=== PATIENT | female | born 1935 | race Caucasian/White ===

== ENCOUNTER 2017-03-28 14:38 | Inpatient (IN) | payer MEDICARE, OTHER ==
[2017-03-28] MEDS ORDERED: ACETAMINOPHEN 1000 MG/100 ML VIAL (NON FORMULARY) IVPB ONE (14:50)
--- NOTE | 2017-03-28 14:50 | PDOC ---
History of Present Illness - General Chief Complaint: Injury Stated Complaint: HIP PAIN Time Seen by Provider: 03/28/17 14:42 History Source: Patient, Skilled Nursing Records Exam Limitations: Dementia - History of Present Illness Initial Comments: 03/28/17 14:50 CHIEF COMPLAINT: Fall HISTORY OF PRESENT ILLNESS: This is an 81 year old female with a history of hyperthyroidism, NIDDM, HTN, iron-deficiency anemia, and advanced dementia brought in by ambulance after an unwitnessed fall. The patient is unable to provide a complete history secondary to dementia, but does state that she fell last night. It is unclear whether this was a mechanical fall. When asked where she has pain, she points to her right hip and is also holding her right elbow in flexion. Vital signs on arrival are notable for BP 180/91 and P 94. REVIEW OF SYSTEMS: Limited by dementia. Indicates right hip pain. PHYSICAL EXAM: GENERAL: The patient is awake, alert, oriented x 1, and whimpering in pain. HEAD: Normal with no signs of trauma. ENT: Pupils equal, round and reactive to light, extraocular movements intact, sclera anicteric, conjunctiva clear. Neck supple. LUNGS: Clear to auscultation bilaterally. Normal excursion. No respiratory distress or use of accessory muscles. CV: RRR, S1/S2, no MRG. Cap refill < 2 sec. ABDOMEN: Soft, non-distended, non-tender. EXTREMITIES: Right hip shortened and externally rotated. Bilateral hip tenderness. Right elbow skin tear; tender at right distal radius, elbow, and humerus. NEUROLOGICAL: Normal speech. CN II-XII grossly intact. PSYCH: Normal mood, normal affect. SKIN: Warm, dry, normal turgor, no rashes or lesions noted. Past History - Past Medical History Allergies/Adverse Reactions: Allergies Allergy/AdvReac Type Severity Reaction Status Date / Time No Known Allergies Allergy Verified 03/28/17 15:10 Home Medications: Ambulatory Orders Acetaminophen [Tylenol] 650 mg PO BID 03/28/17 Enalapril Maleate [Vasotec] 20 mg PO DAILY 03/28/17 Multivitamins [Tab-A-Vit -] 1 tab PO DAILY 03/28/17 RX: Chlorthalidone 25 mg PO DAILY 03/28/17 RX: Ferrous Sulfate 325 mg PO DAILY 03/28/17 RX: Metformin HCl 850 mg PO BID 03/28/17 RX: Methimazole 5 mg PO DAILY 03/28/17 Rivastigmine Tartrate [Exelon (Nf) -] 3 mg PO BID 03/28/17 Tramadol HCl/Acetaminophen [Ultracet Tablet] 1 each PO PRN PRN 03/28/17 ED Treatment Course - LABORATORY CBC & Chemistry Diagram: 03/28/17 15:00 03/28/17 16:30 - RADIOLOGY Radiology Studies Ordered: Category Date Time Status HEAD CT WITH CONTRAST [CT] Stat CT Scan 03/28/17 14:49 Ordered HIP & PELVIS-LEFT [RAD] Stat Radiology 03/28/17 14:49 Ordered HIP & PELVIS-RIGHT [RAD] Stat Radiology 03/28/17 14:49 Ordered Medical Decision Making - Medical Decision Making 03/28/17 15:57 A/P: 81 year old female with advanced dementia s/p unwitnessed fall. 1. EKG 2. Cardiac labs and UA/culture 3. Xray: bilateral hips, right wrist, right elbow, right humerus 4. Ofirmev 1000mg IVPB for pain 03/28/17 16:28 UA with 3+ leukesterase and positive nitrites 03/28/17 18:13 CTH: Multiple chronic infarcts. No acute pathology.
[2017-03-28 15:16] LABS: BASOPHIL 0.3 % (0-2.0); EOSINOPHIL 0.3 % (0-4.5); MCH 30.9 pg (25.7-33.7); MEAN CELL VOLUME 93.7 fl (80-96); PLATELET COUNT 281 K/MM3 (134-434); RDW 12.8 % (11.6-15.6); WHITE BLOOD COUNT 11.2 K/mm3 (4.0-10.0)
[2017-03-28 16:09] LABS: URINE APPEARANCE TURBID; URINE BILIRUBIN NEGATIVE (NEGATIVE); URINE COLOR YELLOW; URINE GLUCOSE (UA) 3+ (NEGATIVE); URINE KETONE TRACE (NEGATIVE); URINE NITRITE POSITIVE (NEGATIVE); URINE UROBILINOGEN NEGATIVE mg/dL (0.2-1.0)
[2017-03-28 16:19] LABS: URINE BLOOD 1+ (NEGATIVE); URINE LEUK ESTERASE 3+ (NEGATIVE); URINE PROTEIN 1+ (NEGATIVE)
[2017-03-28] MEDS ORDERED: CEFTRIAXONE 1 GM in DEXTROSE 5%-WATER - 50 ML IVPB ONE (16:28)
[2017-03-28 16:32] LABS: URINE HYALINE CAST 23 /lpf; URINE RBC 20 /hpf (0-3); URINE WBC 3236 /hpf (3-5); YEAST MODERATE
[2017-03-28] MEDS ORDERED: CEFTRIAXONE 50 ML ONE (16:33)
[2017-03-28 17:06] LABS: INR 1.11 (0.82-1.09); PROTHROMBIN TIME (PATIENT) 12.2 SEC (9.98-11.88)
[2017-03-28 17:15] LABS: ALBUMIN 3.5 g/dl (3.4-5.0); ANION GAP 14 (8-16); BILIRUBIN,TOTAL 0.4 mg/dL (0.2-1.0); CALCIUM 9.3 mg/dL (8.5-10.1); CO2 25 mmol/L (21-32); GLUCOSE,RANDOM 277 mg/dL (74-106); SGOT/AST 18 U/L (15-37); SGPT/ALT 20 U/L (12-78); TOT PROT 7.4 g/dl (6.4-8.2)
[2017-03-28 17:18] LABS: ALK PHOS 71 U/L (45-117); TROPONIN I < 0.02 ng/ml (0.00-0.05)
--- NOTE | 2017-03-28 19:26 | PDOC ---
*Physical Exam - Vital Signs Last Vital Signs Temp Pulse Resp BP Pulse Ox 97.9 F 94 H 18 180/101 100 03/28/17 15:15 03/28/17 15:15 03/28/17 15:15 03/28/17 15:15 03/28/17 15:15 - Physical Exam Comments: 03/28/17 19:21 Sign-out received from outgoing ER provider Kitty. Pt interviewed and examined. Ancillary studies reviewed. Will admit pending imaging. 03/28/17 20:40 X-ray results: probable R femoral neck fracture, additional imaging suggested. Imaging of RUE negative. Pelvic CT ordered. -Will admit for ortho consult in AM and IV abx for UTI. Patient's PCP is Dr. Kent, [facility]. 03/28/17 22:00 Discussed case with MD Pond who accepts patient for inpatient admission. ED Treatment Course - LABORATORY CBC & Chemistry Diagram: 03/28/17 15:00 03/28/17 16:30 - ADDITIONAL ORDERS Additional order review: Laboratory Results 03/28/17 03/28/17 03/28/17 16:30 16:06 15:56 INR 1.11 Sodium 134 L Potassium 3.6 Chloride 95 L Carbon Dioxide 25 Anion Gap 14 BUN 18 Creatinine 1.0 Creat Clearance w eGFR 53.21 Random Glucose 277 H Calcium 9.3 Total Bilirubin 0.4 AST 18 ALT 20 Alkaline Phosphatase 71 Creatine Kinase 104 Troponin I < 0.02 Total Protein 7.4 Albumin 3.5 Urine Color Urine Appearance Urine pH Ur Specific [place] Urine Protein Urine Glucose (UA) Urine Ketones Urine Blood Urine Nitrite Urine Bilirubin Urine Urobilinogen Ur Leukocyte Esterase Urine RBC Urine WBC Hyaline Casts Urine Yeast Blood Type O POSITIVE Antibody Screen Negative 03/28/17 03/28/17 03/28/17 15:56 15:00 15:00 INR Cancelled Sodium Cancelled Potassium Cancelled Chloride Cancelled Carbon Dioxide Cancelled Anion Gap Cancelled BUN Cancelled Creatinine Cancelled Creat Clearance w eGFR Cancelled Random Glucose Cancelled Calcium Cancelled Total Bilirubin Cancelled AST Cancelled ALT Cancelled Alkaline Phosphatase Cancelled Creatine Kinase Cancelled Troponin I Cancelled Total Protein Cancelled Albumin Cancelled Urine Color Yellow Urine Appearance Turbid Urine pH 6.0 Ur Specific [place] 1.020 Urine Protein 1+ H Urine Glucose (UA) 3+ H Urine Ketones Trace H Urine Blood 1+ H Urine Nitrite Positive Urine Bilirubin Negative Urine Urobilinogen Negative Ur Leukocyte Esterase 3+ H Urine RBC 20 Urine WBC 3236 Hyaline Casts 23 Urine Yeast Moderate Blood Type Antibody Screen 03/28/17 15:00 RBC 4.24 MCV 93.7 MCHC 33.0 RDW 12.8 MPV 11.0 Neutrophils % 77.0 Lymphocytes % 13.8 Monocytes % 8.6 Eosinophils % 0.3 Basophils % 0.3 - Medications Given in the ED: ED Medications Discontinued Medications Generic Name Dose Route Start Last Admin Trade Name Jonatan PRN Reason Stop Dose Admin Acetaminophen 1,000 mg 03/28/17 14:50 03/28/17 15:21 Ofirmev Injection - IVPB 03/28/17 14:51 1,000 mg ONCE ONE Administration Ceftriaxone Sodium 1 gm/ 50 mls @ 100 mls/hr 03/28/17 16:28 03/28/17 16:33 Dextrose IVPB 03/28/17 16:57 100 mls/hr ONCE ONE Administration *DC/Admit/Observation/Transfer Diagnosis at time of Disposition: Hip fracture Qualifiers: Encounter type: initial encounter Fracture type: closed Laterality: right Qualified Code(s): S72.001A - Fracture of unspecified part of neck of right femur, initial encounter for closed fracture UTI (urinary tract infection) Qualifiers: Urinary tract infection type: site unspecified Hematuria presence: without hematuria Qualified Code(s): N39.0 - Urinary tract infection, site not specified - Discharge Dispostion Admit: Yes - Referrals Referrals: Maco Kent [Primary Care Provider] -
[2017-03-29 04:18] VITALS: BMI 20.2
[2017-03-29] MEDS ORDERED: PT OWN MED DRAWER 7, Y5N ONE (09:24)
[2017-03-29] MEDS: ACETAMINOPHEN 325 MG TABLET (FP) PO PRN ×2 (09:55→21:20)
[2017-03-29] MEDS: METHIMAZOLE 5 MG TABLET (FP) PO SCH (09:55)
[2017-03-29] MEDS: RIVASTIGMINE TARTRATE 1.5 MG CAPSULE PO SCH ×2 (09:55→21:21)
[2017-03-29] MEDS: ENALAPRIL MALEATE 10 MG TABLET (FP) PO SCH (09:55)
[2017-03-29] MEDS ORDERED: CEFTRIAXONE 1 GM in DEXTROSE 5%-WATER - 100 ML IVPB SCH (10:00)
[2017-03-29] MEDS ORDERED: cefTRIAXone 1 GM/50 ML BAG (PRE-DOCKED) IVPB SCH (10:00)
[2017-03-29] MEDS: SODIUM CHLORIDE 1,000 ML IV SCH ×2 (10:15→22:43)
--- NOTE | 2017-03-29 14:44 | CONSULT ---
Consult Consult Specialty:: infectious diseases Reason for Consultation:: uti - History of Present Illness Chief Complaint: fall History of Present Illness: This is an 81 year old female with a history of hyperthyroidism, NIDDM, HTN, iron-deficiency anemia, admitted after an unwitnessed fall. The patient is unable to provide a complete history secondary to dementia, but does state that she fell last night. Her daughter is in the room but she does not know the sequence of events that happened she says she got 2 calls and the second call said that patient fell in the bathroom currently patient is awake and alert with daughter in the room patient has acute rt hip fracture - History Source History Provided By: Family Member Limitations to Obtaining History: Poor Historian - Alcohol/Substance Use Hx Alcohol Use: No - Smoking History Smoking history: Never smoked Home Medications - Allergies Allergies/Adverse Reactions: Allergies Allergy/AdvReac Type Severity Reaction Status Date / Time No Known Allergies Allergy Verified 03/28/17 15:10 - Home Medications Home Medications: Ambulatory Orders Acetaminophen [Tylenol] 650 mg PO BID 03/28/17 Chlorthalidone 25 mg PO DAILY 03/28/17 Enalapril Maleate [Vasotec] 20 mg PO DAILY 03/28/17 Ferrous Sulfate 325 mg PO DAILY 03/28/17 Metformin HCl 850 mg PO BID 03/28/17 Methimazole 5 mg PO DAILY 03/28/17 Multivitamins [Tab-A-Vit -] 1 tab PO DAILY 03/28/17 Rivastigmine Tartrate [Exelon (Nf) -] 3 mg PO BID 03/28/17 Tramadol HCl/Acetaminophen [Ultracet Tablet] 1 each PO PRN PRN 03/28/17 Review of Systems - Review of Systems Constitutional: reports: No Symptoms Eyes: reports: No Symptoms HENT: reports: No Symptoms Neck: reports: No Symptoms Cardiovascular: reports: No Symptoms Respiratory: reports: No Symptoms Gastrointestinal: reports: No Symptoms Genitourinary: reports: No Symptoms Musculoskeletal: reports: Joint Pain Integumentary: reports: No Symptoms Neurological: reports: No Symptoms Endocrine: reports: No Symptoms Hematology/Lymphatic: reports: No Symptoms Psychiatric: reports: No Symptoms Physical Exam Vital Signs: Vital Signs Temperature 98.2 F 03/29/17 14:00 Pulse Rate 93 H 03/29/17 14:00 Respiratory Rate 20 03/29/17 14:00 Blood Pressure 151/77 03/29/17 14:00 O2 Sat by Pulse Oximetry (%) 96 03/29/17 01:45 Constitutional: Yes: No Distress, Calm Neck: Yes: Supple, Trachea Midline Cardiovascular: Yes: Regular Rate and Rhythm Respiratory: Yes: Regular, CTA Bilaterally Gastrointestinal: Yes: Normal Bowel Sounds, Soft Musculoskeletal: Yes: Other Extremities: Yes: Other (rt hip fracture) Neurological: Yes: Alert Psychiatric: Yes: Alert Imaging - Results Chest X-ray: Report Reviewed, Image Reviewed X-ray: Report Reviewed, Image Reviewed Assessment/Plan Problem List - Problems (1) Hip fracture Code(s): S72.009A - FRACTURE OF UNSP PART OF NECK OF UNSP FEMUR, INIT Qualifiers: Encounter type: initial encounter Fracture type: closed Laterality : right Qualified Code(s): S72.001A - Fracture of unspecified part of neck of right femur, initial encounter for closed fracture (2) UTI (urinary tract infection) Code(s): N39.0 - URINARY TRACT INFECTION, SITE NOT SPECIFIED Qualifiers: Urinary tract infection type: site unspecified Hematuria presence: without hematuria Qualified Code(s): N39.0 - Urinary tract infection, site not specified plan will change abx to zosyn hip surgery tomorrow
[2017-03-29] MEDS ORDERED: DEXTROSE 5%-WATER - 50 ML IVPB ONE (15:06)
[2017-03-29] MEDS ORDERED: PIPERACILLIN/TAZOBACTAM 3.375 GM VIAL IVPB ONE (15:06)
[2017-03-29] MEDS: PIPERACILLIN/TAZOB 3.375 GM 3.375 GM in DEXTROSE 5%-WATER - 50 ML IVPB SCH ×2 (15:10→17:05)
--- NOTE | 2017-03-29 15:19 | HP ---
Admitting History and Physical - Primary Care Physician PCP: Carrillo Pond - Admission History of Present Illness: 81 year old female with a history of hyperthyroidism, NIDDM, HTN, iron- deficiency anemia, admitted after an unwitnessed fall. The patient is unable to provide a complete history secondary to dementia, but does state that she fell last night. 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 Cardiovascular: Yes: HTN Endocrine: Yes: Diabetes Mellitus, Hyperthyroidism - Smoking History Smoking history: Never smoked - Alcohol/Substance Use Hx Alcohol Use: No Home Medications - Allergies Allergies/Adverse Reactions: Allergies Allergy/AdvReac Type Severity Reaction Status Date / Time No Known Allergies Allergy Verified 03/28/17 15:10 - Home Medications Home Medications: Ambulatory Orders Acetaminophen [Tylenol] 650 mg PO BID 03/28/17 Chlorthalidone 25 mg PO DAILY 03/28/17 Enalapril Maleate [Vasotec] 20 mg PO DAILY 03/28/17 Ferrous Sulfate 325 mg PO DAILY 03/28/17 Metformin HCl 850 mg PO BID 03/28/17 Methimazole 5 mg PO DAILY 03/28/17 Multivitamins [Tab-A-Vit -] 1 tab PO DAILY 03/28/17 Rivastigmine Tartrate [Exelon (Nf) -] 3 mg PO BID 03/28/17 Tramadol HCl/Acetaminophen [Ultracet Tablet] 1 each PO PRN PRN 03/28/17 Physical Examination Vital Signs: Vital Signs Temperature 98.2 F 03/29/17 14:00 Pulse Rate 93 H 03/29/17 14:00 Respiratory Rate 20 03/29/17 14:00 Blood Pressure 151/77 03/29/17 14:00 O2 Sat by Pulse Oximetry (%) 92 L 03/29/17 09:00 Constitutional: Yes: No Distress HENT: Yes: Atraumatic Neck: Yes: Supple Cardiovascular: Yes: Regular Rate and Rhythm Respiratory: Yes: CTA Bilaterally Gastrointestinal: Yes: Normal Bowel Sounds Extremities: Yes: WNL Neurological: Yes: Alert Imaging - Results X-ray: Report Reviewed Problem List - Problems (1) Hip fracture Assessment/Plan: ortho on board will get cardiac clearance will check labs Code(s): S72.009A - FRACTURE OF UNSP PART OF NECK OF UNSP FEMUR, INIT Qualifiers: Encounter type: initial encounter Fracture type: closed Laterality : right Qualified Code(s): S72.001A - Fracture of unspecified part of neck of right femur, initial encounter for closed fracture (2) UTI (urinary tract infection) Assessment/Plan: iv abx uc id consult Code(s): N39.0 - URINARY TRACT INFECTION, SITE NOT SPECIFIED Qualifiers: Urinary tract infection type: site unspecified Hematuria presence: without hematuria Qualified Code(s): N39.0 - Urinary tract infection, site not specified Assessment/Plan Laboratory Tests 03/28/17 03/28/17 03/28/17 15:00 15:00 15:00 WBC 11.2 H RBC 4.24 Hgb 13.1 Hct 39.8 MCV 93.7 MCH 30.9 MCHC 33.0 RDW 12.8 Plt Count 281 MPV 11.0 Neutrophils % 77.0 Lymphocytes % 13.8 Monocytes % 8.6 Eosinophils % 0.3 Basophils % 0.3 INR Cancelled Sodium Cancelled Potassium Cancelled Chloride Cancelled Carbon Dioxide Cancelled Anion Gap Cancelled BUN Cancelled Creatinine Cancelled Creat Clearance w eGFR Cancelled POC Glucometer Random Glucose Cancelled Calcium Cancelled Total Bilirubin Cancelled AST Cancelled ALT Cancelled Alkaline Phosphatase Cancelled Creatine Kinase Cancelled Troponin I Cancelled Total Protein Cancelled Albumin Cancelled Urine Color Urine Appearance Urine pH Ur Specific [place] Urine Protein Urine Glucose (UA) Urine Ketones Urine Blood Urine Nitrite Urine Bilirubin Urine Urobilinogen Ur Leukocyte Esterase Urine RBC Urine WBC Hyaline Casts Urine Yeast Blood Type Antibody Screen 03/28/17 03/28/17 03/28/17 15:56 15:56 16:06 WBC RBC Hgb Hct MCV MCH MCHC RDW Plt Count MPV Neutrophils % Lymphocytes % Monocytes % Eosinophils % Basophils % INR 1.11 Sodium Potassium Chloride Carbon Dioxide Anion Gap BUN Creatinine Creat Clearance w eGFR POC Glucometer Random Glucose Calcium Total Bilirubin AST ALT Alkaline Phosphatase Creatine Kinase Troponin I Total Protein Albumin Urine Color Yellow Urine Appearance Turbid Urine pH 6.0 Ur Specific [place] 1.020 Urine Protein 1+ H Urine Glucose (UA) 3+ H Urine Ketones Trace H Urine Blood 1+ H Urine Nitrite Positive Urine Bilirubin Negative Urine Urobilinogen Negative Ur Leukocyte Esterase 3+ H Urine RBC 20 Urine WBC 3236 Hyaline Casts 23 Urine Yeast Moderate Blood Type O POSITIVE Antibody Screen Negative 03/28/17 03/29/17 16:30 06:42 WBC RBC Hgb Hct MCV MCH MCHC RDW Plt Count MPV Neutrophils % Lymphocytes % Monocytes % Eosinophils % Basophils % INR Sodium 134 L Potassium 3.6 Chloride 95 L Carbon Dioxide 25 Anion Gap 14 BUN 18 Creatinine 1.0 Creat Clearance w eGFR 53.21 POC Glucometer 276 Random Glucose 277 H Calcium 9.3 Total Bilirubin 0.4 AST 18 ALT 20 Alkaline Phosphatase 71 Creatine Kinase 104 Troponin I < 0.02 Total Protein 7.4 Albumin 3.5 Urine Color Urine Appearance Urine pH Ur Specific [place] Urine Protein Urine Glucose (UA) Urine Ketones Urine Blood Urine Nitrite Urine Bilirubin Urine Urobilinogen Ur Leukocyte Esterase Urine RBC Urine WBC Hyaline Casts Urine Yeast Blood Type Antibody Screen Active Medications Generic Name Dose Route Start Last Admin Trade Name Freq PRN Reason Stop Dose Admin Acetaminophen 650 mg 03/29/17 01:05 03/29/17 09:55 Tylenol - PO 650 mg Q6H PRN Administration FEVER OR PAIN Enalapril Maleate 20 mg 03/29/17 10:00 03/29/17 09:55 Vasotec - PO 20 mg DAILY TAMMY Administration Sodium Chloride 1,000 mls @ 85 mls/hr 03/29/17 09:45 03/29/17 10:15 Normal Saline - IV 85 mls/hr ASDIR TAMMY Administration Piperacillin Sod/Tazobactam 50 mls @ 100 mls/hr 03/29/17 14:45 03/29/17 15:10 Sod 3.375 gm/ Dextrose IVPB 100 mls/hr Q8H-IV TAMMY Administration Protocol Metformin HCl 850 mg 03/29/17 07:00 03/29/17 06:42 Glucophage - PO 850 mg BIDAC TAMMY Administration Methimazole 5 mg 03/29/17 10:00 03/29/17 09:55 Tapazole - PO 5 mg DAILY TAMMY Administration Rivastigmine Tartrate 3 mg 03/29/17 10:00 03/29/17 09:55 Exelon (Nf) - PO Not Given BID TAMMY
--- NOTE | 2017-03-29 16:13 | CON.CARD ---
Consult Consult Specialty:: Cardiology Referred by:: Dr. 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 She denies chest pain, SOB or palpitations. She denies fever or chills. She denies headache or lightheadedness. She denies nausea, vomiting, diarrhea or abdominal pain. Cardiology consultation was called for further cardiac evaluation and for cardiac clearance. She current also has UTI for which ID was consulted and she is on empiric antibiotic coverage. She has underlying organic brain syndrome/dementia. 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 Cardio/Vascular: Yes: HTN Endocrine: Yes: Diabetes Mellitus, Hyperthyroidism - Past Surgical History Past Surgical History: Yes: - Alcohol/Substance Use Hx Alcohol Use: No - Smoking History Smoking history: Never smoked Home Medications - Allergies Allergies/Adverse Reactions: Allergies Allergy/AdvReac Type Severity Reaction Status Date / Time No Known Allergies Allergy Verified 03/28/17 15:10 - Home Medications Home Medications: Ambulatory Orders Acetaminophen [Tylenol] 650 mg PO BID 03/28/17 Chlorthalidone 25 mg PO DAILY 03/28/17 Enalapril Maleate [Vasotec] 20 mg PO DAILY 03/28/17 Ferrous Sulfate 325 mg PO DAILY 03/28/17 Metformin HCl 850 mg PO BID 03/28/17 Methimazole 5 mg PO DAILY 03/28/17 Multivitamins [Tab-A-Vit -] 1 tab PO DAILY 03/28/17 Rivastigmine Tartrate [Exelon (Nf) -] 3 mg PO BID 03/28/17 Tramadol HCl/Acetaminophen [Ultracet Tablet] 1 each PO PRN PRN 03/28/17 Family Disease History - Family Disease History Family Disease History: Heart Disease: Sister (PR) Other Family History: History of CVA Review of Systems - Review of Systems Constitutional: denies: Chills, Fever Cardiovascular: denies: Chest Pain, Palpitations, Shortness of Breath Respiratory: denies: Cough, Hemoptysis, Orthopnea, PND, SOB, SOB on Exertion Gastrointestinal: denies: Abdominal Pain, Constipation, Diarrhea, Melena, Nausea , Rectal Bleeding, Vomiting Musculoskeletal: reports: Joint Pain Neurological: reports: Confusion, Unsteady Gait, Weakness. denies: Dizziness, Headache, Numbness, Seizure, Syncope Vital Signs: Vital Signs Temperature 98.2 F 03/29/17 14:00 Pulse Rate 93 H 03/29/17 14:00 Respiratory Rate 20 03/29/17 14:00 Blood Pressure 151/77 03/29/17 14:00 O2 Sat by Pulse Oximetry (%) 92 L 03/29/17 09:00 Neck: Yes: Supple Respiratory: Yes: Diminished Gastrointestinal: Yes: Normal Bowel Sounds, Soft. No: Tenderness Cardiovascular: Yes: Regular Rate and Rhythm JVD: No Carotid Bruit: No PMI: Non-Displaced Heart Sounds: Yes: S1, S2 Murmur: Yes: Systolic Murmur, Grade 1 Edema: No - Other Data Labs, Other Data: INR, PTT INR 1.11 (0.82-1.09) 03/28/17 16:06 Laboratory Results - last 24 hr 03/28/17 03/28/17 03/28/17 15:56 15:56 16:06 INR 1.11 Sodium Potassium Chloride Carbon Dioxide Anion Gap BUN Creatinine Creat Clearance w eGFR POC Glucometer Random Glucose Calcium Total Bilirubin AST ALT Alkaline Phosphatase Creatine Kinase Troponin I Total Protein Albumin Urine Color Yellow Urine Appearance Turbid Urine pH 6.0 Ur Specific [place] 1.020 Urine Protein 1+ H Urine Glucose (UA) 3+ H Urine Ketones Trace H Urine Blood 1+ H Urine Nitrite Positive Urine Bilirubin Negative Urine Urobilinogen Negative Ur Leukocyte Esterase 3+ H Urine RBC 20 Urine WBC 3236 Hyaline Casts 23 Urine Yeast Moderate Blood Type O POSITIVE Antibody Screen Negative 03/28/17 03/29/17 16:30 06:42 INR Sodium 134 L Potassium 3.6 Chloride 95 L Carbon Dioxide 25 Anion Gap 14 BUN 18 Creatinine 1.0 Creat Clearance w eGFR 53.21 POC Glucometer 276 Random Glucose 277 H Calcium 9.3 Total Bilirubin 0.4 AST 18 ALT 20 Alkaline Phosphatase 71 Creatine Kinase 104 Troponin I < 0.02 Total Protein 7.4 Albumin 3.5 Urine Color Urine Appearance Urine pH Ur Specific [place] Urine Protein Urine Glucose (UA) Urine Ketones Urine Blood Urine Nitrite Urine Bilirubin Urine Urobilinogen Ur Leukocyte Esterase Urine RBC Urine WBC Hyaline Casts Urine Yeast Blood Type Antibody Screen Sinus rhythm with LVH and probable strain, nonspecific ST-T abnormality Echo: Pending Imaging - Results X-ray: Report Reviewed (Right hip fracture) EKG: Report Reviewed Problem List - Problems (1) Hip fracture Code(s): S72.009A - FRACTURE OF UNSP PART OF NECK OF UNSP FEMUR, INIT Qualifiers: Encounter type: initial encounter Fracture type: closed Laterality : right Qualified Code(s): S72.001A - Fracture of unspecified part of neck of right femur, initial encounter for closed fracture (2) UTI (urinary tract infection) Code(s): N39.0 - URINARY TRACT INFECTION, SITE NOT SPECIFIED Qualifiers: Urinary tract infection type: site unspecified Hematuria presence: without hematuria Qualified Code(s): N39.0 - Urinary tract infection, site not specified (3) HTN (hypertension) Code(s): I10 - ESSENTIAL (PRIMARY) HYPERTENSION Qualifiers: Hypertension type: essential hypertension Qualified Code(s): I10 - Essential (primary) hypertension (4) Diabetes mellitus Code(s): E11.9 - TYPE 2 DIABETES MELLITUS WITHOUT COMPLICATIONS Qualifiers: Diabetes mellitus type: type 2 Diabetes mellitus complication status: without complication Diabetes mellitus intermission coordinator insulin use: without alf use Qualified Code(s): E11.9 - Type 2 diabetes mellitus without complications (5) CVA (cerebral vascular accident) Code(s): I63.9 - CEREBRAL INFARCTION, UNSPECIFIED Qualifiers: CVA mechanism: unspecified Qualified Code(s): I63.9 - Cerebral infarction, unspecified (6) Dementia Code(s): F03.90 - UNSPECIFIED DEMENTIA WITHOUT BEHAVIORAL DISTURBANCE Qualifiers: Dementia type: unspecified type Dementia behavioral disturbance: without behavioral disturbance Qualified Code(s): F03.90 - Unspecified dementia without behavioral disturbance Assessment/Plan 1. Status post mechanical fall resulting in right hip fracture - no syncope 2. Hypertension 3. 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 Type 2 diabetes mellitus 5. Organic brain syndrome/dementia 6. UTI with fever 7. Hyperthyroidism PLAN: 1. Continue Vasotec 20 mg once a day and add Metoprolol Tartrate 25 mg BID and up titrate as tolerated 2. Continue Tapazole and monitor TFT 3. Check lipid panel 4. Transthoracic echocardiography to assess LV/RV and valvular function - preferably prior to surgery to assess LVEF and for risk stratification 5. Pending normal LVEF, patient would be at no absolute contraindication in proceeding with hip surgery in view of absence of ischemic symptoms, decompensated congestive heart failure or malignant arrhythmias. Patient's daughter was by bedside and understands that patient is at an increased risk based on underlying co-morbidities and advanced age. 6. ID input to follow and continue empiric antibiotics coverage. Check urine C+S Further plans are to follow Toribio Paulson MD
[2017-03-29 16:44] LABS: BASOPHIL 0.3 % (0-2.0); EOSINOPHIL 0.2 % (0-4.5); MCH 30.7 pg (25.7-33.7); MCHC 33.1 g/dl (32.0-36.0); MEAN CELL VOLUME 92.9 fl (80-96); MEAN PLT VOLUME 11.1 fl (7.5-11.1); NEUTROPHILS 75.5 % (42.8-82.8); PLATELET COUNT 257 K/MM3 (134-434); RDW 12.6 % (11.6-15.6)
--- NOTE | 2017-03-29 16:52 | EKG ---
Test Reason : Blood Pressure : / mmHG Vent. Rate : 085 BPM Atrial Rate : 085 BPM P-R Int : 160 ms QRS Dur : 088 ms QT Int : 364 ms P-R-T Axes : 015 018 223 degrees QTc Int : 433 ms POOR DATA QUALITY, INTERPRETATION MAY BE ADVERSELY AFFECTED NORMAL SINUS RHYTHM LEFT VENTRICULAR HYPERTROPHY WITH REPOLARIZATION ABNORMALITY ABNORMAL ECG NO PREVIOUS ECGS AVAILABLE BASE LINE ARTIFACTS. REPEAT IF INDICATED Confirmed by RONALDO DUEÑAS MD ([id number] on 03/29/2017 4:51:51 PM Referred By: Confirmed By:RONALDO DUEÑAS MD
[2017-03-29 17:13] LABS: ALBUMIN 3.1 g/dl (3.4-5.0); ANION GAP 12 (8-16); BILIRUBIN,TOTAL 0.5 mg/dL (0.2-1.0); CALCIUM 8.6 mg/dL (8.5-10.1); CO2 29 mmol/L (21-32); CREATININE 0.9 mg/dL (0.55-1.02); GLUCOSE,RANDOM 279 mg/dL (74-106); SGOT/AST 22 U/L (15-37); SGPT/ALT 16 U/L (12-78); TOT PROT 6.7 g/dl (6.4-8.2)
[2017-03-29 17:14] LABS: ALK PHOS 63 U/L (45-117)
--- NOTE | 2017-03-29 17:36 | CONSULT ---
Consult - text type - Consultation Consultation Note: FULL CONSULT DICTATED IMP: DISPLACED RIGHT FEMORAL NECK HIP FX PLAN: RIGHT HEMIARTHROPLASTY TOMORROW
--- NOTE | 2017-03-29 18:22 | CONS ---
DATE OF CONSULTATION: 03/29/2017 ORTHOPEDIC CONSULTATION/[facility] HISTORY OF PRESENT ILLNESS: Patient is an 81-year-old female marginal ambulator, usp patient status post fall injuring her right hip, complaining of significant pain in her right hip, and also pain in her right shoulder. PAST MEDICAL HISTORY: Significant as far as CVA with some right sided weakness, and also an old fracture of her right shoulder. PHYSICAL EXAMINATION: On physical examination, her right lower extremity showed externally rotated, marked increased pain with range of motion of her right hip, good range of motion in the ankle and toes, otherwise neurovascularly intact. She has some pain in her right shoulder, but has pain with passive range of motion, but good overall alignment, and moves as a unit, good range of motion although some fingers of her right shoulder in all planes acromion. X-rays show a right displaced femoral neck fracture. X-rays of the shoulder show an old malunion of a proximal humerus fracture, but no acute fracture. IMPRESSION: 1. Right displaced right femoral neck fracture. Risks, benefits, and alternatives discussed with patient with daughter in great detail. Patient's daughter says she was ambulating last week, even up a flight of stairs, and would like to have a right hemiarthroplasty. I went through risks, benefits, and alternatives with her, and she would like to go forward with right hemiarthroplasty. 2. Contusion right shoulder. Plan for the shoulder is just some rice and will follow the shoulder. Patient will be booked for surgery for tomorrow, pending medical clearance today. SUSAN VILLELA M.D. [id number]
[2017-03-29] MEDS: METOPROLOL TARTRATE 25 MG TABLET (FP) PO SCH (21:20)
[2017-03-30] MEDS ORDERED: PIPERACILLIN/TAZOB 3.375 GM/50 ML PRE-DOCKED IVPB ONE
[2017-03-30] MEDS ORDERED: PIPERACILLIN/TAZOBACTAM 3.375 GM VIAL IVPB ONE ×3 (01:08→17:11)
[2017-03-30] MEDS ORDERED: DEXTROSE 5%-WATER - 50 ML IVPB ONE ×3 (01:09→17:11)
[2017-03-30] MEDS: PIPERACILLIN/TAZOB 3.375 GM 3.375 GM in DEXTROSE 5%-WATER - 50 ML IVPB SCH ×3 (01:10→17:17)
[2017-03-30 07:13] LABS: CHOLESTEROL 130 mg/dL (50-200)
[2017-03-30 07:15] LABS: LDL CHOLESTEROL (ONLY SJRH) 53 mg/dL (5-100)
[2017-03-30] MEDS: METOPROLOL TARTRATE 25 MG TABLET (FP) PO SCH ×3 (08:19→21:26)
[2017-03-30] MEDS: ENALAPRIL MALEATE 10 MG TABLET (FP) PO SCH ×2 (08:19→10:40)
[2017-03-30] MEDS ORDERED: BUPIVACAINE HCL/PF 0.5% (5MG/ML) 10 ML VIAL ONE (09:35)
[2017-03-30] MEDS ORDERED: CEFTRIAXONE 1 GM in DEXTROSE 5%-WATER - 50 ML IVPB SCH (10:00)
[2017-03-30] MEDS ORDERED: ceFAZolin SODIUM 1 GM VIAL IVPB ONE (10:13)
[2017-03-30] MEDS ORDERED: BACITRACIN 50,000 UNITS VIAL NR ONE (10:20)
[2017-03-30] MEDS ORDERED: VANCOMYCIN 1,000 MG VIAL (RESTRICTED TO ID ONLY) IVPB ONE (10:35)
[2017-03-30] MEDS ORDERED: VANCOMYCIN 1,000 MG VIAL (RESTRICTED TO ID ONLY) ONE (10:38)
[2017-03-30] MEDS: METHIMAZOLE 5 MG TABLET (FP) PO SCH (10:40)
[2017-03-30] MEDS: SODIUM CHLORIDE 1,000 ML IV SCH ×2 (10:41→12:36)
[2017-03-30] MEDS: RIVASTIGMINE TARTRATE 1.5 MG CAPSULE PO SCH ×2 (10:41→21:27)
[2017-03-30] MEDS ORDERED: PROMETHAZINE HCL 25 MG/1 ML VIAL IVPUSH PRN ×2 (10:56→12:10)
[2017-03-30] MEDS ORDERED: ONDANSETRON 4 MG/2 ML VIAL IVPUSH PRN ×2 (10:56→12:10)
[2017-03-30] MEDS ORDERED: LACTATED RINGERS SOLUTION 1,000 ML IV SCH (11:00)
--- NOTE | 2017-03-30 11:20 | OP ---
Operative Note - Note: Operative Date: 03/30/17 Pre-Operative Diagnosis: Displaced right hip femoral neck fracture Operation: Right hip hemiarthroplasty Post-Operative Diagnosis: Same as Pre-op Surgeon: Salomon Lea Senior Communications Specialist: Deion Pearl Anesthesiologist/EMBEDDED ENGINEER: Corina Baker Anesthesia: Spinal Estimated Blood Loss (mls): 100 Fluid Volume Replaced (mls): 700 Operative Report Dictated: Yes
--- NOTE | 2017-03-30 11:23 | SURG ---
Surgery Glass Smoother Note Glass Smoother: Deion Pearl PA-C Date of Service: 03/30/17 Diagnosis: Right hip femoral neck fracture Procedure: Right hip hemiarthroplasty I was present for the entirety of the operative procedure. For further detail, please refer to operative report. Visit type - Case Type Case Type: ED Admission - New patient This patient is new to me today: Yes Date on this admission: 03/30/17
[2017-03-30] MEDS ORDERED: ceFAZolin SODIUM 1 GM VIAL ONE (12:28)
[2017-03-30] MEDS ORDERED: PROPOFOL 20 ML ONE ×2 (12:34)
--- NOTE | 2017-03-30 16:01 | PN ---
Progress Note, Physician History of Present Illness: No complaints post right hip hemiarthroplasty. - Current Medication List Current Medications: Active Medications Acetaminophen (Tylenol -) 650 mg PO Q6H PRN PRN Reason: FEVER OR PAIN Enalapril Maleate (Vasotec -) 20 mg PO DAILY [facility] Fentanyl (Sublimaze Injection -) 50 mcg IVPUSH [id number] PRN PRN Reason: PAIN Stop: 04/02/17 10:57 Lactated Ringer's (Lactated Ringers Solution) 1,000 mls @ 125 mls/hr IV ASDIR [facility] Sodium Chloride (Normal Saline -) 1,000 mls @ 85 mls/hr IV ASDIR [facility] Piperacillin Sod/Tazobactam (Sod 3.375 gm/ Dextrose) 50 mls @ 100 mls/hr IVPB Q8H-IV [facility] PRN Reason: Protocol Metformin HCl (Glucophage -) 850 mg PO BIDAC [facility] Methimazole (Tapazole -) 5 mg PO DAILY [facility] Metoprolol Tartrate (Lopressor -) 25 mg PO BID [facility] Ondansetron HCl (Zofran Injection) 4 mg IVPUSH Q6H PRN PRN Reason: NAUSEA AND/OR VOMITING Stop: 03/30/17 16:57 Promethazine HCl (Phenergan Injection -) 12.5 mg IVPUSH Q6H PRN PRN Reason: NAUSEA Stop: 03/30/17 16:57 Rivastigmine Tartrate (Exelon (Nf) -) 3 mg PO BID [facility] - Objective Vital Signs: Vital Signs Temperature 98.1 F 03/30/17 14:00 Pulse Rate 83 03/30/17 14:00 Respiratory Rate 20 03/30/17 14:00 Blood Pressure 154/83 03/30/17 14:00 O2 Sat by Pulse Oximetry (%) 98 03/30/17 13:00 Constitutional: Yes: No Distress, Calm Neck: Yes: Supple Cardiovascular: Yes: Regular Rate and Rhythm Respiratory: Yes: Regular, CTA Bilaterally Gastrointestinal: Yes: Normal Bowel Sounds, Soft Edema: No Labs: CBC, BMP 03/29/17 16:00 03/29/17 16:00 INR, PTT INR 1.11 (0.82-1.09) 03/28/17 16:06 Problem List - Problems (1) CVA (cerebral vascular accident) Code(s): I63.9 - CEREBRAL INFARCTION, UNSPECIFIED Qualifiers: CVA mechanism: unspecified Qualified Code(s): I63.9 - Cerebral infarction, unspecified (2) Dementia Code(s): F03.90 - UNSPECIFIED DEMENTIA WITHOUT BEHAVIORAL DISTURBANCE Qualifiers: Dementia type: unspecified type Dementia behavioral disturbance: without behavioral disturbance Qualified Code(s): F03.90 - Unspecified dementia without behavioral disturbance (3) Diabetes mellitus Code(s): E11.9 - TYPE 2 DIABETES MELLITUS WITHOUT COMPLICATIONS Qualifiers: Diabetes mellitus type: type 2 Diabetes mellitus complication status: without complication Diabetes mellitus fci insulin use: without fci use Qualified Code(s): E11.9 - Type 2 diabetes mellitus without complications (4) HTN (hypertension) Code(s): I10 - ESSENTIAL (PRIMARY) HYPERTENSION Qualifiers: Hypertension type: essential hypertension Qualified Code(s): I10 - Essential (primary) hypertension (5) Hip fracture Code(s): S72.009A - FRACTURE OF UNSP PART OF NECK OF UNSP FEMUR, INIT Qualifiers: Encounter type: initial encounter Fracture type: closed Laterality : right Qualified Code(s): S72.001A - Fracture of unspecified part of neck of right femur, initial encounter for closed fracture (6) UTI (urinary tract infection) Code(s): N39.0 - URINARY TRACT INFECTION, SITE NOT SPECIFIED Qualifiers: Urinary tract infection type: site unspecified Hematuria presence: without hematuria Qualified Code(s): N39.0 - Urinary tract infection, site not specified (7) History of right hip hemiarthroplasty Code(s): Z96.641 - PRESENCE OF RIGHT ARTIFICIAL HIP JOINT (8) Moderate aortic regurgitation Code(s): I35.1 - NONRHEUMATIC AORTIC (VALVE) INSUFFICIENCY (9) Hypokalemia Code(s): E87.6 - HYPOKALEMIA Assessment/Plan 03/30/2017 Normal biventricular size and fxn mod AR 1. POD#1 Right hip hemiarthroplasty for displaced right hip femoral neck fracture 2. Hypertension 3. 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 Type 2 diabetes mellitus 5. Organic brain syndrome/dementia 6. UTI with fever 7. Hyperthyroidism 8. Moderate AR PLAN: 1. Continue Vasotec 20 mg once a day and Metoprolol Tartrate 25 mg BID with uptitration as tolerated 2. Complete abx course 3. DVT prophylaxis, replete K
[2017-03-30] MEDS ORDERED: PT OWN MED DRAWER 7, Y5N ONE ×2 (16:29→21:25)
[2017-03-30] MEDS: LACTATED RINGERS SOLUTION 1,000 ML IV SCH (16:30)
[2017-03-30] MEDS ORDERED: POTASSIUM CHLORIDE TABS 20 MEQ TABLET.ER (FP) PO ONE (16:41)
--- NOTE | 2017-03-30 16:43 | PN ---
Progress Note, Physician History of Present Illness: comfortable - Current Medication List Current Medications: Active Medications Acetaminophen (Tylenol -) 650 mg PO Q6H PRN PRN Reason: FEVER OR PAIN Enalapril Maleate (Vasotec -) 20 mg PO DAILY [facility] Fentanyl (Sublimaze Injection -) 50 mcg IVPUSH [id number] PRN PRN Reason: PAIN Stop: 04/02/17 10:57 Lactated Ringer's (Lactated Ringers Solution) 1,000 mls @ 125 mls/hr IV ASDIR [facility] Last Admin: 03/30/17 16:30 Dose: Not Given Sodium Chloride (Normal Saline -) 1,000 mls @ 85 mls/hr IV ASDIR [facility] Last Admin: 03/30/17 12:36 Dose: 85 mls/hr Piperacillin Sod/Tazobactam (Sod 3.375 gm/ Dextrose) 50 mls @ 100 mls/hr IVPB Q8H-IV [facility] PRN Reason: Protocol [facility] Last Admin: 03/30/17 16:34 Dose: 850 mg Methimazole (Tapazole -) 5 mg PO DAILY [facility] Metoprolol Tartrate (Lopressor -) 25 mg PO BID [facility] Ondansetron HCl (Zofran Injection) 4 mg IVPUSH Q6H PRN PRN Reason: NAUSEA AND/OR VOMITING Stop: 03/30/17 16:57 Potassium Chloride (K-Dur -) 40 meq PO ONCE ONE Stop: 03/30/17 16:42 Promethazine HCl (Phenergan Injection -) 12.5 mg IVPUSH Q6H PRN PRN Reason: NAUSEA Stop: 03/30/17 16:57 Rivastigmine Tartrate (Exelon (Nf) -) 3 mg PO BID [facility] - Objective Vital Signs: Vital Signs Temperature 98.1 F 03/30/17 14:00 Pulse Rate 83 03/30/17 14:00 Respiratory Rate 20 03/30/17 14:00 Blood Pressure 154/83 03/30/17 14:00 O2 Sat by Pulse Oximetry (%) 98 03/30/17 13:00 Constitutional: Yes: No Distress HENT: Yes: Atraumatic Neck: Yes: Supple Cardiovascular: Yes: Regular Rate and Rhythm Respiratory: Yes: CTA Bilaterally Gastrointestinal: Yes: Normal Bowel Sounds Extremities: Yes: WNL Edema: No Neurological: Yes: Alert Labs: CBC, BMP 03/29/17 16:00 03/29/17 16:00 INR, PTT INR 1.11 (0.82-1.09) 03/28/17 16:06 Problem List - Problems (1) Hip fracture Assessment/Plan: s/p surgery R hip prn pain meds pt eval Code(s): S72.009A - FRACTURE OF UNSP PART OF NECK OF UNSP FEMUR, INIT Qualifiers: Qualified Code(s): S72.001A - Fracture of unspecified part of neck of right femur, initial encounter for closed fracture (2) UTI (urinary tract infection) Assessment/Plan: iv abx uc id consult Code(s): N39.0 - URINARY TRACT INFECTION, SITE NOT SPECIFIED Qualifiers: Qualified Code(s): N39.0 - Urinary tract infection, site not specified
--- NOTE | 2017-03-30 18:14 | PN ---
Progress Note, Physician History of Present Illness: patient doing well no complaints daughter in room post op day 1 - Current Medication List Current Medications: Active Medications Acetaminophen (Tylenol -) 650 mg PO Q6H PRN PRN Reason: FEVER OR PAIN Enalapril Maleate (Vasotec -) 20 mg PO DAILY [facility] Enoxaparin Sodium (Lovenox -) 40 mg SQ DAILY [facility] Fentanyl (Sublimaze Injection -) 50 mcg IVPUSH [id number] PRN PRN Reason: PAIN Stop: 04/02/17 10:57 Lactated Ringer's (Lactated Ringers Solution) 1,000 mls @ 125 mls/hr IV ASDIR [facility] Last Admin: 03/30/17 16:30 Dose: Not Given Sodium Chloride (Normal Saline -) 1,000 mls @ 85 mls/hr IV ASDIR [facility] Last Admin: 03/30/17 12:36 Dose: 85 mls/hr Piperacillin Sod/Tazobactam (Sod 3.375 gm/ Dextrose) 50 mls @ 100 mls/hr IVPB Q8H-IV [facility] PRN Reason: Protocol Last Admin: 03/30/17 17:17 Dose: 100 mls/hr Metformin HCl (Glucophage -) 850 mg PO BIDAC [facility] Last Admin: 03/30/17 16:34 Dose: 850 mg Methimazole (Tapazole -) 5 mg PO DAILY [facility] Metoprolol Tartrate (Lopressor -) 25 mg PO BID [facility] Rivastigmine Tartrate (Exelon (Nf) -) 3 mg PO BID [facility] - Objective Vital Signs: Vital Signs Temperature 98.1 F 03/30/17 14:00 Pulse Rate 83 03/30/17 14:00 Respiratory Rate 20 03/30/17 14:00 Blood Pressure 154/83 03/30/17 14:00 O2 Sat by Pulse Oximetry (%) 98 03/30/17 13:00 Constitutional: Yes: No Distress, Calm Cardiovascular: Yes: Regular Rate and Rhythm Respiratory: Yes: Regular, CTA Bilaterally Gastrointestinal: Yes: Normal Bowel Sounds, Soft Extremities: Yes: Other Neurological: Yes: Alert Psychiatric: Yes: Alert Labs: CBC, BMP 03/29/17 16:00 INR, PTT INR 1.11 (0.82-1.09) 03/28/17 16:06 Assessment/Plan Problem List - Problems (1) Hip fracture Code(s): S72.009A - FRACTURE OF UNSP PART OF NECK OF UNSP FEMUR, INIT Qualifiers: Encounter type: initial encounter Fracture type: closed Laterality : right Qualified Code(s): S72.001A - Fracture of unspecified part of neck of right femur, initial encounter for closed fracture (2) UTI (urinary tract infection) Code(s): N39.0 - URINARY TRACT INFECTION, SITE NOT SPECIFIED Qualifiers: Urinary tract infection type: site unspecified Hematuria presence: without hematuria Qualified Code(s): N39.0 - Urinary tract infection, site not specified plan continue abx await for identification of organism
[2017-03-30] MEDS: ACETAMINOPHEN 325 MG TABLET (FP) PO PRN (18:27)
[2017-03-30] MEDS ORDERED: INSULIN (NOVOLOG) ASPART 100 UNITS/ML 10ML VIAL SQ ONE (21:30)
[2017-03-31] MEDS ORDERED: PIPERACILLIN/TAZOBACTAM 3.375 GM VIAL IVPB ONE ×3 (01:58→17:16)
[2017-03-31] MEDS ORDERED: DEXTROSE 5%-WATER - 50 ML IVPB ONE ×3 (01:58→17:16)
[2017-03-31] MEDS: ACETAMINOPHEN 325 MG TABLET (FP) PO PRN ×3 (02:00→21:44)
[2017-03-31] MEDS: PIPERACILLIN/TAZOB 3.375 GM 3.375 GM in DEXTROSE 5%-WATER - 50 ML IVPB SCH ×3 (02:00→17:53)
[2017-03-31] MEDS ORDERED: PT OWN MED DRAWER 7, Y5N ONE ×4 (06:37→21:31)
--- NOTE | 2017-03-31 08:26 | PN ---
Progress Note (short form) - Note Progress Note: AVSS COMFORTABLE BANDAGES DRY AND INTACT CALF SOFT AND NT NVI IMP: DOING WELL PLAN: OOB TO CHAIR WITH ASSISTANCE, PT-WBAT, DC TO SNF WHEN MEDICALLY OK
[2017-03-31] MEDS: ENALAPRIL MALEATE 10 MG TABLET (FP) PO SCH (09:52)
[2017-03-31] MEDS: METHIMAZOLE 5 MG TABLET (FP) PO SCH (09:52)
[2017-03-31] MEDS: METOPROLOL TARTRATE 25 MG TABLET (FP) PO SCH ×2 (09:52→21:45)
[2017-03-31] MEDS: oxyCODONE HCL 5 MG TABLET PO PRN ×2 (09:52→17:03)
[2017-03-31] MEDS: ENOXAPARIN NA (PORCINE) 40 MG/0.4 ML DISP.SYRIN SQ SCH (09:53)
[2017-03-31] MEDS: RIVASTIGMINE TARTRATE 1.5 MG CAPSULE PO SCH ×2 (09:53→21:45)
--- NOTE | 2017-03-31 10:25 | PN ---
Progress Note, Physician Chief Complaint: Not in distress Post op hip surgery POD#2 History of Present Illness: Patient was seen and examined. Awake and alert. Chart was reviewed Denies chest pain, SOB or palpitation - Current Medication List Current Medications: Active Medications Acetaminophen (Tylenol -) 650 mg PO Q6H PRN PRN Reason: FEVER OR PAIN Last Admin: 03/31/17 08:31 Dose: 650 mg Enalapril Maleate (Vasotec -) 20 mg PO DAILY [facility] Last Admin: 03/31/17 09:52 Dose: 20 mg Enoxaparin Sodium (Lovenox -) 40 mg SQ DAILY [facility] Last Admin: 03/31/17 09:53 Dose: 40 mg Fentanyl (Sublimaze Injection -) 50 mcg IVPUSH [id number] PRN PRN Reason: PAIN Stop: 04/02/17 10:57 Lactated Ringer's (Lactated Ringers Solution) 1,000 mls @ 125 mls/hr IV ASDIR [facility] Last Admin: 03/30/17 16:30 Dose: Not Given Sodium Chloride (Normal Saline -) 1,000 mls @ 85 mls/hr IV ASDIR [facility] Last Admin: 03/30/17 12:36 Dose: 85 mls/hr Piperacillin Sod/Tazobactam (Sod 3.375 gm/ Dextrose) 50 mls @ 100 mls/hr IVPB Q8H-IV [facility] PRN Reason: Protocol Last Admin: 03/31/17 09:53 Dose: 100 mls/hr Metformin HCl (Glucophage -) 850 mg PO BIDAC [facility] Last Admin: 03/31/17 06:26 Dose: 850 mg Methimazole (Tapazole -) 5 mg PO DAILY [facility] Last Admin: 03/31/17 09:52 Dose: 5 mg Metoprolol Tartrate (Lopressor -) 25 mg PO BID [facility] Last Admin: 03/31/17 09:52 Dose: 25 mg Oxycodone HCl (Roxicodone -) 5 mg PO Q4H PRN PRN Reason: PAIN Last Admin: 03/31/17 09:52 Dose: 5 mg Rivastigmine Tartrate (Exelon (Nf) -) 3 mg PO BID [facility] Last Admin: 03/31/17 09:53 Dose: 3 mg - Objective Vital Signs: Vital Signs Temperature 98.1 F 03/31/17 09:00 Pulse Rate 84 03/31/17 09:00 Respiratory Rate 20 03/31/17 09:00 Blood Pressure 162/87 03/31/17 09:00 O2 Sat by Pulse Oximetry (%) 98 03/30/17 21:00 Neck: Yes: Supple Cardiovascular: Yes: Regular Rate and Rhythm, Murmur (Soft SM), S1, S2 Respiratory: Yes: CTA Bilaterally Gastrointestinal: Yes: Normal Bowel Sounds, Soft. No: Tenderness Edema: No Problem List - Problems (1) Hip fracture Code(s): S72.009A - FRACTURE OF UNSP PART OF NECK OF UNSP FEMUR, INIT Qualifiers: Encounter type: initial encounter Fracture type: closed Laterality : right Qualified Code(s): S72.001A - Fracture of unspecified part of neck of right femur, initial encounter for closed fracture (2) UTI (urinary tract infection) Code(s): N39.0 - URINARY TRACT INFECTION, SITE NOT SPECIFIED Qualifiers: Urinary tract infection type: site unspecified Hematuria presence: without hematuria Qualified Code(s): N39.0 - Urinary tract infection, site not specified (3) HTN (hypertension) Code(s): I10 - ESSENTIAL (PRIMARY) HYPERTENSION Qualifiers: Hypertension type: essential hypertension Qualified Code(s): I10 - Essential (primary) hypertension (4) Diabetes mellitus Code(s): E11.9 - TYPE 2 DIABETES MELLITUS WITHOUT COMPLICATIONS Qualifiers: Diabetes mellitus type: type 2 Diabetes mellitus complication status: without complication Diabetes mellitus extermination supervisor insulin use: without extermination supervisor use Qualified Code(s): E11.9 - Type 2 diabetes mellitus without complications (5) CVA (cerebral vascular accident) Code(s): I63.9 - CEREBRAL INFARCTION, UNSPECIFIED Qualifiers: CVA mechanism: unspecified Qualified Code(s): I63.9 - Cerebral infarction, unspecified (6) Dementia Code(s): F03.90 - UNSPECIFIED DEMENTIA WITHOUT BEHAVIORAL DISTURBANCE Qualifiers: Dementia type: unspecified type Dementia behavioral disturbance: without behavioral disturbance Qualified Code(s): F03.90 - Unspecified dementia without behavioral disturbance Assessment/Plan 1. Status post mechanical fall resulting in right hip fracture -S/P ORIF 2. Hypertension 3. 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 Type 2 diabetes mellitus 5. Organic brain syndrome/dementia 6. UTI with fever 7. Hyperthyroidism PLAN: 1. Continue Vasotec 20 mg once a day and Metoprolol Tartrate 25 mg BID and up titrate as tolerated 2. Continue Tapazole and monitor TFT 3. Check lipid panel 4. Transthoracic echocardiography revealed normal left ventricular systolic function with moderate AR 5. Eventual physical therapy and rehab placement Further plans are to follow Toribio Paulson MD
--- NOTE | 2017-03-31 11:31 | SPEC ---
DATE OF OPERATION: 03/30/2017 OPERATION: Right hip Hemiarthroplasty PREOPERATIVE DIAGNOSIS: Right Femoral Neck Fracture, displaced. POSTOPERATIVE DIAGNOSIS: Right Femoral Neck Fracture, displaced. SURGEON: Salomon Lea M.D. HEAD TRIMMER: Deion Pearl PA-C ANESTHESIA: Spinal. CLOSURE: A No. 3 Accolade II Press-Fit stem, with a standard 42-mm bipolar, No. 1 Vicryl for capsule, 0 and 2-0 for the fascia and subcutaneous, 3-0 V-Loc for skin with skin glue. ESTIMATED BLOOD LOSS: Negligible. COMPLICATIONS: None CONDITION: To recovery room in stable condition. DESCRIPTION OF PROCEDURE: Patient was taken to the operating room on . Anesthesia was administered by the anesthesiologist. IV Kefzol was given prophylactically prior to the case. Patient was placed in the lateral decubitus position with all prominences well padded. The right hip area was prepped and draped in the usual sterile fashion. A posterior approach was utilized to gain access to the hip. A 12 to 15 cm curved longitudinal incision over the posterior lateral aspect of the hip was incised and hemostasis achieved with Bovie cautery. Sharp dissection was carried down to the level of the fascia. The fascia was opened the entire length of the incision. The gluteus aman fibers were spread, exposing the greater trochanter. A Charnley retractor was placed in this layer and care was taken not to impale sciatic nerve. Short external rotators were detached from their insertion to the greater trochanter and peeled off the capsule. A T capsulotomy was then performed, down to the level of the labrum. The neck was osteotomized with oscillating saw at the appropriate level. The head was measured for diameter. A trial reduction of the appropriate size head to see if a good suction fit. The proximal femur was prepared using a box chisel. Intramedullary, as well as serial broaches until the appropriate broach achieved good fit and fill with good stability. A trial reduction with the neck and bipolar achieved equal limb lengths and was stable to zeenat flexion at 90 degrees of flexion, to marked adduction and internal rotation. Had a positive hang test, negative telescoping and was stable in external rotation and extension. The trial component was removed. The real broach was then malletted into place and the real bipolar was cold-welded to the trunnion. Identical limb lengths on all planes was described earlier with trials. The hip was irrigated out with copious amounts of antibiotic irrigation. Capsule was closed using 0 Vicryl, 0-Vicryl interrupted suture for the fascia was then used, and 2-0 for the subcutaneous and 3-0 Monocryl subcuticular to the skin with skin glue. The Aquacel dressing was applied and the patient was placed in the supine position. Bilateral SCDs and abduction pillow were applied. Patient was awakened from anesthesia and transferred to the recovery room in stable condition. No complications, estimated blood loss less than 200 mL. Elia [id number]
[2017-03-31] MEDS: SODIUM CHLORIDE 1,000 ML IV SCH (12:27)
[2017-03-31] MEDS: LACTATED RINGERS SOLUTION 1,000 ML IV SCH (12:27)
--- NOTE | 2017-03-31 15:55 | PN ---
Progress Note, Physician History of Present Illness: patient doing well no complaints - Current Medication List Current Medications: Active Medications Acetaminophen (Tylenol -) 650 mg PO Q6H PRN PRN Reason: FEVER OR PAIN Last Admin: 03/31/17 08:31 Dose: 650 mg Enalapril Maleate (Vasotec -) 20 mg PO DAILY [facility] Last Admin: 03/31/17 09:52 Dose: 20 mg Enoxaparin Sodium (Lovenox -) 40 mg SQ DAILY [facility] Last Admin: 03/31/17 09:53 Dose: 40 mg Fentanyl (Sublimaze Injection -) 50 mcg IVPUSH [id number] PRN PRN Reason: PAIN Stop: 04/02/17 10:57 Lactated Ringer's (Lactated Ringers Solution) 1,000 mls @ 125 mls/hr IV ASDIR [facility] Last Admin: 03/31/17 12:27 Dose: Not Given Sodium Chloride (Normal Saline -) 1,000 mls @ 85 mls/hr IV ASDIR [facility] Last Admin: 03/31/17 12:27 Dose: Not Given Piperacillin Sod/Tazobactam (Sod 3.375 gm/ Dextrose) 50 mls @ 100 mls/hr IVPB Q8H-IV [facility] PRN Reason: Protocol Last Admin: 03/31/17 09:53 Dose: 100 mls/hr Metformin HCl (Glucophage -) 850 mg PO BIDAC [facility] Last Admin: 03/31/17 06:26 Dose: 850 mg Methimazole (Tapazole -) 5 mg PO DAILY [facility] Last Admin: 03/31/17 09:52 Dose: 5 mg Metoprolol Tartrate (Lopressor -) 25 mg PO BID [facility] Last Admin: 03/31/17 09:52 Dose: 25 mg Oxycodone HCl (Roxicodone -) 5 mg PO Q4H PRN PRN Reason: PAIN Last Admin: 03/31/17 09:52 Dose: 5 mg Rivastigmine Tartrate (Exelon (Nf) -) 3 mg PO BID [facility] Last Admin: 03/31/17 09:53 Dose: 3 mg - Objective Vital Signs: Vital Signs Temperature 98.9 F 03/31/17 14:00 Pulse Rate 74 03/31/17 14:00 Respiratory Rate 20 03/31/17 14:00 Blood Pressure 162/87 03/31/17 09:00 O2 Sat by Pulse Oximetry (%) 96 03/31/17 09:00 Constitutional: Yes: No Distress, Calm HENT: Yes: Atraumatic Cardiovascular: Yes: Regular Rate and Rhythm Respiratory: Yes: Regular, CTA Bilaterally Gastrointestinal: Yes: Normal Bowel Sounds, Soft Musculoskeletal: Yes: WNL Extremities: Yes: Other Neurological: Yes: Alert Psychiatric: Yes: Alert Labs: CBC, BMP 03/29/17 16:00 03/30/17 17:00 INR, PTT INR 1.11 (0.82-1.09) 03/28/17 16:06 Assessment/Plan Problem List - Problems (1) Hip fracture Code(s): S72.009A - FRACTURE OF UNSP PART OF NECK OF UNSP FEMUR, INIT Qualifiers: Encounter type: initial encounter Fracture type: closed Laterality : right Qualified Code(s): S72.001A - Fracture of unspecified part of neck of right femur, initial encounter for closed fracture (2) UTI (urinary tract infection) Code(s): N39.0 - URINARY TRACT INFECTION, SITE NOT SPECIFIED Qualifiers: Urinary tract infection type: site unspecified Hematuria presence: without hematuria Qualified Code(s): N39.0 - Urinary tract infection, site not specified plan continue abx identification of the bacteria--ecoli
--- NOTE | 2017-03-31 18:07 | PN ---
Progress Note, Physician History of Present Illness: doing well - Current Medication List Current Medications: Active Medications Acetaminophen (Tylenol -) 650 mg PO Q6H PRN PRN Reason: FEVER OR PAIN Last Admin: 03/31/17 08:31 Dose: 650 mg Amoxicillin/Clavulanate Potassium (Augmentin - 875mg Tablet) 1 tab PO BID@0800, 1730 [facility] Enalapril Maleate (Vasotec -) 20 mg PO DAILY [facility] Last Admin: 03/31/17 09:52 Dose: 20 mg Enoxaparin Sodium (Lovenox -) 40 mg SQ DAILY [facility] Last Admin: 03/31/17 09:53 Dose: 40 mg Fentanyl (Sublimaze Injection -) 50 mcg IVPUSH [id number] PRN PRN Reason: PAIN Stop: 04/02/17 10:57 Lactated Ringer's (Lactated Ringers Solution) 1,000 mls @ 125 mls/hr IV ASDIR [facility] Last Admin: 03/31/17 12:27 Dose: Not Given Sodium Chloride (Normal Saline -) 1,000 mls @ 85 mls/hr IV ASDIR [facility] Last Admin: 03/31/17 12:27 Dose: Not Given Metformin HCl (Glucophage -) 850 mg PO BIDAC [facility] Last Admin: 03/31/17 17:06 Dose: 850 mg Methimazole (Tapazole -) 5 mg PO DAILY [facility] Last Admin: 03/31/17 09:52 Dose: 5 mg Metoprolol Tartrate (Lopressor -) 25 mg PO BID [facility] Last Admin: 03/31/17 09:52 Dose: 25 mg Oxycodone HCl (Roxicodone -) 5 mg PO Q4H PRN PRN Reason: PAIN Last Admin: 03/31/17 17:03 Dose: 5 mg Rivastigmine Tartrate (Exelon (Nf) -) 3 mg PO BID [facility] Last Admin: 03/31/17 09:53 Dose: 3 mg - Objective Vital Signs: Vital Signs Temperature 98.9 F 03/31/17 14:00 Pulse Rate 74 03/31/17 14:00 Respiratory Rate 20 03/31/17 14:00 Blood Pressure 162/87 03/31/17 09:00 O2 Sat by Pulse Oximetry (%) 96 03/31/17 09:00 Constitutional: Yes: No Distress HENT: Yes: Atraumatic Neck: Yes: Supple Cardiovascular: Yes: Regular Rate and Rhythm Respiratory: Yes: CTA Bilaterally Gastrointestinal: Yes: Normal Bowel Sounds Extremities: Yes: WNL Labs: CBC, BMP 03/29/17 16:00 03/30/17 17:00 INR, PTT INR 1.11 (0.82-1.09) 03/28/17 16:06 Problem List - Problems (1) Hip fracture Assessment/Plan: s/p surgery R hip..pod 1 prn pain meds pt eval for snf placement Code(s): S72.009A - FRACTURE OF UNSP PART OF NECK OF UNSP FEMUR, INIT Qualifiers: Encounter type: initial encounter Fracture type: closed Laterality : right Qualified Code(s): S72.001A - Fracture of unspecified part of neck of right femur, initial encounter for closed fracture (2) UTI (urinary tract infection) Assessment/Plan: on po abx uc seen Code(s): N39.0 - URINARY TRACT INFECTION, SITE NOT SPECIFIED Qualifiers: Urinary tract infection type: site unspecified Hematuria presence: without hematuria Qualified Code(s): N39.0 - Urinary tract infection, site not specified (3) CVA (cerebral vascular accident) Code(s): I63.9 - CEREBRAL INFARCTION, UNSPECIFIED Qualifiers: CVA mechanism: unspecified Qualified Code(s): I63.9 - Cerebral infarction, unspecified (4) Dementia Code(s): F03.90 - UNSPECIFIED DEMENTIA WITHOUT BEHAVIORAL DISTURBANCE Qualifiers: Dementia type: unspecified type Dementia behavioral disturbance: without behavioral disturbance Qualified Code(s): F03.90 - Unspecified dementia without behavioral disturbance (5) Diabetes mellitus Assessment/Plan: on metformin will monitor bgms insulin sliding scale Code(s): E11.9 - TYPE 2 DIABETES MELLITUS WITHOUT COMPLICATIONS Qualifiers: Diabetes mellitus type: type 2 Diabetes mellitus complication status: without complication Diabetes mellitus prison insulin use: without customs examiner use Qualified Code(s): E11.9 - Type 2 diabetes mellitus without complications (6) HTN (hypertension) Code(s): I10 - ESSENTIAL (PRIMARY) HYPERTENSION Qualifiers: Hypertension type: essential hypertension Qualified Code(s): I10 - Essential (primary) hypertension (7) History of right hip hemiarthroplasty Code(s): Z96.641 - PRESENCE OF RIGHT ARTIFICIAL HIP JOINT (8) Hypokalemia Assessment/Plan: on po K Code(s): E87.6 - HYPOKALEMIA (9) Moderate aortic regurgitation Code(s): I35.1 - NONRHEUMATIC AORTIC (VALVE) INSUFFICIENCY Assessment/Plan
[2017-03-31] MEDS: AMOX TR/POT CLAV 875MG/125MG TABLETS (FP) PO SCH (18:11)
[2017-03-31] MEDS ORDERED: INSULIN (NOVOLOG) ASPART 100 UNITS/ML 10ML VIAL SQ ONE ×2 (20:00→22:00)
[2017-04-01 07:56] LABS: BASOPHIL 0.3 % (0-2.0); EOSINOPHIL 1.5 % (0-4.5); MCH 31.6 pg (25.7-33.7); MCHC 33.7 g/dl (32.0-36.0); MEAN CELL VOLUME 93.8 fl (80-96); MEAN PLT VOLUME 10.9 fl (7.5-11.1); PLATELET COUNT 211 K/MM3 (134-434); RDW 12.5 % (11.6-15.6); WHITE BLOOD COUNT 9.3 K/mm3 (4.0-10.0)
[2017-04-01 08:25] LABS: ALBUMIN 2.1 g/dl (3.4-5.0); ALK PHOS 54 U/L (45-117); ANION GAP 12 (8-16); BILIRUBIN,TOTAL 0.6 mg/dL (0.2-1.0); CO2 29 mmol/L (21-32); CREATININE 0.6 mg/dL (0.55-1.02); GLUCOSE,RANDOM 268 mg/dL (74-106); SGOT/AST 13 U/L (15-37); SGPT/ALT 12 U/L (12-78); TOT PROT 5.5 g/dl (6.4-8.2)
[2017-04-01] MEDS ORDERED: PT OWN MED DRAWER 7, Y5N ONE ×2 (09:20→16:35)
[2017-04-01] MEDS: oxyCODONE HCL 5 MG TABLET PO PRN ×2 (09:24→21:24)
[2017-04-01] MEDS: ACETAMINOPHEN 325 MG TABLET (FP) PO PRN ×2 (09:25→21:25)
[2017-04-01] MEDS: METHIMAZOLE 5 MG TABLET (FP) PO SCH (09:26)
[2017-04-01] MEDS: METOPROLOL TARTRATE 25 MG TABLET (FP) PO SCH ×2 (09:26→21:25)
[2017-04-01] MEDS: AMOX TR/POT CLAV 875MG/125MG TABLETS (FP) PO SCH ×2 (09:26→17:09)
[2017-04-01] MEDS: RIVASTIGMINE TARTRATE 1.5 MG CAPSULE PO SCH ×2 (09:26→21:27)
[2017-04-01] MEDS: ENALAPRIL MALEATE 10 MG TABLET (FP) PO SCH (09:27)
[2017-04-01] MEDS: ENOXAPARIN NA (PORCINE) 40 MG/0.4 ML DISP.SYRIN SQ SCH (09:27)
[2017-04-01] MEDS ORDERED: POTASSIUM CHLORIDE ORAL LIQUID 20 MEQ/15 ML PO ONE (10:00)
--- NOTE | 2017-04-01 10:53 | PN ---
Progress Note, Physician History of Present Illness: Diffuse weakness and maylagias, post right hip hemiarthroplasty. - Current Medication List Current Medications: Active Medications Acetaminophen (Tylenol -) 650 mg PO Q6H PRN PRN Reason: FEVER OR PAIN Last Admin: 04/01/17 09:25 Dose: 650 mg Amoxicillin/Clavulanate Potassium (Augmentin - 875mg Tablet) 1 tab PO BID@0800, 1730 [facility] Last Admin: 04/01/17 09:26 Dose: 1 tab Enalapril Maleate (Vasotec -) 20 mg PO DAILY [facility] Last Admin: 04/01/17 09:27 Dose: 20 mg Enoxaparin Sodium (Lovenox -) 40 mg SQ DAILY [facility] Last Admin: 04/01/17 09:27 Dose: 40 mg Fentanyl (Sublimaze Injection -) 50 mcg IVPUSH [id number] PRN PRN Reason: PAIN Stop: 04/02/17 10:57 Lactated Ringer's (Lactated Ringers Solution) 1,000 mls @ 125 mls/hr IV ASDIR [facility] Last Admin: 03/31/17 12:27 Dose: Not Given Metformin HCl (Glucophage -) 850 mg PO BIDAC [facility] Last Admin: 04/01/17 06:22 Dose: 850 mg Methimazole (Tapazole -) 5 mg PO DAILY [facility] Last Admin: 04/01/17 09:26 Dose: 5 mg Metoprolol Tartrate (Lopressor -) 25 mg PO BID [facility] Last Admin: 04/01/17 09:26 Dose: 25 mg Oxycodone HCl (Roxicodone -) 5 mg PO Q4H PRN PRN Reason: PAIN Last Admin: 04/01/17 09:24 Dose: 5 mg Potassium Chloride (Potassium Chloride Oral Liquid) 40 meq PO DAILY [facility] Stop: 04/04/17 10:01 Rivastigmine Tartrate (Exelon (Nf) -) 3 mg PO BID [facility] Last Admin: 04/01/17 09:26 Dose: 3 mg - Objective Vital Signs: Vital Signs Temperature 98.1 F 04/01/17 05:30 Pulse Rate 82 04/01/17 05:30 Respiratory Rate 18 04/01/17 05:30 Blood Pressure 150/80 04/01/17 05:30 O2 Sat by Pulse Oximetry (%) 96 03/31/17 21:00 Constitutional: Yes: No Distress, Calm Neck: Yes: Supple Cardiovascular: Yes: Regular Rate and Rhythm Respiratory: Yes: Regular, Diminished Gastrointestinal: Yes: Normal Bowel Sounds, Soft Edema: No Labs: CBC, BMP 04/01/17 06:05 04/01/17 06:05 INR, PTT INR 1.11 (0.82-1.09) 03/28/17 16:06 Problem List - Problems (1) CVA (cerebral vascular accident) Code(s): I63.9 - CEREBRAL INFARCTION, UNSPECIFIED Qualifiers: CVA mechanism: unspecified Qualified Code(s): I63.9 - Cerebral infarction, unspecified (2) Dementia Code(s): F03.90 - UNSPECIFIED DEMENTIA WITHOUT BEHAVIORAL DISTURBANCE Qualifiers: Dementia type: unspecified type Dementia behavioral disturbance: without behavioral disturbance Qualified Code(s): F03.90 - Unspecified dementia without behavioral disturbance (3) Diabetes mellitus Code(s): E11.9 - TYPE 2 DIABETES MELLITUS WITHOUT COMPLICATIONS Qualifiers: Diabetes mellitus type: type 2 Diabetes mellitus complication status: without complication Diabetes mellitus nursing home insulin use: without nursing home use Qualified Code(s): E11.9 - Type 2 diabetes mellitus without complications (4) HTN (hypertension) Code(s): I10 - ESSENTIAL (PRIMARY) HYPERTENSION Qualifiers: Hypertension type: essential hypertension Qualified Code(s): I10 - Essential (primary) hypertension (5) Hip fracture Code(s): S72.009A - FRACTURE OF UNSP PART OF NECK OF UNSP FEMUR, INIT Qualifiers: Encounter type: initial encounter Fracture type: closed Laterality : right Qualified Code(s): S72.001A - Fracture of unspecified part of neck of right femur, initial encounter for closed fracture (6) UTI (urinary tract infection) Code(s): N39.0 - URINARY TRACT INFECTION, SITE NOT SPECIFIED Qualifiers: Urinary tract infection type: site unspecified Hematuria presence: without hematuria Qualified Code(s): N39.0 - Urinary tract infection, site not specified (7) History of right hip hemiarthroplasty Code(s): Z96.641 - PRESENCE OF RIGHT ARTIFICIAL HIP JOINT (8) Moderate aortic regurgitation Code(s): I35.1 - NONRHEUMATIC AORTIC (VALVE) INSUFFICIENCY (9) Hypokalemia Code(s): E87.6 - HYPOKALEMIA Assessment/Plan 03/30/2017 Normal biventricular size and fxn mod AR 1. POD#3 Right hip hemiarthroplasty for displaced right hip femoral neck fracture 2. Hypertension 3. 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 Type 2 diabetes mellitus 5. Organic brain syndrome/dementia 6. UTI E. coli 7. Hyperthyroidism 8. Moderate AR PLAN: 1. Continue Vasotec 20 mg once a day and Metoprolol Tartrate 25 mg BID and uptitrate as tolerated 2. Complete abx course 3. Eventual physical therapy and rehab placement, DVT prophylaxis, analgesia as needed
[2017-04-01] MEDS ORDERED: INSULIN (NOVOLOG) ASPART 100 UNITS/ML 10ML VIAL ONE (12:37)
[2017-04-01] MEDS: INSULIN SLIDING SCALE (NOVOLOG) 1 VIAL SQ SCH ×3 (12:39→21:34)
--- NOTE | 2017-04-01 15:11 | PN ---
Progress Note, Physician History of Present Illness: patient more drowsy today daughter says she is not herself patient post op - Current Medication List Current Medications: Active Medications Acetaminophen (Tylenol -) 650 mg PO Q6H PRN PRN Reason: FEVER OR PAIN Last Admin: 04/01/17 09:25 Dose: 650 mg Amoxicillin/Clavulanate Potassium (Augmentin - 875mg Tablet) 1 tab PO BID@0800, 1730 [facility] Last Admin: 04/01/17 09:26 Dose: 1 tab Enalapril Maleate (Vasotec -) 20 mg PO DAILY [facility] Last Admin: 04/01/17 09:27 Dose: 20 mg Enoxaparin Sodium (Lovenox -) 40 mg SQ DAILY [facility] Last Admin: 04/01/17 09:27 Dose: 40 mg Fentanyl (Sublimaze Injection -) 50 mcg IVPUSH [id number] PRN PRN Reason: PAIN Stop: 04/02/17 10:57 Insulin Aspart (Novolog Vial Sliding Scale -) 1 vial SQ ACHS [facility] PRN Reason: Protocol Last Admin: 04/01/17 12:39 Dose: 10 units Metformin HCl (Glucophage -) 850 mg PO BIDAC [facility] Last Admin: 04/01/17 06:22 Dose: 850 mg Methimazole (Tapazole -) 5 mg PO DAILY [facility] Last Admin: 04/01/17 09:26 Dose: 5 mg Metoprolol Tartrate (Lopressor -) 25 mg PO BID [facility] Last Admin: 04/01/17 09:26 Dose: 25 mg Oxycodone HCl (Roxicodone -) 5 mg PO Q4H PRN PRN Reason: PAIN Last Admin: 04/01/17 09:24 Dose: 5 mg Potassium Chloride (Potassium Chloride Oral Liquid) 40 meq PO DAILY [facility] Stop: 04/04/17 10:01 Rivastigmine Tartrate (Exelon (Nf) -) 3 mg PO BID [facility] Last Admin: 04/01/17 09:26 Dose: 3 mg - Objective Vital Signs: Vital Signs Temperature 97.5 F L 04/01/17 13:22 Pulse Rate 84 04/01/17 13:22 Respiratory Rate 20 04/01/17 13:22 Blood Pressure 156/84 04/01/17 13:22 O2 Sat by Pulse Oximetry (%) 97 04/01/17 09:00 Constitutional: Yes: Other Cardiovascular: Yes: Regular Rate and Rhythm Respiratory: Yes: Regular, CTA Bilaterally Gastrointestinal: Yes: Normal Bowel Sounds, Soft Musculoskeletal: Yes: Other Extremities: Yes: Other Neurological: Yes: Other (drowsy,lehtargy) Labs: CBC, BMP 04/01/17 06:05 04/01/17 13:00 INR, PTT INR 1.11 (0.82-1.09) 03/28/17 16:06 Assessment/Plan Problem List - Problems (1) Hip fracture Code(s): S72.009A - FRACTURE OF UNSP PART OF NECK OF UNSP FEMUR, INIT Qualifiers: Encounter type: initial encounter Fracture type: closed Laterality : right Qualified Code(s): S72.001A - Fracture of unspecified part of neck of right femur, initial encounter for closed fracture (2) UTI (urinary tract infection) Code(s): N39.0 - URINARY TRACT INFECTION, SITE NOT SPECIFIED Qualifiers: Urinary tract infection type: site unspecified Hematuria presence: without hematuria Qualified Code(s): N39.0 - Urinary tract infection, site not specified patients sugars running high,monitor --patient has hig chances of infection mental status drowsy i dont know if it is due to pain meds plan continue abx hydration close watch on mental status watch for fevers
--- NOTE | 2017-04-01 15:33 | PATH ---
Surgical Pathology Report Patient Name: NISHA WARNER Med. Rec. #: [id number] /Age/Gender: 1935 (Age: 81) / F Account: [id number] Location: [address] [place] [address] Taken: 03/30/2017 Received: 03/30/2017 Reported: 04/01/2017 Physicians: Salomon Lea M.D. Specimen(s) Received RIGHT FEMORAL HEAD AND BASE FRAGMENTS Clinical History Right hip fracture Final Diagnosis BONE, RIGHT FEMORAL HEAD, EXCISION: BONE WITH INTERSTITIAL HEMORRHAGE CONSISTENT WITH FRACTURE. Electronically Signed Álvaro Bell M.D. Gross Description Received in formalin, labeled "right femoral head and bone fragments," is a 4.0 x 4.0 x 3.4 cm. femoral head with no femoral neck attached. The margin of resection is red-brown, jagged and hemorrhagic. No areas of eburnation are identified. The articular surface is fajardo-yellow and focally granular. The underlying trabecular bone is yellow, hard and focally hemorrhagic. Separately received within the same container is a 3.7 x 2.2 x 1.9 cm portion of bone, consistent with a portion of femoral neck. A lead customer service representative section is submitted in one cassette, following decalcification. 03/31/201703/31/2017
--- NOTE | 2017-04-01 16:03 | CONSULT ---
Consult - text type - Consultation Consultation Note: AVSS DROWSY BANDAGES DRY AND INTACT NVI CALF SOFT AND NT IMP: ORTHOPEDICALLY STABLE BUT ? UTI PLAN: OOB, PT, ABX PER PMD, WILL FOLLOW
--- NOTE | 2017-04-01 16:46 | PN ---
Progress Note, Physician History of Present Illness: comfortable - Current Medication List Current Medications: Active Medications Acetaminophen (Tylenol -) 650 mg PO Q6H PRN PRN Reason: FEVER OR PAIN Last Admin: 04/01/17 09:25 Dose: 650 mg Amoxicillin/Clavulanate Potassium (Augmentin - 875mg Tablet) 1 tab PO BID@0800, 1730 [facility] Last Admin: 04/01/17 09:26 Dose: 1 tab Enalapril Maleate (Vasotec -) 20 mg PO DAILY [facility] Last Admin: 04/01/17 09:27 Dose: 20 mg Enoxaparin Sodium (Lovenox -) 40 mg SQ DAILY [facility] Last Admin: 04/01/17 09:27 Dose: 40 mg Fentanyl (Sublimaze Injection -) 50 mcg IVPUSH [id number] PRN PRN Reason: PAIN Stop: 04/02/17 10:57 Insulin Aspart (Novolog Vial Sliding Scale -) 1 vial SQ ACHS [facility] PRN Reason: Protocol Last Admin: 04/01/17 12:39 Dose: 10 units Metformin HCl (Glucophage -) 850 mg PO BIDAC [facility] Last Admin: 04/01/17 06:22 Dose: 850 mg Methimazole (Tapazole -) 5 mg PO DAILY [facility] Last Admin: 04/01/17 09:26 Dose: 5 mg Metoprolol Tartrate (Lopressor -) 25 mg PO BID [facility] Last Admin: 04/01/17 09:26 Dose: 25 mg Oxycodone HCl (Roxicodone -) 5 mg PO Q4H PRN PRN Reason: PAIN Last Admin: 04/01/17 09:24 Dose: 5 mg Potassium Chloride (Potassium Chloride Oral Liquid) 40 meq PO DAILY [facility] Stop: 04/04/17 10:01 Rivastigmine Tartrate (Exelon (Nf) -) 3 mg PO BID [facility] Last Admin: 04/01/17 09:26 Dose: 3 mg - Objective Vital Signs: Vital Signs Temperature 97.5 F L 04/01/17 13:22 Pulse Rate 84 04/01/17 13:22 Respiratory Rate 20 04/01/17 13:22 Blood Pressure 156/84 04/01/17 13:22 O2 Sat by Pulse Oximetry (%) 97 04/01/17 09:00 Constitutional: Yes: No Distress HENT: Yes: Atraumatic Neck: Yes: Supple Respiratory: Yes: CTA Bilaterally Gastrointestinal: Yes: Normal Bowel Sounds Extremities: Yes: WNL Edema: RLE: Trace Neurological: Yes: Alert Labs: CBC, BMP 04/01/17 06:05 04/01/17 13:00 INR, PTT INR 1.11 (0.82-1.09) 03/28/17 16:06 Problem List - Problems (1) Hip fracture Assessment/Plan: s/p surgery R hip..pod 2 prn pain meds pt eval for snf placement Code(s): S72.009A - FRACTURE OF UNSP PART OF NECK OF UNSP FEMUR, INIT Qualifiers: Encounter type: initial encounter Fracture type: closed Laterality : right Qualified Code(s): S72.001A - Fracture of unspecified part of neck of right femur, initial encounter for closed fracture (2) UTI (urinary tract infection) Assessment/Plan: on po abx uc seen Code(s): N39.0 - URINARY TRACT INFECTION, SITE NOT SPECIFIED Qualifiers: Urinary tract infection type: site unspecified Hematuria presence: without hematuria Qualified Code(s): N39.0 - Urinary tract infection, site not specified (3) CVA (cerebral vascular accident) Code(s): I63.9 - CEREBRAL INFARCTION, UNSPECIFIED Qualifiers: CVA mechanism: unspecified Qualified Code(s): I63.9 - Cerebral infarction, unspecified (4) Dementia Code(s): F03.90 - UNSPECIFIED DEMENTIA WITHOUT BEHAVIORAL DISTURBANCE Qualifiers: Dementia type: unspecified type Dementia behavioral disturbance: without behavioral disturbance Qualified Code(s): F03.90 - Unspecified dementia without behavioral disturbance (5) Diabetes mellitus Assessment/Plan: on metformin will monitor bgms on insulin sliding scale Code(s): E11.9 - TYPE 2 DIABETES MELLITUS WITHOUT COMPLICATIONS Qualifiers: Diabetes mellitus type: type 2 Diabetes mellitus complication status: without complication Diabetes mellitus route delivery clerk insulin use: without route delivery clerk use Qualified Code(s): E11.9 - Type 2 diabetes mellitus without complications (6) HTN (hypertension) Assessment/Plan: stable on meds Code(s): I10 - ESSENTIAL (PRIMARY) HYPERTENSION Qualifiers: Hypertension type: essential hypertension Qualified Code(s): I10 - Essential (primary) hypertension (7) History of right hip hemiarthroplasty Code(s): Z96.641 - PRESENCE OF RIGHT ARTIFICIAL HIP JOINT (8) Hypokalemia Code(s): E87.6 - HYPOKALEMIA (9) Moderate aortic regurgitation Code(s): I35.1 - NONRHEUMATIC AORTIC (VALVE) INSUFFICIENCY Assessment/Plan [facility] SEND SUDHIR TO [facility]
[2017-04-02] MEDS: oxyCODONE HCL 5 MG TABLET PO PRN ×2 (05:48→21:48)
[2017-04-02] MEDS: ACETAMINOPHEN 325 MG TABLET (FP) PO PRN ×2 (05:49→21:48)
[2017-04-02] MEDS: INSULIN SLIDING SCALE (NOVOLOG) 1 VIAL SQ SCH ×4 (06:25→21:49)
[2017-04-02 08:10] LABS: ALBUMIN 2.1 g/dl (3.4-5.0); ALK PHOS 59 U/L (45-117); ANION GAP 7 (8-16); BILIRUBIN,TOTAL 0.3 mg/dL (0.2-1.0); CO2 32 mmol/L (21-32); CREATININE 0.7 mg/dL (0.55-1.02); GLUCOSE,RANDOM 211 mg/dL (74-106); SGOT/AST 10 U/L (15-37); SGPT/ALT 13 U/L (12-78); TOT PROT 5.7 g/dl (6.4-8.2)
[2017-04-02 08:20] LABS: MCH 31.3 pg (25.7-33.7); MCHC 33.4 g/dl (32.0-36.0); MEAN CELL VOLUME 93.7 fl (80-96); PLATELET COUNT 239 K/MM3 (134-434); RDW 12.5 % (11.6-15.6)
[2017-04-02 08:21] LABS: BASOPHIL 0.3 % (0-2.0); EOSINOPHIL 2.8 % (0-4.5); MEAN PLT VOLUME 10.1 fl (7.5-11.1); NEUTROPHILS 69.9 % (42.8-82.8)
[2017-04-02] MEDS: AMOX TR/POT CLAV 875MG/125MG TABLETS (FP) PO SCH ×2 (08:30→17:33)
[2017-04-02] MEDS ORDERED: PT OWN MED DRAWER 7, Y5N ONE ×2 (09:30→16:45)
[2017-04-02] MEDS: METOPROLOL TARTRATE 25 MG TABLET (FP) PO SCH ×2 (09:33→21:48)
[2017-04-02] MEDS: METHIMAZOLE 5 MG TABLET (FP) PO SCH (09:33)
[2017-04-02] MEDS: ENOXAPARIN NA (PORCINE) 40 MG/0.4 ML DISP.SYRIN SQ SCH (09:33)
[2017-04-02] MEDS: POTASSIUM CHLORIDE ORAL LIQUID 20 MEQ/15 ML PO SCH (09:33)
[2017-04-02] MEDS: RIVASTIGMINE TARTRATE 1.5 MG CAPSULE PO SCH ×2 (09:34→21:50)
[2017-04-02] MEDS: ENALAPRIL MALEATE 10 MG TABLET (FP) PO SCH (09:34)
--- NOTE | 2017-04-02 14:33 | PN ---
Progress Note, Physician History of Present Illness: Patient more alert today as per daughter at bedside Mild temperature elevation but denies distress Denies dysuria/chills Pain managed adequately - Current Medication List Current Medications: Active Medications Acetaminophen (Tylenol -) 650 mg PO Q6H PRN PRN Reason: FEVER OR PAIN Last Admin: 04/02/17 05:49 Dose: 650 mg Amoxicillin/Clavulanate Potassium (Augmentin - 875mg Tablet) 1 tab PO BID@0800, 1730 [facility] Last Admin: 04/02/17 08:30 Dose: 1 tab Enalapril Maleate (Vasotec -) 20 mg PO DAILY [facility] Last Admin: 04/02/17 09:34 Dose: 20 mg Enoxaparin Sodium (Lovenox -) 40 mg SQ DAILY [facility] Last Admin: 04/02/17 09:33 Dose: 40 mg Insulin Aspart (Novolog Vial Sliding Scale -) 1 vial SQ ACHS [facility] PRN Reason: Protocol Last Admin: 04/02/17 12:15 Dose: 4 units Metformin HCl (Glucophage -) 850 mg PO BIDAC [facility] Last Admin: 04/02/17 06:25 Dose: 850 mg Methimazole (Tapazole -) 5 mg PO DAILY [facility] Last Admin: 04/02/17 09:33 Dose: 5 mg Metoprolol Tartrate (Lopressor -) 25 mg PO BID [facility] Last Admin: 04/02/17 09:33 Dose: 25 mg Oxycodone HCl (Roxicodone -) 5 mg PO Q4H PRN PRN Reason: PAIN Last Admin: 04/02/17 05:48 Dose: 5 mg Potassium Chloride (Potassium Chloride Oral Liquid) 40 meq PO DAILY [facility] Stop: 04/04/17 10:01 Last Admin: 04/02/17 09:33 Dose: 40 meq Rivastigmine Tartrate (Exelon (Nf) -) 3 mg PO BID [facility] Last Admin: 04/02/17 09:34 Dose: 3 mg - Objective Vital Signs: Vital Signs Temperature 99.4 F 04/02/17 14:06 Pulse Rate 90 04/02/17 14:06 Respiratory Rate 18 04/02/17 14:06 Blood Pressure 161/76 04/02/17 14:06 O2 Sat by Pulse Oximetry (%) 96 04/02/17 09:00 Constitutional: Yes: No Distress Musculoskeletal: Yes: WNL, Other Extremities: Yes: Other (Right hip dressing intact, no induration) Wound/Incision: Yes: Dressing Dry and Intact Neurological: Yes: Alert Labs: CBC, BMP 04/02/17 07:00 04/02/17 07:00 INR, PTT INR 1.11 (0.82-1.09) 03/28/17 16:06 Problem List - Problems (1) Hip fracture Code(s): S72.009A - FRACTURE OF UNSP PART OF NECK OF UNSP FEMUR, INIT Qualifiers: Encounter type: initial encounter Fracture type: closed Laterality : right Qualified Code(s): S72.001A - Fracture of unspecified part of neck of right femur, initial encounter for closed fracture (2) UTI (urinary tract infection) Code(s): N39.0 - URINARY TRACT INFECTION, SITE NOT SPECIFIED Qualifiers: Urinary tract infection type: site unspecified Hematuria presence: without hematuria Qualified Code(s): N39.0 - Urinary tract infection, site not specified Assessment/Plan - continue current antibiotics - monitor temps, will re-evaluate tomorrow - monitor glucose - pt currently stable
[2017-04-02] MEDS ORDERED: INSULIN (NOVOLOG) ASPART 100 UNITS/ML 10ML VIAL ONE (16:42)
--- NOTE | 2017-04-02 17:33 | PN ---
Progress Note, Physician History of Present Illness: comfortable - Current Medication List Current Medications: Active Medications Acetaminophen (Tylenol -) 650 mg PO Q6H PRN PRN Reason: FEVER OR PAIN Last Admin: 04/02/17 05:49 Dose: 650 mg Amoxicillin/Clavulanate Potassium (Augmentin - 875mg Tablet) 1 tab PO BID@0800, 1730 [facility] Last Admin: 04/02/17 08:30 Dose: 1 tab Enalapril Maleate (Vasotec -) 20 mg PO DAILY [facility] Last Admin: 04/02/17 09:34 Dose: 20 mg Enoxaparin Sodium (Lovenox -) 40 mg SQ DAILY [facility] Last Admin: 04/02/17 09:33 Dose: 40 mg Insulin Aspart (Novolog Vial Sliding Scale -) 1 vial SQ ACHS [facility] PRN Reason: Protocol Last Admin: 04/02/17 16:44 Dose: 6 units Metformin HCl (Glucophage -) 850 mg PO BIDAC [facility] Last Admin: 04/02/17 16:45 Dose: 850 mg Methimazole (Tapazole -) 5 mg PO DAILY [facility] Last Admin: 04/02/17 09:33 Dose: 5 mg Metoprolol Tartrate (Lopressor -) 25 mg PO BID [facility] Last Admin: 04/02/17 09:33 Dose: 25 mg Oxycodone HCl (Roxicodone -) 5 mg PO Q4H PRN PRN Reason: PAIN Last Admin: 04/02/17 05:48 Dose: 5 mg Potassium Chloride (Potassium Chloride Oral Liquid) 40 meq PO DAILY [facility] Stop: 04/04/17 10:01 Last Admin: 04/02/17 09:33 Dose: 40 meq Rivastigmine Tartrate (Exelon (Nf) -) 3 mg PO BID [facility] Last Admin: 04/02/17 09:34 Dose: 3 mg - Objective Vital Signs: Vital Signs Temperature 98.3 F 04/02/17 17:10 Pulse Rate 97 H 04/02/17 17:10 Respiratory Rate 20 04/02/17 17:10 Blood Pressure 166/86 04/02/17 17:10 O2 Sat by Pulse Oximetry (%) 96 04/02/17 09:00 Constitutional: Yes: No Distress HENT: Yes: Atraumatic Neck: Yes: Supple Cardiovascular: Yes: Regular Rate and Rhythm Respiratory: Yes: CTA Bilaterally Gastrointestinal: Yes: Normal Bowel Sounds Extremities: Yes: WNL Edema: RLE: Trace Neurological: Yes: Alert Labs: CBC, BMP 04/02/17 07:00 04/02/17 07:00 INR, PTT INR 1.11 (0.82-1.09) 03/28/17 16:06 Problem List - Problems (1) Hip fracture Assessment/Plan: s/p surgery R hip..pod 3 prn pain meds pt eval for snf placement Code(s): S72.009A - FRACTURE OF UNSP PART OF NECK OF UNSP FEMUR, INIT Qualifiers: Encounter type: initial encounter Fracture type: closed Laterality : right Qualified Code(s): S72.001A - Fracture of unspecified part of neck of right femur, initial encounter for closed fracture (2) UTI (urinary tract infection) Assessment/Plan: on po abx uc seen Code(s): N39.0 - URINARY TRACT INFECTION, SITE NOT SPECIFIED Qualifiers: Urinary tract infection type: site unspecified Hematuria presence: without hematuria Qualified Code(s): N39.0 - Urinary tract infection, site not specified (3) CVA (cerebral vascular accident) Code(s): I63.9 - CEREBRAL INFARCTION, UNSPECIFIED Qualifiers: CVA mechanism: unspecified Qualified Code(s): I63.9 - Cerebral infarction, unspecified (4) Dementia Code(s): F03.90 - UNSPECIFIED DEMENTIA WITHOUT BEHAVIORAL DISTURBANCE Qualifiers: Dementia type: unspecified type Dementia behavioral disturbance: without behavioral disturbance Qualified Code(s): F03.90 - Unspecified dementia without behavioral disturbance (5) Diabetes mellitus Assessment/Plan: on metformin will monitor bgms on insulin sliding scale Code(s): E11.9 - TYPE 2 DIABETES MELLITUS WITHOUT COMPLICATIONS Qualifiers: Diabetes mellitus type: type 2 Diabetes mellitus complication status: without complication Diabetes mellitus assisted insulin use: without assisted use Qualified Code(s): E11.9 - Type 2 diabetes mellitus without complications (6) HTN (hypertension) Assessment/Plan: stable on meds Code(s): I10 - ESSENTIAL (PRIMARY) HYPERTENSION Qualifiers: Hypertension type: essential hypertension Qualified Code(s): I10 - Essential (primary) hypertension (7) History of right hip hemiarthroplasty Code(s): Z96.641 - PRESENCE OF RIGHT ARTIFICIAL HIP JOINT (8) Hypokalemia Code(s): E87.6 - HYPOKALEMIA (9) Moderate aortic regurgitation Code(s): I35.1 - NONRHEUMATIC AORTIC (VALVE) INSUFFICIENCY Assessment/Plan DC TO SNF
[2017-04-03] MEDS: INSULIN SLIDING SCALE (NOVOLOG) 1 VIAL SQ SCH ×4 (06:09→21:34)
[2017-04-03] MEDS: AMOX TR/POT CLAV 875MG/125MG TABLETS (FP) PO SCH ×2 (08:03→17:48)
[2017-04-03 08:28] LABS: BASOPHIL 0.4 % (0-2.0); EOSINOPHIL 2.8 % (0-4.5); MCHC 33.4 g/dl (32.0-36.0); MEAN PLT VOLUME 10.3 fl (7.5-11.1); NEUTROPHILS 71.7 % (42.8-82.8); PLATELET COUNT 237 K/MM3 (134-434); RDW 12.6 % (11.6-15.6); WHITE BLOOD COUNT 7.6 K/mm3 (4.0-10.0)
[2017-04-03 08:47] LABS: ALK PHOS 60 U/L (45-117); ANION GAP 10 (8-16); BILIRUBIN,TOTAL 0.4 mg/dL (0.2-1.0); CALCIUM 8.4 mg/dL (8.5-10.1); CO2 30 mmol/L (21-32); CREATININE 0.7 mg/dL (0.55-1.02); GLUCOSE,RANDOM 251 mg/dL (74-106); SGOT/AST 11 U/L (15-37); SGPT/ALT 12 U/L (12-78); TOT PROT 5.6 g/dl (6.4-8.2)
[2017-04-03] MEDS ORDERED: PT OWN MED DRAWER 7, Y5N ONE ×2 (10:04→17:45)
[2017-04-03] MEDS: POTASSIUM CHLORIDE ORAL LIQUID 20 MEQ/15 ML PO SCH (10:08)
[2017-04-03] MEDS: ENALAPRIL MALEATE 10 MG TABLET (FP) PO SCH (10:09)
[2017-04-03] MEDS: METHIMAZOLE 5 MG TABLET (FP) PO SCH (10:09)
[2017-04-03] MEDS: RIVASTIGMINE TARTRATE 1.5 MG CAPSULE PO SCH ×2 (10:09→21:35)
[2017-04-03] MEDS: ENOXAPARIN NA (PORCINE) 40 MG/0.4 ML DISP.SYRIN SQ SCH (10:09)
[2017-04-03] MEDS: METOPROLOL TARTRATE 25 MG TABLET (FP) PO SCH (10:09)
[2017-04-03] MEDS ORDERED: INSULIN (NOVOLOG) ASPART 100 UNITS/ML 10ML VIAL ONE (12:03)
--- NOTE | 2017-04-03 12:32 | PN ---
Progress Note, Physician History of Present Illness: Mylagias improved, comfortable eating lunch. - Current Medication List Current Medications: Active Medications Acetaminophen (Tylenol -) 650 mg PO Q6H PRN PRN Reason: FEVER OR PAIN Last Admin: 04/02/17 21:48 Dose: 650 mg Amoxicillin/Clavulanate Potassium (Augmentin - 875mg Tablet) 1 tab PO BID@0800, 1730 [facility] Last Admin: 04/03/17 08:03 Dose: 1 tab Enalapril Maleate (Vasotec -) 20 mg PO DAILY [facility] Last Admin: 04/03/17 10:09 Dose: 20 mg Enoxaparin Sodium (Lovenox -) 40 mg SQ DAILY [facility] Last Admin: 04/03/17 10:09 Dose: 40 mg Insulin Aspart (Novolog Vial Sliding Scale -) 1 vial SQ ACHS [facility] PRN Reason: Protocol Last Admin: 04/03/17 12:04 Dose: 6 units Metformin HCl (Glucophage -) 850 mg PO BIDAC [facility] Last Admin: 04/03/17 06:08 Dose: 850 mg Methimazole (Tapazole -) 5 mg PO DAILY [facility] Last Admin: 04/03/17 10:09 Dose: 5 mg Metoprolol Tartrate (Lopressor -) 25 mg PO BID [facility] Last Admin: 04/03/17 10:09 Dose: 25 mg Potassium Chloride (Potassium Chloride Oral Liquid) 40 meq PO DAILY [facility] Stop: 04/04/17 10:01 Last Admin: 04/03/17 10:08 Dose: 40 meq Rivastigmine Tartrate (Exelon (Nf) -) 3 mg PO BID [facility] Last Admin: 04/03/17 10:09 Dose: 3 mg - Objective Vital Signs: Vital Signs Temperature 98.2 F 04/03/17 08:20 Pulse Rate 90 04/03/17 08:20 Respiratory Rate 18 04/03/17 08:20 Blood Pressure 150/90 04/03/17 08:20 O2 Sat by Pulse Oximetry (%) 96 04/03/17 09:00 Constitutional: Yes: No Distress, Calm Neck: Yes: Supple Cardiovascular: Yes: Regular Rate and Rhythm Respiratory: Yes: Regular, Diminished Gastrointestinal: Yes: Normal Bowel Sounds, Soft Edema: No Labs: CBC, BMP 04/03/17 06:00 04/03/17 06:00 INR, PTT INR 1.11 (0.82-1.09) 03/28/17 16:06 Problem List - Problems (1) CVA (cerebral vascular accident) Code(s): I63.9 - CEREBRAL INFARCTION, UNSPECIFIED Qualifiers: CVA mechanism: unspecified Qualified Code(s): I63.9 - Cerebral infarction, unspecified (2) Dementia Code(s): F03.90 - UNSPECIFIED DEMENTIA WITHOUT BEHAVIORAL DISTURBANCE Qualifiers: Dementia type: unspecified type Dementia behavioral disturbance: without behavioral disturbance Qualified Code(s): F03.90 - Unspecified dementia without behavioral disturbance (3) Diabetes mellitus Code(s): E11.9 - TYPE 2 DIABETES MELLITUS WITHOUT COMPLICATIONS Qualifiers: Diabetes mellitus type: type 2 Diabetes mellitus complication status: without complication Diabetes mellitus custodial insulin use: without intermodal truck driver use Qualified Code(s): E11.9 - Type 2 diabetes mellitus without complications (4) HTN (hypertension) Code(s): I10 - ESSENTIAL (PRIMARY) HYPERTENSION Qualifiers: Hypertension type: essential hypertension Qualified Code(s): I10 - Essential (primary) hypertension (5) Hip fracture Code(s): S72.009A - FRACTURE OF UNSP PART OF NECK OF UNSP FEMUR, INIT Qualifiers: Encounter type: initial encounter Fracture type: closed Laterality : right Qualified Code(s): S72.001A - Fracture of unspecified part of neck of right femur, initial encounter for closed fracture (6) UTI (urinary tract infection) Code(s): N39.0 - URINARY TRACT INFECTION, SITE NOT SPECIFIED Qualifiers: Urinary tract infection type: site unspecified Hematuria presence: without hematuria Qualified Code(s): N39.0 - Urinary tract infection, site not specified (7) History of right hip hemiarthroplasty Code(s): Z96.641 - PRESENCE OF RIGHT ARTIFICIAL HIP JOINT (8) Moderate aortic regurgitation Code(s): I35.1 - NONRHEUMATIC AORTIC (VALVE) INSUFFICIENCY (9) Anemia Code(s): D64.9 - ANEMIA, UNSPECIFIED Qualifiers: Anemia type: unspecified type Qualified Code(s): D64.9 - Anemia, unspecified Assessment/Plan 03/30/2017 Normal biventricular size and fxn mod AR 1. POD#5 Right hip hemiarthroplasty for displaced right hip femoral neck fracture 2. Hypertension, BP now at goal control 3. 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 Type 2 diabetes mellitus 5. Organic brain syndrome/dementia 6. UTI E. coli 7. Hyperthyroidism 8. Moderate AR 9. Anemia PLAN: 1. Continue Vasotec 20 mg once a day and increase Metoprolol Tartrate 50 mg BID and uptitrate as tolerated 2. Complete abx course 3. Eventual physical therapy and rehab placement, DVT prophylaxis, analgesia as needed
--- NOTE | 2017-04-03 17:16 | PN ---
Progress Note, Physician History of Present Illness: Pt alert, afebrile No new complaints - Current Medication List Current Medications: Active Medications Acetaminophen (Tylenol -) 650 mg PO Q6H PRN PRN Reason: FEVER OR PAIN Last Admin: 04/02/17 21:48 Dose: 650 mg Amoxicillin/Clavulanate Potassium (Augmentin - 875mg Tablet) 1 tab PO BID@0800, 1730 [facility] Last Admin: 04/03/17 08:03 Dose: 1 tab Enalapril Maleate (Vasotec -) 20 mg PO DAILY [facility] Last Admin: 04/03/17 10:09 Dose: 20 mg Enoxaparin Sodium (Lovenox -) 40 mg SQ DAILY [facility] Last Admin: 04/03/17 10:09 Dose: 40 mg Insulin Aspart (Novolog Vial Sliding Scale -) 1 vial SQ ACHS [facility] PRN Reason: Protocol Last Admin: 04/03/17 12:04 Dose: 6 units Metformin HCl (Glucophage -) 850 mg PO BIDAC [facility] Last Admin: 04/03/17 06:08 Dose: 850 mg Methimazole (Tapazole -) 5 mg PO DAILY [facility] Last Admin: 04/03/17 10:09 Dose: 5 mg Metoprolol Tartrate (Lopressor -) 50 mg PO BID [facility] Potassium Chloride (Potassium Chloride Oral Liquid) 40 meq PO DAILY [facility] Stop: 04/04/17 10:01 Last Admin: 04/03/17 10:08 Dose: 40 meq Rivastigmine Tartrate (Exelon (Nf) -) 3 mg PO BID [facility] Last Admin: 04/03/17 10:09 Dose: 3 mg - Objective Vital Signs: Vital Signs Temperature 97.6 F 04/03/17 14:57 Pulse Rate 89 04/03/17 14:57 Respiratory Rate 20 04/03/17 14:57 Blood Pressure 167/95 04/03/17 14:57 O2 Sat by Pulse Oximetry (%) 96 04/03/17 09:00 Constitutional: Yes: No Distress Gastrointestinal: Yes: Normal Bowel Sounds, Soft Genitourinary: Yes: WNL Labs: CBC, BMP 04/03/17 06:00 04/03/17 06:00 INR, PTT INR 1.11 (0.82-1.09) 03/28/17 16:06 Problem List - Problems (1) Hip fracture Code(s): S72.009A - FRACTURE OF UNSP PART OF NECK OF UNSP FEMUR, INIT Qualifiers: Encounter type: initial encounter Fracture type: closed Laterality : right Qualified Code(s): S72.001A - Fracture of unspecified part of neck of right femur, initial encounter for closed fracture (2) UTI (urinary tract infection) Code(s): N39.0 - URINARY TRACT INFECTION, SITE NOT SPECIFIED Qualifiers: Urinary tract infection type: site unspecified Hematuria presence: without hematuria Qualified Code(s): N39.0 - Urinary tract infection, site not specified Assessment/Plan - continue Augmentin, afebrile today - monitor glucose - pt currently stable
--- NOTE | 2017-04-03 18:45 | PN ---
Progress Note, Physician History of Present Illness: comfortable - Current Medication List Current Medications: Active Medications Acetaminophen (Tylenol -) 650 mg PO Q6H PRN PRN Reason: FEVER OR PAIN Last Admin: 04/02/17 21:48 Dose: 650 mg Enalapril Maleate (Vasotec -) 20 mg PO DAILY [facility] Last Admin: 04/03/17 10:09 Dose: 20 mg Enoxaparin Sodium (Lovenox -) 40 mg SQ DAILY [facility] Last Admin: 04/03/17 10:09 Dose: 40 mg Insulin Aspart (Novolog Vial Sliding Scale -) 1 vial SQ ACHS [facility] PRN Reason: Protocol Last Admin: 04/03/17 17:48 Dose: 2 units Metformin HCl (Glucophage -) 850 mg PO BIDAC [facility] Last Admin: 04/03/17 17:48 Dose: 850 mg Methimazole (Tapazole -) 5 mg PO DAILY [facility] Last Admin: 04/03/17 10:09 Dose: 5 mg Metoprolol Tartrate (Lopressor -) 50 mg PO BID [facility] Potassium Chloride (Potassium Chloride Oral Liquid) 40 meq PO DAILY [facility] Stop: 04/04/17 10:01 Last Admin: 04/03/17 10:08 Dose: 40 meq Rivastigmine Tartrate (Exelon (Nf) -) 3 mg PO BID [facility] Last Admin: 04/03/17 10:09 Dose: 3 mg - Objective Vital Signs: Vital Signs Temperature 97.6 F 04/03/17 14:57 Pulse Rate 89 04/03/17 14:57 Respiratory Rate 20 04/03/17 14:57 Blood Pressure 167/95 04/03/17 14:57 O2 Sat by Pulse Oximetry (%) 96 04/03/17 09:00 Constitutional: Yes: No Distress HENT: Yes: Atraumatic Neck: Yes: Supple Cardiovascular: Yes: Regular Rate and Rhythm Respiratory: Yes: CTA Bilaterally Gastrointestinal: Yes: Normal Bowel Sounds Extremities: Yes: WNL Neurological: Yes: Alert Labs: CBC, BMP 04/03/17 06:00 04/03/17 06:00 INR, PTT INR 1.11 (0.82-1.09) 03/28/17 16:06 Problem List - Problems (1) Hip fracture Assessment/Plan: s/p surgery R hip pt eval for snf placement Code(s): S72.009A - FRACTURE OF UNSP PART OF NECK OF UNSP FEMUR, INIT Qualifiers: Encounter type: initial encounter Fracture type: closed Laterality : right Qualified Code(s): S72.001A - Fracture of unspecified part of neck of right femur, initial encounter for closed fracture (2) UTI (urinary tract infection) Assessment/Plan: on po abx uc seen Code(s): N39.0 - URINARY TRACT INFECTION, SITE NOT SPECIFIED Qualifiers: Urinary tract infection type: site unspecified Hematuria presence: without hematuria Qualified Code(s): N39.0 - Urinary tract infection, site not specified (3) CVA (cerebral vascular accident) Code(s): I63.9 - CEREBRAL INFARCTION, UNSPECIFIED Qualifiers: CVA mechanism: unspecified Qualified Code(s): I63.9 - Cerebral infarction, unspecified (4) Dementia Code(s): F03.90 - UNSPECIFIED DEMENTIA WITHOUT BEHAVIORAL DISTURBANCE Qualifiers: Dementia type: unspecified type Dementia behavioral disturbance: without behavioral disturbance Qualified Code(s): F03.90 - Unspecified dementia without behavioral disturbance (5) Diabetes mellitus Assessment/Plan: on metformin will monitor bgms on insulin sliding scale Code(s): E11.9 - TYPE 2 DIABETES MELLITUS WITHOUT COMPLICATIONS Qualifiers: Diabetes mellitus type: type 2 Diabetes mellitus complication status: without complication Diabetes mellitus mcfp insulin use: without intermission coordinator use Qualified Code(s): E11.9 - Type 2 diabetes mellitus without complications (6) HTN (hypertension) Assessment/Plan: stable on meds Code(s): I10 - ESSENTIAL (PRIMARY) HYPERTENSION Qualifiers: Hypertension type: essential hypertension Qualified Code(s): I10 - Essential (primary) hypertension (7) History of right hip hemiarthroplasty Code(s): Z96.641 - PRESENCE OF RIGHT ARTIFICIAL HIP JOINT (8) Hypokalemia Assessment/Plan: resolved Code(s): E87.6 - HYPOKALEMIA (9) Moderate aortic regurgitation Code(s): I35.1 - NONRHEUMATIC AORTIC (VALVE) INSUFFICIENCY Assessment/Plan DC TO SNF
[2017-04-03] MEDS: METOPROLOL TARTRATE 50 MG TABLET (FP) PO SCH (21:35)
[2017-04-04] MEDS: INSULIN SLIDING SCALE (NOVOLOG) 1 VIAL SQ SCH ×4 (06:36→21:59)
[2017-04-04] MEDS: METOPROLOL TARTRATE 50 MG TABLET (FP) PO SCH ×2 (09:43→22:00)
[2017-04-04] MEDS ORDERED: PT OWN MED DRAWER 7, Y5N ONE ×4 (09:43→21:46)
[2017-04-04] MEDS: METHIMAZOLE 5 MG TABLET (FP) PO SCH (09:43)
[2017-04-04] MEDS: ENALAPRIL MALEATE 10 MG TABLET (FP) PO SCH ×2 (09:44→22:09)
[2017-04-04] MEDS: ENOXAPARIN NA (PORCINE) 40 MG/0.4 ML DISP.SYRIN SQ SCH (09:44)
[2017-04-04] MEDS: RIVASTIGMINE TARTRATE 1.5 MG CAPSULE PO SCH ×2 (09:44→22:00)
[2017-04-04] MEDS: POTASSIUM CHLORIDE ORAL LIQUID 20 MEQ/15 ML PO SCH (09:57)
--- NOTE | 2017-04-04 11:21 | PN ---
Progress Note, Physician History of Present Illness: Mylagias resolved, comfortable eating lunch. - Current Medication List Current Medications: Active Medications Acetaminophen (Tylenol -) 650 mg PO Q6H PRN PRN Reason: FEVER OR PAIN Last Admin: 04/02/17 21:48 Dose: 650 mg Enalapril Maleate (Vasotec -) 20 mg PO DAILY [facility] Last Admin: 04/04/17 09:44 Dose: 20 mg Enoxaparin Sodium (Lovenox -) 40 mg SQ DAILY [facility] Last Admin: 04/04/17 09:44 Dose: 40 mg Insulin Aspart (Novolog Vial Sliding Scale -) 1 vial SQ ACHS [facility] PRN Reason: Protocol Last Admin: 04/04/17 06:36 Dose: 4 units Metformin HCl (Glucophage -) 850 mg PO BIDAC [facility] Last Admin: 04/04/17 06:36 Dose: 850 mg Methimazole (Tapazole -) 5 mg PO DAILY [facility] Last Admin: 04/04/17 09:43 Dose: 5 mg Metoprolol Tartrate (Lopressor -) 50 mg PO BID [facility] Last Admin: 04/04/17 09:43 Dose: 50 mg Rivastigmine Tartrate (Exelon (Nf) -) 3 mg PO BID [facility] Last Admin: 04/04/17 09:44 Dose: 3 mg - Objective Vital Signs: Vital Signs Temperature 98.4 F 04/04/17 09:00 Pulse Rate 92 H 04/04/17 09:00 Respiratory Rate 18 04/04/17 09:00 Blood Pressure 163/91 04/04/17 09:00 O2 Sat by Pulse Oximetry (%) 96 04/04/17 09:00 Constitutional: Yes: No Distress, Calm, Thin Neck: Yes: Supple Cardiovascular: Yes: Regular Rate and Rhythm Respiratory: Yes: Regular, Diminished Gastrointestinal: Yes: Normal Bowel Sounds, Soft Edema: No Labs: CBC, BMP 04/03/17 06:00 04/03/17 06:00 INR, PTT INR 1.11 (0.82-1.09) 03/28/17 16:06 Problem List - Problems (1) CVA (cerebral vascular accident) Code(s): I63.9 - CEREBRAL INFARCTION, UNSPECIFIED Qualifiers: CVA mechanism: unspecified Qualified Code(s): I63.9 - Cerebral infarction, unspecified (2) Dementia Code(s): F03.90 - UNSPECIFIED DEMENTIA WITHOUT BEHAVIORAL DISTURBANCE Qualifiers: Dementia type: unspecified type Dementia behavioral disturbance: without behavioral disturbance Qualified Code(s): F03.90 - Unspecified dementia without behavioral disturbance (3) Diabetes mellitus Code(s): E11.9 - TYPE 2 DIABETES MELLITUS WITHOUT COMPLICATIONS Qualifiers: Diabetes mellitus type: type 2 Diabetes mellitus complication status: without complication Diabetes mellitus oil program compliance specialist insulin use: without snf use Qualified Code(s): E11.9 - Type 2 diabetes mellitus without complications (4) HTN (hypertension) Code(s): I10 - ESSENTIAL (PRIMARY) HYPERTENSION Qualifiers: Hypertension type: essential hypertension Qualified Code(s): I10 - Essential (primary) hypertension (5) Hip fracture Code(s): S72.009A - FRACTURE OF UNSP PART OF NECK OF UNSP FEMUR, INIT Qualifiers: Encounter type: initial encounter Fracture type: closed Laterality : right Qualified Code(s): S72.001A - Fracture of unspecified part of neck of right femur, initial encounter for closed fracture (6) UTI (urinary tract infection) Code(s): N39.0 - URINARY TRACT INFECTION, SITE NOT SPECIFIED Qualifiers: Urinary tract infection type: site unspecified Hematuria presence: without hematuria Qualified Code(s): N39.0 - Urinary tract infection, site not specified (7) History of right hip hemiarthroplasty Code(s): Z96.641 - PRESENCE OF RIGHT ARTIFICIAL HIP JOINT (8) Moderate aortic regurgitation Code(s): I35.1 - NONRHEUMATIC AORTIC (VALVE) INSUFFICIENCY (9) Anemia Code(s): D64.9 - ANEMIA, UNSPECIFIED Qualifiers: Anemia type: unspecified type Qualified Code(s): D64.9 - Anemia, unspecified Assessment/Plan 03/30/2017 Normal biventricular size and fxn mod AR 1. POD#6 Right hip hemiarthroplasty for displaced right hip femoral neck fracture 2. Hypertension, BP not at goal control 3. 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 Type 2 diabetes mellitus 5. Organic brain syndrome/dementia 6. UTI E. coli 7. Hyperthyroidism 8. Moderate AR 9. Anemia PLAN: 1. Increase Vasotec 20 mg twice a day and Metoprolol Tartrate 50 mg BID and uptitrate as tolerated 2. Completed abx course 3. Eventual physical therapy and rehab placement, DVT prophylaxis, analgesia as needed
[2017-04-04] MEDS ORDERED: INSULIN (NOVOLOG) ASPART 100 UNITS/ML 10ML VIAL ONE (11:26)
--- NOTE | 2017-04-04 12:22 | EKG ---
Test Reason : Blood Pressure : / mmHG Vent. Rate : 074 BPM Atrial Rate : 074 BPM P-R Int : 156 ms QRS Dur : 100 ms QT Int : 386 ms P-R-T Axes : 020 010 016 degrees QTc Int : 428 ms SINUS RHYTHM WITH OCCASIONAL PREMATURE VENTRICULAR COMPLEXES VOLTAGE CRITERIA FOR LEFT VENTRICULAR HYPERTROPHY NONSPECIFIC T WAVE ABNORMALITY ABNORMAL ECG WHEN COMPARED WITH ECG OF 28-MAR-2017 16:34, PREMATURE VENTRICULAR COMPLEXES ARE NOW PRESENT Confirmed by JEF SANCHEZ, TAMARA ([id number]) on 04/04/2017 12:22:19 PM Referred By: ANGELIC RICH Confirmed By:TAMARA FUCHS MD
[2017-04-04] MEDS ORDERED: LEVOFLOXACIN 750 MG TABLET PO SCH (16:30)
--- NOTE | 2017-04-04 16:31 | PN ---
Progress Note, Physician History of Present Illness: patient doing well much more awake and alert daughter in room no complaints - Current Medication List Current Medications: Active Medications Acetaminophen (Tylenol -) 650 mg PO Q6H PRN PRN Reason: FEVER OR PAIN Last Admin: 04/02/17 21:48 Dose: 650 mg Enalapril Maleate (Vasotec -) 20 mg PO BID [facility] Enoxaparin Sodium (Lovenox -) 40 mg SQ DAILY [facility] Last Admin: 04/04/17 09:44 Dose: 40 mg Insulin Aspart (Novolog Vial Sliding Scale -) 1 vial SQ ACHS [facility] PRN Reason: Protocol Last Admin: 04/04/17 11:29 Dose: 4 units Metformin HCl (Glucophage -) 850 mg PO BIDAC [facility] Last Admin: 04/04/17 06:36 Dose: 850 mg Methimazole (Tapazole -) 5 mg PO DAILY [facility] Last Admin: 04/04/17 09:43 Dose: 5 mg Metoprolol Tartrate (Lopressor -) 50 mg PO BID [facility] Last Admin: 04/04/17 09:43 Dose: 50 mg Rivastigmine Tartrate (Exelon (Nf) -) 3 mg PO BID [facility] Last Admin: 04/04/17 09:44 Dose: 3 mg - Objective Vital Signs: Vital Signs Temperature 98.0 F 04/04/17 14:00 Pulse Rate 85 04/04/17 14:00 Respiratory Rate 20 04/04/17 14:00 Blood Pressure 159/85 04/04/17 14:00 O2 Sat by Pulse Oximetry (%) 96 04/04/17 09:00 Constitutional: Yes: No Distress, Calm Cardiovascular: Yes: Regular Rate and Rhythm Respiratory: Yes: Regular, CTA Bilaterally Gastrointestinal: Yes: Normal Bowel Sounds, Soft Musculoskeletal: Yes: Other Extremities: Yes: Other Neurological: Yes: Alert, Other Psychiatric: Yes: Alert Labs: CBC, BMP 04/03/17 06:00 04/03/17 06:00 INR, PTT INR 1.11 (0.82-1.09) 03/28/17 16:06 Assessment/Plan Problem List - Problems (1) Hip fracture Code(s): S72.009A - FRACTURE OF UNSP PART OF NECK OF UNSP FEMUR, INIT Qualifiers: Encounter type: initial encounter Fracture type: closed Laterality : right Qualified Code(s): S72.001A - Fracture of unspecified part of neck of right femur, initial encounter for closed fracture (2) UTI (urinary tract infection) Code(s): N39.0 - URINARY TRACT INFECTION, SITE NOT SPECIFIED Qualifiers: Urinary tract infection type: site unspecified Hematuria presence: without hematuria Qualified Code(s): N39.0 - Urinary tract infection, site not specified plan continue levaquin for another 5 days rest as per surgery physio ct current mgmt
--- NOTE | 2017-04-04 19:15 | PN ---
Progress Note, Physician History of Present Illness: comfortable - Current Medication List Current Medications: Active Medications Acetaminophen (Tylenol -) 650 mg PO Q6H PRN PRN Reason: FEVER OR PAIN Last Admin: 04/02/17 21:48 Dose: 650 mg Enalapril Maleate (Vasotec -) 20 mg PO BID [facility] Enoxaparin Sodium (Lovenox -) 40 mg SQ DAILY [facility] Last Admin: 04/04/17 09:44 Dose: 40 mg Insulin Aspart (Novolog Vial Sliding Scale -) 1 vial SQ ACHS [facility] PRN Reason: Protocol Last Admin: 04/04/17 17:37 Dose: 4 units Levofloxacin (Levaquin) 750 mg PO DAILY [facility] Last Admin: 04/04/17 17:37 Dose: 750 mg Metformin HCl (Glucophage -) 850 mg PO BIDAC [facility] Last Admin: 04/04/17 17:37 Dose: 850 mg Methimazole (Tapazole -) 5 mg PO DAILY [facility] Last Admin: 04/04/17 09:43 Dose: 5 mg Metoprolol Tartrate (Lopressor -) 50 mg PO BID [facility] Last Admin: 04/04/17 09:43 Dose: 50 mg Rivastigmine Tartrate (Exelon (Nf) -) 3 mg PO BID [facility] Last Admin: 04/04/17 09:44 Dose: 3 mg - Objective Vital Signs: Vital Signs Temperature 98.1 F 04/04/17 18:00 Pulse Rate 87 04/04/17 18:00 Respiratory Rate 20 04/04/17 18:00 Blood Pressure 161/80 04/04/17 18:00 O2 Sat by Pulse Oximetry (%) 96 04/04/17 09:00 Constitutional: Yes: No Distress HENT: Yes: Atraumatic Neck: Yes: Supple Cardiovascular: Yes: Regular Rate and Rhythm Respiratory: Yes: CTA Bilaterally Gastrointestinal: Yes: Normal Bowel Sounds Extremities: Yes: WNL Neurological: Yes: Alert Labs: CBC, BMP 04/03/17 06:00 04/03/17 06:00 INR, PTT INR 1.11 (0.82-1.09) 03/28/17 16:06 Problem List - Problems (1) Hip fracture Assessment/Plan: s/p surgery R hip pt eval for snf placement Code(s): S72.009A - FRACTURE OF UNSP PART OF NECK OF UNSP FEMUR, INIT Qualifiers: Encounter type: initial encounter Fracture type: closed Laterality : right Qualified Code(s): S72.001A - Fracture of unspecified part of neck of right femur, initial encounter for closed fracture (2) UTI (urinary tract infection) Assessment/Plan: on po abx uc seen Code(s): N39.0 - URINARY TRACT INFECTION, SITE NOT SPECIFIED Qualifiers: Urinary tract infection type: site unspecified Hematuria presence: without hematuria Qualified Code(s): N39.0 - Urinary tract infection, site not specified (3) CVA (cerebral vascular accident) Code(s): I63.9 - CEREBRAL INFARCTION, UNSPECIFIED Qualifiers: CVA mechanism: unspecified Qualified Code(s): I63.9 - Cerebral infarction, unspecified (4) Dementia Code(s): F03.90 - UNSPECIFIED DEMENTIA WITHOUT BEHAVIORAL DISTURBANCE Qualifiers: Dementia type: unspecified type Dementia behavioral disturbance: without behavioral disturbance Qualified Code(s): F03.90 - Unspecified dementia without behavioral disturbance (5) Diabetes mellitus Assessment/Plan: on metformin will monitor bgms on insulin sliding scale Code(s): E11.9 - TYPE 2 DIABETES MELLITUS WITHOUT COMPLICATIONS Qualifiers: Diabetes mellitus type: type 2 Diabetes mellitus complication status: without complication Diabetes mellitus commercial art instructor insulin use: without mcc use Qualified Code(s): E11.9 - Type 2 diabetes mellitus without complications (6) HTN (hypertension) Code(s): I10 - ESSENTIAL (PRIMARY) HYPERTENSION Qualifiers: Hypertension type: essential hypertension Qualified Code(s): I10 - Essential (primary) hypertension (7) History of right hip hemiarthroplasty Code(s): Z96.641 - PRESENCE OF RIGHT ARTIFICIAL HIP JOINT (8) Hypokalemia Code(s): E87.6 - HYPOKALEMIA (9) Moderate aortic regurgitation Code(s): I35.1 - NONRHEUMATIC AORTIC (VALVE) INSUFFICIENCY Assessment/Plan DC TO SNF
[2017-04-05] MEDS: LEVOFLOXACIN 750 MG TABLET PO SCH (06:26)
[2017-04-05] MEDS: INSULIN SLIDING SCALE (NOVOLOG) 1 VIAL SQ SCH ×4 (06:27→22:32)
[2017-04-05] MEDS ORDERED: PT OWN MED DRAWER 7, Y5N ONE ×2 (10:05→21:34)
[2017-04-05] MEDS: METHIMAZOLE 5 MG TABLET (FP) PO SCH (10:06)
[2017-04-05] MEDS: ENOXAPARIN NA (PORCINE) 40 MG/0.4 ML DISP.SYRIN SQ SCH (10:06)
[2017-04-05] MEDS: METOPROLOL TARTRATE 50 MG TABLET (FP) PO SCH ×2 (10:06→22:22)
[2017-04-05] MEDS: RIVASTIGMINE TARTRATE 1.5 MG CAPSULE PO SCH ×2 (10:06→22:22)
[2017-04-05] MEDS: ENALAPRIL MALEATE 10 MG TABLET (FP) PO SCH ×2 (10:07→22:23)
[2017-04-05] MEDS ORDERED: INSULIN (NOVOLOG) ASPART 100 UNITS/ML 10ML VIAL ONE (11:24)
--- NOTE | 2017-04-05 15:08 | PN ---
Progress Note, Physician History of Present Illness: patient doing well much more awake and alert daughter in room no complaints' sitting in chair rt hand pain - Current Medication List Current Medications: Active Medications Acetaminophen (Tylenol -) 650 mg PO Q6H PRN PRN Reason: FEVER OR PAIN Last Admin: 04/02/17 21:48 Dose: 650 mg Enalapril Maleate (Vasotec -) 20 mg PO BID [facility] Last Admin: 04/05/17 10:07 Dose: 20 mg Enoxaparin Sodium (Lovenox -) 40 mg SQ DAILY [facility] Last Admin: 04/05/17 10:06 Dose: 40 mg Insulin Aspart (Novolog Vial Sliding Scale -) 1 vial SQ ACHS [facility] PRN Reason: Protocol Last Admin: 04/05/17 11:35 Dose: Not Given Levofloxacin (Levaquin) 750 mg PO DAILY@0600 [facility] Last Admin: 04/05/17 06:26 Dose: 750 mg Metformin HCl (Glucophage -) 850 mg PO BIDAC [facility] Last Admin: 04/05/17 06:26 Dose: 850 mg Methimazole (Tapazole -) 5 mg PO DAILY [facility] Last Admin: 04/05/17 10:06 Dose: 5 mg Metoprolol Tartrate (Lopressor -) 50 mg PO BID [facility] Last Admin: 04/05/17 10:06 Dose: 50 mg Rivastigmine Tartrate (Exelon (Nf) -) 3 mg PO BID [facility] Last Admin: 04/05/17 10:06 Dose: 3 mg - Objective Vital Signs: Vital Signs Temperature 97.7 F 04/05/17 14:12 Pulse Rate 93 H 04/05/17 14:12 Respiratory Rate 20 04/05/17 09:59 Blood Pressure 143/84 04/05/17 14:12 O2 Sat by Pulse Oximetry (%) 96 04/05/17 09:00 Constitutional: Yes: No Distress, Calm Cardiovascular: Yes: Regular Rate and Rhythm Respiratory: Yes: Regular, CTA Bilaterally Gastrointestinal: Yes: Normal Bowel Sounds, Soft Musculoskeletal: Yes: Other Extremities: Yes: Other Neurological: Yes: Alert Psychiatric: Yes: Alert Labs: CBC, BMP 04/03/17 06:00 04/03/17 06:00 INR, PTT INR 1.11 (0.82-1.09) 03/28/17 16:06 Assessment/Plan Problem List - Problems (1) Hip fracture Code(s): S72.009A - FRACTURE OF UNSP PART OF NECK OF UNSP FEMUR, INIT Qualifiers: Encounter type: initial encounter Fracture type: closed Laterality : right Qualified Code(s): S72.001A - Fracture of unspecified part of neck of right femur, initial encounter for closed fracture (2) UTI (urinary tract infection) Code(s): N39.0 - URINARY TRACT INFECTION, SITE NOT SPECIFIED Qualifiers: Urinary tract infection type: site unspecified Hematuria presence: without hematuria Qualified Code(s): N39.0 - Urinary tract infection, site not specified plan continue levaquin for another 4 days rest as per surgery physio ct current mgmt
[2017-04-05] MEDS: ACETAMINOPHEN 325 MG TABLET (FP) PO PRN (16:44)
--- NOTE | 2017-04-05 17:15 | PN ---
Progress Note, Physician Chief Complaint: Not in distress Post op hip surgery Hemodynamically stable History of Present Illness: Patient was seen and examined. Awake. Chart was reviewed Denies chest pain, SOB or palpitation - Current Medication List Current Medications: Active Medications Acetaminophen (Tylenol -) 650 mg PO Q6H PRN PRN Reason: FEVER OR PAIN Last Admin: 04/05/17 16:44 Dose: 650 mg Enalapril Maleate (Vasotec -) 20 mg PO BID [facility] Last Admin: 04/05/17 10:07 Dose: 20 mg Enoxaparin Sodium (Lovenox -) 40 mg SQ DAILY [facility] Last Admin: 04/05/17 10:06 Dose: 40 mg Insulin Aspart (Novolog Vial Sliding Scale -) 1 vial SQ ACHS [facility] PRN Reason: Protocol Last Admin: 04/05/17 16:55 Dose: 8 units Levofloxacin (Levaquin) 750 mg PO DAILY@0600 [facility] Last Admin: 04/05/17 06:26 Dose: 750 mg Metformin HCl (Glucophage -) 850 mg PO BIDAC [facility] Last Admin: 04/05/17 16:39 Dose: 850 mg Methimazole (Tapazole -) 5 mg PO DAILY [facility] Last Admin: 04/05/17 10:06 Dose: 5 mg Metoprolol Tartrate (Lopressor -) 50 mg PO BID [facility] Last Admin: 04/05/17 10:06 Dose: 50 mg Rivastigmine Tartrate (Exelon (Nf) -) 3 mg PO BID [facility] Last Admin: 04/05/17 10:06 Dose: 3 mg - Objective Vital Signs: Vital Signs Temperature 97.7 F 04/05/17 14:12 Pulse Rate 93 H 04/05/17 14:12 Respiratory Rate 20 04/05/17 09:59 Blood Pressure 143/84 04/05/17 14:12 O2 Sat by Pulse Oximetry (%) 96 04/05/17 09:00 Neck: Yes: Supple Cardiovascular: Yes: Regular Rate and Rhythm, S1, S2 Respiratory: Yes: Diminished Gastrointestinal: Yes: Normal Bowel Sounds, Soft. No: Tenderness Edema: No Problem List - Problems (1) Hip fracture Code(s): S72.009A - FRACTURE OF UNSP PART OF NECK OF UNSP FEMUR, INIT Qualifiers: Encounter type: initial encounter Fracture type: closed Laterality : right Qualified Code(s): S72.001A - Fracture of unspecified part of neck of right femur, initial encounter for closed fracture (2) UTI (urinary tract infection) Code(s): N39.0 - URINARY TRACT INFECTION, SITE NOT SPECIFIED Qualifiers: Urinary tract infection type: site unspecified Hematuria presence: without hematuria Qualified Code(s): N39.0 - Urinary tract infection, site not specified (3) HTN (hypertension) Code(s): I10 - ESSENTIAL (PRIMARY) HYPERTENSION Qualifiers: Hypertension type: essential hypertension Qualified Code(s): I10 - Essential (primary) hypertension (4) Diabetes mellitus Code(s): E11.9 - TYPE 2 DIABETES MELLITUS WITHOUT COMPLICATIONS Qualifiers: Diabetes mellitus type: type 2 Diabetes mellitus complication status: without complication Diabetes mellitus ferry terminal supervisor insulin use: without ferry terminal supervisor use Qualified Code(s): E11.9 - Type 2 diabetes mellitus without complications (5) CVA (cerebral vascular accident) Code(s): I63.9 - CEREBRAL INFARCTION, UNSPECIFIED Qualifiers: CVA mechanism: unspecified Qualified Code(s): I63.9 - Cerebral infarction, unspecified (6) Dementia Code(s): F03.90 - UNSPECIFIED DEMENTIA WITHOUT BEHAVIORAL DISTURBANCE Qualifiers: Dementia type: unspecified type Dementia behavioral disturbance: without behavioral disturbance Qualified Code(s): F03.90 - Unspecified dementia without behavioral disturbance Assessment/Plan 1. Status post mechanical fall resulting in right hip fracture -S/P ORIF 2. Hypertension 3. 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 Type 2 diabetes mellitus 5. Organic brain syndrome/dementia 6. UTI with fever 7. Hyperthyroidism 8. Moderate aortic valve regurgitation PLAN: 1. Continue Vasotec 20 mg once a day and Metoprolol Tartrate 25 mg BID and up titrate as tolerated 2. Continue Tapazole 3.Pphysical therapy and rehab placement Further plans are to follow Toribio Paulson MD
--- NOTE | 2017-04-05 17:25 | PN ---
Progress Note, Physician History of Present Illness: comfortable - Current Medication List Current Medications: Active Medications Acetaminophen (Tylenol -) 650 mg PO Q6H PRN PRN Reason: FEVER OR PAIN Last Admin: 04/05/17 16:44 Dose: 650 mg Enalapril Maleate (Vasotec -) 20 mg PO BID [facility] Last Admin: 04/05/17 10:07 Dose: 20 mg Enoxaparin Sodium (Lovenox -) 40 mg SQ DAILY [facility] Last Admin: 04/05/17 10:06 Dose: 40 mg Insulin Aspart (Novolog Vial Sliding Scale -) 1 vial SQ ACHS [facility] PRN Reason: Protocol Last Admin: 04/05/17 16:55 Dose: 8 units Levofloxacin (Levaquin) 750 mg PO DAILY@0600 [facility] Last Admin: 04/05/17 06:26 Dose: 750 mg Metformin HCl (Glucophage -) 850 mg PO BIDAC [facility] Last Admin: 04/05/17 16:39 Dose: 850 mg Methimazole (Tapazole -) 5 mg PO DAILY [facility] Last Admin: 04/05/17 10:06 Dose: 5 mg Metoprolol Tartrate (Lopressor -) 50 mg PO BID [facility] Last Admin: 04/05/17 10:06 Dose: 50 mg Rivastigmine Tartrate (Exelon (Nf) -) 3 mg PO BID [facility] Last Admin: 04/05/17 10:06 Dose: 3 mg - Objective Vital Signs: Vital Signs Temperature 97.7 F 04/05/17 14:12 Pulse Rate 93 H 04/05/17 14:12 Respiratory Rate 20 04/05/17 09:59 Blood Pressure 143/84 04/05/17 14:12 O2 Sat by Pulse Oximetry (%) 96 04/05/17 09:00 Constitutional: Yes: No Distress HENT: Yes: Atraumatic Neck: Yes: Supple Cardiovascular: Yes: Regular Rate and Rhythm Respiratory: Yes: Rhonchi Gastrointestinal: Yes: Normal Bowel Sounds Extremities: Yes: WNL Edema: LLE: Trace Peripheral Pulses WNL: Yes Neurological: Yes: Alert Labs: CBC, BMP 04/03/17 06:00 04/03/17 06:00 INR, PTT INR 1.11 (0.82-1.09) 03/28/17 16:06 Problem List - Problems (1) Hip fracture Assessment/Plan: s/p surgery R hip pt eval for snf placement Code(s): S72.009A - FRACTURE OF UNSP PART OF NECK OF UNSP FEMUR, INIT Qualifiers: Encounter type: initial encounter Fracture type: closed Laterality : right Qualified Code(s): S72.001A - Fracture of unspecified part of neck of right femur, initial encounter for closed fracture (2) UTI (urinary tract infection) Assessment/Plan: on po abx uc seen Code(s): N39.0 - URINARY TRACT INFECTION, SITE NOT SPECIFIED Qualifiers: Urinary tract infection type: site unspecified Hematuria presence: without hematuria Qualified Code(s): N39.0 - Urinary tract infection, site not specified (3) CVA (cerebral vascular accident) Code(s): I63.9 - CEREBRAL INFARCTION, UNSPECIFIED Qualifiers: CVA mechanism: unspecified Qualified Code(s): I63.9 - Cerebral infarction, unspecified (4) Dementia Code(s): F03.90 - UNSPECIFIED DEMENTIA WITHOUT BEHAVIORAL DISTURBANCE Qualifiers: Dementia type: unspecified type Dementia behavioral disturbance: without behavioral disturbance Qualified Code(s): F03.90 - Unspecified dementia without behavioral disturbance (5) Diabetes mellitus Code(s): E11.9 - TYPE 2 DIABETES MELLITUS WITHOUT COMPLICATIONS Qualifiers: Diabetes mellitus type: type 2 Diabetes mellitus complication status: without complication Diabetes mellitus manager long term care insulin use: without senior care use Qualified Code(s): E11.9 - Type 2 diabetes mellitus without complications (6) HTN (hypertension) Code(s): I10 - ESSENTIAL (PRIMARY) HYPERTENSION Qualifiers: Hypertension type: essential hypertension Qualified Code(s): I10 - Essential (primary) hypertension (7) History of right hip hemiarthroplasty Code(s): Z96.641 - PRESENCE OF RIGHT ARTIFICIAL HIP JOINT (8) Hypokalemia Code(s): E87.6 - HYPOKALEMIA (9) Moderate aortic regurgitation Code(s): I35.1 - NONRHEUMATIC AORTIC (VALVE) INSUFFICIENCY Assessment/Plan DC TO SNF SPOKE TO CHIEF ANALYTICS OFFICER , SHE WANTS ME TO CALL INSURANCE HAD ASKED HER TO GIVE ME PHONE NO TO CALL OR PUT IT IN HER NOTES
--- NOTE | 2017-04-05 17:35 | PN ---
Progress Note (short form) - Note Progress Note: Pt seen and examined. S/p Right hip emma. Overall she is doing well. She tried to ambulate with P.T. today. AVSS H/H stable although down to 9.9/29.7 RLE NVI Dressing CDI Overall doing well. Rec DC planning, SNF Likely transfer before the weekend P.T. as tolerated
[2017-04-06] MEDS: INSULIN SLIDING SCALE (NOVOLOG) 1 VIAL SQ SCH ×4 (06:36→21:18)
[2017-04-06] MEDS: LEVOFLOXACIN 750 MG TABLET PO SCH (06:36)
[2017-04-06] MEDS ORDERED: PT OWN MED DRAWER 7, Y5N ONE ×4 (06:49→17:35)
[2017-04-06] MEDS: ENOXAPARIN NA (PORCINE) 40 MG/0.4 ML DISP.SYRIN SQ SCH (09:28)
[2017-04-06] MEDS: ACETAMINOPHEN 325 MG TABLET (FP) PO PRN ×2 (09:28→21:18)
[2017-04-06] MEDS: ENALAPRIL MALEATE 10 MG TABLET (FP) PO SCH ×2 (09:29→21:17)
[2017-04-06] MEDS: METOPROLOL TARTRATE 50 MG TABLET (FP) PO SCH ×2 (09:29→21:17)
[2017-04-06] MEDS: RIVASTIGMINE TARTRATE 1.5 MG CAPSULE PO SCH ×2 (09:29→22:01)
[2017-04-06] MEDS: METHIMAZOLE 5 MG TABLET (FP) PO SCH (09:29)
--- NOTE | 2017-04-06 14:04 | PN ---
Progress Note, Physician History of Present Illness: Feels weak, did not do much physical therapy today. - Current Medication List Current Medications: Active Medications Acetaminophen (Tylenol -) 650 mg PO Q6H PRN PRN Reason: FEVER OR PAIN Last Admin: 04/06/17 09:28 Dose: 650 mg Enalapril Maleate (Vasotec -) 20 mg PO BID [facility] Last Admin: 04/06/17 09:29 Dose: 20 mg Enoxaparin Sodium (Lovenox -) 40 mg SQ DAILY [facility] Last Admin: 04/06/17 09:28 Dose: 40 mg Insulin Aspart (Novolog Vial Sliding Scale -) 1 vial SQ ACHS [facility] PRN Reason: Protocol Last Admin: 04/06/17 11:33 Dose: 2 units Levofloxacin (Levaquin) 750 mg PO DAILY@0600 [facility] Last Admin: 04/06/17 06:36 Dose: 750 mg Metformin HCl (Glucophage -) 850 mg PO BIDAC [facility] Last Admin: 04/06/17 06:36 Dose: 850 mg Methimazole (Tapazole -) 5 mg PO DAILY [facility] Last Admin: 04/06/17 09:29 Dose: 5 mg Metoprolol Tartrate (Lopressor -) 50 mg PO BID [facility] Last Admin: 04/06/17 09:29 Dose: 50 mg Rivastigmine Tartrate (Exelon (Nf) -) 3 mg PO BID [facility] Last Admin: 04/06/17 09:29 Dose: 3 mg - Objective Vital Signs: Vital Signs Temperature 98.4 F 04/06/17 08:53 Pulse Rate 88 04/06/17 11:37 Respiratory Rate 20 04/06/17 08:55 Blood Pressure 129/65 04/06/17 11:37 O2 Sat by Pulse Oximetry (%) 96 04/06/17 08:55 Constitutional: Yes: No Distress, Calm Neck: Yes: Supple Cardiovascular: Yes: Regular Rate and Rhythm Respiratory: Yes: Regular, Diminished Gastrointestinal: Yes: Normal Bowel Sounds, Soft Edema: No Labs: CBC, BMP 04/03/17 06:00 04/03/17 06:00 INR, PTT INR 1.11 (0.82-1.09) 03/28/17 16:06 Problem List - Problems (1) CVA (cerebral vascular accident) Code(s): I63.9 - CEREBRAL INFARCTION, UNSPECIFIED Qualifiers: CVA mechanism: unspecified Qualified Code(s): I63.9 - Cerebral infarction, unspecified (2) Dementia Code(s): F03.90 - UNSPECIFIED DEMENTIA WITHOUT BEHAVIORAL DISTURBANCE Qualifiers: Dementia type: unspecified type Dementia behavioral disturbance: without behavioral disturbance Qualified Code(s): F03.90 - Unspecified dementia without behavioral disturbance (3) Diabetes mellitus Code(s): E11.9 - TYPE 2 DIABETES MELLITUS WITHOUT COMPLICATIONS Qualifiers: Diabetes mellitus type: type 2 Diabetes mellitus complication status: without complication Diabetes mellitus alf insulin use: without alf use Qualified Code(s): E11.9 - Type 2 diabetes mellitus without complications (4) HTN (hypertension) Code(s): I10 - ESSENTIAL (PRIMARY) HYPERTENSION Qualifiers: Hypertension type: essential hypertension Qualified Code(s): I10 - Essential (primary) hypertension (5) Hip fracture Code(s): S72.009A - FRACTURE OF UNSP PART OF NECK OF UNSP FEMUR, INIT Qualifiers: Encounter type: initial encounter Fracture type: closed Laterality : right Qualified Code(s): S72.001A - Fracture of unspecified part of neck of right femur, initial encounter for closed fracture (6) UTI (urinary tract infection) Code(s): N39.0 - URINARY TRACT INFECTION, SITE NOT SPECIFIED Qualifiers: Urinary tract infection type: site unspecified Hematuria presence: without hematuria Qualified Code(s): N39.0 - Urinary tract infection, site not specified (7) History of right hip hemiarthroplasty Code(s): Z96.641 - PRESENCE OF RIGHT ARTIFICIAL HIP JOINT (8) Moderate aortic regurgitation Code(s): I35.1 - NONRHEUMATIC AORTIC (VALVE) INSUFFICIENCY (9) Anemia Code(s): D64.9 - ANEMIA, UNSPECIFIED Qualifiers: Anemia type: unspecified type Qualified Code(s): D64.9 - Anemia, unspecified Assessment/Plan 03/30/2017 Normal biventricular size and fxn mod AR 1. POD#8 Right hip hemiarthroplasty for displaced right hip femoral neck fracture 2. Hypertension, BP control improved 3. 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 Type 2 diabetes mellitus 5. Organic brain syndrome/dementia 6. UTI E. coli 7. Hyperthyroidism 8. Moderate AR 9. Anemia PLAN: 1. Continue Vasotec 20 mg twice a day and Metoprolol Tartrate 50 mg BID and uptitrate as tolerated 2. Completed abx course 3. Eventual physical therapy and rehab placement, DVT prophylaxis, analgesia as needed
--- NOTE | 2017-04-06 14:32 | PN ---
Progress Note, Physician History of Present Illness: patient doing well - Current Medication List Current Medications: Active Medications Acetaminophen (Tylenol -) 650 mg PO Q6H PRN PRN Reason: FEVER OR PAIN Last Admin: 04/06/17 09:28 Dose: 650 mg Enalapril Maleate (Vasotec -) 20 mg PO BID [facility] Last Admin: 04/06/17 09:29 Dose: 20 mg Enoxaparin Sodium (Lovenox -) 40 mg SQ DAILY [facility] Last Admin: 04/06/17 09:28 Dose: 40 mg Insulin Aspart (Novolog Vial Sliding Scale -) 1 vial SQ ACHS [facility] PRN Reason: Protocol Last Admin: 04/06/17 11:33 Dose: 2 units Levofloxacin (Levaquin) 750 mg PO DAILY@0600 [facility] Last Admin: 04/06/17 06:36 Dose: 750 mg Metformin HCl (Glucophage -) 850 mg PO BIDAC [facility] Last Admin: 04/06/17 06:36 Dose: 850 mg Methimazole (Tapazole -) 5 mg PO DAILY [facility] Last Admin: 04/06/17 09:29 Dose: 5 mg Metoprolol Tartrate (Lopressor -) 50 mg PO BID [facility] Last Admin: 04/06/17 09:29 Dose: 50 mg Rivastigmine Tartrate (Exelon (Nf) -) 3 mg PO BID [facility] Last Admin: 04/06/17 09:29 Dose: 3 mg - Objective Vital Signs: Vital Signs Temperature 97.9 F 04/06/17 14:00 Pulse Rate 89 04/06/17 14:00 Respiratory Rate 20 04/06/17 14:00 Blood Pressure 129/65 04/06/17 11:37 O2 Sat by Pulse Oximetry (%) 96 04/06/17 08:55 Constitutional: Yes: No Distress, Calm Cardiovascular: Yes: Regular Rate and Rhythm Respiratory: Yes: Regular, CTA Bilaterally Gastrointestinal: Yes: Normal Bowel Sounds, Soft Musculoskeletal: Yes: Other Extremities: Yes: Other Neurological: Yes: Alert, Oriented Psychiatric: Yes: Alert, Oriented Labs: CBC, BMP 04/03/17 06:00 04/03/17 06:00 INR, PTT INR 1.11 (0.82-1.09) 03/28/17 16:06 Assessment/Plan Problem List - Problems (1) Hip fracture Code(s): S72.009A - FRACTURE OF UNSP PART OF NECK OF UNSP FEMUR, INIT Qualifiers: Encounter type: initial encounter Fracture type: closed Laterality : right Qualified Code(s): S72.001A - Fracture of unspecified part of neck of right femur, initial encounter for closed fracture (2) UTI (urinary tract infection) Code(s): N39.0 - URINARY TRACT INFECTION, SITE NOT SPECIFIED Qualifiers: Urinary tract infection type: site unspecified Hematuria presence: without hematuria Qualified Code(s): N39.0 - Urinary tract infection, site not specified plan continue levaquin for another 3 days rest as per surgery physio ct current mgmt
[2017-04-06] MEDS ORDERED: INSULIN (NOVOLOG) ASPART 100 UNITS/ML 10ML VIAL ONE (17:34)
--- NOTE | 2017-04-06 19:23 | PN ---
Progress Note, Physician History of Present Illness: comfortable - Current Medication List Current Medications: Active Medications Acetaminophen (Tylenol -) 650 mg PO Q6H PRN PRN Reason: FEVER OR PAIN Last Admin: 04/06/17 09:28 Dose: 650 mg Enalapril Maleate (Vasotec -) 20 mg PO BID [facility] Last Admin: 04/06/17 09:29 Dose: 20 mg Enoxaparin Sodium (Lovenox -) 40 mg SQ DAILY [facility] Last Admin: 04/06/17 09:28 Dose: 40 mg Insulin Aspart (Novolog Vial Sliding Scale -) 1 vial SQ ACHS [facility] PRN Reason: Protocol Last Admin: 04/06/17 17:37 Dose: 2 units Levofloxacin (Levaquin) 750 mg PO DAILY@0600 [facility] Last Admin: 04/06/17 06:36 Dose: 750 mg Metformin HCl (Glucophage -) 850 mg PO BIDAC [facility] Last Admin: 04/06/17 17:37 Dose: 850 mg Methimazole (Tapazole -) 5 mg PO DAILY [facility] Last Admin: 04/06/17 09:29 Dose: 5 mg Metoprolol Tartrate (Lopressor -) 50 mg PO BID [facility] Last Admin: 04/06/17 09:29 Dose: 50 mg Rivastigmine Tartrate (Exelon (Nf) -) 3 mg PO BID [facility] Last Admin: 04/06/17 09:29 Dose: 3 mg - Objective Vital Signs: Vital Signs Temperature 97.9 F 04/06/17 14:00 Pulse Rate 89 04/06/17 14:00 Respiratory Rate 20 04/06/17 14:00 Blood Pressure 129/65 04/06/17 11:37 O2 Sat by Pulse Oximetry (%) 96 04/06/17 08:55 Constitutional: Yes: No Distress HENT: Yes: Atraumatic Neck: Yes: Supple Cardiovascular: Yes: Regular Rate and Rhythm Respiratory: Yes: CTA Bilaterally Gastrointestinal: Yes: Normal Bowel Sounds Extremities: Yes: WNL Neurological: Yes: Alert, Oriented Labs: CBC, BMP 04/03/17 06:00 04/03/17 06:00 INR, PTT INR 1.11 (0.82-1.09) 03/28/17 16:06 Problem List - Problems (1) Hip fracture Assessment/Plan: s/p surgery R hip pt eval for snf placement Code(s): S72.009A - FRACTURE OF UNSP PART OF NECK OF UNSP FEMUR, INIT Qualifiers: Encounter type: initial encounter Fracture type: closed Laterality : right Qualified Code(s): S72.001A - Fracture of unspecified part of neck of right femur, initial encounter for closed fracture (2) UTI (urinary tract infection) Assessment/Plan: on po abx uc seen Code(s): N39.0 - URINARY TRACT INFECTION, SITE NOT SPECIFIED Qualifiers: Urinary tract infection type: site unspecified Hematuria presence: without hematuria Qualified Code(s): N39.0 - Urinary tract infection, site not specified (3) CVA (cerebral vascular accident) Code(s): I63.9 - CEREBRAL INFARCTION, UNSPECIFIED Qualifiers: CVA mechanism: unspecified Qualified Code(s): I63.9 - Cerebral infarction, unspecified (4) Dementia Code(s): F03.90 - UNSPECIFIED DEMENTIA WITHOUT BEHAVIORAL DISTURBANCE Qualifiers: Dementia type: unspecified type Dementia behavioral disturbance: without behavioral disturbance Qualified Code(s): F03.90 - Unspecified dementia without behavioral disturbance (5) Diabetes mellitus Code(s): E11.9 - TYPE 2 DIABETES MELLITUS WITHOUT COMPLICATIONS Qualifiers: Diabetes mellitus type: type 2 Diabetes mellitus complication status: without complication Diabetes mellitus jail insulin use: without manager long term care use Qualified Code(s): E11.9 - Type 2 diabetes mellitus without complications (6) HTN (hypertension) Code(s): I10 - ESSENTIAL (PRIMARY) HYPERTENSION Qualifiers: Hypertension type: essential hypertension Qualified Code(s): I10 - Essential (primary) hypertension (7) History of right hip hemiarthroplasty Code(s): Z96.641 - PRESENCE OF RIGHT ARTIFICIAL HIP JOINT (8) Hypokalemia Code(s): E87.6 - HYPOKALEMIA (9) Moderate aortic regurgitation Code(s): I35.1 - NONRHEUMATIC AORTIC (VALVE) INSUFFICIENCY Assessment/Plan DC TO SNF LEFT MSG WITH [facility] REPRSENTATIVE, I SPOKE TO THE PERSON IT WAS NOT VOICEMAIL
[2017-04-06] MEDS: NYSTATIN 100,000 UNIT/GM TOPICAL CREAM 15 GM TUBE TP SCH (23:38)
[2017-04-07] MEDS: LEVOFLOXACIN 750 MG TABLET PO SCH (06:12)
[2017-04-07] MEDS ORDERED: INSULIN (NOVOLOG) ASPART 100 UNITS/ML 10ML VIAL ONE (06:12)
[2017-04-07] MEDS: INSULIN SLIDING SCALE (NOVOLOG) 1 VIAL SQ SCH ×4 (06:13→21:55)
[2017-04-07] MEDS: METOPROLOL TARTRATE 50 MG TABLET (FP) PO SCH ×2 (09:37→21:50)
[2017-04-07] MEDS: METHIMAZOLE 5 MG TABLET (FP) PO SCH (09:37)
[2017-04-07] MEDS: ENOXAPARIN NA (PORCINE) 40 MG/0.4 ML DISP.SYRIN SQ SCH (09:38)
[2017-04-07] MEDS: ENALAPRIL MALEATE 10 MG TABLET (FP) PO SCH ×2 (09:38→21:50)
[2017-04-07] MEDS: NYSTATIN 100,000 UNIT/GM TOPICAL CREAM 15 GM TUBE TP SCH ×2 (09:45→21:51)
--- NOTE | 2017-04-07 10:05 | PN ---
Progress Note (short form) - Note Progress Note: Pt seen, at her baseline, no c/o pain, in bed, going to P.T. Only rec at this time is P.T., as much as tolerated.
[2017-04-07] MEDS: ACETAMINOPHEN 325 MG TABLET (FP) PO PRN (11:09)
[2017-04-07] MEDS: RIVASTIGMINE TARTRATE 1.5 MG CAPSULE PO SCH ×2 (11:47→21:50)
--- NOTE | 2017-04-07 15:22 | PN ---
Progress Note, Physician History of Present Illness: No complaints today. Plan for PT. - Current Medication List Current Medications: Active Medications Acetaminophen (Tylenol -) 650 mg PO Q6H PRN PRN Reason: FEVER OR PAIN Last Admin: 04/07/17 11:09 Dose: 650 mg Enalapril Maleate (Vasotec -) 20 mg PO BID [facility] Last Admin: 04/07/17 09:38 Dose: 20 mg Enoxaparin Sodium (Lovenox -) 40 mg SQ DAILY [facility] Last Admin: 04/07/17 09:38 Dose: 40 mg Insulin Aspart (Novolog Vial Sliding Scale -) 1 vial SQ ACHS [facility] PRN Reason: Protocol Last Admin: 04/07/17 11:50 Dose: 2 units Levofloxacin (Levaquin) 750 mg PO DAILY@0600 [facility] Last Admin: 04/07/17 06:12 Dose: 750 mg Metformin HCl (Glucophage -) 850 mg PO BIDAC [facility] Last Admin: 04/07/17 06:11 Dose: 850 mg Methimazole (Tapazole -) 5 mg PO DAILY [facility] Last Admin: 04/07/17 09:37 Dose: 5 mg Metoprolol Tartrate (Lopressor -) 50 mg PO BID [facility] Last Admin: 04/07/17 09:37 Dose: 50 mg Nystatin (Mycostatin Cream -) 1 applic TP BID [facility] Last Admin: 04/07/17 09:45 Dose: 1 applic Rivastigmine Tartrate (Exelon (Nf) -) 3 mg PO BID [facility] Last Admin: 04/07/17 11:47 Dose: Not Given - Objective Vital Signs: Vital Signs Temperature 98.3 F 04/07/17 14:02 Pulse Rate 83 04/07/17 14:02 Respiratory Rate 16 04/07/17 08:14 Blood Pressure 151/54 04/07/17 14:02 O2 Sat by Pulse Oximetry (%) 95 04/07/17 10:00 Constitutional: Yes: No Distress, Calm, Thin Neck: Yes: Supple Cardiovascular: Yes: Regular Rate and Rhythm Respiratory: Yes: Regular, Diminished Gastrointestinal: Yes: Normal Bowel Sounds, Soft Edema: No Labs: CBC, BMP 04/03/17 06:00 04/03/17 06:00 INR, PTT INR 1.11 (0.82-1.09) 03/28/17 16:06 - ....Imaging X-ray: Report Reviewed (Limited study, no fracture) Problem List - Problems (1) CVA (cerebral vascular accident) Code(s): I63.9 - CEREBRAL INFARCTION, UNSPECIFIED Qualifiers: CVA mechanism: unspecified Qualified Code(s): I63.9 - Cerebral infarction, unspecified (2) Dementia Code(s): F03.90 - UNSPECIFIED DEMENTIA WITHOUT BEHAVIORAL DISTURBANCE Qualifiers: Dementia type: unspecified type Dementia behavioral disturbance: without behavioral disturbance Qualified Code(s): F03.90 - Unspecified dementia without behavioral disturbance (3) Diabetes mellitus Code(s): E11.9 - TYPE 2 DIABETES MELLITUS WITHOUT COMPLICATIONS Qualifiers: Diabetes mellitus type: type 2 Diabetes mellitus complication status: without complication Diabetes mellitus termite renewal inspector insulin use: without termite renewal inspector use Qualified Code(s): E11.9 - Type 2 diabetes mellitus without complications (4) HTN (hypertension) Code(s): I10 - ESSENTIAL (PRIMARY) HYPERTENSION Qualifiers: Hypertension type: essential hypertension Qualified Code(s): I10 - Essential (primary) hypertension (5) Hip fracture Code(s): S72.009A - FRACTURE OF UNSP PART OF NECK OF UNSP FEMUR, INIT Qualifiers: Encounter type: initial encounter Fracture type: closed Laterality : right Qualified Code(s): S72.001A - Fracture of unspecified part of neck of right femur, initial encounter for closed fracture (6) UTI (urinary tract infection) Code(s): N39.0 - URINARY TRACT INFECTION, SITE NOT SPECIFIED Qualifiers: Urinary tract infection type: site unspecified Hematuria presence: without hematuria Qualified Code(s): N39.0 - Urinary tract infection, site not specified (7) History of right hip hemiarthroplasty Code(s): Z96.641 - PRESENCE OF RIGHT ARTIFICIAL HIP JOINT (8) Moderate aortic regurgitation Code(s): I35.1 - NONRHEUMATIC AORTIC (VALVE) INSUFFICIENCY (9) Anemia Code(s): D64.9 - ANEMIA, UNSPECIFIED Qualifiers: Anemia type: unspecified type Qualified Code(s): D64.9 - Anemia, unspecified Assessment/Plan 03/30/2017 Normal biventricular size and fxn mod AR 1. POD#9 Right hip hemiarthroplasty for displaced right hip femoral neck fracture 2. Hypertension, BP control improved 3. 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 Type 2 diabetes mellitus 5. Organic brain syndrome/dementia 6. UTI E. coli 7. Hyperthyroidism 8. Moderate AR 9. Anemia PLAN: 1. Continue Vasotec 20 mg twice a day and Metoprolol Tartrate 50 mg BID and uptitrate as tolerated 2. Completed abx course 3. Eventual physical therapy and rehab placement, DVT prophylaxis, analgesia as needed
--- NOTE | 2017-04-07 15:45 | PN ---
Progress Note, Physician History of Present Illness: patient stable no complaints - Current Medication List Current Medications: Active Medications Acetaminophen (Tylenol -) 650 mg PO Q6H PRN PRN Reason: FEVER OR PAIN Last Admin: 04/07/17 11:09 Dose: 650 mg Enalapril Maleate (Vasotec -) 20 mg PO BID [facility] Last Admin: 04/07/17 09:38 Dose: 20 mg Enoxaparin Sodium (Lovenox -) 40 mg SQ DAILY [facility] Last Admin: 04/07/17 09:38 Dose: 40 mg Insulin Aspart (Novolog Vial Sliding Scale -) 1 vial SQ ACHS [facility] PRN Reason: Protocol Last Admin: 04/07/17 11:50 Dose: 2 units Levofloxacin (Levaquin) 750 mg PO DAILY@0600 [facility] Last Admin: 04/07/17 06:12 Dose: 750 mg Metformin HCl (Glucophage -) 850 mg PO BIDAC [facility] Last Admin: 04/07/17 06:11 Dose: 850 mg Methimazole (Tapazole -) 5 mg PO DAILY [facility] Last Admin: 04/07/17 09:37 Dose: 5 mg Metoprolol Tartrate (Lopressor -) 50 mg PO BID [facility] Last Admin: 04/07/17 09:37 Dose: 50 mg Nystatin (Mycostatin Cream -) 1 applic TP BID [facility] Last Admin: 04/07/17 09:45 Dose: 1 applic Rivastigmine Tartrate (Exelon (Nf) -) 3 mg PO BID [facility] Last Admin: 04/07/17 11:47 Dose: Not Given - Objective Vital Signs: Vital Signs Temperature 98.3 F 04/07/17 14:02 Pulse Rate 83 04/07/17 14:02 Respiratory Rate 16 04/07/17 08:14 Blood Pressure 151/54 04/07/17 14:02 O2 Sat by Pulse Oximetry (%) 95 04/07/17 10:00 Constitutional: Yes: No Distress, Calm Neck: Yes: Supple Cardiovascular: Yes: Regular Rate and Rhythm Respiratory: Yes: Regular, CTA Bilaterally Gastrointestinal: Yes: Normal Bowel Sounds, Soft Musculoskeletal: Yes: Other Extremities: Yes: Other (painful movement of rt hand and shoulder) Neurological: Yes: Alert Psychiatric: Yes: Alert Labs: CBC, BMP 04/03/17 06:00 04/03/17 06:00 INR, PTT INR 1.11 (0.82-1.09) 03/28/17 16:06 Assessment/Plan Problem List - Problems (1) Hip fracture Code(s): S72.009A - FRACTURE OF UNSP PART OF NECK OF UNSP FEMUR, INIT Qualifiers: Encounter type: initial encounter Fracture type: closed Laterality : right Qualified Code(s): S72.001A - Fracture of unspecified part of neck of right femur, initial encounter for closed fracture (2) UTI (urinary tract infection) Code(s): N39.0 - URINARY TRACT INFECTION, SITE NOT SPECIFIED Qualifiers: Urinary tract infection type: site unspecified Hematuria presence: without hematuria Qualified Code(s): N39.0 - Urinary tract infection, site not specified plan continue levaquin for another 2 days rest as per surgery physio ct current mgmt patient should get physio of the hand
[2017-04-07] MEDS ORDERED: PT OWN MED DRAWER 7, Y5N ONE ×2 (17:14→21:30)
--- NOTE | 2017-04-07 17:18 | PN ---
Progress Note, Physician History of Present Illness: comfortable - Current Medication List Current Medications: Active Medications Acetaminophen (Tylenol -) 650 mg PO Q6H PRN PRN Reason: FEVER OR PAIN Last Admin: 04/07/17 11:09 Dose: 650 mg Enalapril Maleate (Vasotec -) 20 mg PO BID [facility] Last Admin: 04/07/17 09:38 Dose: 20 mg Enoxaparin Sodium (Lovenox -) 40 mg SQ DAILY [facility] Last Admin: 04/07/17 09:38 Dose: 40 mg Insulin Aspart (Novolog Vial Sliding Scale -) 1 vial SQ ACHS [facility] PRN Reason: Protocol Last Admin: 04/07/17 17:13 Dose: Not Given Levofloxacin (Levaquin) 750 mg PO DAILY@0600 [facility] Last Admin: 04/07/17 06:12 Dose: 750 mg Metformin HCl (Glucophage -) 850 mg PO BIDAC [facility] Last Admin: 04/07/17 06:11 Dose: 850 mg Methimazole (Tapazole -) 5 mg PO DAILY [facility] Last Admin: 04/07/17 09:37 Dose: 5 mg Metoprolol Tartrate (Lopressor -) 50 mg PO BID [facility] Last Admin: 04/07/17 09:37 Dose: 50 mg Nystatin (Mycostatin Cream -) 1 applic TP BID [facility] Last Admin: 04/07/17 09:45 Dose: 1 applic Rivastigmine Tartrate (Exelon (Nf) -) 3 mg PO BID [facility] Last Admin: 04/07/17 11:47 Dose: Not Given - Objective Vital Signs: Vital Signs Temperature 98.3 F 04/07/17 14:02 Pulse Rate 83 04/07/17 14:02 Respiratory Rate 16 04/07/17 08:14 Blood Pressure 151/54 04/07/17 14:02 O2 Sat by Pulse Oximetry (%) 95 04/07/17 10:00 Constitutional: Yes: No Distress HENT: Yes: Atraumatic Neck: Yes: Supple Cardiovascular: Yes: Regular Rate and Rhythm Respiratory: Yes: Rhonchi Gastrointestinal: Yes: Normal Bowel Sounds Extremities: Yes: WNL Edema: No Peripheral Pulses WNL: Yes Neurological: Yes: Alert Labs: CBC, BMP 04/03/17 06:00 04/03/17 06:00 INR, PTT INR 1.11 (0.82-1.09) 03/28/17 16:06 Problem List - Problems (1) Hip fracture Assessment/Plan: s/p surgery R hip pt eval for snf placement Code(s): S72.009A - FRACTURE OF UNSP PART OF NECK OF UNSP FEMUR, INIT Qualifiers: Encounter type: initial encounter Fracture type: closed Laterality : right Qualified Code(s): S72.001A - Fracture of unspecified part of neck of right femur, initial encounter for closed fracture (2) UTI (urinary tract infection) Assessment/Plan: on po abx uc seen Code(s): N39.0 - URINARY TRACT INFECTION, SITE NOT SPECIFIED Qualifiers: Urinary tract infection type: site unspecified Hematuria presence: without hematuria Qualified Code(s): N39.0 - Urinary tract infection, site not specified (3) CVA (cerebral vascular accident) Code(s): I63.9 - CEREBRAL INFARCTION, UNSPECIFIED Qualifiers: CVA mechanism: unspecified Qualified Code(s): I63.9 - Cerebral infarction, unspecified (4) Dementia Code(s): F03.90 - UNSPECIFIED DEMENTIA WITHOUT BEHAVIORAL DISTURBANCE Qualifiers: Dementia type: unspecified type Dementia behavioral disturbance: without behavioral disturbance Qualified Code(s): F03.90 - Unspecified dementia without behavioral disturbance (5) Diabetes mellitus Assessment/Plan: on metformin will monitor bgms on insulin sliding scale Code(s): E11.9 - TYPE 2 DIABETES MELLITUS WITHOUT COMPLICATIONS Qualifiers: Diabetes mellitus type: type 2 Diabetes mellitus complication status: without complication Diabetes mellitus terminal supervisor insulin use: without nursing home use Qualified Code(s): E11.9 - Type 2 diabetes mellitus without complications (6) HTN (hypertension) Assessment/Plan: stable on meds Code(s): I10 - ESSENTIAL (PRIMARY) HYPERTENSION Qualifiers: Hypertension type: essential hypertension Qualified Code(s): I10 - Essential (primary) hypertension (7) History of right hip hemiarthroplasty Code(s): Z96.641 - PRESENCE OF RIGHT ARTIFICIAL HIP JOINT (8) Hypokalemia Assessment/Plan: resolved Code(s): E87.6 - HYPOKALEMIA (9) Moderate aortic regurgitation Code(s): I35.1 - NONRHEUMATIC AORTIC (VALVE) INSUFFICIENCY Assessment/Plan DC TO SNF IN PROGRESS
[2017-04-08] MEDS ORDERED: PT OWN MED DRAWER 7, Y5N ONE ×3 (05:47→16:57)
[2017-04-08] MEDS: INSULIN SLIDING SCALE (NOVOLOG) 1 VIAL SQ SCH ×4 (06:14→21:55)
[2017-04-08] MEDS: LEVOFLOXACIN 750 MG TABLET PO SCH (06:24)
[2017-04-08] MEDS: METHIMAZOLE 5 MG TABLET (FP) PO SCH (09:00)
[2017-04-08] MEDS: RIVASTIGMINE TARTRATE 1.5 MG CAPSULE PO SCH ×2 (09:00→21:46)
[2017-04-08] MEDS: METOPROLOL TARTRATE 50 MG TABLET (FP) PO SCH ×2 (09:00→21:47)
[2017-04-08] MEDS: NYSTATIN 100,000 UNIT/GM TOPICAL CREAM 15 GM TUBE TP SCH ×2 (09:00→21:48)
[2017-04-08] MEDS: ENOXAPARIN NA (PORCINE) 40 MG/0.4 ML DISP.SYRIN SQ SCH (09:00)
[2017-04-08] MEDS: ENALAPRIL MALEATE 10 MG TABLET (FP) PO SCH ×2 (09:31→21:48)
--- NOTE | 2017-04-08 11:07 | PN ---
Progress Note, Physician History of Present Illness: No complaints today. Plan for PT. - Current Medication List Current Medications: Active Medications Acetaminophen (Tylenol -) 650 mg PO Q6H PRN PRN Reason: FEVER OR PAIN Last Admin: 04/07/17 11:09 Dose: 650 mg Enalapril Maleate (Vasotec -) 20 mg PO BID [facility] Last Admin: 04/08/17 09:31 Dose: 20 mg Enoxaparin Sodium (Lovenox -) 40 mg SQ DAILY [facility] Last Admin: 04/08/17 09:00 Dose: 40 mg Insulin Aspart (Novolog Vial Sliding Scale -) 1 vial SQ ACHS [facility] PRN Reason: Protocol Last Admin: 04/08/17 06:14 Dose: 2 units Levofloxacin (Levaquin) 750 mg PO DAILY@0600 [facility] Last Admin: 04/08/17 06:24 Dose: 750 mg Metformin HCl (Glucophage -) 850 mg PO BIDAC [facility] Last Admin: 04/08/17 06:24 Dose: 850 mg Methimazole (Tapazole -) 5 mg PO DAILY [facility] Last Admin: 04/08/17 09:00 Dose: 5 mg Metoprolol Tartrate (Lopressor -) 50 mg PO BID [facility] Last Admin: 04/08/17 09:00 Dose: 50 mg Nystatin (Mycostatin Cream -) 1 applic TP BID [facility] Last Admin: 04/08/17 09:00 Dose: 1 applic Rivastigmine Tartrate (Exelon (Nf) -) 3 mg PO BID [facility] Last Admin: 04/08/17 09:00 Dose: Not Given - Objective Vital Signs: Vital Signs Temperature 97.9 F 04/08/17 09:00 Pulse Rate 85 04/08/17 09:00 Respiratory Rate 20 04/08/17 09:00 Blood Pressure 165/80 04/08/17 09:00 O2 Sat by Pulse Oximetry (%) 95 04/08/17 09:00 Constitutional: Yes: No Distress, Calm Neck: Yes: Supple Cardiovascular: Yes: Regular Rate and Rhythm Respiratory: Yes: Regular, CTA Bilaterally Gastrointestinal: Yes: Normal Bowel Sounds, Soft Edema: No Labs: CBC, BMP 04/03/17 06:00 04/03/17 06:00 INR, PTT INR 1.11 (0.82-1.09) 03/28/17 16:06 Problem List - Problems (1) CVA (cerebral vascular accident) Code(s): I63.9 - CEREBRAL INFARCTION, UNSPECIFIED Qualifiers: CVA mechanism: unspecified Qualified Code(s): I63.9 - Cerebral infarction, unspecified (2) Dementia Code(s): F03.90 - UNSPECIFIED DEMENTIA WITHOUT BEHAVIORAL DISTURBANCE Qualifiers: Dementia type: unspecified type Dementia behavioral disturbance: without behavioral disturbance Qualified Code(s): F03.90 - Unspecified dementia without behavioral disturbance (3) Diabetes mellitus Code(s): E11.9 - TYPE 2 DIABETES MELLITUS WITHOUT COMPLICATIONS Qualifiers: Diabetes mellitus type: type 2 Diabetes mellitus complication status: without complication Diabetes mellitus termite exterminator insulin use: without termite exterminator use Qualified Code(s): E11.9 - Type 2 diabetes mellitus without complications (4) HTN (hypertension) Code(s): I10 - ESSENTIAL (PRIMARY) HYPERTENSION Qualifiers: Hypertension type: essential hypertension Qualified Code(s): I10 - Essential (primary) hypertension (5) Hip fracture Code(s): S72.009A - FRACTURE OF UNSP PART OF NECK OF UNSP FEMUR, INIT Qualifiers: Encounter type: initial encounter Fracture type: closed Laterality : right Qualified Code(s): S72.001A - Fracture of unspecified part of neck of right femur, initial encounter for closed fracture (6) UTI (urinary tract infection) Code(s): N39.0 - URINARY TRACT INFECTION, SITE NOT SPECIFIED Qualifiers: Urinary tract infection type: site unspecified Hematuria presence: without hematuria Qualified Code(s): N39.0 - Urinary tract infection, site not specified (7) History of right hip hemiarthroplasty Code(s): Z96.641 - PRESENCE OF RIGHT ARTIFICIAL HIP JOINT (8) Moderate aortic regurgitation Code(s): I35.1 - NONRHEUMATIC AORTIC (VALVE) INSUFFICIENCY (9) Anemia Code(s): D64.9 - ANEMIA, UNSPECIFIED Qualifiers: Anemia type: unspecified type Qualified Code(s): D64.9 - Anemia, unspecified Assessment/Plan 03/30/2017 Normal biventricular size and fxn mod AR 1. POD#9 Right hip hemiarthroplasty for displaced right hip femoral neck fracture 2. Hypertension, BP control improved 3. 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 Type 2 diabetes mellitus 5. Organic brain syndrome/dementia 6. UTI E. coli 7. Hyperthyroidism 8. Moderate AR 9. Anemia PLAN: 1. Continue Vasotec 20 mg twice a day and Metoprolol Tartrate 50 mg BID and uptitrate as tolerated 2. Completed abx course 3. Physical therapy and eventual rehab placement, DVT prophylaxis, analgesia as needed
--- NOTE | 2017-04-08 13:30 | PN ---
Progress Note, Physician History of Present Illness: no issues no new events planning for physio - Current Medication List Current Medications: Active Medications Acetaminophen (Tylenol -) 650 mg PO Q6H PRN PRN Reason: FEVER OR PAIN Last Admin: 04/07/17 11:09 Dose: 650 mg Enalapril Maleate (Vasotec -) 20 mg PO BID [facility] Last Admin: 04/08/17 09:31 Dose: 20 mg Enoxaparin Sodium (Lovenox -) 40 mg SQ DAILY [facility] Last Admin: 04/08/17 09:00 Dose: 40 mg Insulin Aspart (Novolog Vial Sliding Scale -) 1 vial SQ ACHS [facility] PRN Reason: Protocol Last Admin: 04/08/17 11:43 Dose: 2 units Levofloxacin (Levaquin) 750 mg PO DAILY@0600 [facility] Last Admin: 04/08/17 06:24 Dose: 750 mg Metformin HCl (Glucophage -) 850 mg PO BIDAC [facility] Last Admin: 04/08/17 06:24 Dose: 850 mg Methimazole (Tapazole -) 5 mg PO DAILY [facility] Last Admin: 04/08/17 09:00 Dose: 5 mg Metoprolol Tartrate (Lopressor -) 50 mg PO BID [facility] Last Admin: 04/08/17 09:00 Dose: 50 mg Nystatin (Mycostatin Cream -) 1 applic TP BID [facility] Last Admin: 04/08/17 09:00 Dose: 1 applic Rivastigmine Tartrate (Exelon (Nf) -) 3 mg PO BID [facility] Last Admin: 04/08/17 09:00 Dose: Not Given - Objective Vital Signs: Vital Signs Temperature 97.9 F 04/08/17 09:00 Pulse Rate 85 04/08/17 09:00 Respiratory Rate 20 04/08/17 09:00 Blood Pressure 165/80 04/08/17 09:00 O2 Sat by Pulse Oximetry (%) 95 04/08/17 09:00 Constitutional: Yes: No Distress, Calm Cardiovascular: Yes: Regular Rate and Rhythm Respiratory: Yes: Regular, CTA Bilaterally Gastrointestinal: Yes: Normal Bowel Sounds, Soft Musculoskeletal: Yes: Other Extremities: Yes: Other Neurological: Yes: Alert Psychiatric: Yes: Alert Labs: CBC, BMP 04/03/17 06:00 04/03/17 06:00 INR, PTT INR 1.11 (0.82-1.09) 03/28/17 16:06 Assessment/Plan Problem List - Problems (1) CVA (cerebral vascular accident) Code(s): I63.9 - CEREBRAL INFARCTION, UNSPECIFIED Qualifiers: CVA mechanism: unspecified Qualified Code(s): I63.9 - Cerebral infarction, unspecified (2) Dementia Code(s): F03.90 - UNSPECIFIED DEMENTIA WITHOUT BEHAVIORAL DISTURBANCE Qualifiers: Dementia type: unspecified type Dementia behavioral disturbance: without behavioral disturbance Qualified Code(s): F03.90 - Unspecified dementia without behavioral disturbance (3) Diabetes mellitus Code(s): E11.9 - TYPE 2 DIABETES MELLITUS WITHOUT COMPLICATIONS Qualifiers: Diabetes mellitus type: type 2 Diabetes mellitus complication status: without complication Diabetes mellitus [facility] insulin use: without [facility] use Qualified Code(s): E11.9 - Type 2 diabetes mellitus without complications (4) HTN (hypertension) Code(s): I10 - ESSENTIAL (PRIMARY) HYPERTENSION Qualifiers: Hypertension type: essential hypertension Qualified Code(s): I10 - Essential (primary) hypertension (5) Hip fracture Code(s): S72.009A - FRACTURE OF UNSP PART OF NECK OF UNSP FEMUR, INIT Qualifiers: Encounter type: initial encounter Fracture type: closed Laterality : right Qualified Code(s): S72.001A - Fracture of unspecified part of neck of right femur, initial encounter for closed fracture (6) UTI (urinary tract infection) Code(s): N39.0 - URINARY TRACT INFECTION, SITE NOT SPECIFIED Qualifiers: Urinary tract infection type: site unspecified Hematuria presence: without hematuria Qualified Code(s): N39.0 - Urinary tract infection, site not specified (7) History of right hip hemiarthroplasty Code(s): Z96.641 - PRESENCE OF RIGHT ARTIFICIAL HIP JOINT (8) Moderate aortic regurgitation Code(s): I35.1 - NONRHEUMATIC AORTIC (VALVE) INSUFFICIENCY (9) Anemia Code(s): D64.9 - ANEMIA, UNSPECIFIED Qualifiers: Anemia type: unspecified type Qualified Code(s): D64.9 - Anemia, unspecified plan continue levaquin for another 1 days rest as per surgery physio ct current mgmt patient should get physio of the hand
--- NOTE | 2017-04-08 19:15 | PN ---
Progress Note, Physician History of Present Illness: comfortable - Current Medication List Current Medications: Active Medications Acetaminophen (Tylenol -) 650 mg PO Q6H PRN PRN Reason: FEVER OR PAIN Last Admin: 04/07/17 11:09 Dose: 650 mg Enalapril Maleate (Vasotec -) 20 mg PO BID [facility] Last Admin: 04/08/17 09:31 Dose: 20 mg Enoxaparin Sodium (Lovenox -) 40 mg SQ DAILY [facility] Last Admin: 04/08/17 09:00 Dose: 40 mg Insulin Aspart (Novolog Vial Sliding Scale -) 1 vial SQ ACHS [facility] PRN Reason: Protocol Last Admin: 04/08/17 16:33 Dose: Not Given Levofloxacin (Levaquin) 750 mg PO DAILY@0600 [facility] Last Admin: 04/08/17 06:24 Dose: 750 mg Metformin HCl (Glucophage -) 850 mg PO BIDAC [facility] Last Admin: 04/08/17 16:58 Dose: 850 mg Methimazole (Tapazole -) 5 mg PO DAILY [facility] Last Admin: 04/08/17 09:00 Dose: 5 mg Metoprolol Tartrate (Lopressor -) 50 mg PO BID [facility] Last Admin: 04/08/17 09:00 Dose: 50 mg Nystatin (Mycostatin Cream -) 1 applic TP BID [facility] Last Admin: 04/08/17 09:00 Dose: 1 applic Rivastigmine Tartrate (Exelon (Nf) -) 3 mg PO BID [facility] Last Admin: 04/08/17 09:00 Dose: Not Given - Objective Vital Signs: Vital Signs Temperature 97.9 F 04/08/17 09:00 Pulse Rate 85 04/08/17 09:00 Respiratory Rate 20 04/08/17 09:00 Blood Pressure 165/80 04/08/17 09:00 O2 Sat by Pulse Oximetry (%) 95 04/08/17 09:00 Constitutional: Yes: No Distress HENT: Yes: Atraumatic Neck: Yes: Supple Cardiovascular: Yes: Regular Rate and Rhythm Respiratory: Yes: CTA Bilaterally Gastrointestinal: Yes: Normal Bowel Sounds Extremities: Yes: WNL Neurological: Yes: Alert Labs: CBC, BMP 04/03/17 06:00 04/03/17 06:00 INR, PTT INR 1.11 (0.82-1.09) 07/17/17 16:06 Problem List - Problems (1) Hip fracture Assessment/Plan: s/p surgery R hip pt eval for snf placement Code(s): S72.009A - FRACTURE OF UNSP PART OF NECK OF UNSP FEMUR, INIT Qualifiers: Encounter type: initial encounter Fracture type: closed Laterality : right Qualified Code(s): S72.001A - Fracture of unspecified part of neck of right femur, initial encounter for closed fracture (2) UTI (urinary tract infection) Assessment/Plan: on po abx uc seen Code(s): N39.0 - URINARY TRACT INFECTION, SITE NOT SPECIFIED Qualifiers: Urinary tract infection type: site unspecified Hematuria presence: without hematuria Qualified Code(s): N39.0 - Urinary tract infection, site not specified (3) CVA (cerebral vascular accident) Code(s): I63.9 - CEREBRAL INFARCTION, UNSPECIFIED Qualifiers: CVA mechanism: unspecified Qualified Code(s): I63.9 - Cerebral infarction, unspecified (4) Dementia Code(s): F03.90 - UNSPECIFIED DEMENTIA WITHOUT BEHAVIORAL DISTURBANCE Qualifiers: Dementia type: unspecified type Dementia behavioral disturbance: without behavioral disturbance Qualified Code(s): F03.90 - Unspecified dementia without behavioral disturbance (5) Diabetes mellitus Assessment/Plan: on metformin will monitor bgms on insulin sliding scale Code(s): E11.9 - TYPE 2 DIABETES MELLITUS WITHOUT COMPLICATIONS Qualifiers: Diabetes mellitus type: type 2 Diabetes mellitus complication status: without complication Diabetes mellitus intermission coordinator insulin use: without halfway use Qualified Code(s): E11.9 - Type 2 diabetes mellitus without complications (6) HTN (hypertension) Code(s): I10 - ESSENTIAL (PRIMARY) HYPERTENSION Qualifiers: Hypertension type: essential hypertension Qualified Code(s): I10 - Essential (primary) hypertension (7) History of right hip hemiarthroplasty Code(s): Z96.641 - PRESENCE OF RIGHT ARTIFICIAL HIP JOINT (8) Hypokalemia Code(s): E87.6 - HYPOKALEMIA (9) Moderate aortic regurgitation Code(s): I35.1 - NONRHEUMATIC AORTIC (VALVE) INSUFFICIENCY Assessment/Plan DC TO SNF IN PROGRESS
[2017-04-09] MEDS: LEVOFLOXACIN 750 MG TABLET PO SCH (06:31)
[2017-04-09] MEDS: INSULIN SLIDING SCALE (NOVOLOG) 1 VIAL SQ SCH ×4 (06:33→22:18)
[2017-04-09] MEDS ORDERED: INSULIN (NOVOLOG) ASPART 100 UNITS/ML 10ML VIAL ONE ×3 (06:44→22:17)
--- NOTE | 2017-04-09 10:34 | PN ---
Progress Note, Physician History of Present Illness: stable no new events - Current Medication List Current Medications: Active Medications Acetaminophen (Tylenol -) 650 mg PO Q6H PRN PRN Reason: FEVER OR PAIN Last Admin: 04/07/17 11:09 Dose: 650 mg Enalapril Maleate (Vasotec -) 20 mg PO BID [facility] Last Admin: 04/08/17 21:48 Dose: 20 mg Enoxaparin Sodium (Lovenox -) 40 mg SQ DAILY [facility] Last Admin: 04/08/17 09:00 Dose: 40 mg Insulin Aspart (Novolog Vial Sliding Scale -) 1 vial SQ ACHS [facility] PRN Reason: Protocol Last Admin: 04/09/17 06:33 Dose: 2 units Levofloxacin (Levaquin) 750 mg PO DAILY@0600 [facility] Last Admin: 04/09/17 06:31 Dose: 750 mg Metformin HCl (Glucophage -) 850 mg PO BIDAC [facility] Last Admin: 04/09/17 06:31 Dose: 850 mg Methimazole (Tapazole -) 5 mg PO DAILY [facility] Last Admin: 04/08/17 09:00 Dose: 5 mg Metoprolol Tartrate (Lopressor -) 50 mg PO BID [facility] Last Admin: 04/08/17 21:47 Dose: 50 mg Nystatin (Mycostatin Cream -) 1 applic TP BID [facility] Last Admin: 04/08/17 21:48 Dose: 1 applic Rivastigmine Tartrate (Exelon (Nf) -) 3 mg PO BID [facility] Last Admin: 04/08/17 21:46 Dose: Not Given - Objective Vital Signs: Vital Signs Temperature 98.2 F 04/09/17 08:00 Pulse Rate 82 04/09/17 08:00 Respiratory Rate 18 04/09/17 08:00 Blood Pressure 163/86 04/09/17 08:00 O2 Sat by Pulse Oximetry (%) 95 04/08/17 21:00 Constitutional: Yes: No Distress, Calm Cardiovascular: Yes: Regular Rate and Rhythm Respiratory: Yes: Regular, CTA Bilaterally Gastrointestinal: Yes: Normal Bowel Sounds, Soft Musculoskeletal: Yes: Other Extremities: Yes: Other Neurological: Yes: Alert, Other Psychiatric: Yes: Alert Labs: CBC, BMP 04/03/17 06:00 04/03/17 06:00 INR, PTT INR 1.11 (0.82-1.09) 03/28/17 16:06 Assessment/Plan Problem List - Problems (1) CVA (cerebral vascular accident) Code(s): I63.9 - CEREBRAL INFARCTION, UNSPECIFIED Qualifiers: CVA mechanism: unspecified Qualified Code(s): I63.9 - Cerebral infarction, unspecified (2) Dementia Code(s): F03.90 - UNSPECIFIED DEMENTIA WITHOUT BEHAVIORAL DISTURBANCE Qualifiers: Dementia type: unspecified type Dementia behavioral disturbance: without behavioral disturbance Qualified Code(s): F03.90 - Unspecified dementia without behavioral disturbance (3) Diabetes mellitus Code(s): E11.9 - TYPE 2 DIABETES MELLITUS WITHOUT COMPLICATIONS Qualifiers: Diabetes mellitus type: type 2 Diabetes mellitus complication status: without complication Diabetes mellitus group home insulin use: without meterman use Qualified Code(s): E11.9 - Type 2 diabetes mellitus without complications (4) HTN (hypertension) Code(s): I10 - ESSENTIAL (PRIMARY) HYPERTENSION Qualifiers: Hypertension type: essential hypertension Qualified Code(s): I10 - Essential (primary) hypertension (5) Hip fracture Code(s): S72.009A - FRACTURE OF UNSP PART OF NECK OF UNSP FEMUR, INIT Qualifiers: Encounter type: initial encounter Fracture type: closed Laterality : right Qualified Code(s): S72.001A - Fracture of unspecified part of neck of right femur, initial encounter for closed fracture (6) UTI (urinary tract infection) Code(s): N39.0 - URINARY TRACT INFECTION, SITE NOT SPECIFIED Qualifiers: Urinary tract infection type: site unspecified Hematuria presence: without hematuria Qualified Code(s): N39.0 - Urinary tract infection, site not specified (7) History of right hip hemiarthroplasty Code(s): Z96.641 - PRESENCE OF RIGHT ARTIFICIAL HIP JOINT (8) Moderate aortic regurgitation Code(s): I35.1 - NONRHEUMATIC AORTIC (VALVE) INSUFFICIENCY (9) Anemia Code(s): D64.9 - ANEMIA, UNSPECIFIED Qualifiers: Anemia type: unspecified type Qualified Code(s): D64.9 - Anemia, unspecified plan can stop all abx rest as per surgery physio ct current mgmt physio of the hand
[2017-04-09] MEDS: ENALAPRIL MALEATE 10 MG TABLET (FP) PO SCH ×2 (10:42→22:14)
[2017-04-09] MEDS: RIVASTIGMINE TARTRATE 1.5 MG CAPSULE PO SCH ×2 (10:42→22:14)
[2017-04-09] MEDS: METOPROLOL TARTRATE 50 MG TABLET (FP) PO SCH ×2 (10:43→22:13)
[2017-04-09] MEDS: ENOXAPARIN NA (PORCINE) 40 MG/0.4 ML DISP.SYRIN SQ SCH (10:43)
[2017-04-09] MEDS: METHIMAZOLE 5 MG TABLET (FP) PO SCH (10:43)
[2017-04-09] MEDS: NYSTATIN 100,000 UNIT/GM TOPICAL CREAM 15 GM TUBE TP SCH ×2 (10:58→22:20)
--- NOTE | 2017-04-09 14:39 | PN ---
Progress Note, Physician Chief Complaint: Not in distress Post op hip surgery Hemodynamically stable History of Present Illness: Patient was seen and examined. Awake. Chart was reviewed Denies chest pain, SOB or palpitation - Current Medication List Current Medications: Active Medications Acetaminophen (Tylenol -) 650 mg PO Q6H PRN PRN Reason: FEVER OR PAIN Last Admin: 04/07/17 11:09 Dose: 650 mg Enalapril Maleate (Vasotec -) 20 mg PO BID [facility] Last Admin: 04/09/17 10:42 Dose: 20 mg Enoxaparin Sodium (Lovenox -) 40 mg SQ DAILY [facility] Last Admin: 04/09/17 10:43 Dose: 40 mg Insulin Aspart (Novolog Vial Sliding Scale -) 1 vial SQ ACHS [facility] PRN Reason: Protocol Last Admin: 04/09/17 11:57 Dose: Not Given Metformin HCl (Glucophage -) 850 mg PO BIDAC [facility] Last Admin: 04/09/17 06:31 Dose: 850 mg Methimazole (Tapazole -) 5 mg PO DAILY [facility] Last Admin: 04/09/17 10:43 Dose: 5 mg Metoprolol Tartrate (Lopressor -) 50 mg PO BID [facility] Last Admin: 04/09/17 10:43 Dose: 50 mg Nystatin (Mycostatin Cream -) 1 applic TP BID [facility] Last Admin: 04/09/17 10:58 Dose: 1 applic Rivastigmine Tartrate (Exelon (Nf) -) 3 mg PO BID [facility] Last Admin: 04/09/17 10:42 Dose: 3 mg - Objective Vital Signs: Vital Signs Temperature 98.2 F 04/09/17 08:00 Pulse Rate 82 04/09/17 08:00 Respiratory Rate 18 04/09/17 08:00 Blood Pressure 163/86 04/09/17 08:00 O2 Sat by Pulse Oximetry (%) 96 04/09/17 09:00 Neck: Yes: Supple Cardiovascular: Yes: Regular Rate and Rhythm, S1, S2 Respiratory: Yes: Diminished Gastrointestinal: Yes: Normal Bowel Sounds, Soft. No: Tenderness Edema: No Problem List - Problems (1) Hip fracture Code(s): S72.009A - FRACTURE OF UNSP PART OF NECK OF UNSP FEMUR, INIT Qualifiers: Encounter type: initial encounter Fracture type: closed Laterality : right Qualified Code(s): S72.001A - Fracture of unspecified part of neck of right femur, initial encounter for closed fracture (2) UTI (urinary tract infection) Code(s): N39.0 - URINARY TRACT INFECTION, SITE NOT SPECIFIED Qualifiers: Urinary tract infection type: site unspecified Hematuria presence: without hematuria Qualified Code(s): N39.0 - Urinary tract infection, site not specified (3) HTN (hypertension) Code(s): I10 - ESSENTIAL (PRIMARY) HYPERTENSION Qualifiers: Hypertension type: essential hypertension Qualified Code(s): I10 - Essential (primary) hypertension (4) Diabetes mellitus Code(s): E11.9 - TYPE 2 DIABETES MELLITUS WITHOUT COMPLICATIONS Qualifiers: Diabetes mellitus type: type 2 Diabetes mellitus complication status: without complication Diabetes mellitus shelter insulin use: without shelter use Qualified Code(s): E11.9 - Type 2 diabetes mellitus without complications (5) CVA (cerebral vascular accident) Code(s): I63.9 - CEREBRAL INFARCTION, UNSPECIFIED Qualifiers: CVA mechanism: unspecified Qualified Code(s): I63.9 - Cerebral infarction, unspecified (6) Dementia Code(s): F03.90 - UNSPECIFIED DEMENTIA WITHOUT BEHAVIORAL DISTURBANCE Qualifiers: Dementia type: unspecified type Dementia behavioral disturbance: without behavioral disturbance Qualified Code(s): F03.90 - Unspecified dementia without behavioral disturbance Assessment/Plan 1. Status post mechanical fall resulting in right hip fracture - S/P ORIF 2. Hypertension 3. 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 Type 2 diabetes mellitus 5. Organic brain syndrome/dementia 6. UTI with fever 7. Hyperthyroidism 8. Moderate aortic valve regurgitation PLAN: 1. Continue Vasotec 20 mg once a day and Metoprolol Tartrate 25 mg BID and up titrate as tolerated 2. Continue Tapazole 3. Physical therapy and rehab placement Further plans are to follow Toribio Paulson MD
--- NOTE | 2017-04-09 16:48 | PN ---
Progress Note, Physician - Current Medication List Current Medications: Active Medications Acetaminophen (Tylenol -) 650 mg PO Q6H PRN PRN Reason: FEVER OR PAIN Last Admin: 04/07/17 11:09 Dose: 650 mg Enalapril Maleate (Vasotec -) 20 mg PO BID [facility] Last Admin: 04/09/17 10:42 Dose: 20 mg Enoxaparin Sodium (Lovenox -) 40 mg SQ DAILY [facility] Last Admin: 04/09/17 10:43 Dose: 40 mg Insulin Aspart (Novolog Vial Sliding Scale -) 1 vial SQ ACHS [facility] PRN Reason: Protocol Last Admin: 04/09/17 16:42 Dose: 2 units Metformin HCl (Glucophage -) 850 mg PO BIDAC [facility] Last Admin: 04/09/17 16:32 Dose: 850 mg Methimazole (Tapazole -) 5 mg PO DAILY [facility] Last Admin: 04/09/17 10:43 Dose: 5 mg Metoprolol Tartrate (Lopressor -) 50 mg PO BID [facility] Last Admin: 04/09/17 10:43 Dose: 50 mg Nystatin (Mycostatin Cream -) 1 applic TP BID [facility] Last Admin: 04/09/17 10:58 Dose: 1 applic Rivastigmine Tartrate (Exelon (Nf) -) 3 mg PO BID [facility] Last Admin: 04/09/17 10:42 Dose: 3 mg - Objective Vital Signs: Vital Signs Temperature 98.2 F 04/09/17 08:00 Pulse Rate 82 04/09/17 08:00 Respiratory Rate 18 04/09/17 08:00 Blood Pressure 163/86 04/09/17 08:00 O2 Sat by Pulse Oximetry (%) 96 04/09/17 09:00 Labs: CBC, BMP 04/03/17 06:00 04/03/17 06:00 INR, PTT INR 1.11 (0.82-1.09) 03/28/17 16:06
--- NOTE | 2017-04-09 18:08 | PN ---
Progress Note (short form) - Note Progress Note: Pt seen and examined. Her hip feels fine, she c/o pain in the right shoulder. She did hit her shoulder when she fell. AVSS H/H stable PE Right hip area looks good. Right LE is grossly NVI. Good ROM at the right knee, hip, min pain. Right shoulder is bruised, resolving ecchymoses. RUE is NVI + pain with passive motion of the right shoulder No signs of dislocation Xrays Right shoulder show a nondisplaced, right, proximal humerus fracture. Imp S/p right hip emma, doing very well. Con't P.T., can DC/transfer from an orthopedic pov Right acute proximal humerus fracture. Sling. Can DC and f/u as an out pt
[2017-04-09] MEDS: ACETAMINOPHEN 325 MG TABLET (FP) PO PRN (22:13)
[2017-04-10] MEDS: INSULIN SLIDING SCALE (NOVOLOG) 1 VIAL SQ SCH ×4 (06:23→22:06)
[2017-04-10] MEDS ORDERED: INSULIN (NOVOLOG) ASPART 100 UNITS/ML 10ML VIAL ONE (06:40)
[2017-04-10] MEDS: ENOXAPARIN NA (PORCINE) 40 MG/0.4 ML DISP.SYRIN SQ SCH (10:30)
[2017-04-10] MEDS: RIVASTIGMINE TARTRATE 1.5 MG CAPSULE PO SCH ×2 (10:30→22:05)
[2017-04-10] MEDS: METHIMAZOLE 5 MG TABLET (FP) PO SCH (10:30)
[2017-04-10] MEDS: ENALAPRIL MALEATE 10 MG TABLET (FP) PO SCH ×2 (10:30→22:05)
[2017-04-10] MEDS: METOPROLOL TARTRATE 50 MG TABLET (FP) PO SCH ×2 (10:30→22:05)
[2017-04-10] MEDS: NYSTATIN 100,000 UNIT/GM TOPICAL CREAM 15 GM TUBE TP SCH ×2 (10:31→22:07)
--- NOTE | 2017-04-10 11:01 | PN ---
Progress Note, Physician Chief Complaint: Not in distress Post op hip surgery Hemodynamically stable History of Present Illness: Patient was seen and examined. Awake. Chart was reviewed Denies chest pain, SOB or palpitation Right upper extremity humerus deformity - Current Medication List Current Medications: Active Medications Acetaminophen (Tylenol -) 650 mg PO Q6H PRN PRN Reason: FEVER OR PAIN Last Admin: 04/09/17 22:13 Dose: 650 mg Enalapril Maleate (Vasotec -) 20 mg PO BID [facility] Last Admin: 04/10/17 10:30 Dose: 20 mg Enoxaparin Sodium (Lovenox -) 40 mg SQ DAILY [facility] Last Admin: 04/10/17 10:30 Dose: 40 mg Insulin Aspart (Novolog Vial Sliding Scale -) 1 vial SQ ACHS [facility] PRN Reason: Protocol Last Admin: 04/10/17 06:23 Dose: 2 units Metformin HCl (Glucophage -) 850 mg PO BIDAC [facility] Last Admin: 04/10/17 06:23 Dose: 850 mg Methimazole (Tapazole -) 5 mg PO DAILY [facility] Last Admin: 04/10/17 10:30 Dose: 5 mg Metoprolol Tartrate (Lopressor -) 50 mg PO BID [facility] Last Admin: 04/10/17 10:30 Dose: 50 mg Nystatin (Mycostatin Cream -) 1 applic TP BID [facility] Last Admin: 04/10/17 10:31 Dose: 1 applic Rivastigmine Tartrate (Exelon (Nf) -) 3 mg PO BID [facility] Last Admin: 04/10/17 10:30 Dose: 3 mg - Objective Vital Signs: Vital Signs Temperature 98.7 F 04/10/17 05:42 Pulse Rate 74 04/10/17 05:42 Respiratory Rate 20 04/10/17 05:42 Blood Pressure 148/79 04/10/17 05:42 O2 Sat by Pulse Oximetry (%) 95 04/09/17 20:05 Cardiovascular: Yes: Regular Rate and Rhythm, S1, S2 Respiratory: Yes: Diminished Gastrointestinal: Yes: Normal Bowel Sounds, Soft. No: Tenderness Edema: No Labs: CBC, BMP 04/03/17 06:00 04/03/17 06:00 INR, PTT INR 1.11 (0.82-1.09) 03/28/17 16:06 Problem List - Problems (1) Hip fracture Code(s): S72.009A - FRACTURE OF UNSP PART OF NECK OF UNSP FEMUR, INIT Qualifiers: Encounter type: initial encounter Fracture type: closed Laterality : right Qualified Code(s): S72.001A - Fracture of unspecified part of neck of right femur, initial encounter for closed fracture (2) UTI (urinary tract infection) Code(s): N39.0 - URINARY TRACT INFECTION, SITE NOT SPECIFIED Qualifiers: Urinary tract infection type: site unspecified Hematuria presence: without hematuria Qualified Code(s): N39.0 - Urinary tract infection, site not specified (3) HTN (hypertension) Code(s): I10 - ESSENTIAL (PRIMARY) HYPERTENSION Qualifiers: Hypertension type: essential hypertension Qualified Code(s): I10 - Essential (primary) hypertension (4) Diabetes mellitus Code(s): E11.9 - TYPE 2 DIABETES MELLITUS WITHOUT COMPLICATIONS Qualifiers: Diabetes mellitus type: type 2 Diabetes mellitus complication status: without complication Diabetes mellitus care home 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 Status post mechanical fall resulting in right hip fracture - S/P ORIF 2. Hypertension 3. 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 Type 2 diabetes mellitus 5. Organic brain syndrome/dementia 6. UTI with fever 7. Hyperthyroidism 8. Moderate aortic valve regurgitation PLAN: 1. Continue Vasotec and Metoprolol Tartrate and up titrate as tolerated 2. Continue Tapazole 3. Physical therapy and rehab placement Further plans are to follow Toribio Paulson MD
--- NOTE | 2017-04-10 11:13 | PN ---
Progress Note, Physician History of Present Illness: stable no new events - Current Medication List Current Medications: Active Medications Acetaminophen (Tylenol -) 650 mg PO Q6H PRN PRN Reason: FEVER OR PAIN Last Admin: 04/09/17 22:13 Dose: 650 mg Enalapril Maleate (Vasotec -) 20 mg PO BID [facility] Last Admin: 04/10/17 10:30 Dose: 20 mg Enoxaparin Sodium (Lovenox -) 40 mg SQ DAILY [facility] Last Admin: 04/10/17 10:30 Dose: 40 mg Insulin Aspart (Novolog Vial Sliding Scale -) 1 vial SQ ACHS [facility] PRN Reason: Protocol Last Admin: 04/10/17 06:23 Dose: 2 units Metformin HCl (Glucophage -) 850 mg PO BIDAC [facility] Last Admin: 04/10/17 06:23 Dose: 850 mg Methimazole (Tapazole -) 5 mg PO DAILY [facility] Last Admin: 04/10/17 10:30 Dose: 5 mg Metoprolol Tartrate (Lopressor -) 50 mg PO BID [facility] Last Admin: 04/10/17 10:30 Dose: 50 mg Nystatin (Mycostatin Cream -) 1 applic TP BID [facility] Last Admin: 04/10/17 10:31 Dose: 1 applic Rivastigmine Tartrate (Exelon (Nf) -) 3 mg PO BID [facility] Last Admin: 04/10/17 10:30 Dose: 3 mg - Objective Vital Signs: Vital Signs Temperature 98.7 F 04/10/17 05:42 Pulse Rate 74 04/10/17 05:42 Respiratory Rate 20 04/10/17 05:42 Blood Pressure 148/79 04/10/17 05:42 O2 Sat by Pulse Oximetry (%) 95 04/09/17 20:05 Constitutional: Yes: No Distress, Calm Cardiovascular: Yes: Regular Rate and Rhythm Respiratory: Yes: Regular, CTA Bilaterally Gastrointestinal: Yes: Normal Bowel Sounds, Soft Musculoskeletal: Yes: Other Extremities: Yes: Other (fracture of the rt arm) Neurological: Yes: Alert Psychiatric: Yes: Alert Labs: CBC, BMP 04/03/17 06:00 04/03/17 06:00 INR, PTT INR 1.11 (0.82-1.09) 03/28/17 16:06 Assessment/Plan Problem List - Problems (1) CVA (cerebral vascular accident) Code(s): I63.9 - CEREBRAL INFARCTION, UNSPECIFIED Qualifiers: CVA mechanism: unspecified Qualified Code(s): I63.9 - Cerebral infarction, unspecified (2) Dementia Code(s): F03.90 - UNSPECIFIED DEMENTIA WITHOUT BEHAVIORAL DISTURBANCE Qualifiers: Dementia type: unspecified type Dementia behavioral disturbance: without behavioral disturbance Qualified Code(s): F03.90 - Unspecified dementia without behavioral disturbance (3) Diabetes mellitus Code(s): E11.9 - TYPE 2 DIABETES MELLITUS WITHOUT COMPLICATIONS Qualifiers: Diabetes mellitus type: type 2 Diabetes mellitus complication status: without complication Diabetes mellitus shelter insulin use: without shelter use Qualified Code(s): E11.9 - Type 2 diabetes mellitus without complications (4) HTN (hypertension) Code(s): I10 - ESSENTIAL (PRIMARY) HYPERTENSION Qualifiers: Hypertension type: essential hypertension Qualified Code(s): I10 - Essential (primary) hypertension (5) Hip fracture Code(s): S72.009A - FRACTURE OF UNSP PART OF NECK OF UNSP FEMUR, INIT Qualifiers: Encounter type: initial encounter Fracture type: closed Laterality : right Qualified Code(s): S72.001A - Fracture of unspecified part of neck of right femur, initial encounter for closed fracture (6) UTI (urinary tract infection) Code(s): N39.0 - URINARY TRACT INFECTION, SITE NOT SPECIFIED Qualifiers: Urinary tract infection type: site unspecified Hematuria presence: without hematuria Qualified Code(s): N39.0 - Urinary tract infection, site not specified (7) History of right hip hemiarthroplasty Code(s): Z96.641 - PRESENCE OF RIGHT ARTIFICIAL HIP JOINT (8) Moderate aortic regurgitation Code(s): I35.1 - NONRHEUMATIC AORTIC (VALVE) INSUFFICIENCY (9) Anemia Code(s): D64.9 - ANEMIA, UNSPECIFIED Qualifiers: Anemia type: unspecified type Qualified Code(s): D64.9 - Anemia, unspecified 10 fracture of the rt hand plan can stop all abx rest as per surgery physio ct current mgmt
--- NOTE | 2017-04-10 12:22 | PN ---
Progress Note (short form) - Note Progress Note: Pt seen and examined, s/p right hip emma and acute right proximal humerus fracture. Doing well, comfortable, no c/o pain. RUE is in a sling. Overall progressing well. Rec P.T., can DC/transfer from ortho pov
--- NOTE | 2017-04-10 18:52 | PN ---
Progress Note, Physician History of Present Illness: comfortable - Current Medication List Current Medications: Active Medications Acetaminophen (Tylenol -) 650 mg PO Q6H PRN PRN Reason: FEVER OR PAIN Last Admin: 04/09/17 22:13 Dose: 650 mg Enalapril Maleate (Vasotec -) 20 mg PO BID REPLACED BY [facility] Last Admin: 04/10/17 10:30 Dose: 20 mg Enoxaparin Sodium (Lovenox -) 40 mg SQ DAILY REPLACED BY [facility] Last Admin: 04/10/17 10:30 Dose: 40 mg Insulin Aspart (Novolog Vial Sliding Scale -) 1 vial SQ ACHS REPLACED BY [facility] PRN Reason: Protocol Last Admin: 04/10/17 16:55 Dose: Not Given Metformin HCl (Glucophage -) 850 mg PO BIDAC REPLACED BY [facility] Last Admin: 04/10/17 17:30 Dose: 850 mg Methimazole (Tapazole -) 5 mg PO DAILY REPLACED BY [facility] Last Admin: 04/10/17 10:30 Dose: 5 mg Metoprolol Tartrate (Lopressor -) 50 mg PO BID REPLACED BY [facility] Last Admin: 04/10/17 10:30 Dose: 50 mg Nystatin (Mycostatin Cream -) 1 applic TP BID REPLACED BY [facility] Last Admin: 04/10/17 10:31 Dose: 1 applic Rivastigmine Tartrate (Exelon (Nf) -) 3 mg PO BID REPLACED BY [facility] Last Admin: 04/10/17 10:30 Dose: 3 mg - Objective Vital Signs: Vital Signs Temperature 98.4 F 04/10/17 18:00 Pulse Rate 79 04/10/17 18:00 Respiratory Rate 20 04/10/17 18:00 Blood Pressure 153/73 04/10/17 18:00 O2 Sat by Pulse Oximetry (%) 95 04/09/17 20:05 Constitutional: Yes: No Distress HENT: Yes: Atraumatic Neck: Yes: Supple Cardiovascular: Yes: Regular Rate and Rhythm Respiratory: Yes: CTA Bilaterally Gastrointestinal: Yes: Normal Bowel Sounds Extremities: Yes: WNL Neurological: Yes: Alert Labs: CBC, BMP 04/03/17 06:00 04/03/17 06:00 INR, PTT INR 1.11 (0.82-1.09) 03/28/17 16:06 Problem List - Problems (1) Hip fracture Assessment/Plan: s/p surgery R hip pt eval for snf placement Code(s): S72.009A - FRACTURE OF UNSP PART OF NECK OF UNSP FEMUR, INIT Qualifiers: Qualified Code(s): S72.001A - Fracture of unspecified part of neck of right femur, initial encounter for closed fracture (2) UTI (urinary tract infection) Assessment/Plan: on po abx uc seen Code(s): N39.0 - URINARY TRACT INFECTION, SITE NOT SPECIFIED Qualifiers: Qualified Code(s): N39.0 - Urinary tract infection, site not specified (3) CVA (cerebral vascular accident) Code(s): I63.9 - CEREBRAL INFARCTION, UNSPECIFIED Qualifiers: Qualified Code(s): I63.9 - Cerebral infarction, unspecified (4) Dementia Code(s): F03.90 - UNSPECIFIED DEMENTIA WITHOUT BEHAVIORAL DISTURBANCE Qualifiers: Qualified Code(s): F03.90 - Unspecified dementia without behavioral disturbance (5) Diabetes mellitus Assessment/Plan: on metformin will monitor bgms on insulin sliding scale Code(s): E11.9 - TYPE 2 DIABETES MELLITUS WITHOUT COMPLICATIONS Qualifiers: Qualified Code(s): E11.9 - Type 2 diabetes mellitus without complications (6) HTN (hypertension) Assessment/Plan: stable on meds Code(s): I10 - ESSENTIAL (PRIMARY) HYPERTENSION Qualifiers: Qualified Code(s): I10 - Essential (primary) hypertension (7) History of right hip hemiarthroplasty Code(s): Z96.641 - PRESENCE OF RIGHT ARTIFICIAL HIP JOINT (8) Hypokalemia Assessment/Plan: resolved Code(s): E87.6 - HYPOKALEMIA (9) Moderate aortic regurgitation Code(s): I35.1 - NONRHEUMATIC AORTIC (VALVE) INSUFFICIENCY Assessment/Plan DC TO SNF IN PROGRESS
[2017-04-11] MEDS: INSULIN SLIDING SCALE (NOVOLOG) 1 VIAL SQ SCH ×4 (06:40→22:05)
[2017-04-11] MEDS: ENOXAPARIN NA (PORCINE) 40 MG/0.4 ML DISP.SYRIN SQ SCH (09:49)
[2017-04-11] MEDS: METOPROLOL TARTRATE 50 MG TABLET (FP) PO SCH ×2 (09:49→22:02)
[2017-04-11] MEDS: NYSTATIN 100,000 UNIT/GM TOPICAL CREAM 15 GM TUBE TP SCH ×2 (09:49→22:04)
[2017-04-11] MEDS: RIVASTIGMINE TARTRATE 1.5 MG CAPSULE PO SCH ×2 (09:49→22:02)
[2017-04-11] MEDS: METHIMAZOLE 5 MG TABLET (FP) PO SCH (09:50)
[2017-04-11] MEDS: ENALAPRIL MALEATE 10 MG TABLET (FP) PO SCH ×2 (09:50→22:02)
--- NOTE | 2017-04-11 11:57 | PN ---
Progress Note, Physician History of Present Illness: No complaints today. Plan for PT. - Current Medication List Current Medications: Active Medications Acetaminophen (Tylenol -) 650 mg PO Q6H PRN PRN Reason: FEVER OR PAIN Last Admin: 04/09/17 22:13 Dose: 650 mg Enalapril Maleate (Vasotec -) 20 mg PO BID [facility] Last Admin: 04/11/17 09:50 Dose: 20 mg Enoxaparin Sodium (Lovenox -) 40 mg SQ DAILY [facility] Last Admin: 04/11/17 09:49 Dose: 40 mg Insulin Aspart (Novolog Vial Sliding Scale -) 1 vial SQ ACHS [facility] PRN Reason: Protocol Last Admin: 04/11/17 06:40 Dose: Not Given Metformin HCl (Glucophage -) 850 mg PO BIDAC [facility] Last Admin: 04/11/17 06:40 Dose: 850 mg Methimazole (Tapazole -) 5 mg PO DAILY [facility] Last Admin: 04/11/17 09:50 Dose: 5 mg Metoprolol Tartrate (Lopressor -) 50 mg PO BID [facility] Last Admin: 04/11/17 09:49 Dose: 50 mg Nystatin (Mycostatin Cream -) 1 applic TP BID [facility] Last Admin: 04/11/17 09:49 Dose: 1 applic Rivastigmine Tartrate (Exelon (Nf) -) 3 mg PO BID [facility] Last Admin: 04/11/17 09:49 Dose: 3 mg - Objective Vital Signs: Vital Signs Temperature 97.8 F 04/11/17 04:41 Pulse Rate 72 04/11/17 04:41 Respiratory Rate 20 04/11/17 04:41 Blood Pressure 150/68 04/11/17 04:41 O2 Sat by Pulse Oximetry (%) 95 04/10/17 21:00 Constitutional: Yes: No Distress, Calm Neck: Yes: Supple Cardiovascular: Yes: Regular Rate and Rhythm Respiratory: Yes: Regular, Diminished Gastrointestinal: Yes: Normal Bowel Sounds, Soft Edema: No Labs: CBC, BMP 04/03/17 06:00 04/03/17 06:00 INR, PTT INR 1.11 (0.82-1.09) 03/28/17 16:06 Problem List - Problems (1) CVA (cerebral vascular accident) Code(s): I63.9 - CEREBRAL INFARCTION, UNSPECIFIED Qualifiers: Qualified Code(s): I63.9 - Cerebral infarction, unspecified (2) Dementia Code(s): F03.90 - UNSPECIFIED DEMENTIA WITHOUT BEHAVIORAL DISTURBANCE Qualifiers: Qualified Code(s): F03.90 - Unspecified dementia without behavioral disturbance (3) Diabetes mellitus Code(s): E11.9 - TYPE 2 DIABETES MELLITUS WITHOUT COMPLICATIONS Qualifiers: Qualified Code(s): E11.9 - Type 2 diabetes mellitus without complications (4) HTN (hypertension) Code(s): I10 - ESSENTIAL (PRIMARY) HYPERTENSION Qualifiers: Qualified Code(s): I10 - Essential (primary) hypertension (5) Hip fracture Code(s): S72.009A - FRACTURE OF UNSP PART OF NECK OF UNSP FEMUR, INIT Qualifiers: Qualified Code(s): S72.001A - Fracture of unspecified part of neck of right femur, initial encounter for closed fracture (6) UTI (urinary tract infection) Code(s): N39.0 - URINARY TRACT INFECTION, SITE NOT SPECIFIED Qualifiers: Qualified Code(s): N39.0 - Urinary tract infection, site not specified (7) History of right hip hemiarthroplasty Code(s): Z96.641 - PRESENCE OF RIGHT ARTIFICIAL HIP JOINT (8) Moderate aortic regurgitation Code(s): I35.1 - NONRHEUMATIC AORTIC (VALVE) INSUFFICIENCY (9) Anemia Code(s): D64.9 - ANEMIA, UNSPECIFIED Qualifiers: Qualified Code(s): D64.9 - Anemia, unspecified Assessment/Plan 03/30/2017 Normal biventricular size and fxn mod AR 1. POD#12 Right hip hemiarthroplasty for displaced right hip femoral neck fracture, acute right proximal humerus fracture 2. Hypertension, BP control improved 3. 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 Type 2 diabetes mellitus 5. Organic brain syndrome/dementia 6. UTI E. coli 7. Hyperthyroidism 8. Moderate AR 9. Anemia PLAN: 1. Continue Vasotec 20 mg twice a day and Metoprolol Tartrate 50 mg BID and uptitrate as tolerated 2. Completed abx course 3. Physical therapy and eventual rehab placement, RUE sling, DVT prophylaxis, analgesia as needed, d/c planning
--- NOTE | 2017-04-11 13:29 | PN ---
Progress Note, Physician History of Present Illness: stable no new events patient for pt - Current Medication List Current Medications: Active Medications Acetaminophen (Tylenol -) 650 mg PO Q6H PRN PRN Reason: FEVER OR PAIN Last Admin: 04/09/17 22:13 Dose: 650 mg Enalapril Maleate (Vasotec -) 20 mg PO BID [facility] Last Admin: 04/11/17 09:50 Dose: 20 mg Enoxaparin Sodium (Lovenox -) 40 mg SQ DAILY [facility] Last Admin: 04/11/17 09:49 Dose: 40 mg Insulin Aspart (Novolog Vial Sliding Scale -) 1 vial SQ ACHS [facility] PRN Reason: Protocol Last Admin: 04/11/17 12:22 Dose: Not Given Metformin HCl (Glucophage -) 850 mg PO BIDAC [facility] Last Admin: 04/11/17 06:40 Dose: 850 mg Methimazole (Tapazole -) 5 mg PO DAILY [facility] Last Admin: 04/11/17 09:50 Dose: 5 mg Metoprolol Tartrate (Lopressor -) 50 mg PO BID [facility] Last Admin: 04/11/17 09:49 Dose: 50 mg Nystatin (Mycostatin Cream -) 1 applic TP BID [facility] Last Admin: 04/11/17 09:49 Dose: 1 applic Rivastigmine Tartrate (Exelon (Nf) -) 3 mg PO BID [facility] Last Admin: 04/11/17 09:49 Dose: 3 mg - Objective Vital Signs: Vital Signs Temperature 97.8 F 04/11/17 04:41 Pulse Rate 85 04/11/17 10:00 Respiratory Rate 18 04/11/17 10:00 Blood Pressure 154/77 04/11/17 10:00 O2 Sat by Pulse Oximetry (%) 95 04/11/17 09:00 Constitutional: Yes: No Distress, Calm Cardiovascular: Yes: Regular Rate and Rhythm, S1, S2 Respiratory: Yes: Regular, CTA Bilaterally Gastrointestinal: Yes: Normal Bowel Sounds, Soft Musculoskeletal: Yes: Other Neurological: Yes: Alert Psychiatric: Yes: Alert Labs: CBC, BMP 04/03/17 06:00 04/03/17 06:00 INR, PTT INR 1.11 (0.82-1.09) 03/28/17 16:06 Assessment/Plan Problem List - Problems (1) CVA (cerebral vascular accident) Code(s): I63.9 - CEREBRAL INFARCTION, UNSPECIFIED Qualifiers: CVA mechanism: unspecified Qualified Code(s): I63.9 - Cerebral infarction, unspecified (2) Dementia Code(s): F03.90 - UNSPECIFIED DEMENTIA WITHOUT BEHAVIORAL DISTURBANCE Qualifiers: Dementia type: unspecified type Dementia behavioral disturbance: without behavioral disturbance Qualified Code(s): F03.90 - Unspecified dementia without behavioral disturbance (3) Diabetes mellitus Code(s): E11.9 - TYPE 2 DIABETES MELLITUS WITHOUT COMPLICATIONS Qualifiers: Diabetes mellitus type: type 2 Diabetes mellitus complication status: without complication Diabetes mellitus chcf insulin use: without chcf use Qualified Code(s): E11.9 - Type 2 diabetes mellitus without complications (4) HTN (hypertension) Code(s): I10 - ESSENTIAL (PRIMARY) HYPERTENSION Qualifiers: Hypertension type: essential hypertension Qualified Code(s): I10 - Essential (primary) hypertension (5) Hip fracture Code(s): S72.009A - FRACTURE OF UNSP PART OF NECK OF UNSP FEMUR, INIT Qualifiers: Encounter type: initial encounter Fracture type: closed Laterality : right Qualified Code(s): S72.001A - Fracture of unspecified part of neck of right femur, initial encounter for closed fracture (6) UTI (urinary tract infection) Code(s): N39.0 - URINARY TRACT INFECTION, SITE NOT SPECIFIED Qualifiers: Urinary tract infection type: site unspecified Hematuria presence: without hematuria Qualified Code(s): N39.0 - Urinary tract infection, site not specified (7) History of right hip hemiarthroplasty Code(s): Z96.641 - PRESENCE OF RIGHT ARTIFICIAL HIP JOINT (8) Moderate aortic regurgitation Code(s): I35.1 - NONRHEUMATIC AORTIC (VALVE) INSUFFICIENCY (9) Anemia Code(s): D64.9 - ANEMIA, UNSPECIFIED Qualifiers: Anemia type: unspecified type Qualified Code(s): D64.9 - Anemia, unspecified 10 fracture of the rt hand plan stable rest as per surgery physio ct current mgmt
--- NOTE | 2017-04-11 16:59 | PN ---
Progress Note, Physician History of Present Illness: comfortable - Current Medication List Current Medications: Active Medications Acetaminophen (Tylenol -) 650 mg PO Q6H PRN PRN Reason: FEVER OR PAIN Last Admin: 04/09/17 22:13 Dose: 650 mg Enalapril Maleate (Vasotec -) 20 mg PO BID [facility] Last Admin: 04/11/17 09:50 Dose: 20 mg Enoxaparin Sodium (Lovenox -) 40 mg SQ DAILY [facility] Last Admin: 04/11/17 09:49 Dose: 40 mg Insulin Aspart (Novolog Vial Sliding Scale -) 1 vial SQ ACHS [facility] PRN Reason: Protocol Last Admin: 04/11/17 12:22 Dose: Not Given Metformin HCl (Glucophage -) 850 mg PO BIDAC [facility] Last Admin: 04/11/17 06:40 Dose: 850 mg Methimazole (Tapazole -) 5 mg PO DAILY [facility] Last Admin: 04/11/17 09:50 Dose: 5 mg Metoprolol Tartrate (Lopressor -) 50 mg PO BID [facility] Last Admin: 04/11/17 09:49 Dose: 50 mg Nystatin (Mycostatin Cream -) 1 applic TP BID [facility] Last Admin: 04/11/17 09:49 Dose: 1 applic Rivastigmine Tartrate (Exelon (Nf) -) 3 mg PO BID [facility] Last Admin: 04/11/17 09:49 Dose: 3 mg - Objective Vital Signs: Vital Signs Temperature 97.8 F 04/11/17 04:41 Pulse Rate 85 04/11/17 10:00 Respiratory Rate 18 04/11/17 10:00 Blood Pressure 154/77 04/11/17 10:00 O2 Sat by Pulse Oximetry (%) 95 04/11/17 09:00 Constitutional: Yes: No Distress HENT: Yes: Atraumatic Neck: Yes: Supple Cardiovascular: Yes: Regular Rate and Rhythm Respiratory: Yes: CTA Bilaterally Gastrointestinal: Yes: Normal Bowel Sounds Extremities: Yes: WNL Neurological: Yes: Alert, Oriented Labs: CBC, BMP 04/03/17 06:00 04/03/17 06:00 INR, PTT INR 1.11 (0.82-1.09) 03/28/17 16:06 Problem List - Problems (1) Hip fracture Assessment/Plan: s/p surgery R hip pt eval for snf placement Code(s): S72.009A - FRACTURE OF UNSP PART OF NECK OF UNSP FEMUR, INIT Qualifiers: Qualified Code(s): S72.001A - Fracture of unspecified part of neck of right femur, initial encounter for closed fracture (2) UTI (urinary tract infection) Assessment/Plan: on po abx...completed course Code(s): N39.0 - URINARY TRACT INFECTION, SITE NOT SPECIFIED Qualifiers: Qualified Code(s): N39.0 - Urinary tract infection, site not specified (3) CVA (cerebral vascular accident) Code(s): I63.9 - CEREBRAL INFARCTION, UNSPECIFIED Qualifiers: Qualified Code(s): I63.9 - Cerebral infarction, unspecified (4) Dementia Code(s): F03.90 - UNSPECIFIED DEMENTIA WITHOUT BEHAVIORAL DISTURBANCE Qualifiers: Qualified Code(s): F03.90 - Unspecified dementia without behavioral disturbance (5) Diabetes mellitus Assessment/Plan: on metformin will monitor bgms on insulin sliding scale Code(s): E11.9 - TYPE 2 DIABETES MELLITUS WITHOUT COMPLICATIONS Qualifiers: Qualified Code(s): E11.9 - Type 2 diabetes mellitus without complications (6) HTN (hypertension) Code(s): I10 - ESSENTIAL (PRIMARY) HYPERTENSION Qualifiers: Qualified Code(s): I10 - Essential (primary) hypertension (7) History of right hip hemiarthroplasty Code(s): Z96.641 - PRESENCE OF RIGHT ARTIFICIAL HIP JOINT (8) Hypokalemia Code(s): E87.6 - HYPOKALEMIA (9) Moderate aortic regurgitation Code(s): I35.1 - NONRHEUMATIC AORTIC (VALVE) INSUFFICIENCY Assessment/Plan DC TO SNF IN PROGRESS XRAY HUMERUS ...NO FRACTURE
[2017-04-11] MEDS ORDERED: PT OWN MED DRAWER 7, Y5N ONE (21:00)
[2017-04-12] MEDS: INSULIN SLIDING SCALE (NOVOLOG) 1 VIAL SQ SCH ×4 (06:49→22:53)
[2017-04-12] MEDS: METOPROLOL TARTRATE 50 MG TABLET (FP) PO SCH ×2 (11:48→22:51)
[2017-04-12] MEDS: RIVASTIGMINE TARTRATE 1.5 MG CAPSULE PO SCH ×2 (11:48→22:51)
[2017-04-12] MEDS: ENOXAPARIN NA (PORCINE) 40 MG/0.4 ML DISP.SYRIN SQ SCH (11:48)
[2017-04-12] MEDS: METHIMAZOLE 5 MG TABLET (FP) PO SCH (11:48)
[2017-04-12] MEDS: NYSTATIN 100,000 UNIT/GM TOPICAL CREAM 15 GM TUBE TP SCH ×2 (11:49→23:08)
[2017-04-12] MEDS: ENALAPRIL MALEATE 10 MG TABLET (FP) PO SCH ×2 (11:49→22:51)
--- NOTE | 2017-04-12 13:16 | PN ---
Progress Note, Physician History of Present Illness: stable no new events - Current Medication List Current Medications: Active Medications Acetaminophen (Tylenol -) 650 mg PO Q6H PRN PRN Reason: FEVER OR PAIN Last Admin: 04/09/17 22:13 Dose: 650 mg Enalapril Maleate (Vasotec -) 20 mg PO BID [facility] Last Admin: 04/12/17 11:49 Dose: 20 mg Enoxaparin Sodium (Lovenox -) 40 mg SQ DAILY [facility] Last Admin: 04/12/17 11:48 Dose: 40 mg Insulin Aspart (Novolog Vial Sliding Scale -) 1 vial SQ ACHS [facility] PRN Reason: Protocol Last Admin: 04/12/17 13:07 Dose: Not Given [facility] Admin: 04/12/17 06:49 Dose: 850 mg Methimazole (Tapazole -) 5 mg PO DAILY [facility] Last Admin: 04/12/17 11:48 Dose: 5 mg Metoprolol Tartrate (Lopressor -) 50 mg PO BID [facility] Last Admin: 04/12/17 11:48 Dose: 50 mg Nystatin (Mycostatin Cream -) 1 applic TP BID [facility] Last Admin: 04/12/17 11:49 Dose: 1 applic Rivastigmine Tartrate (Exelon (Nf) -) 3 mg PO BID [facility] Last Admin: 04/12/17 11:48 Dose: 3 mg - Objective Vital Signs: Vital Signs Temperature 98.1 F 04/12/17 02:05 Pulse Rate 78 04/12/17 02:05 Respiratory Rate 20 04/12/17 02:05 Blood Pressure 161/85 04/12/17 02:05 O2 Sat by Pulse Oximetry (%) 95 04/11/17 09:00 Constitutional: Yes: No Distress, Calm Cardiovascular: Yes: Regular Rate and Rhythm Respiratory: Yes: Regular, CTA Bilaterally Gastrointestinal: Yes: Normal Bowel Sounds, Soft Musculoskeletal: Yes: WNL Extremities: Yes: Other Neurological: Yes: Alert, Other Psychiatric: Yes: Alert, Other Labs: CBC, BMP 04/03/17 06:00 04/03/17 06:00 INR, PTT INR 1.11 (0.82-1.09) 03/28/17 16:06 Assessment/Plan Problem List - Problems (1) CVA (cerebral vascular accident) Code(s): I63.9 - CEREBRAL INFARCTION, UNSPECIFIED Qualifiers: CVA mechanism: unspecified Qualified Code(s): I63.9 - Cerebral infarction, unspecified (2) Dementia Code(s): F03.90 - UNSPECIFIED DEMENTIA WITHOUT BEHAVIORAL DISTURBANCE Qualifiers: Dementia type: unspecified type Dementia behavioral disturbance: without behavioral disturbance Qualified Code(s): F03.90 - Unspecified dementia without behavioral disturbance (3) Diabetes mellitus Code(s): E11.9 - TYPE 2 DIABETES MELLITUS WITHOUT COMPLICATIONS Qualifiers: Diabetes mellitus type: type 2 Diabetes mellitus complication status: without complication Diabetes mellitus alf insulin use: without alf use Qualified Code(s): E11.9 - Type 2 diabetes mellitus without complications (4) HTN (hypertension) Code(s): I10 - ESSENTIAL (PRIMARY) HYPERTENSION Qualifiers: Hypertension type: essential hypertension Qualified Code(s): I10 - Essential (primary) hypertension (5) Hip fracture Code(s): S72.009A - FRACTURE OF UNSP PART OF NECK OF UNSP FEMUR, INIT Qualifiers: Encounter type: initial encounter Fracture type: closed Laterality : right Qualified Code(s): S72.001A - Fracture of unspecified part of neck of right femur, initial encounter for closed fracture (6) UTI (urinary tract infection) Code(s): N39.0 - URINARY TRACT INFECTION, SITE NOT SPECIFIED Qualifiers: Urinary tract infection type: site unspecified Hematuria presence: without hematuria Qualified Code(s): N39.0 - Urinary tract infection, site not specified (7) History of right hip hemiarthroplasty Code(s): Z96.641 - PRESENCE OF RIGHT ARTIFICIAL HIP JOINT (8) Moderate aortic regurgitation Code(s): I35.1 - NONRHEUMATIC AORTIC (VALVE) INSUFFICIENCY (9) Anemia Code(s): D64.9 - ANEMIA, UNSPECIFIED Qualifiers: Anemia type: unspecified type Qualified Code(s): D64.9 - Anemia, unspecified 10 fracture of the rt hand plan stable as per primary physio ct current mgmt
--- NOTE | 2017-04-12 17:04 | PN ---
Progress Note, Physician History of Present Illness: comfortable - Current Medication List Current Medications: Active Medications Acetaminophen (Tylenol -) 650 mg PO Q6H PRN PRN Reason: FEVER OR PAIN Last Admin: 04/09/17 22:13 Dose: 650 mg Enalapril Maleate (Vasotec -) 20 mg PO BID [facility] Last Admin: 04/12/17 11:49 Dose: 20 mg Enoxaparin Sodium (Lovenox -) 40 mg SQ DAILY [facility] Last Admin: 04/12/17 11:48 Dose: 40 mg Insulin Aspart (Novolog Vial Sliding Scale -) 1 vial SQ ACHS [facility] PRN Reason: Protocol Last Admin: 04/12/17 13:07 Dose: Not Given [facility] Admin: 04/12/17 06:49 Dose: 850 mg Methimazole (Tapazole -) 5 mg PO DAILY [facility] Last Admin: 04/12/17 11:48 Dose: 5 mg Metoprolol Tartrate (Lopressor -) 50 mg PO BID [facility] Last Admin: 04/12/17 11:48 Dose: 50 mg Nystatin (Mycostatin Cream -) 1 applic TP BID [facility] Last Admin: 04/12/17 11:49 Dose: 1 applic Rivastigmine Tartrate (Exelon (Nf) -) 3 mg PO BID [facility] Last Admin: 04/12/17 11:48 Dose: 3 mg - Objective Vital Signs: Vital Signs Temperature 98.3 F 04/12/17 14:55 Pulse Rate 76 04/12/17 14:55 Respiratory Rate 20 04/12/17 14:55 Blood Pressure 149/71 04/12/17 14:55 O2 Sat by Pulse Oximetry (%) 95 04/12/17 10:00 Constitutional: Yes: No Distress HENT: Yes: Atraumatic Neck: Yes: Supple Cardiovascular: Yes: Regular Rate and Rhythm Respiratory: Yes: Rhonchi Gastrointestinal: Yes: Normal Bowel Sounds Edema: LLE: Trace, RLE: Trace Neurological: Yes: Alert Labs: CBC, BMP 04/03/17 06:00 04/03/17 06:00 INR, PTT INR 1.11 (0.82-1.09) 03/28/17 16:06 Problem List - Problems (1) Hip fracture Assessment/Plan: s/p surgery R hip PT for snf placement Code(s): S72.009A - FRACTURE OF UNSP PART OF NECK OF UNSP FEMUR, INIT Qualifiers: Qualified Code(s): S72.001A - Fracture of unspecified part of neck of right femur, initial encounter for closed fracture (2) UTI (urinary tract infection) Assessment/Plan: on po abx...completed course Code(s): N39.0 - URINARY TRACT INFECTION, SITE NOT SPECIFIED Qualifiers: Qualified Code(s): N39.0 - Urinary tract infection, site not specified (3) CVA (cerebral vascular accident) Code(s): I63.9 - CEREBRAL INFARCTION, UNSPECIFIED Qualifiers: Qualified Code(s): I63.9 - Cerebral infarction, unspecified (4) Dementia Code(s): F03.90 - UNSPECIFIED DEMENTIA WITHOUT BEHAVIORAL DISTURBANCE Qualifiers: Qualified Code(s): F03.90 - Unspecified dementia without behavioral disturbance (5) Diabetes mellitus Assessment/Plan: on metformin will monitor bgms on insulin sliding scale Code(s): E11.9 - TYPE 2 DIABETES MELLITUS WITHOUT COMPLICATIONS Qualifiers: Qualified Code(s): E11.9 - Type 2 diabetes mellitus without complications (6) HTN (hypertension) Code(s): I10 - ESSENTIAL (PRIMARY) HYPERTENSION Qualifiers: Qualified Code(s): I10 - Essential (primary) hypertension (7) History of right hip hemiarthroplasty Code(s): Z96.641 - PRESENCE OF RIGHT ARTIFICIAL HIP JOINT (8) Hypokalemia Code(s): E87.6 - HYPOKALEMIA (9) Moderate aortic regurgitation Code(s): I35.1 - NONRHEUMATIC AORTIC (VALVE) INSUFFICIENCY
--- NOTE | 2017-04-12 22:47 | PN ---
Progress Note, Physician Chief Complaint: Not in distress Post op hip surgery Hemodynamically stable History of Present Illness: Patient was seen and examined. Awake. Chart was reviewed Denies chest pain, SOB or palpitation - Current Medication List Current Medications: Active Medications Acetaminophen (Tylenol -) 650 mg PO Q6H PRN PRN Reason: FEVER OR PAIN Last Admin: 04/09/17 22:13 Dose: 650 mg Enalapril Maleate (Vasotec -) 20 mg PO BID [facility] Last Admin: 04/12/17 11:49 Dose: 20 mg Enoxaparin Sodium (Lovenox -) 40 mg SQ DAILY [facility] Last Admin: 04/12/17 11:48 Dose: 40 mg Insulin Aspart (Novolog Vial Sliding Scale -) 1 vial SQ ACHS [facility] PRN Reason: Protocol Last Admin: 04/12/17 17:52 Dose: 2 units Metformin HCl (Glucophage -) 850 mg PO BIDAC [facility] Last Admin: 04/12/17 17:52 Dose: 850 mg Methimazole (Tapazole -) 5 mg PO DAILY [facility] Last Admin: 04/12/17 11:48 Dose: 5 mg Metoprolol Tartrate (Lopressor -) 50 mg PO BID [facility] Last Admin: 04/12/17 11:48 Dose: 50 mg Nystatin (Mycostatin Cream -) 1 applic TP BID [facility] Last Admin: 04/12/17 11:49 Dose: 1 applic Rivastigmine Tartrate (Exelon (Nf) -) 3 mg PO BID [facility] Last Admin: 04/12/17 11:48 Dose: 3 mg - Objective Vital Signs: Vital Signs Temperature 98.3 F 04/12/17 14:55 Pulse Rate 76 04/12/17 14:55 Respiratory Rate 20 04/12/17 20:43 Blood Pressure 149/71 04/12/17 14:55 O2 Sat by Pulse Oximetry (%) 95 04/12/17 20:43 Neck: Yes: Supple Cardiovascular: Yes: Regular Rate and Rhythm, S1, S2 Respiratory: Yes: CTA Bilaterally Gastrointestinal: Yes: Normal Bowel Sounds, Soft. No: Tenderness Edema: No Problem List - Problems (1) Hip fracture Code(s): S72.009A - FRACTURE OF UNSP PART OF NECK OF UNSP FEMUR, INIT Qualifiers: Qualified Code(s): S72.001A - Fracture of unspecified part of neck of right femur, initial encounter for closed fracture (2) UTI (urinary tract infection) Code(s): N39.0 - URINARY TRACT INFECTION, SITE NOT SPECIFIED Qualifiers: Qualified Code(s): N39.0 - Urinary tract infection, site not specified (3) HTN (hypertension) Code(s): I10 - ESSENTIAL (PRIMARY) HYPERTENSION Qualifiers: Qualified Code(s): I10 - Essential (primary) hypertension (4) Diabetes mellitus Code(s): E11.9 - TYPE 2 DIABETES MELLITUS WITHOUT COMPLICATIONS Qualifiers: Qualified Code(s): E11.9 - Type 2 diabetes mellitus without complications (5) CVA (cerebral vascular accident) Code(s): I63.9 - CEREBRAL INFARCTION, UNSPECIFIED Qualifiers: Qualified Code(s): I63.9 - Cerebral infarction, unspecified (6) Dementia Code(s): F03.90 - UNSPECIFIED DEMENTIA WITHOUT BEHAVIORAL DISTURBANCE Qualifiers: Qualified Code(s): F03.90 - Unspecified dementia without behavioral disturbance Assessment/Plan 1. Status post mechanical fall resulting in right hip fracture - S/P ORIF 2. Hypertension 3. 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 Type 2 diabetes mellitus 5. Organic brain syndrome/dementia 6. UTI with fever 7. Hyperthyroidism 8. Moderate aortic valve regurgitation PLAN: 1. Continue Vasotec 20 mg once a day and Metoprolol Tartrate 25 mg BID and up titrate as tolerated 2. Continue Tapazole 3. Physical therapy and rehab placement Further plans are to follow Toribio Paulson MD
[2017-04-13] MEDS: INSULIN SLIDING SCALE (NOVOLOG) 1 VIAL SQ SCH ×4 (06:45→21:37)
[2017-04-13] MEDS ORDERED: PT OWN MED DRAWER 7, Y5N ONE ×2 (09:28→19:24)
[2017-04-13] MEDS: ENALAPRIL MALEATE 10 MG TABLET (FP) PO SCH ×2 (09:32→21:38)
[2017-04-13] MEDS: METOPROLOL TARTRATE 50 MG TABLET (FP) PO SCH ×2 (09:33→21:38)
[2017-04-13] MEDS: RIVASTIGMINE TARTRATE 1.5 MG CAPSULE PO SCH ×2 (09:33→21:36)
[2017-04-13] MEDS: ENOXAPARIN NA (PORCINE) 40 MG/0.4 ML DISP.SYRIN SQ SCH (09:33)
[2017-04-13] MEDS: METHIMAZOLE 5 MG TABLET (FP) PO SCH (09:33)
[2017-04-13] MEDS: NYSTATIN 100,000 UNIT/GM TOPICAL CREAM 15 GM TUBE TP SCH ×2 (09:34→22:49)
--- NOTE | 2017-04-13 12:47 | PN ---
Progress Note, Physician History of Present Illness: No complaints today. Await PT. - Current Medication List Current Medications: Active Medications Acetaminophen (Tylenol -) 650 mg PO Q6H PRN PRN Reason: FEVER OR PAIN Last Admin: 04/09/17 22:13 Dose: 650 mg Enalapril Maleate (Vasotec -) 20 mg PO BID [facility] Last Admin: 04/13/17 09:32 Dose: 20 mg Enoxaparin Sodium (Lovenox -) 40 mg SQ DAILY [facility] Last Admin: 04/13/17 09:33 Dose: 40 mg Insulin Aspart (Novolog Vial Sliding Scale -) 1 vial SQ ACHS [facility] PRN Reason: Protocol Last Admin: 04/13/17 06:45 Dose: 2 units Metformin HCl (Glucophage -) 850 mg PO BIDAC [facility] Last Admin: 04/13/17 06:43 Dose: 850 mg Methimazole (Tapazole -) 5 mg PO DAILY [facility] Last Admin: 04/13/17 09:33 Dose: 5 mg Metoprolol Tartrate (Lopressor -) 50 mg PO BID [facility] Last Admin: 04/13/17 09:33 Dose: 50 mg Nystatin (Mycostatin Cream -) 1 applic TP BID [facility] Last Admin: 04/13/17 09:34 Dose: 1 applic Rivastigmine Tartrate (Exelon (Nf) -) 3 mg PO BID [facility] Last Admin: 04/13/17 09:33 Dose: 3 mg - Objective Vital Signs: Vital Signs Temperature 98.1 F 04/13/17 06:18 Pulse Rate 73 04/13/17 06:18 Respiratory Rate 20 04/13/17 06:18 Blood Pressure 145/86 04/13/17 06:18 O2 Sat by Pulse Oximetry (%) 95 04/12/17 20:43 Constitutional: Yes: No Distress, Calm Neck: Yes: Supple Cardiovascular: Yes: Regular Rate and Rhythm Respiratory: Yes: Regular, Diminished Gastrointestinal: Yes: Normal Bowel Sounds, Soft Edema: No Labs: CBC, BMP 04/03/17 06:00 04/03/17 06:00 INR, PTT INR 1.11 (0.82-1.09) 03/28/17 16:06 Problem List - Problems (1) CVA (cerebral vascular accident) Code(s): I63.9 - CEREBRAL INFARCTION, UNSPECIFIED Qualifiers: Qualified Code(s): I63.9 - Cerebral infarction, unspecified (2) Dementia Code(s): F03.90 - UNSPECIFIED DEMENTIA WITHOUT BEHAVIORAL DISTURBANCE Qualifiers: Qualified Code(s): F03.90 - Unspecified dementia without behavioral disturbance (3) Diabetes mellitus Code(s): E11.9 - TYPE 2 DIABETES MELLITUS WITHOUT COMPLICATIONS Qualifiers: Qualified Code(s): E11.9 - Type 2 diabetes mellitus without complications (4) HTN (hypertension) Code(s): I10 - ESSENTIAL (PRIMARY) HYPERTENSION Qualifiers: Qualified Code(s): I10 - Essential (primary) hypertension (5) Hip fracture Code(s): S72.009A - FRACTURE OF UNSP PART OF NECK OF UNSP FEMUR, INIT Qualifiers: Qualified Code(s): S72.001A - Fracture of unspecified part of neck of right femur, initial encounter for closed fracture (6) UTI (urinary tract infection) Code(s): N39.0 - URINARY TRACT INFECTION, SITE NOT SPECIFIED Qualifiers: Qualified Code(s): N39.0 - Urinary tract infection, site not specified (7) History of right hip hemiarthroplasty Code(s): Z96.641 - PRESENCE OF RIGHT ARTIFICIAL HIP JOINT (8) Moderate aortic regurgitation Code(s): I35.1 - NONRHEUMATIC AORTIC (VALVE) INSUFFICIENCY (9) Anemia Code(s): D64.9 - ANEMIA, UNSPECIFIED Qualifiers: Qualified Code(s): D64.9 - Anemia, unspecified Assessment/Plan 03/30/2017 Normal biventricular size and fxn mod AR 1. POD#14 Right hip hemiarthroplasty for displaced right hip femoral neck fracture, acute right proximal humerus fracture 2. Hypertension, BP control improved 3. 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 Type 2 diabetes mellitus 5. Organic brain syndrome/dementia 6. UTI E. coli 7. Hyperthyroidism 8. Moderate AR 9. Anemia PLAN: 1. Continue Vasotec 20 mg twice a day and Metoprolol Tartrate 50 mg BID and uptitrate as tolerated 2. Completed abx course 3. Physical therapy and eventual rehab placement, RUE sling, DVT prophylaxis, analgesia as needed, d/c planning pending insurance
--- NOTE | 2017-04-13 13:08 | PN ---
Progress Note, Physician History of Present Illness: stable no new events - Current Medication List Current Medications: Active Medications Acetaminophen (Tylenol -) 650 mg PO Q6H PRN PRN Reason: FEVER OR PAIN Last Admin: 04/09/17 22:13 Dose: 650 mg Enalapril Maleate (Vasotec -) 20 mg PO BID [facility] Last Admin: 04/13/17 09:32 Dose: 20 mg Enoxaparin Sodium (Lovenox -) 40 mg SQ DAILY [facility] Last Admin: 04/13/17 09:33 Dose: 40 mg Insulin Aspart (Novolog Vial Sliding Scale -) 1 vial SQ ACHS [facility] PRN Reason: Protocol Last Admin: 04/13/17 06:45 Dose: 2 units Metformin HCl (Glucophage -) 850 mg PO BIDAC [facility] Last Admin: 04/13/17 06:43 Dose: 850 mg Methimazole (Tapazole -) 5 mg PO DAILY [facility] Last Admin: 04/13/17 09:33 Dose: 5 mg Metoprolol Tartrate (Lopressor -) 50 mg PO BID [facility] Last Admin: 04/13/17 09:33 Dose: 50 mg Nystatin (Mycostatin Cream -) 1 applic TP BID [facility] Last Admin: 04/13/17 09:34 Dose: 1 applic Rivastigmine Tartrate (Exelon (Nf) -) 3 mg PO BID [facility] Last Admin: 04/13/17 09:33 Dose: 3 mg - Objective Vital Signs: Vital Signs Temperature 98.1 F 04/13/17 06:18 Pulse Rate 73 04/13/17 06:18 Respiratory Rate 20 04/13/17 06:18 Blood Pressure 145/86 04/13/17 06:18 O2 Sat by Pulse Oximetry (%) 95 04/12/17 20:43 Constitutional: Yes: No Distress, Calm Cardiovascular: Yes: S1, S2 Respiratory: Yes: Regular, CTA Bilaterally Gastrointestinal: Yes: Normal Bowel Sounds, Soft Musculoskeletal: Yes: Other Extremities: Yes: Other Neurological: Yes: Alert Psychiatric: Yes: Alert Labs: CBC, BMP 04/03/17 06:00 04/03/17 06:00 INR, PTT INR 1.11 (0.82-1.09) 03/28/17 16:06 Assessment/Plan Problem List - Problems (1) CVA (cerebral vascular accident) Code(s): I63.9 - CEREBRAL INFARCTION, UNSPECIFIED Qualifiers: CVA mechanism: unspecified Qualified Code(s): I63.9 - Cerebral infarction, unspecified (2) Dementia Code(s): F03.90 - UNSPECIFIED DEMENTIA WITHOUT BEHAVIORAL DISTURBANCE Qualifiers: Dementia type: unspecified type Dementia behavioral disturbance: without behavioral disturbance Qualified Code(s): F03.90 - Unspecified dementia without behavioral disturbance (3) Diabetes mellitus Code(s): E11.9 - TYPE 2 DIABETES MELLITUS WITHOUT COMPLICATIONS Qualifiers: Diabetes mellitus type: type 2 Diabetes mellitus complication status: without complication Diabetes mellitus chcf insulin use: without chcf use Qualified Code(s): E11.9 - Type 2 diabetes mellitus without complications (4) HTN (hypertension) Code(s): I10 - ESSENTIAL (PRIMARY) HYPERTENSION Qualifiers: Hypertension type: essential hypertension Qualified Code(s): I10 - Essential (primary) hypertension (5) Hip fracture Code(s): S72.009A - FRACTURE OF UNSP PART OF NECK OF UNSP FEMUR, INIT Qualifiers: Encounter type: initial encounter Fracture type: closed Laterality : right Qualified Code(s): S72.001A - Fracture of unspecified part of neck of right femur, initial encounter for closed fracture (6) UTI (urinary tract infection) Code(s): N39.0 - URINARY TRACT INFECTION, SITE NOT SPECIFIED Qualifiers: Urinary tract infection type: site unspecified Hematuria presence: without hematuria Qualified Code(s): N39.0 - Urinary tract infection, site not specified (7) History of right hip hemiarthroplasty Code(s): Z96.641 - PRESENCE OF RIGHT ARTIFICIAL HIP JOINT (8) Moderate aortic regurgitation Code(s): I35.1 - NONRHEUMATIC AORTIC (VALVE) INSUFFICIENCY (9) Anemia Code(s): D64.9 - ANEMIA, UNSPECIFIED Qualifiers: Anemia type: unspecified type Qualified Code(s): D64.9 - Anemia, unspecified 10 fracture of the rt hand plan stable as per primary physio ct current mgmt awaiting placement
--- NOTE | 2017-04-13 17:44 | PN ---
Progress Note, Physician History of Present Illness: comfortable - Current Medication List Current Medications: Active Medications Acetaminophen (Tylenol -) 650 mg PO Q6H PRN PRN Reason: FEVER OR PAIN Last Admin: 04/09/17 22:13 Dose: 650 mg Enalapril Maleate (Vasotec -) 20 mg PO BID [facility] Last Admin: 04/13/17 09:32 Dose: 20 mg Enoxaparin Sodium (Lovenox -) 40 mg SQ DAILY [facility] Last Admin: 04/13/17 09:33 Dose: 40 mg Insulin Aspart (Novolog Vial Sliding Scale -) 1 vial SQ ACHS [facility] PRN Reason: Protocol Last Admin: 04/13/17 15:05 Dose: Not Given Metformin HCl (Glucophage -) 850 mg PO BIDAC [facility] Last Admin: 04/13/17 06:43 Dose: 850 mg Methimazole (Tapazole -) 5 mg PO DAILY [facility] Last Admin: 04/13/17 09:33 Dose: 5 mg Metoprolol Tartrate (Lopressor -) 50 mg PO BID [facility] Last Admin: 04/13/17 09:33 Dose: 50 mg Nystatin (Mycostatin Cream -) 1 applic TP BID [facility] Last Admin: 04/13/17 09:34 Dose: 1 applic Rivastigmine Tartrate (Exelon (Nf) -) 3 mg PO BID [facility] Last Admin: 04/13/17 09:33 Dose: 3 mg - Objective Vital Signs: Vital Signs Temperature 98.2 F 04/13/17 14:22 Pulse Rate 80 04/13/17 14:22 Respiratory Rate 20 04/13/17 06:18 Blood Pressure 154/78 04/13/17 14:22 O2 Sat by Pulse Oximetry (%) 95 04/12/17 20:43 Constitutional: Yes: No Distress HENT: Yes: Atraumatic Cardiovascular: Yes: Regular Rate and Rhythm Respiratory: Yes: CTA Bilaterally Gastrointestinal: Yes: Normal Bowel Sounds Extremities: Yes: WNL Neurological: Yes: Alert, Oriented Labs: CBC, BMP 04/03/17 06:00 04/03/17 06:00 INR, PTT INR 1.11 (0.82-1.09) 03/28/17 16:06 Problem List - Problems (1) Hip fracture Assessment/Plan: s/p surgery R hip PT for snf placement Code(s): S72.009A - FRACTURE OF UNSP PART OF NECK OF UNSP FEMUR, INIT Qualifiers: Qualified Code(s): S72.001A - Fracture of unspecified part of neck of right femur, initial encounter for closed fracture (2) UTI (urinary tract infection) Assessment/Plan: on po abx...completed course Code(s): N39.0 - URINARY TRACT INFECTION, SITE NOT SPECIFIED Qualifiers: Qualified Code(s): N39.0 - Urinary tract infection, site not specified (3) CVA (cerebral vascular accident) Code(s): I63.9 - CEREBRAL INFARCTION, UNSPECIFIED Qualifiers: Qualified Code(s): I63.9 - Cerebral infarction, unspecified (4) Dementia Code(s): F03.90 - UNSPECIFIED DEMENTIA WITHOUT BEHAVIORAL DISTURBANCE Qualifiers: Qualified Code(s): F03.90 - Unspecified dementia without behavioral disturbance (5) Diabetes mellitus Assessment/Plan: on metformin will monitor bgms on insulin sliding scale Code(s): E11.9 - TYPE 2 DIABETES MELLITUS WITHOUT COMPLICATIONS Qualifiers: Qualified Code(s): E11.9 - Type 2 diabetes mellitus without complications (6) HTN (hypertension) Assessment/Plan: stable on meds Code(s): I10 - ESSENTIAL (PRIMARY) HYPERTENSION Qualifiers: Qualified Code(s): I10 - Essential (primary) hypertension (7) History of right hip hemiarthroplasty Code(s): Z96.641 - PRESENCE OF RIGHT ARTIFICIAL HIP JOINT (8) Hypokalemia Assessment/Plan: resolved Code(s): E87.6 - HYPOKALEMIA (9) Moderate aortic regurgitation Code(s): I35.1 - NONRHEUMATIC AORTIC (VALVE) INSUFFICIENCY
[2017-04-13] MEDS: ACETAMINOPHEN 325 MG TABLET (FP) PO PRN (21:36)
[2017-04-14] MEDS: ACETAMINOPHEN 325 MG TABLET (FP) PO PRN (05:56)
[2017-04-14] MEDS: INSULIN SLIDING SCALE (NOVOLOG) 1 VIAL SQ SCH ×2 (06:02→12:27)
[2017-04-14 07:55] LABS: BASOPHIL 0.7 % (0-2.0); EOSINOPHIL 0.9 % (0-4.5); MCH 31.2 pg (25.7-33.7); MCHC 33.2 g/dl (32.0-36.0); MEAN CELL VOLUME 94.1 fl (80-96); MEAN PLT VOLUME 9.6 fl (7.5-11.1); NEUTROPHILS 67.3 % (42.8-82.8); PLATELET COUNT 465 K/MM3 (134-434); RDW 13.6 % (11.6-15.6)
[2017-04-14 08:27] LABS: ALBUMIN 2.6 g/dl (3.4-5.0); ALK PHOS 110 U/L (45-117); ANION GAP 8 (8-16); BILIRUBIN,TOTAL 0.5 mg/dL (0.2-1.0); CALCIUM 8.5 mg/dL (8.5-10.1); CO2 29 mmol/L (21-32); CREATININE 0.4 mg/dL (0.55-1.02); GLUCOSE,RANDOM 215 mg/dL (74-106); SGOT/AST 26 U/L (15-37); SGPT/ALT 28 U/L (12-78); TOT PROT 6.2 g/dl (6.4-8.2)
[2017-04-14 09:50] VITALS: BP 162/82; PULSE 84; TEMP 97.4
[2017-04-14] MEDS ORDERED: PT OWN MED DRAWER 7, Y5N ONE (10:04)
[2017-04-14] MEDS: ENOXAPARIN NA (PORCINE) 40 MG/0.4 ML DISP.SYRIN SQ SCH (10:05)
[2017-04-14] MEDS: METHIMAZOLE 5 MG TABLET (FP) PO SCH (10:05)
[2017-04-14] MEDS: METOPROLOL TARTRATE 50 MG TABLET (FP) PO SCH (10:05)
[2017-04-14] MEDS: RIVASTIGMINE TARTRATE 1.5 MG CAPSULE PO SCH (10:05)
[2017-04-14] MEDS: ENALAPRIL MALEATE 10 MG TABLET (FP) PO SCH (10:06)
[2017-04-14] MEDS: NYSTATIN 100,000 UNIT/GM TOPICAL CREAM 15 GM TUBE TP SCH (10:09)
--- NOTE | 2017-04-14 10:36 | PN ---
Progress Note (short form) - Note Progress Note: Ortho Pt seen and examined s/p right hip emma, right proximal humerus fx Selected Entries 04/14/17 08:10 Temperature 97.4 F L Pulse Rate 84 Respiratory 20 Rate Blood Pressure 162/82 Laboratory Tests 04/14/17 06:00 WBC 9.0 Hgb 11.0 D Hct 33.2 Plt Count 465 H D incision c/d/i, calf soft, nt nvi sling intact, nvi a/p PT hip precautions dressing removed dvt ppx d/c to snf today
[2017-04-14] MEDS ORDERED: POTASSIUM CHLORIDE TABS 20 MEQ TABLET.ER (FP) PO ONE (10:45)
--- NOTE | 2017-04-14 11:55 | PN ---
Progress Note, Physician History of Present Illness: No complaints today. Await d/c to SNF. - Current Medication List Current Medications: Active Medications Acetaminophen (Tylenol -) 650 mg PO Q6H PRN PRN Reason: FEVER OR PAIN Last Admin: 04/14/17 05:56 Dose: 650 mg Enalapril Maleate (Vasotec -) 20 mg PO BID [facility] Last Admin: 04/14/17 10:06 Dose: 20 mg Enoxaparin Sodium (Lovenox -) 40 mg SQ DAILY [facility] Last Admin: 04/14/17 10:05 Dose: 40 mg Insulin Aspart (Novolog Vial Sliding Scale -) 1 vial SQ ACHS [facility] PRN Reason: Protocol Last Admin: 04/14/17 06:02 Dose: Not Given Metformin HCl (Glucophage -) 850 mg PO BIDAC [facility] Last Admin: 04/14/17 06:04 Dose: 850 mg Methimazole (Tapazole -) 5 mg PO DAILY [facility] Last Admin: 04/14/17 10:05 Dose: 5 mg Metoprolol Tartrate (Lopressor -) 50 mg PO BID [facility] Last Admin: 04/14/17 10:05 Dose: 50 mg Nystatin (Mycostatin Cream -) 1 applic TP BID [facility] Last Admin: 04/14/17 10:09 Dose: 1 applic Rivastigmine Tartrate (Exelon (Nf) -) 3 mg PO BID [facility] Last Admin: 04/14/17 10:05 Dose: 3 mg - Objective Vital Signs: Vital Signs Temperature 97.4 F L 04/14/17 08:10 Pulse Rate 84 04/14/17 08:10 Respiratory Rate 20 04/14/17 08:10 Blood Pressure 162/82 04/14/17 08:10 O2 Sat by Pulse Oximetry (%) 96 04/14/17 09:00 Constitutional: Yes: No Distress, Calm, Thin Neck: Yes: Supple Cardiovascular: Yes: Regular Rate and Rhythm Respiratory: Yes: Regular, Diminished Gastrointestinal: Yes: Normal Bowel Sounds, Soft Edema: No Labs: CBC, BMP 04/14/17 06:00 04/14/17 06:00 INR, PTT INR 1.11 (0.82-1.09) 03/28/17 16:06 Problem List - Problems (1) CVA (cerebral vascular accident) Code(s): I63.9 - CEREBRAL INFARCTION, UNSPECIFIED Qualifiers: Qualified Code(s): I63.9 - Cerebral infarction, unspecified (2) Dementia Code(s): F03.90 - UNSPECIFIED DEMENTIA WITHOUT BEHAVIORAL DISTURBANCE Qualifiers: Qualified Code(s): F03.90 - Unspecified dementia without behavioral disturbance (3) Diabetes mellitus Code(s): E11.9 - TYPE 2 DIABETES MELLITUS WITHOUT COMPLICATIONS Qualifiers: Qualified Code(s): E11.9 - Type 2 diabetes mellitus without complications (4) HTN (hypertension) Code(s): I10 - ESSENTIAL (PRIMARY) HYPERTENSION Qualifiers: Qualified Code(s): I10 - Essential (primary) hypertension (5) Hip fracture Code(s): S72.009A - FRACTURE OF UNSP PART OF NECK OF UNSP FEMUR, INIT Qualifiers: Qualified Code(s): S72.001A - Fracture of unspecified part of neck of right femur, initial encounter for closed fracture (6) UTI (urinary tract infection) Code(s): N39.0 - URINARY TRACT INFECTION, SITE NOT SPECIFIED Qualifiers: Qualified Code(s): N39.0 - Urinary tract infection, site not specified (7) History of right hip hemiarthroplasty Code(s): Z96.641 - PRESENCE OF RIGHT ARTIFICIAL HIP JOINT (8) Moderate aortic regurgitation Code(s): I35.1 - NONRHEUMATIC AORTIC (VALVE) INSUFFICIENCY (9) Anemia Code(s): D64.9 - ANEMIA, UNSPECIFIED Qualifiers: Qualified Code(s): D64.9 - Anemia, unspecified Assessment/Plan 03/30/2017 Normal biventricular size and fxn mod AR 1. POD#15 Right hip hemiarthroplasty for displaced right hip femoral neck fracture, acute right proximal humerus fracture 2. Hypertension, BP control improved 3. 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 Type 2 diabetes mellitus 5. Organic brain syndrome/dementia 6. UTI E. coli 7. Hyperthyroidism 8. Moderate AR 9. Anemia PLAN: 1. Continue Vasotec 20 mg twice a day and Metoprolol Tartrate 50 mg BID and uptitrate as tolerated 2. Completed abx course 3. Physical therapy and eventual rehab placement, RUE sling, DVT prophylaxis, analgesia as needed, d/c to SNF
--- NOTE | 2017-04-14 13:08 | PN ---
Progress Note, Physician History of Present Illness: stable no new events - Current Medication List Current Medications: Active Medications Acetaminophen (Tylenol -) 650 mg PO Q6H PRN PRN Reason: FEVER OR PAIN Last Admin: 04/14/17 05:56 Dose: 650 mg Aspirin (Asa -) 325 mg PO DAILY [facility] Enalapril Maleate (Vasotec -) 20 mg PO BID [facility] Last Admin: 04/14/17 10:06 Dose: 20 mg Enoxaparin Sodium (Lovenox -) 40 mg SQ DAILY [facility] Last Admin: 04/14/17 10:05 Dose: 40 mg Insulin Aspart (Novolog Vial Sliding Scale -) 1 vial SQ ACHS [facility] PRN Reason: Protocol Last Admin: 04/14/17 12:27 Dose: 4 units Metformin HCl (Glucophage -) 850 mg PO BIDAC [facility] Last Admin: 04/14/17 06:04 Dose: 850 mg Methimazole (Tapazole -) 5 mg PO DAILY [facility] Last Admin: 04/14/17 10:05 Dose: 5 mg Metoprolol Tartrate (Lopressor -) 50 mg PO BID [facility] Last Admin: 04/14/17 10:05 Dose: 50 mg Nystatin (Mycostatin Cream -) 1 applic TP BID [facility] Last Admin: 04/14/17 10:09 Dose: 1 applic Rivastigmine Tartrate (Exelon (Nf) -) 3 mg PO BID [facility] Last Admin: 04/14/17 10:05 Dose: 3 mg - Objective Vital Signs: Vital Signs Temperature 97.4 F L 04/14/17 08:10 Pulse Rate 84 04/14/17 08:10 Respiratory Rate 20 04/14/17 08:10 Blood Pressure 162/82 04/14/17 08:10 O2 Sat by Pulse Oximetry (%) 96 04/14/17 09:00 Constitutional: Yes: No Distress, Calm Neck: Yes: Supple Cardiovascular: Yes: Regular Rate and Rhythm Respiratory: Yes: Regular, CTA Bilaterally Gastrointestinal: Yes: Normal Bowel Sounds, Soft Musculoskeletal: Yes: Other Extremities: Yes: Other Integumentary: Yes: WNL Wound/Incision: Yes: Clean/Dry Neurological: Yes: Alert, Other Psychiatric: Yes: Alert Labs: CBC, BMP 04/14/17 06:00 04/14/17 06:00 INR, PTT INR 1.11 (0.82-1.09) 03/28/17 16:06 Assessment/Plan Problem List - Problems (1) CVA (cerebral vascular accident) Code(s): I63.9 - CEREBRAL INFARCTION, UNSPECIFIED Qualifiers: CVA mechanism: unspecified Qualified Code(s): I63.9 - Cerebral infarction, unspecified (2) Dementia Code(s): F03.90 - UNSPECIFIED DEMENTIA WITHOUT BEHAVIORAL DISTURBANCE Qualifiers: Dementia type: unspecified type Dementia behavioral disturbance: without behavioral disturbance Qualified Code(s): F03.90 - Unspecified dementia without behavioral disturbance (3) Diabetes mellitus Code(s): E11.9 - TYPE 2 DIABETES MELLITUS WITHOUT COMPLICATIONS Qualifiers: Diabetes mellitus type: type 2 Diabetes mellitus complication status: without complication Diabetes mellitus senior living insulin use: without senior living use Qualified Code(s): E11.9 - Type 2 diabetes mellitus without complications (4) HTN (hypertension) Code(s): I10 - ESSENTIAL (PRIMARY) HYPERTENSION Qualifiers: Hypertension type: essential hypertension Qualified Code(s): I10 - Essential (primary) hypertension (5) Hip fracture Code(s): S72.009A - FRACTURE OF UNSP PART OF NECK OF UNSP FEMUR, INIT Qualifiers: Encounter type: initial encounter Fracture type: closed Laterality : right Qualified Code(s): S72.001A - Fracture of unspecified part of neck of right femur, initial encounter for closed fracture (6) UTI (urinary tract infection) Code(s): N39.0 - URINARY TRACT INFECTION, SITE NOT SPECIFIED Qualifiers: Urinary tract infection type: site unspecified Hematuria presence: without hematuria Qualified Code(s): N39.0 - Urinary tract infection, site not specified (7) History of right hip hemiarthroplasty Code(s): Z96.641 - PRESENCE OF RIGHT ARTIFICIAL HIP JOINT (8) Moderate aortic regurgitation Code(s): I35.1 - NONRHEUMATIC AORTIC (VALVE) INSUFFICIENCY (9) Anemia Code(s): D64.9 - ANEMIA, UNSPECIFIED Qualifiers: Anemia type: unspecified type Qualified Code(s): D64.9 - Anemia, unspecified 10 fracture of the rt hand plan stable as per primary physio ct current mgmt patient for placement
--- NOTE | 2017-04-14 16:36 | DS ---
Physical Examination Vital Signs: Vital Signs Temperature 97.4 F L 04/14/17 08:10 Pulse Rate 84 04/14/17 08:10 Respiratory Rate 20 04/14/17 08:10 Blood Pressure 162/82 04/14/17 08:10 O2 Sat by Pulse Oximetry (%) 96 04/14/17 09:00 Labs: CBC, BMP 04/14/17 06:00 04/14/17 06:00 Discharge Summary Reason For Visit: UTI/FRACTURE OF THE HIP - Instructions Diet, Activity, Other Instructions: oob to chair daily ,weight bearing as tolerated RLE.right shoulder sling in place. Aspirin 325 mg PO daily x 4 weeks Referrals: Maco Kent [Primary Care Provider] - Salomon Lea MD [Staff Physician] - Disposition: [facility] - Home Medications Comprehensive Discharge Medication List: Ambulatory Orders Acetaminophen [Tylenol] 650 mg PO BID 03/28/17 Enalapril Maleate [Vasotec] 20 mg PO DAILY 03/28/17 Ferrous Sulfate 325 mg PO DAILY 03/28/17 Metformin HCl 850 mg PO BID 03/28/17 Methimazole 5 mg PO DAILY 03/28/17 Multivitamins [Multivit ([facility] Formulary)] 1 tab PO DAILY 03/28/17 Rivastigmine Tartrate [Exelon (Nf) -] 3 mg PO BID 03/28/17 Metoprolol Tartrate [Lopressor -] 50 mg PO BID #30 tablet 04/13/17 Aspirin [ASA -] 325 mg PO DAILY tablet 04/14/17 dc to snf
[2017-04-15] MEDS ORDERED: ASPIRIN 325 MG TABLET PO SCH (10:00)
== END 2017-04-14 13:24 | DRG 470 ==
LOC: JER 14:38 → JERBED 22:01 → UNDOADMIN 23:01 → JERBED 23:01 → UNDOADMIN 23:06 → JERBED 03-29 01:33 → J6S 03-29 01:33
PROVIDERS: ADMIT Internal Medicine; ATTEND Internal Medicine
PROC: 0SRR0JZ Replacement of Right Hip Joint, Femoral Surface with Synthetic Substitute, Open Approach (ICD-10-PCS; principal; 2017-03-30 11:00)
DX: S72.091A Other fracture of head and neck of right femur, initial encounter for closed fracture (principal); I69.351 Hemiplegia and hemiparesis following cerebral infarction affecting right dominant side; N39.0 Urinary tract infection, site not specified; S42.291A Other displaced fracture of upper end of right humerus, initial encounter for closed fracture; B96.29 Other Escherichia coli [E. coli] as the cause of diseases classified elsewhere; E05.80 Other thyrotoxicosis without thyrotoxic crisis or storm; I10 Essential (primary) hypertension; E11.9 Type 2 diabetes mellitus without complications; D50.8 Other iron deficiency anemias; F03.90 Unspecified dementia, unspecified severity, without behavioral disturbance, psychotic disturbance, mood disturbance, and anxiety; I35.1 Nonrheumatic aortic (valve) insufficiency; E87.6 Hypokalemia; R50.9 Fever, unspecified; W18.39XA Other fall on same level, initial encounter; Y92.89 Other specified places as the place of occurrence of the external cause; Y93.89 Activity, other specified; D64.9 Anemia, unspecified; L89.611 Pressure ulcer of right heel, stage 1
CPT/HCPCS: 36415; 70450-TC; 72192-TC; 73030-TC-RT; 73060-TC-RT; 73070-TC-RT; 73110-TC-RT; 73502-TC-RT; 73523-TC; 80053; 80061; 81003; 81015; 82550; 82947; 83721; 84484; 85025; 85610; 86850; 86900; 86901; 87086; 87186; 88305-TC; 88311-TC; 93005; 93010; 93306-TC; 94760; 97116-GP; 97161-GP; 99283-25

== ENCOUNTER 2017-04-14 15:14 | Inpatient (IN) | payer MEDICARE, OTHER ==
--- NOTE | 2017-04-14 15:34 | PDOC ---
History of Present Illness <Maryellen Domingo - Last Filed: 04/14/17 19:19> - General History Source: Patient, Family Exam Limitations: Dementia - History of Present Illness Initial Comments: This is an 81 yo female with h/o recent right hip fracture and repair (admitted 03/28/17-04/14/17), recent UTI (2 weeks ago, treated with antibiotics), NIDDM, HTN , HLD, and mild dementia who is BIBA from her rehabilitation facility only one hour after being discharged there from our [facility] inpatient floor. The daughters explain that the patient had acutely worsened pain with crying after being transferred from the EMS stretcher to the rehab bed. 20 minutes later her blood pressure was noted to be elevated at the facility, and staff asked for EMS to bring her back to [facility] to the ED. En route, EMS measured her blood pressure to be nonverbal and uncomfortable. The patient's daughters explain that she is normally verbal and interactive at her baseline, but it is not uncommon for her to become episodically confused or nonverbal. The patient herself presents diaphoretic, and she moans to communicate. She seems to be in pain and points to her left hip, left proximal thigh, and lower abdomen. She is otherwise unable to provide her recent medical history and is accompanied by her daughter. <Brittni Douglas - Last Filed: 04/15/17 22:15> - General Stated Complaint: SEPSIS Time Seen by Provider: 04/14/17 15:23 Past History <Maryellen Domingo - Last Filed: 04/14/17 19:19> - Past Medical History CVA: Yes Dementia: Yes Diabetes: Yes HTN: Yes - Psycho/Social/Smoking Cessation Hx Suicidal Ideation: No Smoking History: Never smoked Hx Alcohol Use: No Drug/Substance Use Hx: No Substance Use Type: None <Brittni Douglas - Last Filed: 04/15/17 22:15> - Past Medical History Allergies/Adverse Reactions: Allergies Allergy/AdvReac Type Severity Reaction Status Date / Time No Known Allergies Allergy Verified 04/14/17 16:37 Home Medications: Ambulatory Orders Acetaminophen [Tylenol] 650 mg PO BID 03/28/17 Enalapril Maleate [Vasotec] 20 mg PO DAILY 03/28/17 Ferrous Sulfate 325 mg PO DAILY 03/28/17 Metformin HCl 850 mg PO BID 03/28/17 Methimazole 5 mg PO DAILY 03/28/17 Multivitamins [Multivit ([facility] Formulary)] 1 tab PO DAILY 03/28/17 Rivastigmine Tartrate [Exelon (Nf) -] 3 mg PO BID 03/28/17 Metoprolol Tartrate [Lopressor -] 50 mg PO BID #30 tablet 04/13/17 Aspirin [ASA -] 325 mg PO DAILY tablet 04/14/17 Review of Systems - Review of Systems Able to Perform ROS?: No (AMS, dementia) <Brittni Douglas - Last Filed: 04/15/17 22:15> *Physical Exam - Vital Signs Last Vital Signs Temp Pulse Resp BP Pulse Ox 98.6 F 95 H 24 140/74 100 04/14/17 17:55 04/14/17 17:55 04/14/17 15:22 04/14/17 17:55 04/14/17 17:55 <Maryellen Domingo - Last Filed: 04/14/17 19:19> - Physical Exam General Appearance: Yes: Moderate Distress, Thin, Other (elderly woman who is somewhat interactive and makes occasional eye contact but who does not speak with the examiner, holds hands of companions and occasionally of the examiner, presents with EMS with BLE strapped onto triangular foam scaffold to stabilize hips) HEENT: positive: EOMI. negative: Scleral Icterus (R), Scleral Icterus (L), Nasal Congestion Neck: positive: Trachea midline. negative: Tender, Rigid Respiratory/Chest: positive: Lungs Clear, Normal Breath Sounds. negative: Chest Tender, Respiratory Distress, Accessory Muscle Use, Labored Respiration, Crackles, Rhonchi, Stridor, Wheezing Cardiovascular: positive: Regular Rhythm, Regular Rate Vascular Pulses: Dorsalis-Pedis (R): 2+, Doralis-Pedis (L): 2+ Gastrointestinal/Abdominal: positive: Normal Bowel Sounds, Soft. negative: Tender, Organomegaly, Pulsatile Mass, Guarding Musculoskeletal: positive: Other (Left proximal anterior thigh with mild tenderness to palpation, Right lateral hip with tenderness to palpation and mild swelling to proximal lateral thigh, patient does not perform active ROM of the right hip, passive ROM is deferred by examiner at this time). negative: Vertebral Tenderness Extremity: positive: Normal Capillary Refill, Normal Inspection, Normal Range of Motion. negative: Tender, Cyanosis Integumentary: positive: Normal Color, Dry, Warm. negative: Erythema, Rash, Bruising Neurologic: positive: Alert, Respond to painful stimul, Responsive (Moves left > right extremities (known chronic right-sided deficit), makes only moaning noises and does not articulate speech, but able to point, grasp, make eye contact, responds to voice, CNII-XII otherwise grossly intact, Pt cannot otherwise cooperate for neurologic exam). negative: Facial Droop <Brittni Douglas - Last Filed: 04/15/17 22:15> Heart Score/ECG Review #1 Sinus tachycardia @ 108 bpm. L ventricular hypertrophy with repolarization abnormality. <Maryellen Domingo - Last Filed: 04/14/17 19:19> - Age Age: >/= 65 - Risk Factors Risk Factors Heart Score: Yes Hx Hypercholesterolemia, Yes Hx Hypertension, Yes Hx Diabetes - Troponin Troponin: </= normal limit #1 Sinus tachycardia, rate of 108, with LVH, flipped t-waves in I and aVL and V6 ( 04/14/17 17:00) <Brittni Douglas - Last Filed: 04/15/17 22:15> ED Treatment Course - LABORATORY CBC & Chemistry Diagram: 04/14/17 16:20 04/14/17 16:20 - ADDITIONAL ORDERS Additional order review: Laboratory Results 04/14/17 04/14/17 04/14/17 16:40 16:20 16:20 INR PTT (Actin FS) VBG pH 7.46 H POC VBG pCO2 27.1 L POC VBG pO2 68.0 H Mixed VBG HCO3 18.9 L Sodium Potassium Chloride Carbon Dioxide Anion Gap BUN Creatinine Creat Clearance w eGFR Random Glucose Lactic Acid 4.4 H* Calcium Magnesium Total Bilirubin AST ALT Alkaline Phosphatase Creatine Kinase Creatine Kinase Index CK-MB (CK-2) Troponin I Total Protein Albumin Blood Type O POSITIVE Antibody Screen Negative 04/14/17 04/14/17 16:20 16:20 INR 1.17 H PTT (Actin FS) 33.9 VBG pH POC VBG pCO2 POC VBG pO2 Mixed VBG HCO3 Sodium 139 Potassium 4.0 Chloride 105 Carbon Dioxide 20 L D Anion Gap 14 BUN 12 D Creatinine 0.7 D Creat Clearance w eGFR > 60 Random Glucose 313 H* D Lactic Acid Calcium 8.1 L Magnesium 1.3 L Total Bilirubin 0.3 D AST 24 ALT 26 Alkaline Phosphatase 108 Creatine Kinase 209 H Creatine Kinase Index 0.4 CK-MB (CK-2) < 1.000 Troponin I < 0.02 Total Protein 6.2 L Albumin 2.6 L Blood Type Antibody Screen 04/14/17 16:20 RBC 3.20 L MCV 93.8 MCHC 32.9 RDW 13.8 MPV 9.6 Neutrophils % 91.6 H D Lymphocytes % 4.7 L D Monocytes % 3.5 L Eosinophils % 0.0 D Basophils % 0.2 - Medications Given in the ED: ED Medications Discontinued Medications Generic Name Dose Route Start Last Admin Trade Name Freq PRN Reason Stop Dose Admin Sodium Chloride 500 mls @ 500 mls/hr 04/14/17 15:57 04/14/17 16:20 Normal Saline - IV 04/14/17 16:56 500 mls/hr ASDIR STA Administration Sodium Chloride 1,000 mls @ 1,000 mls/hr 04/14/17 17:48 04/14/17 18:25 Normal Saline - IV 04/14/17 18:47 1,000 mls/hr NOW ONE Administration Morphine Sulfate 2 mg 04/14/17 15:55 04/14/17 16:25 Morphine Injection - IVPUSH 04/14/17 15:56 2 mg ONCE ONE Administration <Maryellen Domingo - Last Filed: 04/14/17 19:19> - LABORATORY CBC & Chemistry Diagram: 04/15/17 07:45 04/15/17 07:45 Comment: Lactate initially 4.4, decreases to 1.6 subsequently. Troponin negative. - ADDITIONAL ORDERS Additional order review: Left hip/pelvis x-ray with osteoarthritic changes. Right hip/pelvis x-ray shows superior dislocation of femoral head relative to acetabulum, s/p hemiarthroplasty. - RADIOLOGY Chest X-Ray Result: No Infiltrates <Brittni Douglas - Last Filed: 04/15/17 22:15> Medical Decision Making - Medical Decision Making 81 yo female who is POD 15 from right hip hemiarthroplasty p/w AMS, lower abdominal pain, HTN. EMS and family report that the patient was began complaining of lower abdominal and left thigh pain. DDX includes UTI, PE, hip fracture/dislocation, muscle strain/sprain 04/14/17 19:36 Bilateral hip/pelvis x-rays notable for apparent superior dislocation of the right hip. Weatherization And Housing Inspector called for Pt's orthopedic surgeon Dr. Lea to speak about the patient. 04/14/17 19:[address] Lea who will kindly come into the ED in an hour to reduce the hip if possible. CBC notable for WBC 15.8k, Hgb 9.9 (down from 11 this morning). Lactate is 4.4, CK is 209. Remainder of laboratories unremarkable. CXR not concerning for acute cardiopulmonary process. EKG with nothing acute. 04/14/17 20:40 Dr. Lea arrives in the ED and attempts simple reduction shortly after 2 mg morphine IV push. Unable to reduce; family opts for reduction in the OR tomorrow afternoon. 04/14/17 21:00 Dr. Pond is called and recommends admission. Admission to inpatient Med/Surg is ordered. Consults Dr. Lea, Dr. Dunbar ordered. 04/14/17 22:11 Patient's repeat CBC returns WBC 10.1, Hgb now 8.4. Troponin is negative and lactate Type and screen was performed earlier today (Pt is O positive). 04/15/17 00:04 Repeat CBG 406. Pt is signed out to Dr. Kerr at end of shift. <Brittni Douglas - Last Filed: 04/15/17 22:15> *DC/Admit/Observation/Transfer <Maryellen Domingo - Last Filed: 04/14/17 19:19> - Discharge Dispostion Admit: Yes - Attestations Physician Attestion: 04/14/17 21:03 I, Dr. Brittni Douglas, attest that this document has been prepared under my direction and personally reviewed by me in its entirety. I further attest, that it accurately reflects all work, treatment, procedures and medical decision -making performed by me. <Brittni Douglas - Last Filed: 04/15/17 22:15> Diagnosis at time of Disposition: Hip dislocation, right Qualifiers: Encounter type: initial encounter Qualified Code(s): S73.004A - Unspecified dislocation of right hip, initial encounter Anemia Qualifiers: Anemia type: unspecified type Qualified Code(s): D64.9 - Anemia, unspecified - Discharge Dispostion Condition at time of disposition: Guarded - Referrals
[2017-04-14 15:36] VITALS: BMI 20.9
[2017-04-14] MEDS ORDERED: morphine CARPU-JECT 4 MG/1 ML DISP.SYRIN IVPUSH ONE ×2 (15:55→19:38)
--- NOTE | 2017-04-14 15:56 | PDOC ---
Attending Attestation - HPI HPI: 04/14/17 16:33 81 year old female with a PMHx of recent right hip fracture and repair ( admitted 03/28/17-04/14/17), recent UTI (2 weeks ago, treated with antibiotics), NIDDM, HTN, HLD, and mild dementia who presents to the ED from her rehab facility via EMS with left hip pain today. Patient was discharged from the hospital and brought to rehab for her hip. While being transferred from the stretcher to the bed at the rehab facility, the patient began crying in pain, sweating, became pale and her BP elevated. Per daughter, the patient is more confused than usual and she attributes it to her pain. Patient denies chest pain , SOB, headache. - Physicial Exam PE: 04/14/17 16:34 GENERAL: Confused, alert to person only HEAD: No signs of trauma EYES: PERRLA, EOMI, sclera anicteric, conjunctiva clear ENT: Auricles normal inspection, hearing grossly normal, nares patent, oropharynx clear without exudates. Moist mucosa NECK: Normal ROM, supple, no lymphadenopathy, JVD, or masses LUNGS: Breath sounds equal, clear to auscultation bilaterally. No wheezes, and no crackles HEART: Regular rate and rhythm, normal S1 and S2, no murmurs, rubs or gallops ABDOMEN: Soft, nontender, normoactive bowel sounds. No guarding, no rebound. No masses EXTREMITIES: No edema. No clubbing or cyanosis. No cords, erythema. Tenderness to palpation on proximal left femur, right lower extremity with splint in place immobilized. NEUROLOGICAL: Cranial nerves II through XII grossly intact. Follows simple commands, moves all extremities SKIN: Warm, Dry, normal turgor, no rashes or lesions noted. <Tara Chow - Last Filed: 04/14/17 16:33> - Resident Resident Name: Brittni Douglas - ED Attending Attestation I have performed the following: I have examined & evaluated the patient, The case was reviewed & discussed with the resident, I agree w/resident's findings & plan, Exceptions are as noted - Critical Care Time Total Critical Care Time: 30 Critical Care Statement: The care of this patient involved high complexity decision making to prevent further life threatening deterioration of the patient 's condition and/or to evalute & treat vital organ system(s) failure or risk of failure. - Medical Decision Making 04/14/17 16:43 81 F with recent R hip surgery, discharged to rehab today, presenting to ER for increased pain and AMS. Etiology of AMS includes infectious/metabolic. Will r/o PNA and UTI. Primary neurologic process unlikely, as family reports that pt's confusion waxes and wanes frequently. However, given that pt was hypertensive upon arrival, will obtain head CT to r/o ICH. - Labs - CXR, UA - Head CT - Likely admission <Jez Thomas - Last Filed: 04/14/17 16:50>
[2017-04-14] MEDS ORDERED: SODIUM CHLORIDE 500 ML IV STA (15:57)
[2017-04-14] MEDS ORDERED: morphine CARPU-JECT 4 MG/1 ML DISP.SYRIN ONE ×2 (16:19→19:53)
[2017-04-14 16:37] LABS: BASOPHIL 0.2 % (0-2.0); MCH 30.8 pg (25.7-33.7); MCHC 32.9 g/dl (32.0-36.0); MEAN CELL VOLUME 93.8 fl (80-96); MEAN PLT VOLUME 9.6 fl (7.5-11.1); NEUTROPHILS 91.6 % (42.8-82.8); PLATELET COUNT 519 K/MM3 (134-434); RDW 13.8 % (11.6-15.6); WHITE BLOOD COUNT 15.8 K/mm3 (4.0-10.0)
[2017-04-14 16:43] LABS: VENOUS BLOOD GAS HCO3 18.9 meq/L (19-25)
[2017-04-14 16:44] LABS: VENOUS PH 7.46 (7.32-7.42)
[2017-04-14 16:56] LABS: INR 1.17 (0.82-1.09); PROTHROMBIN TIME (PATIENT) 12.9 SEC (9.98-11.88)
[2017-04-14 16:59] LABS: ACTIVATED PTT 33.9 SECONDS (26.9-34.4)
[2017-04-14 17:12] LABS: ALBUMIN 2.6 g/dl (3.4-5.0); ANION GAP 14 (8-16); BILIRUBIN,TOTAL 0.3 mg/dL (0.2-1.0); CALCIUM 8.1 mg/dL (8.5-10.1); CO2 20 mmol/L (21-32); CREATININE 0.7 mg/dL (0.55-1.02); MAGNESIUM 1.3 mg/dL (1.8-2.4); SGOT/AST 24 U/L (15-37); SGPT/ALT 26 U/L (12-78); TOT PROT 6.2 g/dl (6.4-8.2)
[2017-04-14 17:15] LABS: ALK PHOS 108 U/L (45-117); CPK 209 IU/L (26-192); TROPONIN I < 0.02 ng/ml (0.00-0.05)
[2017-04-14 17:37] LABS: GLUCOSE,RANDOM 313 mg/dL (74-106)
[2017-04-14] MEDS ORDERED: SODIUM CHLORIDE 1,000 ML IV ONE (17:48)
[2017-04-14] MEDS ORDERED: PIPERACILLIN/TAZOB 4.5 GM/100 ML PRE-DOCKED IVPB ONE (17:52)
[2017-04-14] MEDS ORDERED: VANCOMYCIN 1 GRAM (PRE-DOCKED) 1,000 MG/250 ML BAG IVPB ONE (17:52)
[2017-04-14] MEDS ORDERED: PIPERACILLIN/TAZOB 4.5 GM 100 ML IVPB ONE (18:37)
[2017-04-14] MEDS ORDERED: VANCOMYCIN 1 GRAM (PRE-DOCKED) 250 ML IVPB ONE (18:37)
[2017-04-14 20:13] LABS: URINE APPEARANCE CLEAR; URINE BILIRUBIN NEGATIVE (NEGATIVE); URINE BLOOD NEGATIVE (NEGATIVE); URINE COLOR STRAW; URINE GLUCOSE (UA) 3+ (NEGATIVE); URINE KETONE 1+ (NEGATIVE); URINE LEUK ESTERASE NEGATIVE (NEGATIVE); URINE NITRITE NEGATIVE (NEGATIVE); URINE PROTEIN NEGATIVE (NEGATIVE); URINE UROBILINOGEN NEGATIVE mg/dL (0.2-1.0)
[2017-04-14 21:59] LABS: BASOPHIL 0.2 % (0-2.0); MCH 30.8 pg (25.7-33.7); MCHC 32.9 g/dl (32.0-36.0); MEAN CELL VOLUME 93.5 fl (80-96); MEAN PLT VOLUME 9.3 fl (7.5-11.1); NEUTROPHILS 86.3 % (42.8-82.8); PLATELET COUNT 426 K/MM3 (134-434); RDW 13.8 % (11.6-15.6); WHITE BLOOD COUNT 10.1 K/mm3 (4.0-10.0)
--- NOTE | 2017-04-15 00:39 | PDOC ---
*Physical Exam - Vital Signs Last Vital Signs Temp Pulse Resp BP Pulse Ox 98.6 F 95 H 24 140/74 100 04/14/17 17:55 04/14/17 17:55 04/14/17 15:22 04/14/17 17:55 04/14/17 17:55 ED Treatment Course - LABORATORY CBC & Chemistry Diagram: 04/14/17 21:45 04/14/17 16:20 - ADDITIONAL ORDERS Additional order review: Laboratory Results 04/14/17 04/14/17 04/14/17 19:47 16:40 16:20 INR PTT (Actin FS) VBG pH 7.46 H POC VBG pCO2 27.1 L POC VBG pO2 68.0 H Mixed VBG HCO3 18.9 L Sodium Potassium Chloride Carbon Dioxide Anion Gap BUN Creatinine Creat Clearance w eGFR Random Glucose Lactic Acid 4.4 H* Calcium Magnesium Total Bilirubin AST ALT Alkaline Phosphatase Creatine Kinase Creatine Kinase Index CK-MB (CK-2) Troponin I Total Protein Albumin Urine Color Straw Urine Appearance Clear Urine pH 5.0 Ur Specific [place] 1.015 Urine Protein Negative Urine Glucose (UA) 3+ H Urine Ketones 1+ H Urine Blood Negative Urine Nitrite Negative Urine Bilirubin Negative Urine Urobilinogen Negative Ur Leukocyte Esterase Negative Blood Type Antibody Screen 04/14/17 04/14/17 04/14/17 16:20 16:20 16:20 INR 1.17 H PTT (Actin FS) 33.9 VBG pH POC VBG pCO2 POC VBG pO2 Mixed VBG HCO3 Sodium 139 Potassium 4.0 Chloride 105 Carbon Dioxide 20 L D Anion Gap 14 BUN 12 D Creatinine 0.7 D Creat Clearance w eGFR > 60 Random Glucose 313 H* D Lactic Acid Calcium 8.1 L Magnesium 1.3 L Total Bilirubin 0.3 D AST 24 ALT 26 Alkaline Phosphatase 108 Creatine Kinase 209 H Creatine Kinase Index 0.4 CK-MB (CK-2) < 1.000 Troponin I < 0.02 Total Protein 6.2 L Albumin 2.6 L Urine Color Urine Appearance Urine pH Ur Specific [place] Urine Protein Urine Glucose (UA) Urine Ketones Urine Blood Urine Nitrite Urine Bilirubin Urine Urobilinogen Ur Leukocyte Esterase Blood Type O POSITIVE Antibody Screen Negative 04/14/17 16:20 RBC 3.20 L MCV 93.8 MCHC 32.9 RDW 13.8 MPV 9.6 Neutrophils % 91.6 H D Lymphocytes % 4.7 L D Monocytes % 3.5 L Eosinophils % 0.0 D Basophils % 0.2 - Medications Given in the ED: ED Medications Discontinued Medications Generic Name Dose Route Start Last Admin Trade Name Jonatan PRN Reason Stop Dose Admin Sodium Chloride 500 mls @ 500 mls/hr 04/14/17 15:57 04/14/17 16:20 Normal Saline - IV 04/14/17 16:56 500 mls/hr ASDIR STA Administration Sodium Chloride 1,000 mls @ 1,000 mls/hr 04/14/17 17:48 04/14/17 18:25 Normal Saline - IV 04/14/17 18:47 1,000 mls/hr NOW ONE Administration Morphine Sulfate 2 mg 04/14/17 15:55 04/14/17 16:25 Morphine Injection - IVPUSH 04/14/17 15:56 2 mg ONCE ONE Administration Morphine Sulfate 2 mg 04/14/17 19:38 04/14/17 20:01 Morphine Injection - IVPUSH 04/14/17 19:39 2 mg ONCE ONE Administration Piperacillin Sod/Tazobactam Sod 4.5 gm 04/14/17 17:52 04/14/17 20:01 Zosyn 4.5gm Ivpb (Pre-Docked) IVPB 04/14/17 17:53 4.5 gm ONCE ONE Administration Vancomycin HCl 1,000 mg 04/14/17 17:52 04/14/17 20:01 Vancomycin (Pre-Docked) IVPB 04/14/17 17:53 1,000 mg ONCE ONE Administration Protocol Medical Decision Making - Medical Decision Making 04/15/17 00:37 Pt's course signed out to me by Dr. Ibanez. Pt is an 81F with non-insulin dependent DM who was discharged from hospital earlier today who then dislocated hip, and will be readmitted. Pt has glucose of 406, but is asymptomatic. *DC/Admit/Observation/Transfer Diagnosis at time of Disposition: Hip dislocation, right Qualifiers: Encounter type: initial encounter Qualified Code(s): S73.004A - Unspecified dislocation of right hip, initial encounter Anemia Qualifiers: Anemia type: unspecified type Qualified Code(s): D64.9 - Anemia, unspecified - Discharge Dispostion Condition at time of disposition: Guarded Admit: Yes - Attestations Physician Attestion: 04/15/17 04:05 I, Dr. Deion Kerr, attest that this document has been prepared under my direction and personally reviewed by me in its entirety. I further attest, that it accurately reflects all work, treatment, procedures and medical decision -making performed by me.
--- NOTE | 2017-04-15 04:00 | PDOC ---
*Physical Exam - Vital Signs Last Vital Signs Temp Pulse Resp BP Pulse Ox 98.6 F 95 H 24 140/74 100 04/14/17 17:55 04/14/17 17:55 04/14/17 15:22 04/14/17 17:55 04/14/17 17:55 ED Treatment Course - LABORATORY CBC & Chemistry Diagram: 04/14/17 21:45 04/14/17 16:20 - ADDITIONAL ORDERS Additional order review: Laboratory Results 04/14/17 04/14/17 04/14/17 19:47 16:40 16:20 INR PTT (Actin FS) VBG pH 7.46 H POC VBG pCO2 27.1 L POC VBG pO2 68.0 H Mixed VBG HCO3 18.9 L Sodium Potassium Chloride Carbon Dioxide Anion Gap BUN Creatinine Creat Clearance w eGFR Random Glucose Lactic Acid 4.4 H* Calcium Magnesium Total Bilirubin AST ALT Alkaline Phosphatase Creatine Kinase Creatine Kinase Index CK-MB (CK-2) Troponin I Total Protein Albumin Urine Color Straw Urine Appearance Clear Urine pH 5.0 Ur Specific [place] 1.015 Urine Protein Negative Urine Glucose (UA) 3+ H Urine Ketones 1+ H Urine Blood Negative Urine Nitrite Negative Urine Bilirubin Negative Urine Urobilinogen Negative Ur Leukocyte Esterase Negative Blood Type Antibody Screen 04/14/17 04/14/17 04/14/17 16:20 16:20 16:20 INR 1.17 H PTT (Actin FS) 33.9 VBG pH POC VBG pCO2 POC VBG pO2 Mixed VBG HCO3 Sodium 139 Potassium 4.0 Chloride 105 Carbon Dioxide 20 L D Anion Gap 14 BUN 12 D Creatinine 0.7 D Creat Clearance w eGFR > 60 Random Glucose 313 H* D Lactic Acid Calcium 8.1 L Magnesium 1.3 L Total Bilirubin 0.3 D AST 24 ALT 26 Alkaline Phosphatase 108 Creatine Kinase 209 H Creatine Kinase Index 0.4 CK-MB (CK-2) < 1.000 Troponin I < 0.02 Total Protein 6.2 L Albumin 2.6 L Urine Color Urine Appearance Urine pH Ur Specific [place] Urine Protein Urine Glucose (UA) Urine Ketones Urine Blood Urine Nitrite Urine Bilirubin Urine Urobilinogen Ur Leukocyte Esterase Blood Type O POSITIVE Antibody Screen Negative 04/14/17 16:20 RBC 3.20 L MCV 93.8 MCHC 32.9 RDW 13.8 MPV 9.6 Neutrophils % 91.6 H D Lymphocytes % 4.7 L D Monocytes % 3.5 L Eosinophils % 0.0 D Basophils % 0.2 - Medications Given in the ED: ED Medications Discontinued Medications Generic Name Dose Route Start Last Admin Trade Name Jonatan PRN Reason Stop Dose Admin Sodium Chloride 500 mls @ 500 mls/hr 04/14/17 15:57 04/14/17 16:20 Normal Saline - IV 04/14/17 16:56 500 mls/hr ASDIR STA Administration Sodium Chloride 1,000 mls @ 1,000 mls/hr 04/14/17 17:48 04/14/17 18:25 Normal Saline - IV 04/14/17 18:47 1,000 mls/hr NOW ONE Administration Morphine Sulfate 2 mg 04/14/17 15:55 04/14/17 16:25 Morphine Injection - IVPUSH 04/14/17 15:56 2 mg ONCE ONE Administration Morphine Sulfate 2 mg 04/14/17 19:38 04/14/17 20:01 Morphine Injection - IVPUSH 04/14/17 19:39 2 mg ONCE ONE Administration Piperacillin Sod/Tazobactam Sod 4.5 gm 04/14/17 17:52 04/14/17 20:01 Zosyn 4.5gm Ivpb (Pre-Docked) IVPB 04/14/17 17:53 4.5 gm ONCE ONE Administration Vancomycin HCl 1,000 mg 04/14/17 17:52 04/14/17 20:01 Vancomycin (Pre-Docked) IVPB 04/14/17 17:53 1,000 mg ONCE ONE Administration Protocol Medical Decision Making - Medical Decision Making 04/15/17 03:59 CTH negative for acute pathology. Pt has hx R hip replacement, on XR here today , found to have dislocated R hip, which may explain the pain she experienced when she was being transferred to her bed today. We called her orthopedic surgeon Dr. Downey who came in to evaluate her and will take her to the OR tomorrow. In terms of her initial lactate of 4 and tachycardia, her infectious work up thus far of CXR and UA is unrevealing. After 1.5L NS, her labs were repeated and her lactate cleared to 1 and tachycardia resolved. Pt is also now more awake and conversive and at her baseline per her family. She is admitted to the hospitalist for further management until her surgery tomorrow. *DC/Admit/Observation/Transfer Diagnosis at time of Disposition: Hip dislocation, right Qualifiers: Encounter type: initial encounter Qualified Code(s): S73.004A - Unspecified dislocation of right hip, initial encounter Anemia Qualifiers: Anemia type: unspecified type Qualified Code(s): D64.9 - Anemia, unspecified - Discharge Dispostion Condition at time of disposition: Guarded
[2017-04-15] MEDS ORDERED: HYDROmorphone HCL CARPU-JECT 1 MG/1 ML DISP.SYRIN IVPB PRN (04:30)
[2017-04-15] MEDS ORDERED: SODIUM CHLORIDE 1,000 ML IV SCH (04:30)
--- NOTE | 2017-04-15 08:02 | CONS ---
DATE OF CONSULTATION: 04/14/2017 HISTORY OF PRESENT ILLNESS: Patient is an 81-year-old female well known to me status post right hip hemiarthroplasty performed approximately 2-1/2 weeks ago stemming from a displaced femoral neck fracture. Patient had been in the hospital for 16 days until this morning where she was treated for multiple conditions until this morning when she was discharged to the SNF today. At that time, she had a located hip and she had a normal white count. A few hours later, patient was transferred back to the [facility] emergency room complaining of pain in her right hip and more lethargic and less arousable and less oriented. X-rays in the emergency room revealed a right hip dislocation superiorly. White count revealed elevated white count of 15 and change. Hematocrit had dropped from 11 to 9.9. PHYSICAL EXAMINATION:General: The patient is less oriented. Extremities: She has a large swelling on her right thigh. She has obviously 1 leg shorter than the other by a few inches. Calf is soft, nontender, vascularly intact. IMAGING: X-ray which I evaluated does show a superiorly dislocated right hip hemiarthroplasty, no apparent fracture of the acetabulum or the femur. The daughter related that there was a very rigorous transfer by the EMS people to the SNF and after that the patient was complaining of a great deal of pain. IMPRESSION: Right hip hemiarthroplasty acute dislocation and elevated white count with questionable early sepsis of unknown etiology. RECOMMENDATIONS: Attempted closed reduction in the emergency room was unsuccessful due to the patient being very tight and uncooperative. As patient is questionably septic and giving her too much sedation in the emergency room was unwise, we will have the patient admitted to the floor for IV antibiotics, optimization, and we can consider taking her to the operating room tomorrow for a closed, possible open reduction of her right hip. I discussed this with her daughter who was present and her other daughter by telephone. SUSAN VILLELA M.D. [id number]
[2017-04-15 08:52] LABS: BASOPHIL 0.4 % (0-2.0); EOSINOPHIL 0.1 % (0-4.5); MCH 30.8 pg (25.7-33.7); MCHC 32.7 g/dl (32.0-36.0); MEAN CELL VOLUME 94.3 fl (80-96); MEAN PLT VOLUME 9.6 fl (7.5-11.1); NEUTROPHILS 79.3 % (42.8-82.8); PLATELET COUNT 379 K/MM3 (134-434); RDW 13.7 % (11.6-15.6); WHITE BLOOD COUNT 7.9 K/mm3 (4.0-10.0)
[2017-04-15 09:18] LABS: ANION GAP 9 (8-16); CALCIUM 7.6 mg/dL (8.5-10.1); CO2 25 mmol/L (21-32); CREATININE 0.5 mg/dL (0.55-1.02); GLUCOSE,RANDOM 276 mg/dL (74-106)
--- NOTE | 2017-04-15 10:26 | EKG ---
Test Reason : Blood Pressure : / mmHG Vent. Rate : 108 BPM Atrial Rate : 108 BPM P-R Int : 148 ms QRS Dur : 086 ms QT Int : 356 ms P-R-T Axes : 037 008 151 degrees QTc Int : 477 ms POOR DATA QUALITY, INTERPRETATION MAY BE ADVERSELY AFFECTED SINUS TACHYCARDIA LEFT VENTRICULAR HYPERTROPHY WITH REPOLARIZATION ABNORMALITY NONSPECIFIC ST ABNORMALITY Confirmed by TOMASZ MCKEON MD ([id number]) on 04/15/2017 10:26:30 AM Referred By: Confirmed By:TOMASZ MCKEON MD
[2017-04-15] MEDS ORDERED: PT OWN MED DRAWER 7, Y5N ONE ×3 (10:37→22:05)
[2017-04-15] MEDS: ENALAPRIL MALEATE 10 MG TABLET (FP) PO SCH (10:38)
[2017-04-15] MEDS: METOPROLOL TARTRATE 50 MG TABLET (FP) PO SCH ×2 (10:38→22:07)
[2017-04-15] MEDS: METHIMAZOLE 5 MG TABLET (FP) PO SCH (12:37)
[2017-04-15] MEDS: RIVASTIGMINE TARTRATE 1.5 MG CAPSULE PO SCH ×2 (12:38→22:06)
[2017-04-15] MEDS ORDERED: LIDOCAINE HCL/PF 2% SDV 5ML VIAL ONE (15:28)
[2017-04-15] MEDS ORDERED: PROPOFOL 20 ML ONE (15:28)
[2017-04-15] MEDS ORDERED: SUCCINYLCHOLINE CHLORIDE 200 MG/10 ML VIAL ONE (15:30)
--- NOTE | 2017-04-15 15:46 | OP ---
Operative Note - Note: Operative Date: 04/15/17 ([facility]) Pre-Operative Diagnosis: left hip dislocation s/p emma Operation: left hip closed reduction Post-Operative Diagnosis: Same as Pre-op Surgeon: Salomon Lea Runner Man: Nehemiah Chua Anesthesiologist/RECTIFICATION PRINTER: Narinder Jaimes Anesthesia: General Operative Report Dictated: Yes
[2017-04-15] MEDS ORDERED: ONDANSETRON 4 MG/2 ML VIAL IVPUSH PRN (15:55)
[2017-04-15] MEDS ORDERED: PROMETHAZINE HCL 25 MG/1 ML VIAL IVPUSH PRN (15:55)
--- NOTE | 2017-04-15 16:03 | CONSULT ---
Consult Consult Specialty:: infectious diseases Referred by:: Reason for Consultation:: fall - History of Present Illness Chief Complaint: fracture History of Present Illness: 81 year old female with a history of hyperthyroidism, NIDDM, HTN, iron- deficiency anemia, admitted after an unwitnessed fall. The patient is unable to provide a complete history secondary to dementia, patient well known to me from last admission with uti. 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 Cardio/Vascular: Yes: HTN Endocrine: Yes: Diabetes Mellitus, Hyperthyroidism - Past Surgical History Past Surgical History: Yes: - Alcohol/Substance Use Hx Alcohol Use: No - Smoking History Smoking history: Never smoked Have you smoked in the past 12 months: No Home Medications - Allergies Allergies/Adverse Reactions: Allergies Allergy/AdvReac Type Severity Reaction Status Date / Time No Known Allergies Allergy Verified 04/14/17 16:37 - Home Medications Home Medications: Ambulatory Orders Acetaminophen [Tylenol] 650 mg PO BID 03/28/17 Enalapril Maleate [Vasotec] 20 mg PO DAILY 03/28/17 Ferrous Sulfate 325 mg PO DAILY 03/28/17 Metformin HCl 850 mg PO BID 03/28/17 Methimazole 5 mg PO DAILY 03/28/17 Multivitamins [Multivit ([facility] Formulary)] 1 tab PO DAILY 03/28/17 Rivastigmine Tartrate [Exelon (Nf) -] 3 mg PO BID 03/28/17 Metoprolol Tartrate [Lopressor -] 50 mg PO BID #30 tablet 04/13/17 Aspirin [ASA -] 325 mg PO DAILY tablet 04/14/17 Family Disease History - Family Disease History Family Disease History: Heart Disease: Sister ([place]) Review of Systems Unable to obtain ROS, reason: unable to obtain Physical Exam Vital Signs: Vital Signs Temperature 99.5 F 04/15/17 14:17 Pulse Rate 90 04/15/17 14:17 Respiratory Rate 18 04/15/17 14:17 Blood Pressure 161/77 04/15/17 14:17 O2 Sat by Pulse Oximetry (%) 95 04/15/17 10:40 Constitutional: Yes: Calm, Mild Distress Eyes: Yes: Conjunctiva Clear HENT: Yes: Atraumatic Cardiovascular: Yes: S1, S2 Respiratory: Yes: Regular, CTA Bilaterally Gastrointestinal: Yes: Normal Bowel Sounds, Soft Musculoskeletal: Yes: Other Extremities: Yes: Other Wound/Incision: Yes: Other Neurological: Yes: Alert, Other Psychiatric: Yes: Other Labs: CBC, BMP 04/15/17 07:45 04/15/17 07:45 Imaging - Results X-ray: Report Reviewed, Image Reviewed Assessment/Plan Problems (1) CVA (cerebral vascular accident) Code(s): I63.9 - CEREBRAL INFARCTION, UNSPECIFIED Qualifiers: CVA mechanism: unspecified Qualified Code(s): I63.9 - Cerebral infarction, unspecified (2) Dementia Code(s): F03.90 - UNSPECIFIED DEMENTIA WITHOUT BEHAVIORAL DISTURBANCE Qualifiers: Dementia type: unspecified type Dementia behavioral disturbance: without behavioral disturbance Qualified Code(s): F03.90 - Unspecified dementia without behavioral disturbance (3) Diabetes mellitus Code(s): E11.9 - TYPE 2 DIABETES MELLITUS WITHOUT COMPLICATIONS Qualifiers: Diabetes mellitus type: type 2 Diabetes mellitus complication status: without complication Diabetes mellitus watermaster insulin use: without penitentiary use Qualified Code(s): E11.9 - Type 2 diabetes mellitus without complications (4) HTN (hypertension) Code(s): I10 - ESSENTIAL (PRIMARY) HYPERTENSION Qualifiers: Hypertension type: essential hypertension Qualified Code(s): I10 - Essential (primary) hypertension (5) Hip fracture Code(s): S72.009A - FRACTURE OF UNSP PART OF NECK OF UNSP FEMUR, INIT Qualifiers: Encounter type: initial encounter Fracture type: closed Laterality : right Qualified Code(s): S72.001A - Fracture of unspecified part of neck of right femur, initial encounter for closed fracture (6) UTI (urinary tract infection) Code(s): N39.0 - URINARY TRACT INFECTION, SITE NOT SPECIFIED Qualifiers: Urinary tract infection type: site unspecified Hematuria presence: without hematuria Qualified Code(s): N39.0 - Urinary tract infection, site not specified (7) History of right hip hemiarthroplasty Code(s): Z96.641 - PRESENCE OF RIGHT ARTIFICIAL HIP JOINT (8) Moderate aortic regurgitation Code(s): I35.1 - NONRHEUMATIC AORTIC (VALVE) INSUFFICIENCY (9) Anemia Code(s): D64.9 - ANEMIA, UNSPECIFIED Qualifiers: Anemia type: unspecified type Qualified Code(s): D64.9 - Anemia, unspecified 10 fracture of the rt hand 11 dislocation of the rt hip plan continue current mgmt no abx at this time
--- NOTE | 2017-04-15 20:05 | HP ---
Admitting History and Physical - Primary Care Physician PCP: Carrillo Pond - Admission History of Present Illness: - 81 year old female with a history of hyperthyroidism, NIDDM, HTN, iron- deficiency anemia, admitted after an unwitnessed fall. 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 Cardiovascular: Yes: HTN Endocrine: Yes: Diabetes Mellitus, Hyperthyroidism - Past Surgical History Past Surgical History: Yes: - Smoking History Smoking history: Never smoked Have you smoked in the past 12 months: No - Alcohol/Substance Use Hx Alcohol Use: No Home Medications - Allergies Allergies/Adverse Reactions: Allergies Allergy/AdvReac Type Severity Reaction Status Date / Time No Known Allergies Allergy Verified 04/14/17 16:37 - Home Medications Home Medications: Ambulatory Orders Acetaminophen [Tylenol] 650 mg PO BID 03/28/17 Enalapril Maleate [Vasotec] 20 mg PO DAILY 03/28/17 Ferrous Sulfate 325 mg PO DAILY 03/28/17 Metformin HCl 850 mg PO BID 03/28/17 Methimazole 5 mg PO DAILY 03/28/17 Multivitamins [Multivit ([facility] Formulary)] 1 tab PO DAILY 03/28/17 Rivastigmine Tartrate [Exelon (Nf) -] 3 mg PO BID 03/28/17 Metoprolol Tartrate [Lopressor -] 50 mg PO BID #30 tablet 04/13/17 Aspirin [ASA -] 325 mg PO DAILY tablet 04/14/17 Family Disease History - Family Disease History Family Disease History: Heart Disease: Sister ([place]) Physical Examination Vital Signs: Vital Signs Temperature 98.3 F 04/15/17 18:00 Pulse Rate 91 H 04/15/17 18:00 Respiratory Rate 19 04/15/17 18:00 Blood Pressure 146/77 04/15/17 18:00 O2 Sat by Pulse Oximetry (%) 98 04/15/17 17:50 Constitutional: Yes: Calm HENT: Yes: Atraumatic Neck: Yes: Supple, Tenderness Respiratory: Yes: CTA Bilaterally Gastrointestinal: Yes: Normal Bowel Sounds Extremities: Yes: WNL Edema: No Peripheral Pulses WNL: Yes Neurological: Yes: Alert Labs: CBC, BMP 04/15/17 07:45 04/15/17 07:45 Problem List - Problems (1) Hip dislocation, right Assessment/Plan: s/p closed reduction Code(s): S73.004A - UNSPECIFIED DISLOCATION OF RIGHT HIP, INITIAL ENCOUNTER Qualifiers: Encounter type: initial encounter Qualified Code(s): S73.004A - Unspecified dislocation of right hip, initial encounter (2) Dementia Assessment/Plan: on meds stable Code(s): F03.90 - UNSPECIFIED DEMENTIA WITHOUT BEHAVIORAL DISTURBANCE Qualifiers: Dementia type: unspecified type Dementia behavioral disturbance: without behavioral disturbance Qualified Code(s): F03.90 - Unspecified dementia without behavioral disturbance (3) Diabetes mellitus Assessment/Plan: on bgms po meds Code(s): E11.9 - TYPE 2 DIABETES MELLITUS WITHOUT COMPLICATIONS Qualifiers: Diabetes mellitus type: type 2 Diabetes mellitus complication status: without complication Diabetes mellitus [facility] insulin use: without termination clerk use Qualified Code(s): E11.9 - Type 2 diabetes mellitus without complications (4) HTN (hypertension) Assessment/Plan: on meds stable Code(s): I10 - ESSENTIAL (PRIMARY) HYPERTENSION Qualifiers: Hypertension type: essential hypertension Qualified Code(s): I10 - Essential (primary) hypertension Assessment/Plan Laboratory Tests 04/14/17 04/14/17 04/14/17 16:20 16:20 16:20 WBC 15.8 H D RBC 3.20 L Hgb 9.9 L Hct 30.0 L MCV 93.8 MCH 30.8 MCHC 32.9 RDW 13.8 Plt Count 519 H MPV 9.6 Neutrophils % 91.6 H D Lymphocytes % 4.7 L D Monocytes % 3.5 L Eosinophils % 0.0 D Basophils % 0.2 INR 1.17 H PTT (Actin FS) 33.9 VBG pH POC VBG pCO2 POC VBG pO2 Mixed VBG HCO3 Sodium 139 Potassium 4.0 Chloride 105 Carbon Dioxide 20 L D Anion Gap 14 BUN 12 D Creatinine 0.7 D Creat Clearance w eGFR > 60 POC Glucometer Random Glucose 313 H* D Lactic Acid Calcium 8.1 L Magnesium 1.3 L Total Bilirubin 0.3 D AST 24 ALT 26 Alkaline Phosphatase 108 Creatine Kinase 209 H Creatine Kinase Index 0.4 CK-MB (CK-2) < 1.000 Troponin I < 0.02 Total Protein 6.2 L Albumin 2.6 L Urine Color Urine Appearance Urine pH Ur Specific [place] Urine Protein Urine Glucose (UA) Urine Ketones Urine Blood Urine Nitrite Urine Bilirubin Urine Urobilinogen Ur Leukocyte Esterase Blood Type Antibody Screen 04/14/17 04/14/17 04/14/17 16:20 16:20 16:40 WBC RBC Hgb Hct MCV MCH MCHC RDW Plt Count MPV Neutrophils % Lymphocytes % Monocytes % Eosinophils % Basophils % INR PTT (Actin FS) VBG pH 7.46 H POC VBG pCO2 27.1 L POC VBG pO2 68.0 H Mixed VBG HCO3 18.9 L Sodium Potassium Chloride Carbon Dioxide Anion Gap BUN Creatinine Creat Clearance w eGFR POC Glucometer Random Glucose Lactic Acid 4.4 H* Calcium Magnesium Total Bilirubin AST ALT Alkaline Phosphatase Creatine Kinase Creatine Kinase Index CK-MB (CK-2) Troponin I Total Protein Albumin Urine Color Urine Appearance Urine pH Ur Specific [place] Urine Protein Urine Glucose (UA) Urine Ketones Urine Blood Urine Nitrite Urine Bilirubin Urine Urobilinogen Ur Leukocyte Esterase Blood Type O POSITIVE Antibody Screen Negative 04/14/17 04/14/17 04/14/17 19:47 21:45 21:45 WBC 10.1 H D RBC 2.73 L Hgb 8.4 L D Hct 25.6 L MCV 93.5 MCH 30.8 MCHC 32.9 RDW 13.8 Plt Count 426 MPV 9.3 Neutrophils % 86.3 H Lymphocytes % 7.9 L D Monocytes % 5.6 Eosinophils % 0.0 Basophils % 0.2 INR PTT (Actin FS) VBG pH POC VBG pCO2 POC VBG pO2 Mixed VBG HCO3 Sodium Potassium Chloride Carbon Dioxide Anion Gap BUN Creatinine Creat Clearance w eGFR POC Glucometer Random Glucose Lactic Acid Calcium Magnesium Total Bilirubin AST ALT Alkaline Phosphatase Creatine Kinase Creatine Kinase Index CK-MB (CK-2) Troponin I 0.04 Total Protein Albumin Urine Color Straw Urine Appearance Clear Urine pH 5.0 Ur Specific [place] 1.015 Urine Protein Negative Urine Glucose (UA) 3+ H Urine Ketones 1+ H Urine Blood Negative Urine Nitrite Negative Urine Bilirubin Negative Urine Urobilinogen Negative Ur Leukocyte Esterase Negative Blood Type Antibody Screen 04/14/17 04/15/1704/15/17 21:45 02:28 07:45 WBC 7.9 RBC 2.58 L Hgb 8.0 L Hct 24.4 L MCV 94.3 MCH 30.8 MCHC 32.7 RDW 13.7 Plt Count 379 MPV 9.6 Neutrophils % 79.3 Lymphocytes % 12.6 D Monocytes % 7.6 Eosinophils % 0.1 D Basophils % 0.4 INR PTT (Actin FS) VBG pH POC VBG pCO2 POC VBG pO2 Mixed VBG HCO3 Sodium Potassium Chloride Carbon Dioxide Anion Gap BUN Creatinine Creat Clearance w eGFR POC Glucometer 300 Random Glucose Lactic Acid 1.6 Calcium Magnesium Total Bilirubin AST ALT Alkaline Phosphatase Creatine Kinase Creatine Kinase Index CK-MB (CK-2) Troponin I Total Protein Albumin Urine Color Urine Appearance Urine pH Ur Specific [place] Urine Protein Urine Glucose (UA) Urine Ketones Urine Blood Urine Nitrite Urine Bilirubin Urine Urobilinogen Ur Leukocyte Esterase Blood Type Antibody Screen 04/15/17 04/15/17 07:45 07:45 WBC RBC Hgb Hct MCV MCH MCHC RDW Plt Count MPV Neutrophils % Lymphocytes % Monocytes % Eosinophils % Basophils % INR PTT (Actin FS) VBG pH POC VBG pCO2 POC VBG pO2 Mixed VBG HCO3 Sodium 140 Potassium 4.0 Chloride 106 Carbon Dioxide 25 D Anion Gap 9 BUN 10 Creatinine 0.5 L D Creat Clearance w eGFR POC Glucometer Random Glucose 276 H Lactic Acid 1.0 Calcium 7.6 L Magnesium Total Bilirubin AST ALT Alkaline Phosphatase Creatine Kinase Creatine Kinase Index CK-MB (CK-2) Troponin I Total Protein Albumin Urine Color Urine Appearance Urine pH Ur Specific [place] Urine Protein Urine Glucose (UA) Urine Ketones Urine Blood Urine Nitrite Urine Bilirubin Urine Urobilinogen Ur Leukocyte Esterase Blood Type Antibody Screen Active Medications Generic Name Dose Route Start Last Admin Trade Name Freq PRN Reason Stop Dose Admin Enalapril Maleate 20 mg 04/15/17 10:00 04/15/17 10:38 Vasotec - PO 20 mg DAILY TAMMY Administration Fentanyl 25 mcg 04/15/17 15:55 Sublimaze Injection - IVPUSH 04/18/17 15:56 [id number] PRN PAIN Hydromorphone HCl 1 mg 04/15/17 04:30 Dilaudid Injection - IVPB Q4H PRN Methimazole 5 mg 04/15/17 10:00 04/15/17 12:37 Tapazole - PO 5 mg DAILY TAMMY Administration Metoprolol Tartrate 50 mg 04/15/17 10:00 04/15/17 10:38 Lopressor - PO 50 mg BID TAMMY Administration Ondansetron HCl 4 mg 04/15/17 15:55 Zofran Injection IVPUSH 04/15/17 21:56 Q6H PRN NAUSEA AND/OR VOMITING Oxycodone HCl 5 mg 04/15/17 15:55 Roxicodone - PO 04/16/17 15:54 Q4H PRN MILD PAIN Promethazine HCl 12.5 mg 04/15/17 15:55 Phenergan Injection - IVPUSH 04/15/17 21:56 Q6H PRN NAUSEA Rivastigmine Tartrate 3 mg 04/15/17 10:00 04/15/17 12:38 Exelon (Nf) - PO 3 mg BID TAMMY Administration
[2017-04-15] MEDS: HEPARIN NA (PORCINE) 5,000 UNITS/ML 1ML VIAL SQ SCH (22:06)
[2017-04-15] MEDS: oxyCODONE HCL 5 MG TABLET PO PRN (22:13)
--- NOTE | 2017-04-16 09:35 | OP ---
DATE OF OPERATION: 04/15/2017 PREOPERATIVE DIAGNOSIS: Dislocated right hemiarthroplasty. POSTOPERATIVE DIAGNOSIS: Dislocated right hemiarthroplasty. PROCEDURE: Closed reduction of right hip hemiarthroplasty under fluoroscopy. SURGICAL ATTENDING: Salomon Lea MD ORGAN TUNER: HUI Montiel ANESTHESIA: General. CLOSURE: A knee immobilizer. Patient was taken to the operating room on April 15, 2017. General anesthesia with mask and a muscle relaxant was performed. A fluoroscopic closed reduction of the right hemiarthroplasty was performed with traction. Concentric reduction was obtained. Postreduction, the hip was taken through a fluoroscopic exam and found that the femoral component was stable and there were no fractures. The hip was stable into marked degrees of flexion and internal rotation and had good limb lengths postoperatively. Patient was awakened from anesthesia and transferred to the recovery room. A knee immobilizer was placed on the right lower extremity to ensure no further dislocations. SALOMON LEA M.D. [id number]
[2017-04-16] MEDS ORDERED: PT OWN MED DRAWER 7, Y5N ONE ×3 (10:53→22:11)
[2017-04-16] MEDS: HEPARIN NA (PORCINE) 5,000 UNITS/ML 1ML VIAL SQ SCH ×2 (10:54→22:19)
[2017-04-16] MEDS: METHIMAZOLE 5 MG TABLET (FP) PO SCH (10:54)
[2017-04-16] MEDS: METOPROLOL TARTRATE 50 MG TABLET (FP) PO SCH ×2 (10:54→22:20)
[2017-04-16] MEDS: ENALAPRIL MALEATE 10 MG TABLET (FP) PO SCH (10:55)
[2017-04-16] MEDS: RIVASTIGMINE TARTRATE 1.5 MG CAPSULE PO SCH ×2 (10:55→22:20)
--- NOTE | 2017-04-16 11:38 | PN ---
Progress Note (short form) - Note Progress Note: Ortho Pt seen and examined s/p right hip emma closed reduction Selected Entries 04/16/17 01:56 Temperature 99.2 F Pulse Rate 81 Respiratory 20 Rate Blood Pressure 134/68 Laboratory Tests 04/15/17 07:45 WBC 7.9 Hgb 8.0 L Hct 24.4 L Plt Count 379 incision c/d/i, leg lengths equal, knee immobilizer in place calf soft, nt, nvi a/p Keep knee immobilizer on at all times- only to remove for bathing please check daily for skin breakdown hip precautions PT, wbat with knee immobilizer on dvt ppx pain control d/c planning
--- NOTE | 2017-04-16 13:59 | PN ---
Progress Note, Physician Chief Complaint: Infectious Disease History of Present Illness: Pt alert No distress noted but weak - Current Medication List Current Medications: Active Medications Enalapril Maleate (Vasotec -) 20 mg PO DAILY [facility] Last Admin: 04/16/17 10:55 Dose: 20 mg Fentanyl (Sublimaze Injection -) 25 mcg IVPUSH [id number] PRN PRN Reason: PAIN Stop: 04/18/17 15:56 Heparin Sodium (Porcine) (Heparin -) 5,000 unit SQ BID [facility] Last Admin: 04/16/17 10:54 Dose: 5,000 unit Hydromorphone HCl (Dilaudid Injection -) 1 mg IVPB Q4H PRN Metformin HCl (Glucophage -) 850 mg PO BIDAC [facility] Last Admin: 04/16/17 06:31 Dose: 850 mg Methimazole (Tapazole -) 5 mg PO DAILY [facility] Last Admin: 04/16/17 10:54 Dose: 5 mg Metoprolol Tartrate (Lopressor -) 50 mg PO BID [facility] Last Admin: 04/16/17 10:54 Dose: 50 mg Oxycodone HCl (Roxicodone -) 5 mg PO Q4H PRN PRN Reason: MILD PAIN Stop: 04/16/17 15:54 Last Admin: 04/15/17 22:13 Dose: 5 mg Rivastigmine Tartrate (Exelon (Nf) -) 3 mg PO BID [facility] Last Admin: 04/16/17 10:55 Dose: 3 mg - Objective Vital Signs: Vital Signs Temperature 98.5 F 04/16/17 10:00 Pulse Rate 83 04/16/17 10:00 Respiratory Rate 20 04/16/17 10:00 Blood Pressure 153/67 04/16/17 10:00 O2 Sat by Pulse Oximetry (%) 98 04/15/17 21:00 Constitutional: Yes: No Distress Cardiovascular: Yes: Regular Rate and Rhythm Respiratory: Yes: Regular Gastrointestinal: Yes: Normal Bowel Sounds, Soft Extremities: Yes: Other (Rt hip dressing intact, knee immobilizer on) Wound/Incision: Yes: Dressing Dry and Intact Neurological: Yes: Alert Labs: CBC, BMP 04/15/17 07:45 04/15/17 07:45 INR, PTT INR 1.17 (0.82-1.09) H 04/14/17 16:20 Microbiology 04/14/17 19:47 Urine Culture - Final Urine - Urine - Catheterized NO GROWTH OBTAINED 04/14/17 16:20 Blood Culture - Preliminary Blood - Peripheral Venous NO GROWTH OBTAINED AFTER 24 HOURS, INCUBATION TO CONTINUE FOR 4 DAYS. 04/14/17 16:20 Blood Culture - Preliminary Blood - Peripheral Venous NO GROWTH OBTAINED AFTER 24 HOURS, INCUBATION TO CONTINUE FOR 4 DAYS. Problem List - Problems (1) Hip dislocation, right Code(s): S73.004A - UNSPECIFIED DISLOCATION OF RIGHT HIP, INITIAL ENCOUNTER Qualifiers: Encounter type: initial encounter Qualified Code(s): S73.004A - Unspecified dislocation of right hip, initial encounter (2) History of right hip hemiarthroplasty Code(s): Z96.641 - PRESENCE OF RIGHT ARTIFICIAL HIP JOINT Assessment/Plan Pt stable CXR normal , cultures no growth so far monitor off antibiotics
[2017-04-16] MEDS: oxyCODONE HCL 5 MG TABLET PO PRN (14:47)
--- NOTE | 2017-04-16 16:02 | PN ---
Progress Note (short form) - Note Progress Note: S/P CLOSED REDUCTION HIP FRACTURE UNDER GENERAL ANESTHESIA POST OP DAY ONE. PATIENT IS COMFORTABLE IN BED, NO ACUTE DISTRESS. UNABLE TO ANSWER QUESTIONS DUE TO HER DEMENTIA. SHE IS RECEIVING PAIN MEDICATION WHICH IS HELPING WITH PAIN, REPORTED BY FAMILY. DEPT OF ANESTHESIA WILL SIGN OFF CARE AT THIS TIME.
--- NOTE | 2017-04-16 16:05 | PN ---
Progress Note, Physician History of Present Illness: stable - Current Medication List Current Medications: Active Medications Enalapril Maleate (Vasotec -) 20 mg PO DAILY [facility] Last Admin: 04/16/17 10:55 Dose: 20 mg Fentanyl (Sublimaze Injection -) 25 mcg IVPUSH [id number] PRN PRN Reason: PAIN Stop: 04/18/17 15:56 Heparin Sodium (Porcine) (Heparin -) 5,000 unit SQ BID [facility] Last Admin: 04/16/17 10:54 Dose: 5,000 unit Hydromorphone HCl (Dilaudid Injection -) 1 mg IVPB Q4H PRN Metformin HCl (Glucophage -) 850 mg PO BIDAC [facility] Last Admin: 04/16/17 06:31 Dose: 850 mg Methimazole (Tapazole -) 5 mg PO DAILY [facility] Last Admin: 04/16/17 10:54 Dose: 5 mg Metoprolol Tartrate (Lopressor -) 50 mg PO BID [facility] Last Admin: 04/16/17 10:54 Dose: 50 mg Rivastigmine Tartrate (Exelon (Nf) -) 3 mg PO BID [facility] Last Admin: 04/16/17 10:55 Dose: 3 mg - Objective Vital Signs: Vital Signs Temperature 99.0 F 04/16/17 14:45 Pulse Rate 81 04/16/17 14:45 Respiratory Rate 20 04/16/17 14:45 Blood Pressure 156/82 04/16/17 14:45 O2 Sat by Pulse Oximetry (%) 98 04/15/17 21:00 Constitutional: Yes: No Distress HENT: Yes: Atraumatic Neck: Yes: Supple Cardiovascular: Yes: Regular Rate and Rhythm Respiratory: Yes: CTA Bilaterally Gastrointestinal: Yes: Normal Bowel Sounds Extremities: Yes: WNL Edema: No Peripheral Pulses WNL: Yes Neurological: Yes: Alert Labs: CBC, BMP 04/15/17 07:45 04/15/17 07:45 INR, PTT INR 1.17 (0.82-1.09) H 04/14/17 16:20 Problem List - Problems (1) Hip dislocation, right Assessment/Plan: s/p closed reduction Code(s): S73.004A - UNSPECIFIED DISLOCATION OF RIGHT HIP, INITIAL ENCOUNTER Qualifiers: Encounter type: initial encounter Qualified Code(s): S73.004A - Unspecified dislocation of right hip, initial encounter (2) Dementia Assessment/Plan: on meds stable Code(s): F03.90 - UNSPECIFIED DEMENTIA WITHOUT BEHAVIORAL DISTURBANCE Qualifiers: Dementia type: unspecified type Dementia behavioral disturbance: without behavioral disturbance Qualified Code(s): F03.90 - Unspecified dementia without behavioral disturbance (3) Diabetes mellitus Assessment/Plan: on bgms po meds Code(s): E11.9 - TYPE 2 DIABETES MELLITUS WITHOUT COMPLICATIONS Qualifiers: Diabetes mellitus type: type 2 Diabetes mellitus complication status: without complication Diabetes mellitus adjunct faculty for medical terminology insulin use: without adjunct faculty for medical terminology use Qualified Code(s): E11.9 - Type 2 diabetes mellitus without complications (4) HTN (hypertension) Assessment/Plan: on meds stable Code(s): I10 - ESSENTIAL (PRIMARY) HYPERTENSION Qualifiers: Hypertension type: essential hypertension Qualified Code(s): I10 - Essential (primary) hypertension
[2017-04-17] MEDS ORDERED: PT OWN MED DRAWER 7, Y5N ONE ×3 (11:08→21:16)
[2017-04-17] MEDS: HEPARIN NA (PORCINE) 5,000 UNITS/ML 1ML VIAL SQ SCH ×2 (11:11→21:53)
[2017-04-17] MEDS: RIVASTIGMINE TARTRATE 1.5 MG CAPSULE PO SCH ×2 (11:11→21:54)
[2017-04-17] MEDS: METHIMAZOLE 5 MG TABLET (FP) PO SCH (11:12)
[2017-04-17] MEDS: ENALAPRIL MALEATE 10 MG TABLET (FP) PO SCH (11:12)
[2017-04-17] MEDS: METOPROLOL TARTRATE 50 MG TABLET (FP) PO SCH ×2 (11:12→21:53)
--- NOTE | 2017-04-17 17:54 | PN ---
Progress Note, Physician History of Present Illness: Pt is alert, remains afebrile Eating with assistance from family pain controlled - Current Medication List Current Medications: Active Medications Enalapril Maleate (Vasotec -) 20 mg PO DAILY [facility] Last Admin: 04/17/17 11:12 Dose: 20 mg Fentanyl (Sublimaze Injection -) 25 mcg IVPUSH [id number] PRN PRN Reason: PAIN Stop: 04/18/17 15:56 Heparin Sodium (Porcine) (Heparin -) 5,000 unit SQ BID [facility] Last Admin: 04/17/17 11:11 Dose: 5,000 unit Hydromorphone HCl (Dilaudid Injection -) 1 mg IVPB Q4H PRN Metformin HCl (Glucophage -) 850 mg PO BIDAC [facility] Last Admin: 04/17/17 17:15 Dose: 850 mg Methimazole (Tapazole -) 5 mg PO DAILY [facility] Last Admin: 04/17/17 11:12 Dose: 5 mg Metoprolol Tartrate (Lopressor -) 50 mg PO BID [facility] Last Admin: 04/17/17 11:12 Dose: 50 mg Rivastigmine Tartrate (Exelon (Nf) -) 3 mg PO BID [facility] Last Admin: 04/17/17 11:11 Dose: 3 mg - Objective Vital Signs: Vital Signs Temperature 98.7 F 04/17/17 15:00 Pulse Rate 82 04/17/17 15:00 Respiratory Rate 20 04/17/17 15:00 Blood Pressure 158/75 04/17/17 15:00 O2 Sat by Pulse Oximetry (%) 98 04/16/17 21:00 Constitutional: Yes: No Distress Cardiovascular: Yes: WNL Respiratory: Yes: WNL Gastrointestinal: Yes: Normal Bowel Sounds, Soft Extremities: Yes: Other (LE immobilizer on) Wound/Incision: Yes: Clean/Dry Neurological: Yes: Alert Labs: CBC, BMP 04/15/17 07:45 04/15/17 07:45 INR, PTT INR 1.17 (0.82-1.09) H 04/14/17 16:20 Problem List - Problems (1) Hip dislocation, right Code(s): S73.004A - UNSPECIFIED DISLOCATION OF RIGHT HIP, INITIAL ENCOUNTER Qualifiers: Encounter type: initial encounter Qualified Code(s): S73.004A - Unspecified dislocation of right hip, initial encounter (2) History of right hip hemiarthroplasty Code(s): Z96.641 - PRESENCE OF RIGHT ARTIFICIAL HIP JOINT Assessment/Plan Pt remains stable off antibiotics cont monitor
--- NOTE | 2017-04-17 21:30 | PN ---
Progress Note, Physician History of Present Illness: stable - Current Medication List Current Medications: Active Medications Enalapril Maleate (Vasotec -) 20 mg PO DAILY [facility] Last Admin: 04/17/17 11:12 Dose: 20 mg Fentanyl (Sublimaze Injection -) 25 mcg IVPUSH [id number] PRN PRN Reason: PAIN Stop: 04/18/17 15:56 Heparin Sodium (Porcine) (Heparin -) 5,000 unit SQ BID [facility] Last Admin: 04/17/17 11:11 Dose: 5,000 unit Hydromorphone HCl (Dilaudid Injection -) 1 mg IVPB Q4H PRN Metformin HCl (Glucophage -) 850 mg PO BIDAC [facility] Last Admin: 04/17/17 17:15 Dose: 850 mg Methimazole (Tapazole -) 5 mg PO DAILY [facility] Last Admin: 04/17/17 11:12 Dose: 5 mg Metoprolol Tartrate (Lopressor -) 50 mg PO BID [facility] Last Admin: 04/17/17 11:12 Dose: 50 mg Rivastigmine Tartrate (Exelon (Nf) -) 3 mg PO BID [facility] Last Admin: 04/17/17 11:11 Dose: 3 mg - Objective Vital Signs: Vital Signs Temperature 98.7 F 04/17/17 15:00 Pulse Rate 82 04/17/17 15:00 Respiratory Rate 20 04/17/17 15:00 Blood Pressure 158/75 04/17/17 15:00 O2 Sat by Pulse Oximetry (%) 98 04/16/17 21:00 Constitutional: Yes: No Distress HENT: Yes: Atraumatic Neck: Yes: Supple Cardiovascular: Yes: Regular Rate and Rhythm Respiratory: Yes: CTA Bilaterally Extremities: Yes: WNL Edema: No Neurological: Yes: Alert Labs: CBC, BMP 04/15/17 07:45 04/15/17 07:45 INR, PTT INR 1.17 (0.82-1.09) H 04/14/17 16:20 Problem List - Problems (1) Hip dislocation, right Assessment/Plan: s/p closed reduction Code(s): S73.004A - UNSPECIFIED DISLOCATION OF RIGHT HIP, INITIAL ENCOUNTER Qualifiers: Encounter type: initial encounter Qualified Code(s): S73.004A - Unspecified dislocation of right hip, initial encounter (2) Dementia Assessment/Plan: on meds stable Code(s): F03.90 - UNSPECIFIED DEMENTIA WITHOUT BEHAVIORAL DISTURBANCE Qualifiers: Dementia type: unspecified type Dementia behavioral disturbance: without behavioral disturbance Qualified Code(s): F03.90 - Unspecified dementia without behavioral disturbance (3) Diabetes mellitus Assessment/Plan: on bgms po meds Code(s): E11.9 - TYPE 2 DIABETES MELLITUS WITHOUT COMPLICATIONS Qualifiers: Diabetes mellitus type: type 2 Diabetes mellitus complication status: without complication Diabetes mellitus moth exterminator insulin use: without moth exterminator use Qualified Code(s): E11.9 - Type 2 diabetes mellitus without complications (4) HTN (hypertension) Assessment/Plan: on meds stable Code(s): I10 - ESSENTIAL (PRIMARY) HYPERTENSION Qualifiers: Hypertension type: essential hypertension Qualified Code(s): I10 - Essential (primary) hypertension
[2017-04-18] MEDS ORDERED: PT OWN MED DRAWER 7, Y5N ONE ×4 (06:15→21:14)
--- NOTE | 2017-04-18 07:26 | PN ---
Progress Note (short form) - Note Progress Note: Ortho Pt seen and examined s/p right hip emma closed reduction Selected Entries 04/18/17 06:00 Temperature 98.5 F Pulse Rate 84 Respiratory 20 Rate Blood Pressure 162/83 Laboratory Tests 04/15/17 07:45 WBC 7.9 Hgb 8.0 L Hct 24.4 L Plt Count 379 incision c/d/i, leg lengths equal, knee immobilizer in place calf soft, nt, nvi a/p Keep knee immobilizer on at all times- only to remove for bathing please check daily for skin breakdown hip precautions PT, wbat with knee immobilizer on dvt ppx pain control d/c planning
[2017-04-18] MEDS: METOPROLOL TARTRATE 50 MG TABLET (FP) PO SCH ×2 (11:09→21:30)
[2017-04-18] MEDS: METHIMAZOLE 5 MG TABLET (FP) PO SCH (11:09)
[2017-04-18] MEDS: RIVASTIGMINE TARTRATE 1.5 MG CAPSULE PO SCH ×2 (11:09→21:30)
[2017-04-18] MEDS: ENALAPRIL MALEATE 10 MG TABLET (FP) PO SCH (11:09)
[2017-04-18] MEDS: HEPARIN NA (PORCINE) 5,000 UNITS/ML 1ML VIAL SQ SCH ×2 (11:10→21:30)
[2017-04-18] MEDS ORDERED: INSULIN (NOVOLOG) ASPART 100 UNITS/ML 10ML VIAL ONE (11:32)
--- NOTE | 2017-04-18 12:46 | PN ---
Progress Note, Physician History of Present Illness: patient stable family in room awake and alert dementia - Current Medication List Current Medications: Active Medications Enalapril Maleate (Vasotec -) 20 mg PO DAILY [facility] Last Admin: 04/18/17 11:09 Dose: 20 mg Fentanyl (Sublimaze Injection -) 25 mcg IVPUSH [id number] PRN PRN Reason: PAIN Stop: 04/18/17 15:56 Heparin Sodium (Porcine) (Heparin -) 5,000 unit SQ BID [facility] Last Admin: 04/18/17 11:10 Dose: 5,000 unit Metformin HCl (Glucophage -) 850 mg PO BIDAC [facility] Last Admin: 04/18/17 06:23 Dose: 850 mg Methimazole (Tapazole -) 5 mg PO DAILY [facility] Last Admin: 04/18/17 11:09 Dose: 5 mg Metoprolol Tartrate (Lopressor -) 50 mg PO BID [facility] Last Admin: 04/18/17 11:09 Dose: 50 mg Rivastigmine Tartrate (Exelon (Nf) -) 3 mg PO BID [facility] Last Admin: 04/18/17 11:09 Dose: 3 mg - Objective Vital Signs: Vital Signs Temperature 98.5 F 04/18/17 06:00 Pulse Rate 84 04/18/17 06:00 Respiratory Rate 20 04/18/17 06:00 Blood Pressure 162/83 04/18/17 06:00 O2 Sat by Pulse Oximetry (%) 98 04/16/17 21:00 Constitutional: Yes: No Distress, Calm Cardiovascular: Yes: Regular Rate and Rhythm Respiratory: Yes: Regular, CTA Bilaterally Gastrointestinal: Yes: Normal Bowel Sounds, Soft Musculoskeletal: Yes: Other Extremities: Yes: Other Neurological: Yes: Alert, Other Psychiatric: Yes: Alert, Other Labs: CBC, BMP 04/15/17 07:45 04/15/17 07:45 INR, PTT INR 1.17 (0.82-1.09) H 04/14/17 16:20 Assessment/Plan Problems (1) CVA (cerebral vascular accident) Code(s): I63.9 - CEREBRAL INFARCTION, UNSPECIFIED Qualifiers: CVA mechanism: unspecified Qualified Code(s): I63.9 - Cerebral infarction, unspecified (2) Dementia Code(s): F03.90 - UNSPECIFIED DEMENTIA WITHOUT BEHAVIORAL DISTURBANCE Qualifiers: Dementia type: unspecified type Dementia behavioral disturbance: without behavioral disturbance Qualified Code(s): F03.90 - Unspecified dementia without behavioral disturbance (3) Diabetes mellitus Code(s): E11.9 - TYPE 2 DIABETES MELLITUS WITHOUT COMPLICATIONS Qualifiers: Diabetes mellitus type: type 2 Diabetes mellitus complication status: without complication Diabetes mellitus alf insulin use: without superintendent container terminal use Qualified Code(s): E11.9 - Type 2 diabetes mellitus without complications (4) HTN (hypertension) Code(s): I10 - ESSENTIAL (PRIMARY) HYPERTENSION Qualifiers: Hypertension type: essential hypertension Qualified Code(s): I10 - Essential (primary) hypertension (5) Hip fracture Code(s): S72.009A - FRACTURE OF UNSP PART OF NECK OF UNSP FEMUR, INIT Qualifiers: Encounter type: initial encounter Fracture type: closed Laterality : right Qualified Code(s): S72.001A - Fracture of unspecified part of neck of right femur, initial encounter for closed fracture (6) UTI (urinary tract infection) Code(s): N39.0 - URINARY TRACT INFECTION, SITE NOT SPECIFIED Qualifiers: Urinary tract infection type: site unspecified Hematuria presence: without hematuria Qualified Code(s): N39.0 - Urinary tract infection, site not specified (7) History of right hip hemiarthroplasty Code(s): Z96.641 - PRESENCE OF RIGHT ARTIFICIAL HIP JOINT (8) Moderate aortic regurgitation Code(s): I35.1 - NONRHEUMATIC AORTIC (VALVE) INSUFFICIENCY (9) Anemia Code(s): D64.9 - ANEMIA, UNSPECIFIED Qualifiers: Anemia type: unspecified type Qualified Code(s): D64.9 - Anemia, unspecified 10 fracture of the rt hand 11 dislocation of the rt hip plan continue current mgmt patient doing well rest as per primary ortho
[2017-04-18] MEDS ORDERED: ACETAMINOPHEN 325 MG TABLET (FP) PO PRN (19:28)
--- NOTE | 2017-04-18 19:40 | PN ---
Progress Note, Physician History of Present Illness: stable - Current Medication List Current Medications: Active Medications Acetaminophen (Tylenol -) 650 mg PO Q6H PRN PRN Reason: FEVER OR PAIN Enalapril Maleate (Vasotec -) 20 mg PO DAILY [facility] Last Admin: 04/18/17 11:09 Dose: 20 mg Heparin Sodium (Porcine) (Heparin -) 5,000 unit SQ BID [facility] Last Admin: 04/18/17 11:10 Dose: 5,000 unit [facility] Admin: 04/18/17 17:47 Dose: 850 mg Methimazole (Tapazole -) 5 mg PO DAILY [facility] Last Admin: 04/18/17 11:09 Dose: 5 mg Metoprolol Tartrate (Lopressor -) 50 mg PO BID [facility] Last Admin: 04/18/17 11:09 Dose: 50 mg Rivastigmine Tartrate (Exelon (Nf) -) 3 mg PO BID [facility] Last Admin: 04/18/17 11:09 Dose: 3 mg - Objective Vital Signs: Vital Signs Temperature 98.9 F 04/18/17 15:18 Pulse Rate 84 04/18/17 06:00 Respiratory Rate 20 04/18/17 06:00 Blood Pressure 162/83 04/18/17 06:00 O2 Sat by Pulse Oximetry (%) 98 04/16/17 21:00 Constitutional: Yes: No Distress HENT: Yes: Atraumatic Neck: Yes: Supple Cardiovascular: Yes: Regular Rate and Rhythm Respiratory: Yes: CTA Bilaterally Gastrointestinal: Yes: Normal Bowel Sounds Extremities: Yes: WNL Neurological: Yes: Alert, Oriented Labs: CBC, BMP 04/15/17 07:45 04/15/17 07:45 INR, PTT INR 1.17 (0.82-1.09) H 04/14/17 16:20 Problem List - Problems (1) Hip dislocation, right Assessment/Plan: s/p closed reduction Code(s): S73.004A - UNSPECIFIED DISLOCATION OF RIGHT HIP, INITIAL ENCOUNTER Qualifiers: Encounter type: initial encounter Qualified Code(s): S73.004A - Unspecified dislocation of right hip, initial encounter (2) Dementia Assessment/Plan: on meds stable Code(s): F03.90 - UNSPECIFIED DEMENTIA WITHOUT BEHAVIORAL DISTURBANCE Qualifiers: Dementia type: unspecified type Dementia behavioral disturbance: without behavioral disturbance Qualified Code(s): F03.90 - Unspecified dementia without behavioral disturbance (3) Diabetes mellitus Assessment/Plan: on bgms po meds Code(s): E11.9 - TYPE 2 DIABETES MELLITUS WITHOUT COMPLICATIONS Qualifiers: Diabetes mellitus type: type 2 Diabetes mellitus complication status: without complication Diabetes mellitus mcc insulin use: without mcc use Qualified Code(s): E11.9 - Type 2 diabetes mellitus without complications (4) HTN (hypertension) Assessment/Plan: on meds stable Code(s): I10 - ESSENTIAL (PRIMARY) HYPERTENSION Qualifiers: Hypertension type: essential hypertension Qualified Code(s): I10 - Essential (primary) hypertension Assessment/Plan DC TO SNF
[2017-04-19] MEDS ORDERED: PT OWN MED DRAWER 7, Y5N ONE ×2 (06:10→10:16)
[2017-04-19] MEDS: METHIMAZOLE 5 MG TABLET (FP) PO SCH (10:26)
[2017-04-19] MEDS: RIVASTIGMINE TARTRATE 1.5 MG CAPSULE PO SCH (10:27)
[2017-04-19] MEDS: METOPROLOL TARTRATE 50 MG TABLET (FP) PO SCH (10:27)
[2017-04-19] MEDS: ENALAPRIL MALEATE 10 MG TABLET (FP) PO SCH (10:27)
[2017-04-19] MEDS: HEPARIN NA (PORCINE) 5,000 UNITS/ML 1ML VIAL SQ SCH (10:28)
[2017-04-19 14:34] VITALS: BP 145/78; PULSE 81; TEMP 98.9
--- NOTE | 2017-04-19 14:41 | PN ---
Progress Note, Physician History of Present Illness: patient stable no new issues - Current Medication List Current Medications: Active Medications Acetaminophen (Tylenol -) 650 mg PO Q6H PRN PRN Reason: FEVER OR PAIN Last Admin: 04/19/17 10:36 Dose: 650 mg Enalapril Maleate (Vasotec -) 20 mg PO DAILY [facility] Last Admin: 04/19/17 10:27 Dose: 20 mg Heparin Sodium (Porcine) (Heparin -) 5,000 unit SQ BID [facility] Last Admin: 04/19/17 10:28 Dose: 5,000 unit Metformin HCl (Glucophage -) 850 mg PO BIDAC [facility] Last Admin: 04/19/17 06:24 Dose: 850 mg Methimazole (Tapazole -) 5 mg PO DAILY [facility] Last Admin: 04/19/17 10:26 Dose: 5 mg Metoprolol Tartrate (Lopressor -) 50 mg PO BID [facility] Last Admin: 04/19/17 10:27 Dose: 50 mg Rivastigmine Tartrate (Exelon (Nf) -) 3 mg PO BID [facility] Last Admin: 04/19/17 10:27 Dose: 3 mg - Objective Vital Signs: Vital Signs Temperature 98.9 F 04/19/17 14:32 Pulse Rate 81 04/19/17 14:32 Respiratory Rate 18 04/19/17 05:59 Blood Pressure 145/78 04/19/17 14:32 O2 Sat by Pulse Oximetry (%) 97 04/18/17 22:00 Constitutional: Yes: No Distress, Calm Cardiovascular: Yes: Regular Rate and Rhythm Respiratory: Yes: Regular, CTA Bilaterally Gastrointestinal: Yes: Normal Bowel Sounds, Soft Musculoskeletal: Yes: WNL Extremities: Yes: WNL Neurological: Yes: Alert, Oriented Psychiatric: Yes: Alert, Oriented Labs: CBC, BMP 04/15/17 07:45 04/15/17 07:45 INR, PTT INR 1.17 (0.82-1.09) H 04/14/17 16:20 Assessment/Plan Problems (1) CVA (cerebral vascular accident) Code(s): I63.9 - CEREBRAL INFARCTION, UNSPECIFIED Qualifiers: CVA mechanism: unspecified Qualified Code(s): I63.9 - Cerebral infarction, unspecified (2) Dementia Code(s): F03.90 - UNSPECIFIED DEMENTIA WITHOUT BEHAVIORAL DISTURBANCE Qualifiers: Dementia type: unspecified type Dementia behavioral disturbance: without behavioral disturbance Qualified Code(s): F03.90 - Unspecified dementia without behavioral disturbance (3) Diabetes mellitus Code(s): E11.9 - TYPE 2 DIABETES MELLITUS WITHOUT COMPLICATIONS Qualifiers: Diabetes mellitus type: type 2 Diabetes mellitus complication status: without complication Diabetes mellitus shelter insulin use: without rn long term care use Qualified Code(s): E11.9 - Type 2 diabetes mellitus without complications (4) HTN (hypertension) Code(s): I10 - ESSENTIAL (PRIMARY) HYPERTENSION Qualifiers: Hypertension type: essential hypertension Qualified Code(s): I10 - Essential (primary) hypertension (5) Hip fracture Code(s): S72.009A - FRACTURE OF UNSP PART OF NECK OF UNSP FEMUR, INIT Qualifiers: Encounter type: initial encounter Fracture type: closed Laterality : right Qualified Code(s): S72.001A - Fracture of unspecified part of neck of right femur, initial encounter for closed fracture (6) UTI (urinary tract infection) Code(s): N39.0 - URINARY TRACT INFECTION, SITE NOT SPECIFIED Qualifiers: Urinary tract infection type: site unspecified Hematuria presence: without hematuria Qualified Code(s): N39.0 - Urinary tract infection, site not specified (7) History of right hip hemiarthroplasty Code(s): Z96.641 - PRESENCE OF RIGHT ARTIFICIAL HIP JOINT (8) Moderate aortic regurgitation Code(s): I35.1 - NONRHEUMATIC AORTIC (VALVE) INSUFFICIENCY (9) Anemia Code(s): D64.9 - ANEMIA, UNSPECIFIED Qualifiers: Anemia type: unspecified type Qualified Code(s): D64.9 - Anemia, unspecified 10 fracture of the rt hand 11 dislocation of the rt hip plan continue current mgmt patient doing well rest as per primary ortho
--- NOTE | 2017-04-19 16:18 | DS ---
Physical Examination Vital Signs: Vital Signs Temperature 98.9 F 04/19/17 14:32 Pulse Rate 81 04/19/17 14:32 Respiratory Rate 18 04/19/17 05:59 Blood Pressure 145/78 04/19/17 14:32 O2 Sat by Pulse Oximetry (%) 97 04/18/17 22:00 Constitutional: Yes: No Distress HENT: Yes: Atraumatic Neck: Yes: Supple Cardiovascular: Yes: Regular Rate and Rhythm Respiratory: Yes: CTA Bilaterally Gastrointestinal: Yes: Normal Bowel Sounds Extremities: Yes: WNL Neurological: Yes: Alert, Oriented Labs: CBC, BMP 04/15/17 07:45 04/15/17 07:45 Discharge Summary Reason For Visit: ANEMIA/DISLOCATION OF RT HIP Current Active Problems Anemia (Acute) Hip dislocation, right (Acute) Condition: Guarded - Instructions Referrals: Rema Arredondo [Primary Care Provider] - - Home Medications Comprehensive Discharge Medication List: Ambulatory Orders Acetaminophen [Tylenol] 650 mg PO BID 03/28/17 Enalapril Maleate [Vasotec] 20 mg PO DAILY 03/28/17 Ferrous Sulfate 325 mg PO DAILY 03/28/17 Metformin HCl 850 mg PO BID 03/28/17 Methimazole 5 mg PO DAILY 03/28/17 Multivitamins [Multivit ([facility] Formulary)] 1 tab PO DAILY 03/28/17 Rivastigmine Tartrate [Exelon (Nf) -] 3 mg PO BID 03/28/17 Metoprolol Tartrate [Lopressor -] 50 mg PO BID #30 tablet 04/13/17 Aspirin [ASA -] 325 mg PO DAILY tablet 04/14/17 dc to snf
== END 2017-04-19 17:18 | DRG 537 ==
LOC: JER 15:14 → JERBED 21:10 → J5S 04-15 02:13 → J6S 04-15 17:43
PROVIDERS: ADMIT Internal Medicine; ATTEND Internal Medicine
PROC: BW1CYZZ Fluoroscopy of Lower Extremity using Other Contrast (ICD-10-PCS; 2017-04-15)
PROC: 2W3LXYZ Immobilization of Right Lower Extremity using Other Device (ICD-10-PCS; 2017-04-15)
PROC: 0SS9XZZ Reposition Right Hip Joint, External Approach (ICD-10-PCS; principal; 2017-04-15 15:00)
DX: S73.004A Unspecified dislocation of right hip, initial encounter (principal); E46 Unspecified protein-calorie malnutrition; X58.XXXA Exposure to other specified factors, initial encounter; Y93.89 Activity, other specified; Y92.122 Bedroom in nursing home as the place of occurrence of the external cause; Y92.89 Other specified places as the place of occurrence of the external cause; D64.9 Anemia, unspecified; Z96.641 Presence of right artificial hip joint; Z98.890 Other specified postprocedural states; E11.9 Type 2 diabetes mellitus without complications; Z79.84 Long term (current) use of oral hypoglycemic drugs; F03.90 Unspecified dementia, unspecified severity, without behavioral disturbance, psychotic disturbance, mood disturbance, and anxiety; I10 Essential (primary) hypertension; E78.5 Hyperlipidemia, unspecified; Z86.73 Personal history of transient ischemic attack (TIA), and cerebral infarction without residual deficits; E21.3 Hyperparathyroidism, unspecified; D50.9 Iron deficiency anemia, unspecified; I35.1 Nonrheumatic aortic (valve) insufficiency
CPT/HCPCS: 36415; 70450-TC; 71010-TC; 73523-TC; 76000-TC; 80048; 80053; 81003; 82553; 82803; 83605; 83735; 84484; 85025; 85610; 85730; 86850; 86900; 86901; 87040; 87086; 93005; 93010; 94760; 97116-GP; 99284-25; J1644

== ENCOUNTER 2017-06-14 01:36 | Inpatient (IN) | payer MEDICARE, OTHER ==
--- NOTE | 2017-06-14 01:53 | PDOC ---
History of Present Illness <Nathan Colindres - Last Filed: 06/14/17 05:35> - General History Source: Family - History of Present Illness Initial Comments: 81 yo F hx DM, CVA, HTN, HL presents with hip dislocation. As per family, she was being transferred and suddenly developed pain. She has had pain to the R hip since then, unable to ambulate. No direct trauma. No falls. She has been seen in the hospital for the same on prior occasions. She has also been admitted with UTIs previously. Pt unable to offer any history except to say that she has R hip pain. <Viky Valencia - Last Filed: 06/17/17 07:59> - General Stated Complaint: HIP DISLOCATION Time Seen by Provider: 06/14/17 01:53 Past History <Nathan Colindres - Last Filed: 06/14/17 05:35> - Past Medical History CVA: Yes Dementia: Yes Diabetes: Yes HTN: Yes Hypercholesterolemia: Yes - Suicide/Smoking/Psychosocial Hx Smoking History: Never smoked Have you smoked in the past 12 months: No Hx Alcohol Use: No Drug/Substance Use Hx: No Substance Use Type: None <Viky Valencia - Last Filed: 06/17/17 07:59> - Past Medical History Allergies/Adverse Reactions: Allergies Allergy/AdvReac Type Severity Reaction Status Date / Time No Known Allergies Allergy Verified 06/14/17 01:59 Home Medications: Ambulatory Orders Enalapril Maleate [Vasotec] 20 mg PO DAILY 03/28/17 Ferrous Sulfate 325 mg PO DAILY 03/28/17 Metformin HCl 850 mg PO BID 03/28/17 Methimazole 5 mg PO DAILY 03/28/17 Multivitamins [Multivit ([facility] Formul[facility])] 1 tab PO DAILY 03/28/17 Rivastigmine Tartrate [Exelon (Nf) -] 3 mg PO BID 03/28/17 Metoprolol Tartrate [Lopressor -] 50 mg PO BID #30 tablet 04/13/17 Aspirin [ASA -] 325 mg PO DAILY tablet 04/14/17 Acetaminophen [Pain Relief] 650 mg PO PRN PRN #30 tablet.er 06/16/17 Cephalexin [Keflex] 500 mg PO BID #8 capsule 06/16/17 Oxycodone HCl 2.5 mg PO Q4HWA #20 capsule MDD 10 06/16/17 Review of Systems - Review of Systems Able to Perform ROS?: No (limited) <Viky Valencia - Last Filed: 06/17/17 07:59> *Physical Exam - Vital Signs Last Vital Signs Temp Pulse Resp BP Pulse Ox 98.8 F 84 18 151/72 96 06/14/17 01:55 06/14/17 01:55 06/14/17 01:55 06/14/17 01:55 06/14/17 01:55 <JensNathan schmidt - Last Filed: 06/14/17 05:35> - Physical Exam Comments: GENERAL: Awake, alert, in no acute distress. Appears uncomfortable. HEAD: No signs of trauma EYES: PERRLA, EOMI, sclera anicteric, conjunctiva clear ENT: Auricles normal inspection, hearing grossly normal, nares patent, oropharynx clear without exudates. Moist mucosa NECK: Normal ROM, supple, no lymphadenopathy, JVD, or masses LUNGS: Breath sounds equal, clear to auscultation bilaterally. No wheezes, and no crackles HEART: Regular rate and rhythm, normal S1 and S2, no murmurs, rubs or gallops ABDOMEN: Soft, nontender, normoactive bowel sounds. No guarding, no rebound. No masses EXTREMITIES: R leg shortened and externally rotated. Remainder of extremities with normal range of motion, no edema. No clubbing or cyanosis. No cords, erythema, or tenderness NEUROLOGICAL: Limited by pain, mental status. SKIN: Warm, Dry, normal turgor, no rashes or lesions noted. <Viky Valencia - Last Filed: 06/17/17 07:59> Procedures - Joint Reduction Right Joint Reduction Site: right: Hip Pre-Procedure NV Exam: normal Conscious Sedation: Yes (propofol 40 mg) Procedure: Other Post-Procedure NV Exam: normal Complications: No Post Joint Reduction Film: joint not reduced <Viky Valencia - Last Filed: 06/17/17 07:59> ED Treatment Course - LABORATORY CBC & Chemistry Diagram: 06/14/17 03:51 06/14/17 03:51 - ADDITIONAL ORDERS Additional order review: Laboratory Results 06/14/17 06/14/17 06/14/17 03:51 03:51 03:51 PT with INR 12.30 H INR 1.12 Sodium 139 Potassium 5.1 D Chloride 103 Carbon Dioxide 30 Anion Gap 6 L BUN 25 H D Creatinine 0.8 D Creat Clearance w eGFR > 60 Random Glucose 250 H Calcium 9.1 Total Bilirubin 0.4 D AST 13 L D ALT 13 D Alkaline Phosphatase 93 Total Protein 6.9 Albumin 2.9 L Urine Color Urine Appearance Urine pH Urine Protein Urine Glucose (UA) Urine Ketones Urine Blood Urine Nitrite Urine Bilirubin Urine Urobilinogen Urine RBC Urine WBC Urine Bacteria Urine Mucus Blood Type O POSITIVE Antibody Screen Negative 06/14/17 02:53 PT with INR INR Sodium Potassium Chloride Carbon Dioxide Anion Gap BUN Creatinine Creat Clearance w eGFR Random Glucose Calcium Total Bilirubin AST ALT Alkaline Phosphatase Total Protein Albumin Urine Color Sarah Urine Appearance Cloudy Urine pH 5.0 Urine Protein Negative Urine Glucose (UA) Negative Urine Ketones 1+ H Urine Blood Negative Urine Nitrite Negative Urine Bilirubin Negative Urine Urobilinogen Negative Urine RBC 8 Urine WBC 90 Urine Bacteria Moderate Urine Mucus Rare Blood Type Antibody Screen 06/14/17 03:51 RBC 4.05 D MCV 91.3 MCHC 32.4 RDW 15.7 H D MPV 9.9 Neutrophils % 69.5 Lymphocytes % 17.6 D Monocytes % 9.7 Eosinophils % 2.6 D Basophils % 0.6 <Nathan Colindres - Last Filed: 06/14/17 05:35> - LABORATORY CBC & Chemistry Diagram: 06/16/17 06:45 06/16/17 06:45 <Viky Valencia - Last Filed: 06/17/17 07:59> Medical Decision Making - Medical Decision Making 06/14/17 05:[address] Lea @5:30am. Awaiting Call back. Called back @5:35am. Case Discussed. <Nathan Colindres - Last Filed: 06/14/17 05:35> - Medical Decision Making 06/14/17 06:06 Attempted to reduce the dislocation as per Dr. Lea, however, was unable, despite propofol. Will admit to hospitalist service, will keep NPO for anticipated OR reduction today. <Viky Valencia - Last Filed: 06/17/17 07:59> *DC/Admit/Observation/Transfer <Nathan Colindres - Last Filed: 06/14/17 05:35> - Discharge Dispostion Admit: Yes <Viky Valencia - Last Filed: 06/17/17 07:59> Diagnosis at time of Disposition: UTI (urinary tract infection) Qualifiers: Urinary tract infection type: site unspecified Hematuria presence: without hematuria Qualified Code(s): N39.0 - Urinary tract infection, site not specified Hip dislocation, right Qualifiers: Encounter type: initial encounter Qualified Code(s): S73.004A - Unspecified dislocation of right hip, initial encounter - Discharge Dispostion Condition at time of disposition: Improved - Prescriptions - Referrals
[2017-06-14 04:00] LABS: BASOPHIL 0.6 % (0-2.0); EOSINOPHIL 2.6 % (0-4.5); MCH 29.6 pg (25.7-33.7); MCHC 32.4 g/dl (32.0-36.0); MEAN CELL VOLUME 91.3 fl (80-96); MEAN PLT VOLUME 9.9 fl (7.5-11.1); NEUTROPHILS 69.5 % (42.8-82.8); PLATELET COUNT 317 K/MM3 (134-434); RDW 15.7 % (11.6-15.6); WHITE BLOOD COUNT 8.7 K/mm3 (4.0-10.0)
[2017-06-14 04:02] VITALS: BMI 24.0
[2017-06-14 04:27] LABS: ALBUMIN 2.9 g/dl (3.4-5.0); ALK PHOS 93 U/L (45-117); ANION GAP 6 (8-16); BILIRUBIN,TOTAL 0.4 mg/dL (0.2-1.0); CALCIUM 9.1 mg/dL (8.5-10.1); CO2 30 mmol/L (21-32); CREATININE 0.8 mg/dL (0.55-1.02); GLUCOSE,RANDOM 250 mg/dL (74-106); SGOT/AST 13 U/L (15-37); SGPT/ALT 13 U/L (12-78); TOT PROT 6.9 g/dl (6.4-8.2)
[2017-06-14 04:33] LABS: INR 1.12 (0.82-1.09); PROTHROMBIN TIME (PATIENT) 12.3 SEC (9.98-11.88)
[2017-06-14 04:54] LABS: URINE APPEARANCE CLOUDY; URINE BILIRUBIN NEGATIVE (NEGATIVE); URINE BLOOD NEGATIVE (NEGATIVE); URINE COLOR AMBER; URINE GLUCOSE (UA) NEGATIVE (NEGATIVE); URINE KETONE 1+ (NEGATIVE); URINE NITRITE NEGATIVE (NEGATIVE); URINE PROTEIN NEGATIVE (NEGATIVE); URINE UROBILINOGEN NEGATIVE mg/dL (0.2-1.0)
[2017-06-14 04:59] LABS: URINE LEUK ESTERASE 2+ (NEGATIVE)
[2017-06-14 05:02] LABS: URINE BACTERIA MODERATE /hpf (NONE SEEN); URINE MUCUS RARE; URINE RBC 8 /hpf (0-3); URINE WBC 90 /hpf (3-5)
[2017-06-14] MEDS ORDERED: CEFTRIAXONE 1 GM in DEXTROSE 5%-WATER - 50 ML IVPB ONE (05:35)
[2017-06-14] MEDS ORDERED: PROPOFOL 40 ML ONE (05:41)
[2017-06-14] MEDS ORDERED: SODIUM CHLORIDE 1,000 ML IV STA (06:23)
[2017-06-14] MEDS ORDERED: PROPOFOL 200 MG/20 ML VIAL IVPUSH ONE (06:23)
[2017-06-14] MEDS ORDERED: CEFTRIAXONE 50 ML ONE (06:30)
[2017-06-14] MEDS ORDERED: ACETAMINOPHEN 325 MG TABLET (FP) PO PRN (08:57)
[2017-06-14] MEDS ORDERED: oxyCODONE HCL 5 MG TABLET PO PRN (08:57)
--- NOTE | 2017-06-14 09:11 | HP ---
CHIEF COMPLAINT: PCP: HISTORY OF PRESENT ILLNESS: ER course was notable for: (1) (2) (3) Recent Travel: PAST MEDICAL HISTORY: PAST SURGICAL HISTORY: Social History: Smoking: Alcohol: Drugs: Family History: Allergies No Known Allergies Allergy (Verified 06/14/17 01:59) HOME MEDICATIONS: Home Medications Medication Instructions Recorded Acetaminophen [Tylenol] 650 mg PO BID 03/28/17 Enalapril Maleate [Vasotec] 20 mg PO DAILY 03/28/17 Ferrous Sulfate 325 mg PO DAILY 03/28/17 Metformin HCl 850 mg PO BID 03/28/17 Methimazole 5 mg PO DAILY 03/28/17 Multivitamins [Multivit ([facility] 1 tab PO DAILY 03/28/17 Formulary)] Rivastigmine Tartrate [Exelon (Nf) 3 mg PO BID 03/28/17 -] Metoprolol Tartrate [Lopressor -] 50 mg PO BID #30 tablet 04/13/17 Aspirin [ASA -] 325 mg PO DAILY tablet 04/14/17 REVIEW OF SYSTEMS CONSTITUTIONAL: Absent: fever, chills, diaphoresis, generalized weakness, malaise, loss of appetite, weight change HEENT: Absent: rhinorrhea, nasal congestion, throat pain, throat swelling, difficulty swallowing, mouth swelling, ear pain, eye pain, visual changes CARDIOVASCULAR: Absent: chest pain, syncope, palpitations, irregular heart rate, lightheadedness , peripheral edema RESPIRATORY: Absent: cough, shortness of breath, dyspnea with exertion, orthopnea, wheezing, stridor, hemoptysis GASTROINTESTINAL: Absent: abdominal pain, abdominal distension, nausea, vomiting, diarrhea, constipation, melena, hematochezia GENITOURINARY: Absent: dysuria, frequency, urgency, hesitancy, hematuria, flank pain, genital pain MUSCULOSKELETAL: Absent: myalgia, arthralgia, joint swelling, back pain, neck pain SKIN: Absent: rash, itching, pallor HEMATOLOGIC/IMMUNOLOGIC: Absent: easy bleeding, easy bruising, lymphadenopathy, frequent infections ENDOCRINE: Absent: unexplained weight gain, unexplained weight loss, heat intolerance, cold intolerance NEUROLOGIC: Absent: headache, focal weakness or paresthesias, dizziness, unsteady gait, seizure, mental status changes, bladder or bowel incontinence PSYCHIATRIC: Absent: anxiety, depression, suicidal or homicidal ideation, hallucinations. PHYSICAL EXAMINATION Vital Signs - 24 hr 06/14/17 07:16 Temperature 98.1 F Pulse Rate [ 80 Apical] Respiratory 18 Rate Blood Pressure 159/89 [Left Arm] O2 Sat by Pulse 99 Oximetry (%) GENERAL: Awake, alert, and fully oriented, in no acute distress. HEAD: Normal with no signs of trauma. EYES: Pupils equal, round and reactive to light, extraocular movements intact, sclera anicteric, conjunctiva clear. No lid lag. EARS, NOSE, THROAT: Ears normal, nares patent, oropharynx clear without exudates. Moist mucous membranes. NECK: Normal range of motion, supple without lymphadenopathy, JVD, or masses. LUNGS: Breath sounds equal, clear to auscultation bilaterally. No wheezes, and no crackles. No accessory muscle use. HEART: Regular rate and rhythm, normal S1 and S2 without murmur, rub or gallop. ABDOMEN: Soft, nontender, not distended, normoactive bowel sounds, no guarding, no rebound, no masses. No hepatomegaly or splenomegaly. MUSCULOSKELETAL: Normal range of motion at all joints. No bony deformities or tenderness. No CVA tenderness. UPPER EXTREMITIES: 2+ pulses, warm, well-perfused. No cyanosis. No clubbing. No peripheral edema. LOWER EXTREMITIES: 2+ pulses, warm, well-perfused. No calf tenderness. No peripheral edema. NEUROLOGICAL: Cranial nerves II-XII intact. Normal speech. Normal gait. PSYCHIATRIC: Cooperative. Good eye contact. Appropriate mood and affect. SKIN: Warm, dry, normal turgor, no rashes or lesions noted, normal capillary refill. ASSESSMENT/PLAN:
--- NOTE | 2017-06-14 09:34 | HP ---
CHIEF COMPLAINT: right hip pain PCP: HISTORY OF PRESENT ILLNESS: This is a an 81 year old female with a significant past medical history of recurrent falls, s/p right hip replacement, sent over from [place] due to right hip pain. She has been having trouble ambulating with severe right hip pain since early this am. She denies current fall, direct trauma or injury to affected area. ER course notable for right hip displacement. Reduction was attempted in ER, unable to put back into place. Ortho was called, patient will go for reduction under anesthesia. Recent Travel: no PAST MEDICAL HISTORY: Hyperthyroid, diabetes mellitus type 2, iron deficiency anemia, UTIs, Fall, CVA , HTN PAST SURGICAL HISTORY: right hip sx Social History: Smoking:no Alcohol:no Drugs: no Family History: Allergies No Known Allergies Allergy (Verified 06/14/17 01:59) HOME MEDICATIONS: Home Medications Medication Instructions Recorded Acetaminophen [Tylenol] 650 mg PO BID 03/28/17 Enalapril Maleate [Vasotec] 20 mg PO DAILY 03/28/17 Ferrous Sulfate 325 mg PO DAILY 03/28/17 Metformin HCl 850 mg PO BID 03/28/17 Methimazole 5 mg PO DAILY 03/28/17 Multivitamins [Multivit ([facility] 1 tab PO DAILY 03/28/17 Formulary)] Rivastigmine Tartrate [Exelon (Nf) 3 mg PO BID 03/28/17 -] Metoprolol Tartrate [Lopressor -] 50 mg PO BID #30 tablet 04/13/17 Aspirin [ASA -] 325 mg PO DAILY tablet 04/14/17 REVIEW OF SYSTEMS CONSTITUTIONAL: Absent: fever, chills, diaphoresis, generalized weakness, malaise, loss of appetite, weight change HEENT: Absent: rhinorrhea, nasal congestion, throat pain, throat swelling, difficulty swallowing, mouth swelling, ear pain, eye pain, visual changes CARDIOVASCULAR: Absent: chest pain, syncope, palpitations, irregular heart rate, lightheadedness , peripheral edema RESPIRATORY: Absent: cough, shortness of breath, dyspnea with exertion, orthopnea, wheezing, stridor, hemoptysis GASTROINTESTINAL: Absent: abdominal pain, abdominal distension, nausea, vomiting, diarrhea, constipation, melena, hematochezia GENITOURINARY: Absent: dysuria, frequency, urgency, hesitancy, hematuria, flank pain, genital pain MUSCULOSKELETAL: Positive: right hip pain Absent: myalgia, arthralgia, joint swelling, back pain, neck pain SKIN: Absent: rash, itching, pallor HEMATOLOGIC/IMMUNOLOGIC: Absent: easy bleeding, easy bruising, lymphadenopathy, frequent infections ENDOCRINE: Absent: unexplained weight gain, unexplained weight loss, heat intolerance, cold intolerance NEUROLOGIC: Absent: headache, focal weakness or paresthesias, dizziness, unsteady gait, seizure, mental status changes, bladder or bowel incontinence PSYCHIATRIC: Absent: anxiety, depression, suicidal or homicidal ideation, hallucinations. PHYSICAL EXAMINATION Vital Signs - 24 hr 06/14/17 07:16 Temperature 98.1 F Pulse Rate [ 80 Apical] Respiratory 18 Rate Blood Pressure 159/89 [Left Arm] O2 Sat by Pulse 99 Oximetry (%) GENERAL: sedated, in pain HEAD: Normal with no signs of trauma. EYES: Pupils equal, round and reactive to light, extraocular movements intact, sclera anicteric, conjunctiva clear. No lid lag. EARS, NOSE, THROAT: Ears normal, nares patent, oropharynx clear without exudates. Moist mucous membranes. NECK: Normal range of motion, supple without lymphadenopathy, JVD, or masses. LUNGS: Breath sounds equal, clear to auscultation bilaterally. No wheezes, and no crackles. No accessory muscle use. HEART: Regular rate and rhythm, normal S1 and S2 without murmur, rub or gallop. ABDOMEN: Soft, nontender, not distended, normoactive bowel sounds, no guarding, no rebound, no masses. No hepatomegaly or splenomegaly. MUSCULOSKELETAL: Normal range of motion at all joints. No bony deformities or tenderness. No CVA tenderness. UPPER EXTREMITIES: 2+ pulses, warm, well-perfused. No cyanosis. No clubbing. No peripheral edema. LOWER EXTREMITIES: 2+ pulses, warm, well-perfused. No calf tenderness. No peripheral edema. very tender right hip NEUROLOGICAL: Cranial nerves II-XII intact. Normal speech. Normal gait. PSYCHIATRIC: Cooperative. Good eye contact. Appropriate mood and affect. SKIN: Warm, dry, normal turgor, no rashes or lesions noted, normal capillary refill. ASSESSMENT/PLAN: 81 year old female with a past medical history of recurrent falls, UTIs, HTN, CVA, DM, iron def anemia, right hip replacement, presents with right hip pain, admitted for right hip reduction. #right hip pain secondary to right hip displacement: -going to OR to for right hip reduction under anesthesia -pain control -orto #urinary tract infection: -IV ceftriaxone #iron def anemia: -cont iron sup #HTN -cont enalapril -cont metoprolol #Diabetes type II: -insulin ss -bgm ac/hs #hyperthyroid: -methimazole #hx of CVA -cont ASA VTE prophylaxis: s=cont sq hep Disposition: eval after reduction may be stable for d/c if able to ambulate Problem List - Problem (1) Hip dislocation, right Code(s): S73.004A - UNSPECIFIED DISLOCATION OF RIGHT HIP, INITIAL ENCOUNTER Qualifiers: Encounter type: initial encounter Qualified Code(s): S73.004A - Unspecified dislocation of right hip, initial encounter; S73.004A - Unspecified dislocation of right hip, initial encounter; S73.004A - Unspecified dislocation of right hip, initial encounter (2) UTI (urinary tract infection) Code(s): N39.0 - URINARY TRACT INFECTION, SITE NOT SPECIFIED Qualifiers: Urinary tract infection type: site unspecified Hematuria presence: without hematuria Qualified Code(s): N39.0 - Urinary tract infection, site not specified; N39.0 - Urinary tract infection, site not specified; R31.9 - Hematuria, unspecified; R31.9 - Hematuria, unspecified (3) Dementia Code(s): F03.90 - UNSPECIFIED DEMENTIA WITHOUT BEHAVIORAL DISTURBANCE Qualifiers: Dementia type: unspecified type Dementia behavioral disturbance: without behavioral disturbance Qualified Code(s): F03.90 - Unspecified dementia without behavioral disturbance; F03.90 - Unspecified dementia without behavioral disturbance; F03.90 - Unspecified dementia without behavioral disturbance (4) Diabetes mellitus Code(s): E11.9 - TYPE 2 DIABETES MELLITUS WITHOUT COMPLICATIONS Qualifiers: Diabetes mellitus type: type 2 Diabetes mellitus complication status: without complication Diabetes mellitus long-term insulin use: without long-term use Qualified Code(s): E11.9 - Type 2 diabetes mellitus without complications; E11.9 - Type 2 diabetes mellitus without complications; E11.9 - Type 2 diabetes mellitus without complications; E11.9 - Type 2 diabetes mellitus without complications (5) HTN (hypertension) Code(s): I10 - ESSENTIAL (PRIMARY) HYPERTENSION Qualifiers: Hypertension type: essential hypertension Qualified Code(s): I10 - Essential (primary) hypertension; I10 - Essential (primary) hypertension; I10 - Essential (primary) hypertension Visit type - Emergency Visit Emergency Visit: Yes ED Registration Date: 06/14/17 Care time: The patient presented to the Emergency Department on the above date and was hospitalized for further evaluation of their emergent condition. - New Patient This patient is new to me today: Yes Date on this admission: 06/14/17 - Critical Care Critical Care patient: No
[2017-06-14] MEDS ORDERED: ASPIRIN 325 MG TABLET PO SCH (10:00)
[2017-06-14] MEDS ORDERED: INSULIN SLIDING SCALE (NOVOLOG) 1 VIAL SQ SCH (11:00)
[2017-06-14] MEDS: INSULIN SLIDING SCALE (NOVOLOG) 1 VIAL SQ SCH ×3 (12:00→21:47)
[2017-06-14] MEDS: HEPARIN NA (PORCINE) 5,000 UNITS/ML 1ML VIAL SQ SCH ×3 (12:15→21:44)
[2017-06-14] MEDS ORDERED: morphine CARPU-JECT 2 MG/1 ML DISP.SYRIN IVPUSH PRN (12:26)
[2017-06-14] MEDS: FERROUS SO4 325 MG TABLET (FP) PO SCH (12:48)
[2017-06-14] MEDS: METHIMAZOLE 5 MG TABLET (FP) PO SCH (12:48)
[2017-06-14] MEDS: RIVASTIGMINE TARTRATE 1.5 MG CAPSULE PO SCH ×2 (12:48→21:44)
[2017-06-14] MEDS: POLYETHYLENE GLYCOL 3350 119 GM BTL PO SCH (12:48)
[2017-06-14] MEDS: METOPROLOL TARTRATE 50 MG TABLET (FP) PO SCH ×2 (12:48→21:44)
[2017-06-14] MEDS: ENALAPRIL MALEATE 10 MG TABLET (FP) PO SCH (12:49)
[2017-06-14] MEDS ORDERED: INSULIN (NOVOLOG) ASPART 100 UNITS/ML 10ML VIAL ONE ×2 (12:52→21:46)
--- NOTE | 2017-06-14 13:36 | HP ---
CHIEF COMPLAINT: right hip pain Historian: pt (jordanian speaker and has dementia), daughter, and EMR PCP: HISTORY OF PRESENT ILLNESS: 81F w/ hx of dementia, CVA, right hip replacement, and recent right hip dislocation (04/15/17) presenting with right hip pain after being transferred from chair to bed at [facility]. Pt did not fall and did not undergo any trauma. In addition, per daughter, pt has been complaining of recent dysuria. At baseline, pt is AAOx0, minimally verbal, and is bed-bound. ER course was notable for: (1) hip XR showing right hip dislocation (2) unsuccessful relocation with and without propofol (3) UTI Recent Travel: none PAST MEDICAL HISTORY: dementia CVA right hip dislocation NIDDM HTN HLD hyperthyroidism YASMIN PAST SURGICAL HISTORY: Right hip replacement Social History: Smoking: none Alcohol: none Drugs: none Family History: Allergies No Known Allergies Allergy (Verified 06/14/17 01:59) HOME MEDICATIONS: Home Medications Medication Instructions Recorded Acetaminophen [Tylenol] 650 mg PO BID 03/28/17 Enalapril Maleate [Vasotec] 20 mg PO DAILY 03/28/17 Ferrous Sulfate 325 mg PO DAILY 03/28/17 Metformin HCl 850 mg PO BID 03/28/17 Methimazole 5 mg PO DAILY 03/28/17 Multivitamins [Multivit ([facility] 1 tab PO DAILY 03/28/17 Formulary)] Rivastigmine Tartrate [Exelon (Nf) 3 mg PO BID 03/28/17 -] Metoprolol Tartrate [Lopressor -] 50 mg PO BID #30 tablet 04/13/17 Aspirin [ASA -] 325 mg PO DAILY tablet 04/14/17 REVIEW OF SYSTEMS CONSTITUTIONAL: Absent: fever, chills, diaphoresis, generalized weakness, malaise, loss of appetite, weight change HEENT: Absent: rhinorrhea, nasal congestion, throat pain, throat swelling, difficulty swallowing, mouth swelling, ear pain, eye pain, visual changes CARDIOVASCULAR: Absent: chest pain, syncope, palpitations, irregular heart rate, lightheadedness , peripheral edema RESPIRATORY: Absent: cough, shortness of breath, dyspnea with exertion, orthopnea, wheezing, stridor, hemoptysis GASTROINTESTINAL: Absent: abdominal pain, abdominal distension, nausea, vomiting, diarrhea, constipation, melena, hematochezia GENITOURINARY: Absent: frequency, urgency, hesitancy, hematuria, flank pain, genital pain Present: dysuria MUSCULOSKELETAL: Absent: myalgia, arthralgia, joint swelling, back pain, neck pain Present: right hip pain SKIN: Absent: rash, itching, pallor HEMATOLOGIC/IMMUNOLOGIC: Absent: easy bleeding, easy bruising, lymphadenopathy, frequent infections ENDOCRINE: Absent: unexplained weight gain, unexplained weight loss, heat intolerance, cold intolerance NEUROLOGIC: Absent: headache, focal weakness or paresthesias, dizziness, unsteady gait, seizure, mental status changes, bladder or bowel incontinence PSYCHIATRIC: Absent: anxiety, depression, suicidal or homicidal ideation, hallucinations. PHYSICAL EXAMINATION Vital Signs - 24 hr 06/14/17 06/14/17 07:16 08:58 Temperature 98.1 F 97.9 F Pulse Rate 91 H Pulse Rate [ 80 Apical] Respiratory 18 18 Rate Blood Pressure 147/69 Blood Pressure 159/89 [Left Arm] O2 Sat by Pulse 99 Oximetry (%) GENERAL: elderly lady lying in bed, awake, alert, in mild distress. HEAD: Normal with no signs of trauma. EYES: Pupils equal, round and reactive to light, extraocular movements intact, sclera anicteric, conjunctiva clear. No lid lag. EARS, NOSE, THROAT: Ears normal, nares patent, oropharynx clear without exudates. Moist mucous membranes. NECK: Normal range of motion, supple without lymphadenopathy, JVD, or masses. LUNGS: Breath sounds equal, clear to auscultation bilaterally. No wheezes, and no crackles. No accessory muscle use. HEART: Regular rate and rhythm, normal S1 and S2 without murmur, rub or gallop. ABDOMEN: Soft, nontender, not distended, normoactive bowel sounds, no guarding, no rebound, no masses. No hepatomegaly or splenomegaly. MUSCULOSKELETAL: right leg is externally rotated and shorter compared to left leg, right ankle protector on. UPPER EXTREMITIES: 2+ pulses, warm, well-perfused. No cyanosis. No clubbing. No peripheral edema. LOWER EXTREMITIES: 2+ pulses, warm, well-perfused. No calf tenderness. No peripheral edema. NEUROLOGICAL: difficult to fully asses due to dementia SKIN: Warm, dry, normal turgor, no rashes or lesions noted, normal capillary refill. Laboratory Tests 10/11/2606/14/17 06/14/17 02:53 03:51 03:51 WBC 8.7 RBC 4.05 D Hgb 12.0 D Hct 37.0 D MCV 91.3 MCH 29.6 MCHC 32.4 RDW 15.7 H D Plt Count 317 MPV 9.9 Neutrophils % 69.5 Lymphocytes % 17.6 D Monocytes % 9.7 Eosinophils % 2.6 D Basophils % 0.6 PT with INR INR Sodium Potassium Chloride Carbon Dioxide Anion Gap BUN Creatinine Creat Clearance w eGFR POC Glucometer Random Glucose Calcium Total Bilirubin AST ALT Alkaline Phosphatase Total Protein Albumin Urine Color Sarah Urine Appearance Cloudy Urine pH 5.0 Ur Specific [place] 1.025 Urine Protein Negative Urine Glucose (UA) Negative Urine Ketones 1+ H Urine Blood Negative Urine Nitrite Negative Urine Bilirubin Negative Urine Urobilinogen Negative Urine RBC 8 Urine WBC 90 Urine Bacteria Moderate Urine Mucus Rare Blood Type O POSITIVE Antibody Screen Negative 06/14/17 06/14/17 06/14/17 03:51 03:51 11:36 WBC RBC Hgb Hct MCV MCH MCHC RDW Plt Count MPV Neutrophils % Lymphocytes % Monocytes % Eosinophils % Basophils % PT with INR 12.30 H INR 1.12 Sodium 139 Potassium 5.1 D Chloride 103 Carbon Dioxide 30 Anion Gap 6 L BUN 25 H D Creatinine 0.8 D Creat Clearance w eGFR > 60 POC Glucometer 226 Random Glucose 250 H Calcium 9.1 Total Bilirubin 0.4 D AST 13 L D ALT 13 D Alkaline Phosphatase 93 Total Protein 6.9 Albumin 2.9 L Urine Color Urine Appearance Urine pH Ur Specific [place] Urine Protein Urine Glucose (UA) Urine Ketones Urine Blood Urine Nitrite Urine Bilirubin Urine Urobilinogen Urine RBC Urine WBC Urine Bacteria Urine Mucus Blood Type Antibody Screen Hip XR: right hip dislocation ASSESSMENT/PLAN: 81F w/ hx of dementia, CVA, right hip replacement, and recent right hip dislocation (04/15/17) presenting with right hip pain after being transferred from chair to bed at [facility], found to have mild HTN, an externally rotated and shorter right leg, and a UA showing moderate bacteria and 90 wbcs, admitted for repair of hip dislocation under anesthesia. #right hip dislocation -ortho on board- Dr. Lea -NPO, going for repair under anesthesia later this morning -pain control- 1mg q4h PRN -opiate induced constipation ppx- started mirilax -APAP 650mg PRN #UTI -continue ceftriaxone -f/u urine culture and sensitivities #HTN- likely due to pain -continue home dose of lopressor 50mg BID and enalapril 20mg qd -monitor #DM -ISS -BGM ACHS #YASMIN -continue home ferrous sulfate 325 #Hyperthyroidism -continue home does of methimazole 5mg qd #Dementia -continue home dose of rivastigmine 3 #CVA -ASA #FEN/ppx -no fluids -electrolytes wnl -puree, diabetic diet -no GI ppx indicated -heparin 5,000U TID #Dispo -likely gissell pending successful dislocation repair and adequate pain control -Deion Kerr MD PGY1 Visit type - Emergency Visit Emergency Visit: Yes ED Registration Date: 06/14/17 Care time: The patient presented to the Emergency Department on the above date and was hospitalized for further evaluation of their emergent condition. - New Patient This patient is new to me today: Yes Date on this admission: 06/14/17 - Critical Care Critical Care patient: No
[2017-06-14] MEDS: morphine CARPU-JECT 2 MG/1 ML DISP.SYRIN IVPUSH PRN ×2 (13:43→18:23)
--- NOTE | 2017-06-14 15:07 | CONSULT ---
Consult - text type - Consultation Consultation Note: FULL CONSULT DICTATED DX: RECURRENT RIGHT HIP DISLOCATION PLAN: TO OR TOMORROW FOR CLOSED REDUCTION POSSIBLE REVISION
--- NOTE | 2017-06-14 16:24 | CONS ---
ORTHOPEDIC CONSULTATION DATE OF CONSULTATION: 06/14/2017 HISTORY OF PRESENT ILLNESS: Patient is an 81-year-old female approximately 6-8 weeks status post right hemiarthroplasty. [facility] and [facility], had to go back to the operating room for a closed reduction. Now, patient returns with a recurrent dislocation of her right hip. Difficult to know her history. Attempt at closed reduction in the emergency room with propofol was negative. PHYSICAL EXAMINATION: The incision is well healed. Calf is soft, nontender. She is shortened, internally rotated. X-rays revealed a superiorly-dislocated right hemiarthroplasty. IMPRESSION: Recurrent dislocation of right hip. I had a long discussion with the family. We will attempt to do a closed reduction tomorrow, and then, we will evaluate under fluoroscopy. If it is found as I suspect that the femoral component is loose, we will need to do a revision to a cemented hemiarthroplasty. We will make that decision intraoperatively. The family is aware. Elia [id number]
--- NOTE | 2017-06-14 16:25 | PN ---
Teaching Attending Note Name of Resident: Deion Kerr ATTENDING PHYSICIAN STATEMENT I saw and evaluated the patient. I reviewed the resident's note and discussed the case with the resident. I agree with the resident's findings and plan as documented. hx is per ER chart and pt's daughter present at bedside as pt is minimally verbal, pleasantly confused and is bed bound SUBJECTIVE:81F w/ hx of dementia, CVA, right hip replacement (2016), and recent right hip dislocation (04/15/17) presenting with right hip pain after being transferred from chair to bed at [facility]. similar situation last presentation and required reduction in the OR. On this presentation there were multiple failed attempts to reduce in the ER. ortho was consulted. Daughter states pt has been c/o burning on urination. pt is currently resting comfortable. does not appear to be in any distress. Pt did not fall and did not undergo any trauma. OBJECTIVE: Last Vital Signs Temp Pulse Resp BP Pulse Ox 98.9 F 75 17 139/73 99 06/14/17 13:52 06/14/17 13:52 06/14/17 13:52 06/14/17 13:52 06/14/17 07:16 General resting comfortable CV S1 S2 RRR no murmur/rub/gallop Lungs CTA B/L anteriorly Abdomen soft NT/ND no suprapubic tenderness/distention Extremities RLE shortened and externally rotated no pedal edema ASSESSMENT AND PLAN: 81F w/ hx of dementia, CVA, right hip replacement, and recent right hip dislocation (04/15/17) presenting with right hip pain and found to have dislocated R hip 1. R hip dislocation- medicine admission. multiple failed attempts in the ER to reduce. NPO tonight for reduction in the AM by ortho with possible revision of the hip as this has occurred multiple times at this point with minimal activity. hold asa. pain control. 2. HTN- above goal. possible pain component. will consider adjusting medication to optimize control. at this time will cont home management 3. Symptomatic UTI- started on Ceftriaxone in the ER. will continue. f/u Cx 4. dementia- at baseline per daughter. pleasantly confused. minimally verbal. A& O x0. cont methimazole, exelon 5. CVA- hold asa for possible revision. 6. DM- hold oral agents. diabetic diet. iss, bgm 7. DVT ppx- hep sq. hold morning of procedure
[2017-06-14] MEDS: FLU VACCINE QUAD 60 MCG/0.5 ML (MDV 17-18) IM ONE (16:35)
--- NOTE | 2017-06-14 19:55 | EKG ---
Test Reason : Blood Pressure : / mmHG Vent. Rate : 086 BPM Atrial Rate : 086 BPM P-R Int : 144 ms QRS Dur : 082 ms QT Int : 372 ms P-R-T Axes : 080 011 051 degrees QTc Int : 445 ms POOR DATA QUALITY, INTERPRETATION MAY BE ADVERSELY AFFECTED NORMAL SINUS RHYTHM BASELINE ARTIFACT VOLTAGE CRITERIA FOR LEFT VENTRICULAR HYPERTROPHY NONSPECIFIC T WAVE ABNORMALITY ABNORMAL ECG WHEN COMPARED WITH ECG OF 14-APR-2017 16:56, NONSPECIFIC T WAVE ABNORMALITY HAS REPLACED INVERTED T WAVES IN LATERAL LEADS REPEAT INDICATED. Confirmed by RONALDO DUEÑAS MD ([id number] on 06/14/2017 7:55:22 PM Referred By: Confirmed By:RONALDO DUEÑAS MD
[2017-06-15] MEDS ORDERED: INSULIN (NOVOLOG) ASPART 100 UNITS/ML 10ML VIAL ONE ×2 (06:18→21:03)
[2017-06-15] MEDS: INSULIN SLIDING SCALE (NOVOLOG) 1 VIAL SQ SCH ×5 (06:19→21:29)
[2017-06-15 08:13] LABS: BASOPHIL 0.7 % (0-2.0); EOSINOPHIL 3.6 % (0-4.5); MCH 29.6 pg (25.7-33.7); MCHC 32.4 g/dl (32.0-36.0); MEAN CELL VOLUME 91.3 fl (80-96); MEAN PLT VOLUME 10.3 fl (7.5-11.1); NEUTROPHILS 65.8 % (42.8-82.8); PLATELET COUNT 289 K/MM3 (134-434); RDW 15.8 % (11.6-15.6); WHITE BLOOD COUNT 7.7 K/mm3 (4.0-10.0)
[2017-06-15 08:47] LABS: ANION GAP 9 (8-16); CALCIUM 8.6 mg/dL (8.5-10.1); CO2 27 mmol/L (21-32); CREATININE 0.5 mg/dL (0.55-1.02); GLUCOSE,RANDOM 234 mg/dL (74-106); MAGNESIUM 1.9 mg/dL (1.8-2.4); PHOSPHOROUS 3.3 mg/dL (2.5-4.9)
[2017-06-15] MEDS: ENALAPRIL MALEATE 10 MG TABLET (FP) PO SCH (09:03)
[2017-06-15] MEDS: POLYETHYLENE GLYCOL 3350 119 GM BTL PO SCH (09:03)
[2017-06-15] MEDS: RIVASTIGMINE TARTRATE 1.5 MG CAPSULE PO SCH ×2 (09:03→22:09)
[2017-06-15] MEDS: METHIMAZOLE 5 MG TABLET (FP) PO SCH (09:03)
[2017-06-15] MEDS: FERROUS SO4 325 MG TABLET (FP) PO SCH (09:03)
[2017-06-15] MEDS ORDERED: cefTRIAXone SODIUM 1 GM VIAL ONE (09:08)
[2017-06-15] MEDS ORDERED: DEXTROSE 5%-WATER - 50 ML IVPB ONE ×2 (09:08→22:08)
[2017-06-15] MEDS: METOPROLOL TARTRATE 50 MG TABLET (FP) PO SCH ×2 (09:13→21:29)
--- NOTE | 2017-06-15 09:55 | PN ---
Progress Note (short form) - Note Progress Note: Pt seen and examined. Appears comfortable. Both LE severely flexed ( ? contracted ?) at the hips and the knees. Plan is to take her to the OR today to attempt closed reduction. If unsuccessful we will likely do a right hip revision. Rec NPO Medical clearance
[2017-06-15] MEDS ORDERED: CEFTRIAXONE 1 GM in DEXTROSE 5%-WATER - 50 ML IVPB SCH (10:00)
[2017-06-15] MEDS ORDERED: INSULIN (NOVOLOG) ASPART 100 UNITS/ML 10ML VIAL SQ ONE (11:15)
[2017-06-15] MEDS ORDERED: oxyCODONE HCL 5 MG TABLET PO PRN ×2 (11:59→16:00)
[2017-06-15] MEDS ORDERED: ACETAMINOPHEN 325 MG TABLET (FP) PO PRN ×2 (11:59→16:00)
--- NOTE | 2017-06-15 13:38 | PN ---
Physical Exam: SUBJECTIVE: Patient seen and examined. No acute events overnight. Pt is AAOxO, not responding to any questions. OBJECTIVE: Vital Signs Period Temp Pulse Resp BP Sys/Morocho Pulse Ox Last 24 Hr 98.6 F-98.9 F 75-88 17-20 127-143/67-95 96-96 GENERAL: The patient is awake, alert, AAOx0, in no acute distress. HEAD: Normal with no signs of trauma. EYES: PERRL, extraocular movements intact, sclera anicteric, conjunctiva clear. No ptosis. ENT: Ears normal, nares patent, oropharynx clear without exudates, moist mucous membranes. NECK: Trachea midline, full range of motion, supple. LUNGS: Breath sounds equal, clear to auscultation bilaterally, no wheezes, no crackles, no accessory muscle use. HEART: Regular rate and rhythm, S1, S2 without murmur, rub or gallop. ABDOMEN: Soft, nontender, nondistended, normoactive bowel sounds, no guarding, no rebound, no hepatosplenomegaly, no masses. EXTREMITIES: 2+ pulses, warm, well-perfused, no edema. Right leg is internally rotated and shorter than left leg, very tender upon passive rotation and abduction. NEUROLOGICAL: difficult to fully asses due to dementia Laboratory Results - last 24 hr 06/14/17 06/14/17 06/15/17 16:31 21:42 06:13 WBC RBC Hgb Hct MCV MCH MCHC RDW Plt Count MPV Neutrophils % Lymphocytes % Monocytes % Eosinophils % Basophils % Sodium Potassium Chloride Carbon Dioxide Anion Gap BUN Creatinine POC Glucometer 186 244 212 Random Glucose Calcium Phosphorus Magnesium 06/15/17 06/15/17 06/15/17 06:45 06:45 10:06 WBC 7.7 RBC 3.52 L Hgb 10.4 L D Hct 32.2 L MCV 91.3 MCH 29.6 MCHC 32.4 RDW 15.8 H Plt Count 289 MPV 10.3 Neutrophils % 65.8 Lymphocytes % 21.4 D Monocytes % 8.5 Eosinophils % 3.6 Basophils % 0.7 Sodium 144 Potassium 4.6 Chloride 108 H Carbon Dioxide 27 Anion Gap 9 BUN 21 H Creatinine 0.5 L D POC Glucometer 269 Random Glucose 234 H Calcium 8.6 Phosphorus 3.3 Magnesium 1.9 D Active Medications Generic Name Dose Route Start Last Admin Trade Name Freq PRN Reason Stop Dose Admin Acetaminophen 650 mg 06/14/17 08:57 Tylenol - PO Q4H PRN FEVER OR PAIN Acetaminophen 325 mg 06/15/17 11:59 Tylenol - PO 06/18/17 11:58 Q4H PRN PAIN Enalapril Maleate 20 mg 06/14/17 10:00 06/15/17 09:03 Vasotec - PO Not Given DAILY [facility] Ferrous Sulfate 325 mg 06/14/17 10:00 06/15/17 09:03 Feosol - PO Not Given DAILY [facility] Ceftriaxone Sodium 1 gm/ 50 mls @ 100 mls/hr 06/15/17 10:00 06/15/17 09:13 Dextrose IVPB 100 mls/hr DAILY [facility] Administration Insulin Aspart 1 vial 06/14/17 11:00 06/15/17 10:12 Novolog Vial Sliding Scale - SQ Not Given ACHS [facility] Protocol Methimazole 5 mg 06/14/17 10:00 06/15/17 09:03 Tapazole - PO Not Given DAILY [facility] Metoprolol Tartrate 50 mg 06/14/17 10:00 06/15/17 09:13 Lopressor - PO 50 mg BID [facility] Administration Oxycodone HCl 5 mg 06/15/17 11:59 Roxicodone - PO Q4H PRN PAIN Polyethylene Glycol 17 gm 06/14/17 10:00 06/15/17 09:03 Miralax (For Daily Use) - PO Not Given DAILY [facility] Rivastigmine Tartrate 3 mg 06/14/17 10:00 06/15/17 09:03 Exelon (Nf) - PO Not Given BID [facility] Ucx: >100,000 lactose fermenting GNR ASSESSMENT/PLAN: 81F w/ hx of dementia, CVA, right hip replacement, and recent right hip dislocation (04/15/17) presenting with right hip pain after being transferred from chair to bed at [facility], found to have an externally rotated and shorter right leg, and a UA showing moderate bacteria and 90 wbcs, admitted for repair of hip dislocation under anesthesia and UTI. #right hip dislocation -ortho on board- Dr. Lea -NPO, going for repair under anesthesia later this afternoon -pain control- percocet 5-325 q4h prn -opiate induced constipation ppx- continue mirilax -f/u surgery note and recs #UTI -continue ceftriaxone (day 2) -Ucx: >100,000 lactose fermenting GNR -f/u urine culture and sensitivities #HTN -continue home dose of lopressor 50mg BID and enalapril 20mg qd -monitor #DM -ISS -BGM ACHS #YASMIN -continue home ferrous sulfate 325 #Hyperthyroidism -continue home does of methimazole 5mg qd #Dementia -continue home dose of rivastigmine 3 #CVA -ASA held for surgery -will contact ortho regarding when to restart #FEN/ppx -no fluids -electrolytes wnl -puree, diabetic diet -no GI ppx indicated -SCDs, will restart heparin right after surgery #Dispo -back to rehab -LOS depends on whether arthroplasty revision is required -Deion Kerr MD PGY1 Visit type - Emergency Visit Emergency Visit: Yes ED Registration Date: 06/14/17 Care time: The patient presented to the Emergency Department on the above date and was hospitalized for further evaluation of their emergent condition. - New Patient This patient is new to me today: No - Critical Care Critical Care patient: No - Discharge Referral Referred to [facility] No
[2017-06-15] MEDS ORDERED: ceFAZolin SODIUM 1 GM VIAL IVPB ONE (14:40)
[2017-06-15] MEDS ORDERED: HYDROmorphone HCL/PF 1 MG/ML VIAL (FOR PYXIS CHARGING ONLY) ONE (14:42)
[2017-06-15] MEDS ORDERED: ceFAZolin SODIUM 1 GM VIAL ONE ×2 (14:51→22:08)
[2017-06-15] MEDS ORDERED: ONDANSETRON 4 MG/2 ML VIAL IVPUSH PRN ×2 (14:59→16:00)
[2017-06-15] MEDS ORDERED: DESFLURANE GAS 240 ML BOTTLE IH ONE (15:13)
[2017-06-15] MEDS ORDERED: ePHEDrine SULFATE 50 MG/1 ML AMPULE ONE (15:25)
--- NOTE | 2017-06-15 15:47 | OP ---
Operative Note - Note: Operative Date: 06/15/17 ([facility]) Pre-Operative Diagnosis: right hip dislocation s/p emma Operation: right revision hemiarthroplasty, adductor tenotomy Post-Operative Diagnosis: Same as Pre-op Surgeon: Salomon Lea Academic Support Director: Seb Haque Specimens Removed: femoral head prosthesis Estimated Blood Loss (mls): 50 Operative Report Dictated: Yes
[2017-06-15] MEDS: SODIUM CHLORIDE 1,000 ML IV SCH (17:21)
[2017-06-15] MEDS: NYSTATIN POWDER 100,000 UNITS/GM - 15 GM TOPICAL POWDER TP SCH ×2 (18:31→18:44)
--- NOTE | 2017-06-15 18:38 | PN ---
Teaching Attending Note Name of Resident: Deion Kerr ATTENDING PHYSICIAN STATEMENT I saw and evaluated the patient. I reviewed the resident's note and discussed the case with the resident. I agree with the resident's findings and plan as documented. SUBJECTIVE:seen at 12:30 pm non verbal. daughter at bed side, complains of pain. no other events OBJECTIVE: awake , alert, non verbal, screams in pain when moved or when hip is touched CV: RRR, 2/6 SM at RUSB. Lungs : Clear anteriorly Abd: did not allow exam. Ext: RUE with is contracted. R hip with tenderness, R groin with erythema . DP 2 + , RLE internally rotated ASSESSMENT AND PLAN: 81 y/o lady with h/o CVA , HTN, DM ,Right hip replacement with recent dislocation , and dementia who presented with pain in R hip and was found to have R hip dislocation and UTI 1- R hip dislocation : s/p revision hemiarthroplasty today. - DVT Px . - PT - start percocet and cont IV dilaudid for now , will dc tomorrow am. 2- UTI: urine cx growing - cont CTx , follow cx - follow cx 3- h/o CVA , will resume ASA when safe per ortho 4- Tinea Cruris : start nystatin powder 5- DM : SSI for now 6- HTN: metoprolol and enalapril DVT px : heparin
[2017-06-15] MEDS ORDERED: PT OWN MED DRAWER 7, Y5N ONE (20:35)
[2017-06-15] MEDS: CEFAZOLIN 1 GM in DEXTROSE 5%-WATER - 50 ML IVPB SCH (22:09)
[2017-06-15] MEDS: HEPARIN NA (PORCINE) 5,000 UNITS/ML 1ML VIAL SQ SCH (22:58)
[2017-06-15] MEDS ORDERED: CEFAZOLIN 1 GM/D5W 50 ML IVPB SCH (23:00)
[2017-06-16] MEDS ORDERED: ceFAZolin SODIUM 1 GM VIAL ONE (05:06)
[2017-06-16] MEDS ORDERED: DEXTROSE 5%-WATER - 50 ML IVPB ONE (05:07)
[2017-06-16] MEDS: SODIUM CHLORIDE 1,000 ML IV SCH ×2 (05:21→16:58)
[2017-06-16] MEDS: HEPARIN NA (PORCINE) 5,000 UNITS/ML 1ML VIAL SQ SCH ×3 (05:21→21:17)
[2017-06-16] MEDS: CEFAZOLIN 1 GM in DEXTROSE 5%-WATER - 50 ML IVPB SCH (06:06)
[2017-06-16] MEDS: INSULIN SLIDING SCALE (NOVOLOG) 1 VIAL SQ SCH ×4 (06:25→22:32)
[2017-06-16 08:16] LABS: BASOPHIL 0.4 % (0-2.0); EOSINOPHIL 0.4 % (0-4.5); MCH 29.3 pg (25.7-33.7); MEAN CELL VOLUME 91.8 fl (80-96); MEAN PLT VOLUME 10.1 fl (7.5-11.1); NEUTROPHILS 75.3 % (42.8-82.8); PLATELET COUNT 274 K/MM3 (134-434); RDW 15.4 % (11.6-15.6); WHITE BLOOD COUNT 8.2 K/mm3 (4.0-10.0)
[2017-06-16 08:39] LABS: ALBUMIN 2.3 g/dl (3.4-5.0); ANION GAP 11 (8-16); BILIRUBIN,TOTAL 0.3 mg/dL (0.2-1.0); CALCIUM 8.1 mg/dL (8.5-10.1); CO2 24 mmol/L (21-32); CREATININE 0.6 mg/dL (0.55-1.02); GLUCOSE,RANDOM 171 mg/dL (74-106); MAGNESIUM 1.7 mg/dL (1.8-2.4); SGOT/AST 15 U/L (15-37); SGPT/ALT 11 U/L (12-78); TOT PROT 5.5 g/dl (6.4-8.2)
[2017-06-16 08:40] LABS: ALK PHOS 78 U/L (45-117)
--- NOTE | 2017-06-16 08:56 | OP ---
DATE OF OPERATION: 06/15/2017 PREOPERATIVE DIAGNOSIS: Recurrent dislocation, right hemiarthroplasty. POSTOPERATIVE DIAGNOSIS: Recurrent dislocation, right hemiarthroplasty. PROCEDURE: Attempted closed reduction, then open reduction and revision of bipolar component. SURGICAL ATTENDING: Susan Lea MD ORDERING BOX OPERATOR: Seb Haque MD ANESTHESIA: General with LMA. CLOSURE: A 42 and a standard neck and head from [place], No. 1 Vicryl for capsule and fascia, 0 and 2-0 for subcutaneous, and alley for skin. ESTIMATED BLOOD LOSS: Less than 100 mL. COMPLICATIONS: None. CONDITION: To recovery room in stable condition. INDICATIONS: The patient is approximately 2 months status post right hemiarthroplasty for femoral neck fracture. The patient was in the hospital for about 17 days. Upon discharge, by history from the family, there was a rough transfer of the patient from the ambulance to the [facility]. The patient immediately dislocated and was brought back to the hospital 1/2 an hour after being discharged. Patient was taken back to the operating room at that time, and a closed reduction and application of knee immobilizer was applied. The knee immobilizer had to be subsequently removed as the patient was developing a decubitus on the dorsum of her patella. Patient was in the [facility] for the past period of time, and some other episode just occurred of which family is unsure, and patient dislocated again and was brought back to the hospital. DESCRIPTION OF OPERATIVE PROCEDURE: Patient was taken to the operating room on June 15, 2017. General anesthesia was administered by the anesthesiologist. Attempted closed reduction under fluoroscopy was unsuccessful. In addition, the patient was found to have instability of her right knee with questionable tibial plateau compression fracture as well. At this time I had a long discussion with the family. Family was determined to have this fixed as quickly as possible and wanted revision surgery. They did not want me to consider changing this to a bigger surgery, total hip replacement, they just wanted an open reduction to fix the current problem. Patient was placed in lateral decubitus position. The right hip area was prepped and draped in the usual sterile fashion. The previously utilized posterolateral incision was used. Sharp dissection was carried down through the fascia, and the gluteus aman fibers were spread, exposing the dislocated prosthesis. The prosthesis was found to be buttonholed through the labrum that had torn off and was sitting below inside the acetabulum, blocking any attempt at reduction. Bipolar was then removed from the trunnion. The labrum was sutured back to its anatomic location. Trial reductions revealed that a smaller acetabular component actually had a better fit in the acetabulum, and we downsized to a 42 with a standard. Inspection of the stem revealed good stability of the stem with no loosening of the stem whatsoever. We did a reduction with the 42 standard bipolar in neutral and abduction. The patient was stable. The patient went into adduction and flexion. Patient was found to dislocate relatively easily. The patient was found to have a flexion contracture and an adduction contracture throughout. In straight flexion and in abduction and flexion patient was stable. At this point the only other option that I could suggest would have been a total hip replacement with constrained liner, which the family did not want me to do. I therefore applied a 42 bipolar standard which achieved somewhat good reduction, although had the instability as previously described. I imbricated the capsule and tried to close down the short abductors to the greater trochanter to limit some external rotation, which it did. Vancomycin powder was applied after the hip was copiously irrigated. The ITB layer was closed with No. 1 Vicryl, 0 and 2-0 subcutaneous, and alley for skin. Patient was flipped into the supine position. A percutaneous adductor tenotomy was then performed which to the hip, and an abduction pillow and SCDs were applied. X-rays revealed good position of the component. Patient was transferred to recovery room in stable condition. I had a long discussion with the family regarding patient's condition, and as patient is a marginal ambulator, I recommend keeping the patient on abduction pillow for an extended period of time, just to roll the patient and not to try to rehab her at this point as marked flexion could redislocate the hip. At that time would be stuck with much worse of a problem. The family understands this. No complications. Estimated blood loss less 100 mL. SUSAN LEA M.D. [id number]
[2017-06-16] MEDS ORDERED: PT OWN MED DRAWER 7, Y5N ONE ×2 (09:43→21:06)
[2017-06-16] MEDS: METHIMAZOLE 5 MG TABLET (FP) PO SCH (10:04)
[2017-06-16] MEDS: METOPROLOL TARTRATE 50 MG TABLET (FP) PO SCH ×2 (10:04→21:17)
[2017-06-16] MEDS: FERROUS SO4 325 MG TABLET (FP) PO SCH (10:04)
[2017-06-16] MEDS: RIVASTIGMINE TARTRATE 1.5 MG CAPSULE PO SCH ×2 (10:04→22:51)
[2017-06-16] MEDS: ENALAPRIL MALEATE 10 MG TABLET (FP) PO SCH (10:04)
[2017-06-16] MEDS: NYSTATIN POWDER 100,000 UNITS/GM - 15 GM TOPICAL POWDER TP SCH (10:05)
[2017-06-16] MEDS: POLYETHYLENE GLYCOL 3350 119 GM BTL PO SCH (10:09)
[2017-06-16] MEDS ORDERED: INSULIN (NOVOLOG) ASPART 100 UNITS/ML 10ML VIAL ONE ×2 (10:47→15:55)
--- NOTE | 2017-06-16 11:05 | PN ---
Progress Note (short form) - Note Progress Note: Ortho Pt seen and examined s/p revision left emma pod #1 Selected Entries 04/19/17 06/16/17 05:59 02:00 Temperature 99.1 F 98.1 F Pulse Rate 79 79 Respiratory 18 18 Rate Blood Pressure 162/91 124/53 Laboratory Tests 04/15/17 06/16/17 07:45 06:45 WBC 7.9 8.2 Hgb 8.0 L 8.9 L D Hct 24.4 L 27.8 L Plt Count 379 274 dressing c/d/i, calf soft, nt nvi a/p hip precautions NO PT dvt ppx pain control d/c planning
[2017-06-16] MEDS ORDERED: FLU VACCINE QUAD 60 MCG/0.5 ML (MDV 17-18) IM ONE (11:09)
[2017-06-16] MEDS: oxyCODONE HCL 5 MG TABLET PO PRN ×2 (11:57→16:48)
[2017-06-16] MEDS: ACETAMINOPHEN 325 MG TABLET (FP) PO SCH ×4 (11:58→21:45)
[2017-06-16] MEDS: FLU VACCINE QUAD 60 MCG/0.5 ML (MDV 17-18) IM ONE (12:51)
--- NOTE | 2017-06-16 15:49 | PN ---
Teaching Attending Note Name of Resident: Delaney Conner ATTENDING PHYSICIAN STATEMENT I saw and evaluated the patient. I reviewed the resident's note and discussed the case with the resident. I agree with the resident's findings and plan as documented. SUBJECTIVE: No events over night . OBJECTIVE: Awake , alert, non verbal. CV: RRR, 2/6 SM at RUSB. Lungs : Clear anteriorly Abd: did not allow exam. Ext: RUE with is contracted. R hip with tenderness, and edema. R lateral hip surgical dressing . R groin with erythema . DP 2+ . ASSESSMENT AND PLAN: 81 y/o lady with h/o CVA , HTN, DM ,Right hip replacement with recent dislocation , and dementia who presented with pain in R hip and was found to have R hip dislocation and UTI 1- R hip dislocation : s/p revision hemiarthroplasty 06/15 - DVT Px . - No PT per Ortho - oxycodone 2.5 PRN and dc dilaudid 2- Complicated UTI: urine cx with E coli - Change abx to Keflex for 4 more days ( today day 11/16) 3- h/o CVA , will resume ASA probably tomorrow 4- Dehydration : BUN corrected with IVF. - cont IVF for now and monitor Na level 5- Tinea Cruris : Cont nystatin powder 6- DM : SSI for now 7- HTN: metoprolol and enalapril DVT px : heparin
--- NOTE | 2017-06-16 20:53 | DS ---
Physical Exam: SUBJECTIVE: Patient seen and examined. nonverbal. no acute events overnight. OBJECTIVE: Vital Signs Period Temp Pulse Resp BP Sys/Morocho Pulse Ox Last 24 Hr 98.1 F-100.2 F 79-94 18-20 124-154/53-69 96 PHYSICAL EXAM GENERAL: The patient is awake, alert, AAOx0, in no acute distress. HEAD: Normal with no signs of trauma. EYES: PERRL, extraocular movements intact, sclera anicteric, conjunctiva clear. No ptosis. ENT: Ears normal, nares patent, oropharynx clear without exudates, moist mucous membranes. NECK: Trachea midline, full range of motion, supple. LUNGS: Breath sounds equal, clear to auscultation bilaterally, no wheezes, no crackles, no accessory muscle use. HEART: Regular rate and rhythm, S1, S2 without murmur, rub or gallop. ABDOMEN: Soft, nontender, nondistended, normoactive bowel sounds, no guarding, no rebound, no hepatosplenomegaly, no masses. EXTREMITIES: Tender right hip with edema. Right hip surgical dressing. NEUROLOGICAL: difficult to fully asses due to dementia LABS Laboratory Results - last 24 hr 06/15/17 06/16/17 06/16/17 20:52 05:26 06:45 WBC RBC Hgb Hct MCV MCH MCHC RDW Plt Count MPV Neutrophils % Lymphocytes % Monocytes % Eosinophils % Basophils % Sodium 146 H Potassium 4.2 Chloride 111 H Carbon Dioxide 24 Anion Gap 11 BUN 17 Creatinine 0.6 Creat Clearance w eGFR > 60 POC Glucometer 294 169 Random Glucose 171 H D Calcium 8.1 L Phosphorus 3.0 Magnesium 1.7 L Total Bilirubin 0.3 D AST 15 ALT 11 L Alkaline Phosphatase 78 Total Protein 5.5 L D Albumin 2.3 L D 06/16/17 06/16/17 06/16/17 06:45 10:51 15:59 WBC 8.2 RBC 3.03 L Hgb 8.9 L D Hct 27.8 L MCV 91.8 MCH 29.3 MCHC 32.0 RDW 15.4 Plt Count 274 MPV 10.1 Neutrophils % 75.3 Lymphocytes % 15.2 D Monocytes % 8.7 Eosinophils % 0.4 D Basophils % 0.4 Sodium Potassium Chloride Carbon Dioxide Anion Gap BUN Creatinine Creat Clearance w eGFR POC Glucometer 209 321 Random Glucose Calcium Phosphorus Magnesium Total Bilirubin AST ALT Alkaline Phosphatase Total Protein Albumin HOSPITAL COURSE: Date of Admission:06/14/17 81F w/ hx of dementia, CVA, right hip replacement, and recent right hip dislocation (04/15/17) presenting with right hip pain after being transferred from chair to bed at [facility], found to have an externally rotated and shorter right leg, and a UA showing moderate bacteria and 90 wbcs, admitted for repair of hip dislocation. Ortho was consulted with decision to correct hip dislocation. She underwent successful surgical repair with 50 cc of blood loss. She was treated with ceftriaxone for her UTI. Once patient was stable, she was discharged and transferred to a [facility] facility. She was discharged with 4 more days of Keflex. Patient was also sent on 5 day supply of low dose oxycodone for pain control. Date of Discharge: 06/16/17 Minutes to complete discharge: 40 Discharge Summary Reason For Visit: UTI RIGHT HIP DISLOCATION Current Active Problems Anemia (Acute) Hip dislocation, right (Acute) UTI (urinary tract infection) (Acute) Dementia (Chronic) Diabetes mellitus (Chronic) HTN (hypertension) (Chronic) Condition: Improved - Instructions Diet, Activity, Other Instructions: Please see you primary care physician in 1 week. Follow up with your orthopedic surgeon for further management of the dislocation in 1 week. Take your medications as directed. You will take oral antibiotics . last dose of antibiotics will be 06/20 evening Referrals: Salomon Lea MD [Staff Physician] - 1 Week Rema Arredondo [Primary Care Provider] - 1 Week Disposition: LONG TERM FACILITY - Home Medications Comprehensive Discharge Medication List: Ambulatory Orders Enalapril Maleate [Vasotec] 20 mg PO DAILY 03/28/17 Ferrous Sulfate 325 mg PO DAILY 03/28/17 Metformin HCl 850 mg PO BID 03/28/17 Methimazole 5 mg PO DAILY 03/28/17 Multivitamins [Multivit ([facility] Formulary)] 1 tab PO DAILY 03/28/17 Rivastigmine Tartrate [Exelon (Nf) -] 3 mg PO BID 03/28/17 Metoprolol Tartrate [Lopressor -] 50 mg PO BID #30 tablet 04/13/17 Aspirin [ASA -] 325 mg PO DAILY tablet 04/14/17 Acetaminophen [Pain Relief] 650 mg PO PRN PRN #30 tablet.er 06/16/17 Cephalexin [Keflex] 500 mg PO BID #8 capsule 06/16/17 Oxycodone HCl 2.5 mg PO Q4HWA #20 capsule MDD 10 06/16/17 This patient is new to me today: Yes Date on this admission: 06/16/17 Emergency Visit: No Critical Care patient: No - Discharge Referral Referred to [facility] No
[2017-06-16] MEDS ORDERED: MAGNESIUM SULF 50% (8.12 MEQ/2 ML-1 GM VIAL) IVPB ONE (21:43)
[2017-06-16] MEDS ORDERED: ACETAMINOPHEN 325 MG TABLET (FP) PO PRN (22:06)
[2017-06-17] MEDS: oxyCODONE HCL 5 MG TABLET PO PRN ×2 (02:59→06:53)
[2017-06-17] MEDS: ACETAMINOPHEN 325 MG TABLET (FP) PO SCH ×6 (03:00→23:00)
[2017-06-17] MEDS: HEPARIN NA (PORCINE) 5,000 UNITS/ML 1ML VIAL SQ SCH ×3 (06:21→21:20)
[2017-06-17] MEDS: INSULIN SLIDING SCALE (NOVOLOG) 1 VIAL SQ SCH ×4 (06:21→21:20)
[2017-06-17] MEDS ORDERED: PT OWN MED DRAWER 7, Y5N ONE ×3 (06:51→21:09)
--- NOTE | 2017-06-17 07:02 | PN ---
Progress Note, Physician Chief Complaint: s/p right R hip hemiarthroplasty under general anesthesia History of Present Illness: post op day one - Current Medication List Current Medications: Active Medications Acetaminophen (Tylenol -) 325 mg PO Q4H [facility] Stop: 06/18/17 11:58 Last Admin: 06/17/17 06:53 Dose: 325 mg Acetaminophen (Tylenol -) 650 mg PO Q6H PRN PRN Reason: FEVER OR PAIN Enalapril Maleate (Vasotec -) 20 mg PO DAILY [facility] Last Admin: 06/16/17 10:04 Dose: 20 mg Ferrous Sulfate (Feosol -) 325 mg PO DAILY [facility] Last Admin: 06/16/17 10:04 Dose: 325 mg Heparin Sodium (Porcine) (Heparin -) 5,000 unit SQ TID [facility] Last Admin: 06/17/17 06:21 Dose: 5,000 unit Ceftriaxone Sodium 1 gm/ (Dextrose) 50 mls @ 100 mls/hr IVPB DAILY [facility] Sodium Chloride (Normal Saline -) 1,000 mls @ 75 mls/hr IV ASDIR [facility] Last Admin: 06/16/17 16:58 Dose: Not Given Insulin Aspart (Novolog Vial Sliding Scale -) 1 vial SQ ACHS [facility] PRN Reason: Protocol Last Admin: 06/17/17 06:21 Dose: 2 units Methimazole (Tapazole -) 5 mg PO DAILY [facility] Last Admin: 06/16/17 10:04 Dose: 5 mg Metoprolol Tartrate (Lopressor -) 50 mg PO BID [facility] Last Admin: 06/16/17 21:17 Dose: 50 mg Nystatin (Nystop Powder -) 1 applic TP DAILY [facility] Last Admin: 06/16/17 10:05 Dose: 1 applic Oxycodone HCl (Roxicodone -) 2.5 mg PO Q4H PRN PRN Reason: PAIN Last Admin: 06/17/17 06:53 Dose: 2.5 mg Polyethylene Glycol (Miralax (For Daily Use) -) 17 gm PO DAILY [facility] Last Admin: 06/16/17 10:09 Dose: 17 gm Rivastigmine Tartrate (Exelon (Nf) -) 3 mg PO BID [facility] Last Admin: 06/16/17 22:51 Dose: 3 mg - Objective Vital Signs: Vital Signs Temperature 97.9 F 06/17/17 05:30 Pulse Rate 85 06/17/17 05:30 Respiratory Rate 18 06/17/17 05:30 Blood Pressure 142/73 06/17/17 05:30 O2 Sat by Pulse Oximetry (%) 96 06/16/17 21:00 Constitutional: Yes: Well Nourished Cardiovascular: Yes: WNL Respiratory: Yes: WNL Gastrointestinal: Yes: WNL Neurological: Yes: Confusion Labs: CBC, BMP 06/16/17 06:45 06/16/17 06:45 INR, PTT INR 1.12 (0.82-1.09) 06/14/17 03:51 Assessment/Plan Family and nursing reports no nausea or vomiting, pain well controlled, patient eating during interview, no apparent adverse effects. The dept of anesthesia will sign off care at this time.
[2017-06-17 07:52] LABS: MCH 29.4 pg (25.7-33.7); MCHC 32.2 g/dl (32.0-36.0); MEAN CELL VOLUME 91.4 fl (80-96); PLATELET COUNT 276 K/MM3 (134-434); RDW 15.3 % (11.6-15.6); WHITE BLOOD COUNT 6.8 K/mm3 (4.0-10.0)
[2017-06-17 08:42] LABS: ALBUMIN 2.2 g/dl (3.4-5.0); ALK PHOS 88 U/L (45-117); ANION GAP 7 (8-16); BILIRUBIN,TOTAL 0.3 mg/dL (0.2-1.0); CALCIUM 8.2 mg/dL (8.5-10.1); CO2 26 mmol/L (21-32); CREATININE 0.4 mg/dL (0.55-1.02); GLUCOSE,RANDOM 148 mg/dL (74-106); MAGNESIUM 2.1 mg/dL (1.8-2.4); PHOSPHOROUS 2.7 mg/dL (2.5-4.9); SGOT/AST 15 U/L (15-37); SGPT/ALT 10 U/L (12-78); TOT PROT 5.5 g/dl (6.4-8.2)
--- NOTE | 2017-06-17 09:42 | PATH ---
Surgical Pathology Report Patient Name: NISHA WARNER Med. Rec. #: [id number] /Age/Gender: 1935 (Age: 81) / F Account: [id number] Location: [address] [place] [address] Taken: 06/15/2017 Received: 06/16/2017 Reported: 06/17/2017 Physicians: Salomon Lea M.D. Specimen(s) Received HARDWARE FROM RIGHT HIP Clinical History Right hip dislocation Final Diagnosis ORTHOPEDIC HARDWARE, RIGHT HIP, REVISION: ORTHOPEDIC HARDWARE CONSISTENT WITH HIP PROSTHESIS (GROSS ONLY). Electronically Signed Álvaro Bell M.D. Gross Description Received fresh labeled "hardware right hip," is a 4 cm in diameter x 3.5 cm in depth turner metallic portion of hardware, consistent with a hip prosthesis. No soft tissue is present. No sections are submitted, gross only. /06/16/2017 saudi/06/16/2017
--- NOTE | 2017-06-17 10:16 | PN ---
Progress Note (short form) - Note Progress Note: Ortho Pt seen and examined s/p revision left emma pod #2 Selected Entries 06/17/17 05:30 Temperature 97.9 F Pulse Rate 85 Respiratory 18 Rate Blood Pressure 142/73 Laboratory Tests 06/17/17 06:45 WBC 6.8 Hgb 8.4 L Hct 26.0 L Plt Count 276 dressing c/d/i, calf soft, nt nvi a/p hip precautions PT for UE function and gentle LE ROM exercises dvt ppx pain control d/c planning
[2017-06-17] MEDS ORDERED: DEXTROSE 5%-WATER - 50 ML IVPB ONE (10:42)
[2017-06-17] MEDS ORDERED: cefTRIAXone SODIUM 1 GM VIAL ONE (10:42)
[2017-06-17] MEDS: FERROUS SO4 325 MG TABLET (FP) PO SCH (10:54)
[2017-06-17] MEDS: METHIMAZOLE 5 MG TABLET (FP) PO SCH (10:54)
[2017-06-17] MEDS: METOPROLOL TARTRATE 50 MG TABLET (FP) PO SCH ×2 (10:54→21:20)
[2017-06-17] MEDS: RIVASTIGMINE TARTRATE 1.5 MG CAPSULE PO SCH ×2 (10:55→21:21)
[2017-06-17] MEDS: CEFTRIAXONE 1 GM in DEXTROSE 5%-WATER - 50 ML IVPB SCH (10:56)
[2017-06-17] MEDS: ENALAPRIL MALEATE 10 MG TABLET (FP) PO SCH (10:56)
[2017-06-17] MEDS: NYSTATIN POWDER 100,000 UNITS/GM - 15 GM TOPICAL POWDER TP SCH (10:56)
[2017-06-17] MEDS ORDERED: INSULIN (NOVOLOG) ASPART 100 UNITS/ML 10ML VIAL ONE ×2 (12:03→21:11)
[2017-06-17] MEDS: POLYETHYLENE GLYCOL 3350 119 GM BTL PO SCH (12:52)
--- NOTE | 2017-06-17 15:48 | PN ---
Teaching Attending Note Name of Resident: Delaney Conner ATTENDING PHYSICIAN STATEMENT I saw and evaluated the patient. I reviewed the resident's note and discussed the case with the resident. I agree with the resident's findings and plan as documented. SUBJECTIVE: had a fever last night . to the daughter, Mom looks better OBJECTIVE: Awake , alert, non verbal. CV: RRR, 2/6 SM at RUSB. Lungs: Clear anteriorly Ext: RUE with is contracted. R hip with tenderness, and edema. R lateral hip surgical dressing . R groin with erythema . DP 2+ . ASSESSMENT AND PLAN: 81 y/o lady with h/o CVA , HTN, DM ,Right hip replacement with recent dislocation , and dementia who presented with pain in R hip and was found to have R hip dislocation and UTI 1- R hip dislocation : s/p revision hemiarthroplasty 06/15 - DVT Px . -UE PT and gentle LE range of motion - oxycodone 2.5 PRN 2- Complicated UTI: urine cx with E coli - had a fever last night, will monitor on keflex. - if fever recur ,will send cx 3- H/o CVA , resume ASA . 4- Dehydration : change IVF to 1/2 NS at 50 5- Tinea Cruris : Cont nystatin powder 6- DM : SSI for now 7- HTN: metoprolol and enalapril DVT px : heparin will hold dc today due to fever last night . if no fever x24 hr will dc . [facility] bed [facility]
[2017-06-17] MEDS: SODIUM CHLORIDE 0.45% 1,000 ML IV SCH (17:25)
--- NOTE | 2017-06-17 18:15 | PN ---
Physical Exam: SUBJECTIVE: No acute events overnight. OBJECTIVE: Vital Signs Period Temp Pulse Resp BP Sys/Morocho Pulse Ox Last 24 Hr 97.9 F-101 F 76-96 17-22 136-142/66-96 96-96 Laboratory Results - last 24 hr 06/16/17 06/17/17 06/17/17 22:30 06:19 06:45 WBC 6.8 RBC 2.85 L Hgb 8.4 L Hct 26.0 L MCV 91.4 MCH 29.4 MCHC 32.2 RDW 15.3 Plt Count 276 MPV 10.0 Sodium Potassium Chloride Carbon Dioxide Anion Gap BUN Creatinine Creat Clearance w eGFR POC Glucometer 256 168 Random Glucose Calcium Phosphorus Magnesium Total Bilirubin AST ALT Alkaline Phosphatase Total Protein Albumin 06/17/17 06/17/17 06/17/17 06:45 11:07 17:08 WBC RBC Hgb Hct MCV MCH MCHC RDW Plt Count MPV Sodium 147 H Potassium 3.6 Chloride 114 H Carbon Dioxide 26 Anion Gap 7 L BUN 10 D Creatinine 0.4 L D Creat Clearance w eGFR > 60 POC Glucometer 268 238 Random Glucose 148 H Calcium 8.2 L Phosphorus 2.7 Magnesium 2.1 D Total Bilirubin 0.3 AST 15 ALT 10 L Alkaline Phosphatase 88 Total Protein 5.5 L Albumin 2.2 L Active Medications Generic Name Dose Route Start Last Admin Trade Name Willisq PRN Reason Stop Dose Admin Acetaminophen 325 mg 06/16/17 11:00 06/17/17 14:30 Tylenol - PO 06/18/17 11:58 325 mg Q4H TAMMY Administration Acetaminophen 650 mg 06/16/17 22:06 Tylenol - PO Q6H PRN FEVER OR PAIN Aspirin 81 mg 06/18/17 10:00 Asa - PO DAILY TAMMY Enalapril Maleate 20 mg 06/16/17 10:00 06/17/17 10:56 Vasotec - PO 20 mg DAILY TAMMY Administration Ferrous Sulfate 325 mg 06/16/17 10:00 06/17/17 10:54 Feosol - PO 325 mg DAILY TAMMY Administration Heparin Sodium (Porcine) 5,000 unit 06/15/17 22:15 06/17/17 14:30 Heparin - SQ 5,000 unit TID TAMMY Administration Ceftriaxone Sodium 1 gm/ 50 mls @ 100 mls/hr 06/17/17 10:00 06/17/17 10:56 Dextrose IVPB 100 mls/hr DAILY TAMMY Administration Sodium Chloride 1,000 mls @ 75 mls/hr 06/17/17 17:00 06/17/17 17:25 1/2 Normal Saline IV 75 mls/hr ASDIR TAMMY Administration Insulin Aspart 1 vial 06/15/17 16:30 06/17/17 17:20 Novolog Vial Sliding Scale - SQ 4 units ACHS TAMMY Administration Protocol Methimazole 5 mg 06/16/17 10:00 06/17/17 10:54 Tapazole - PO 5 mg DAILY TAMMY Administration Metoprolol Tartrate 50 mg 06/15/17 22:00 06/17/17 10:54 Lopressor - PO 50 mg BID TAMMY Administration Nystatin 1 applic 06/15/17 17:30 06/17/17 10:56 Nystop Powder - TP 1 applic DAILY TAMMY Administration Oxycodone HCl 2.5 mg 06/16/17 10:50 06/17/17 06:53 Roxicodone - PO 2.5 mg Q4H PRN Administration PAIN Polyethylene Glycol 17 gm 06/16/17 10:00 06/17/17 12:52 Miralax (For Daily Use) - PO 17 gm DAILY TAMMY Administration Rivastigmine Tartrate 3 mg 06/15/17 22:00 06/17/17 10:55 Exelon (Nf) - PO 3 mg BID TAMMY Administration ASSESSMENT/PLAN: 81F w/ hx of dementia, CVA, right hip replacement, and recent right hip dislocation (04/15/17) presenting with right hip pain after being transferred from chair to bed at [facility], found to have an externally rotated and shorter right leg and underwent surgical repair. #Right Hip Dislocation -s/p revision hemiarthroplasty 06/15 -pain control with oxycodone 2.5 q4 prn -PT for UE function and gentle LE ROM exercises as per ortho -DVT ppx #Complicated UTI- E. Coli - Rocephin -spiked fever yesterday -will monitor -if fever recurs, will order cultures #HTN -continue home dose of lopressor 50mg BID and enalapril 20mg qd -monitor #DM -ISS -BGM ACHS #Iron deficiency anemia -continue home ferrous sulfate 325 #Hyperthyroidism -continue home does of methimazole 5mg qd #Dementia -continue home dose of rivastigmine 3 #FEN -1/2 NS @75 -electrolytes wnl -puree, diabetic diet #DVT PPX -Heparin SQ #Dispo -will be sent back to rehab. Visit type - Emergency Visit Emergency Visit: Yes ED Registration Date: 06/14/17 Care time: The patient presented to the Emergency Department on the above date and was hospitalized for further evaluation of their emergent condition. - New Patient This patient is new to me today: No - Critical Care Critical Care patient: No
[2017-06-18] MEDS: ACETAMINOPHEN 325 MG TABLET (FP) PO SCH ×3 (02:45→10:10)
[2017-06-18] MEDS: oxyCODONE HCL 5 MG TABLET PO PRN ×2 (02:46→06:50)
[2017-06-18] MEDS: HEPARIN NA (PORCINE) 5,000 UNITS/ML 1ML VIAL SQ SCH ×2 (06:18→13:48)
[2017-06-18] MEDS: INSULIN SLIDING SCALE (NOVOLOG) 1 VIAL SQ SCH ×3 (06:18→17:10)
[2017-06-18] MEDS: SODIUM CHLORIDE 0.45% 1,000 ML IV SCH (06:35)
[2017-06-18] MEDS ORDERED: PT OWN MED DRAWER 7, Y5N ONE ×2 (06:46→10:49)
[2017-06-18 07:38] LABS: BASOPHIL 1.1 % (0-2.0); MCH 29.4 pg (25.7-33.7); MCHC 32.5 g/dl (32.0-36.0); MEAN CELL VOLUME 90.5 fl (80-96); MEAN PLT VOLUME 10.1 fl (7.5-11.1); NEUTROPHILS 64.1 % (42.8-82.8); PLATELET COUNT 266 K/MM3 (134-434); RDW 15.1 % (11.6-15.6); WHITE BLOOD COUNT 6.9 K/mm3 (4.0-10.0)
[2017-06-18 08:18] LABS: ALK PHOS 86 U/L (45-117); ANION GAP 11 (8-16); BILIRUBIN,TOTAL 0.4 mg/dL (0.2-1.0); CALCIUM 7.6 mg/dL (8.5-10.1); CO2 24 mmol/L (21-32); CREATININE 0.3 mg/dL (0.55-1.02); GLUCOSE,RANDOM 144 mg/dL (74-106); MAGNESIUM 1.7 mg/dL (1.8-2.4); PHOSPHOROUS 2.7 mg/dL (2.5-4.9); SGOT/AST 11 U/L (15-37); SGPT/ALT 11 U/L (12-78); TOT PROT 5.1 g/dl (6.4-8.2)
[2017-06-18] MEDS ORDERED: ASPIRIN 81 MG CHEWABLE TABLETS PO SCH (10:00)
[2017-06-18] MEDS ORDERED: cefTRIAXone SODIUM 1 GM VIAL ONE (10:48)
[2017-06-18] MEDS ORDERED: DEXTROSE 5%-WATER - 50 ML IVPB ONE (10:48)
[2017-06-18] MEDS: METHIMAZOLE 5 MG TABLET (FP) PO SCH (10:50)
[2017-06-18] MEDS: METOPROLOL TARTRATE 50 MG TABLET (FP) PO SCH (10:50)
[2017-06-18] MEDS: FERROUS SO4 325 MG TABLET (FP) PO SCH (10:50)
[2017-06-18] MEDS: RIVASTIGMINE TARTRATE 1.5 MG CAPSULE PO SCH (10:51)
[2017-06-18] MEDS: POLYETHYLENE GLYCOL 3350 119 GM BTL PO SCH (10:51)
[2017-06-18] MEDS: NYSTATIN POWDER 100,000 UNITS/GM - 15 GM TOPICAL POWDER TP SCH (11:01)
[2017-06-18] MEDS: ENALAPRIL MALEATE 10 MG TABLET (FP) PO SCH (11:02)
[2017-06-18] MEDS: CEFTRIAXONE 1 GM in DEXTROSE 5%-WATER - 50 ML IVPB SCH (11:02)
[2017-06-18] MEDS ORDERED: INSULIN (NOVOLOG) ASPART 100 UNITS/ML 10ML VIAL ONE ×2 (11:54→17:09)
--- NOTE | 2017-06-18 13:21 | PN ---
Teaching Attending Note Name of Resident: Elysia Posadas ATTENDING PHYSICIAN STATEMENT I saw and evaluated the patient. I reviewed the resident's note and discussed the case with the resident. I agree with the resident's findings and plan as documented. SUBJECTIVE: no events OBJECTIVE: Awake , alert, non verbal. CV: RRR, 2/6 SM at RUSB. Lungs: Clear anteriorly Ext: RUE with is contracted. R hip with tenderness, and edema. R lateral hip surgical dressing . R groin with erythema . DP 2+ . ABd : sfot, ND, NT, NL BS ASSESSMENT AND PLAN: 81 y/o lady with h/o CVA , HTN, DM ,Right hip replacement with recent dislocation , and dementia who presented with pain in R hip and was found to have R hip dislocation and UTI 1- R hip dislocation : s/p revision hemiarthroplasty 06/15 - DVT Px . -UE PT and gentle LE range of motion - oxycodone 2.5 PRN 2- Complicated UTI: urine cx with E coli - No fever last night. but on tylenol - dc tylenol this am , and monitor for fever. - today CTx , will cont after dc with Keflex for total of 7 days 3- H/o CVA , resume ASA . 4- Dehydration : resolved , Na corrected. dc iVF 5- Tinea Cruris : Cont nystatin powder 6- DM : SSI for now metformin at dc 7- HTN: metoprolol and enalapril DVT px : heparin , DVT PX not needed per ortho ater dc If no fever today,can dc to rehab.
[2017-06-18] MEDS ORDERED: MAGNESIUM OXIDE 400 MG TABLET (FP) PO ONE (13:22)
--- NOTE | 2017-06-18 13:45 | DS ---
Physical Exam: SUBJECTIVE: Patient seen and examined OBJECTIVE: Vital Signs Period Temp Pulse Resp BP Sys/Morocho Pulse Ox Last 24 Hr 98.6 F-99.6 F 76-88 16-19 137-169/67-85 96-96 PHYSICAL EXAM GENERAL: The patient is awake, alert, at baseline with dementia, in no acute distress. HEAD: Normal with no signs of trauma. EYES: PERRL, extraocular movements intact, sclera anicteric, conjunctiva clear. LUNGS: Breath sounds equal, clear to auscultation bilaterally, no wheezes, no crackles, no accessory muscle use. HEART: Regular rate and rhythm, S1, S2 without murmur, rub or gallop. ABDOMEN: Soft, nontender, nondistended, normoactive bowel sounds, no guarding, no rebound, no hepatosplenomegaly, no masses. EXTREMITIES: 2+ pulses, warm, well-perfused, no edema. Right hip no swelling, erythema NEUROLOGICAL: Cranial nerves II through XII grossly intact. Normal speech, gait not observed. PSYCH: Normal mood, normal affect. SKIN: Warm, dry, normal turgor, no rashes or lesions noted. LABS CBC, BMP 06/18/17 07:25 06/18/17 07:25 Current Medications Generic Name Dose Route Start Last Admin Trade Name Freq PRN Reason Stop Dose Admin Aspirin 81 mg 06/18/17 10:00 06/18/17 10:50 Asa - PO 81 mg DAILY TAMMY Administration Enalapril Maleate 20 mg 06/16/17 10:00 06/18/17 11:02 Vasotec - PO 20 mg DAILY TAMMY Administration Ferrous Sulfate 325 mg 06/16/17 10:00 06/18/17 10:50 Feosol - PO 325 mg DAILY TAMMY Administration Heparin Sodium (Porcine) 5,000 unit 06/15/17 22:15 06/18/17 06:18 Heparin - SQ 5,000 unit TID TAMMY Administration Ceftriaxone Sodium 1 gm/ 50 mls @ 100 mls/hr 06/17/17 10:00 06/18/17 11:02 Dextrose IVPB 100 mls/hr DAILY TAMMY Administration Insulin Aspart 1 vial 06/15/17 16:30 06/18/17 11:56 Novolog Vial Sliding Scale - SQ 2 units ACHS TAMMY Administration Protocol Methimazole 5 mg 06/16/17 10:00 06/18/17 10:50 Tapazole - PO 5 mg DAILY TAMMY Administration Metoprolol Tartrate 50 mg 06/15/17 22:00 06/18/17 10:50 Lopressor - PO 50 mg BID TAMMY Administration Nystatin 1 applic 06/15/17 17:30 06/18/17 11:01 Nystop Powder - TP 1 applic DAILY TAMMY Administration Oxycodone HCl 2.5 mg 06/16/17 10:50 06/18/17 06:50 Roxicodone - PO 2.5 mg Q4H PRN Administration PAIN Polyethylene Glycol 17 gm 06/16/17 10:00 06/18/17 10:51 Miralax (For Daily Use) - PO 17 gm DAILY TAMMY Administration Rivastigmine Tartrate 3 mg 06/15/17 22:00 06/18/17 10:51 Exelon (Nf) - PO 3 mg BID TAMMY Administration HOSPITAL COURSE: Date of Admission:06/14/17 Date of Discharge: 06/18/17 This is an 81 year old female with a past medical history of hypertension, dementia, CVA, hyperthyroid, iron deficiency anemia, DM, who presented to the emergency room with right hip pain and inability to ambulate. Ms. Ellsworth was found to have right hip dislocation that was reduced with hemiarthroplasty. Procedure went well without complications. She is being followed by ortho and continues ROM exercises for upper and lower extremity strengthening. Patient was also found to have a complicated urinary tract infection, due to history of diabetes, which responded well to ceftriaxone in hospital. She will go home on keflex for a total of 7 days of antibiotic course. Advised to follow up with primary regarding chronic anemia and outpatient iron studies. Patient [facility] be going [facility]. Minutes to complete discharge: 35 Discharge Summary Reason For Visit: UTI RIGHT HIP DISLOCATION Current Active Problems Hip dislocation, right (Acute) History of right hip hemiarthroplasty (Acute) UTI (urinary tract infection) (Acute) Anemia (Chronic) Dementia (Chronic) Diabetes mellitus (Chronic) HTN (hypertension) (Chronic) Condition: Improved - Instructions Diet, Activity, Other Instructions: Ms Ellsworth, you have been treated for hip dislocation. Please continue do daily exercises that were shown to you by your orthopedic surgeon and follow up with him with in one week. You were also treated for a urinary tract infection. Please continue to take the remaining antibiotics as directed. If you experience any worsening of symptoms, including inability to ambulate, fever, chills, or any associated symptoms, please return to the emergency room. Referrals: Salomon eLa MD [Staff Physician] - 1 Week Rema Arredondo [Primary Care Provider] - 1 Week Disposition: HALF-WAY FACILITY - Home Medications Comprehensive Discharge Medication List: Ambulatory Orders Enalapril Maleate [Vasotec] 20 mg PO DAILY 03/28/17 Ferrous Sulfate 325 mg PO DAILY 03/28/17 Metformin HCl 850 mg PO BID 03/28/17 Methimazole 5 mg PO DAILY 03/28/17 Multivitamins [Multivit ([facility] Formulary)] 1 tab PO DAILY 03/28/17 Rivastigmine Tartrate [Exelon (Nf) -] 3 mg PO BID 03/28/17 Metoprolol Tartrate [Lopressor -] 50 mg PO BID #30 tablet 04/13/17 Aspirin [ASA -] 325 mg PO DAILY tablet 04/14/17 Acetaminophen [Pain Relief] 650 mg PO PRN PRN #30 tablet.er 06/16/17 Cephalexin [Keflex] 500 mg PO BID #8 capsule 06/16/17 Oxycodone HCl 2.5 mg PO Q4HWA #20 capsule MDD 10 06/16/17 Problem List - Problems (1) Hip dislocation, right Code(s): S73.004A - UNSPECIFIED DISLOCATION OF RIGHT HIP, INITIAL ENCOUNTER Qualifiers: Encounter type: initial encounter Qualified Code(s): S73.004A - Unspecified dislocation of right hip, initial encounter; S73.004A - Unspecified dislocation of right hip, initial encounter; S73.004A - Unspecified dislocation of right hip, initial encounter (2) UTI (urinary tract infection) Code(s): N39.0 - URINARY TRACT INFECTION, SITE NOT SPECIFIED Qualifiers: Urinary tract infection type: site unspecified Hematuria presence: without hematuria Qualified Code(s): N39.0 - Urinary tract infection, site not specified; N39.0 - Urinary tract infection, site not specified; R31.9 - Hematuria, unspecified; R31.9 - Hematuria, unspecified (3) Dementia Code(s): F03.90 - UNSPECIFIED DEMENTIA WITHOUT BEHAVIORAL DISTURBANCE Qualifiers: Dementia type: unspecified type Dementia behavioral disturbance: without behavioral disturbance Qualified Code(s): F03.90 - Unspecified dementia without behavioral disturbance; F03.90 - Unspecified dementia without behavioral disturbance; F03.90 - Unspecified dementia without behavioral disturbance (4) Diabetes mellitus Code(s): E11.9 - TYPE 2 DIABETES MELLITUS WITHOUT COMPLICATIONS Qualifiers: Diabetes mellitus type: type 2 Diabetes mellitus complication status: without complication Diabetes mellitus halfway insulin use: without halfway use Qualified Code(s): E11.9 - Type 2 diabetes mellitus without complications; E11.9 - Type 2 diabetes mellitus without complications; E11.9 - Type 2 diabetes mellitus without complications; E11.9 - Type 2 diabetes mellitus without complications (5) HTN (hypertension) Code(s): I10 - ESSENTIAL (PRIMARY) HYPERTENSION Qualifiers: Hypertension type: essential hypertension Qualified Code(s): I10 - Essential (primary) hypertension; I10 - Essential (primary) hypertension; I10 - Essential (primary) hypertension This patient is new to me today: Yes Date on this admission: 06/18/17 Emergency Visit: Yes ED Registration Date: 06/14/17 Care time: The patient presented to the Emergency Department on the above date and was hospitalized for further evaluation of their emergent condition. Critical Care patient: No - Discharge Referral Referred to [facility] No
[2017-06-18 15:06] VITALS: TEMP 98.7
[2017-06-18 15:37] VITALS: BP 159/79; PULSE 79
== END 2017-06-18 18:55 | DRG 467 ==
LOC: JER 01:36 → JERBED 06:52 → OBSVTOIN 07:13 → J6S 08:01
PROVIDERS: ADMIT Internal Medicine; ATTEND Internal Medicine
PROC: 0SWA0JZ Revision of Synthetic Substitute in Right Hip Joint, Acetabular Surface, Open Approach (ICD-10-PCS; principal; 2017-06-14)
PROC: 0L8J0ZZ Division of Right Hip Tendon, Open Approach (ICD-10-PCS; 2017-06-14)
DX: T84.020A Dislocation of internal right hip prosthesis, initial encounter (principal); N39.0 Urinary tract infection, site not specified; B96.29 Other Escherichia coli [E. coli] as the cause of diseases classified elsewhere; Z74.01 Bed confinement status; Y99.8 Other external cause status; Y92.122 Bedroom in nursing home as the place of occurrence of the external cause; Y93.F9 Activity, other caregiving; X58.XXXA Exposure to other specified factors, initial encounter; E11.9 Type 2 diabetes mellitus without complications; Z79.4 Long term (current) use of insulin; I10 Essential (primary) hypertension; E78.5 Hyperlipidemia, unspecified; Z86.73 Personal history of transient ischemic attack (TIA), and cerebral infarction without residual deficits; Z91.81 History of falling; Z96.641 Presence of right artificial hip joint; D50.9 Iron deficiency anemia, unspecified; E05.90 Thyrotoxicosis, unspecified without thyrotoxic crisis or storm; B35.6 Tinea cruris; E86.0 Dehydration
CPT/HCPCS: 36415; 73502-TC-RT; 73523-TC; 80048; 80053; 81003; 81015; 83735; 84100; 85025; 85027; 85610; 86850; 86900; 86901; 87086; 87186; 88300-TC; 90688; 93005; 93010; 94760; 97116-GP; 97161-GP; 99284-25; G0008; G0378; J1644

== ENCOUNTER 2021-08-01 21:53 | Inpatient (IN) | payer OTHER ==
[2021-08-01] MEDS ORDERED: LACTATED RINGERS SOLUTION 1000 ML INFUS.BAG IV ONE (22:50)
[2021-08-01 23:25] LABS: HEMATOCRIT 30.8 % (32.4-45.2); MCH 30.1 pg (25.7-33.7); MCHC 32.5 g/dl (32.0-36.0); MEAN CELL VOLUME 92.5 fl (80-96); MEAN PLT VOLUME 9.6 fl (7.5-11.1); PLATELET COUNT 545 10^3/uL (134-434); RBC 3.33 M/mm3 (3.60-5.2); RDW 15.6 % (11.6-15.6); WHITE BLOOD COUNT 13.3 K/mm3 (4.0-10.0)
[2021-08-01 23:37] LABS: CHLORIDE 108 mmol/L (98-107); SODIUM 136 mmol/L (136-145)
[2021-08-01 23:39] LABS: ALBUMIN 2.5 g/dl (3.4-5.0); ANION GAP 11 MMOL/L (8-16); BLOOD UREA NITROGEN 43.1 mg/dL (7-18); CO2 17 mmol/L (21-32)
[2021-08-01 23:40] LABS: MAGNESIUM 1.8 mg/dL (1.8-2.4)
[2021-08-01 23:42] LABS: CREATININE 1.5 mg/dL (0.55-1.3); SGOT/AST 12 U/L (15-37); SGPT/ALT 8 U/L (13-61)
[2021-08-01 23:43] LABS: PHOSPHOROUS 3.6 mg/dL (2.5-4.9)
[2021-08-01 23:44] LABS: BILIRUBIN,TOTAL 0.3 mg/dL (0.2-1); TOT PROT 7.7 g/dl (6.4-8.2)
[2021-08-01 23:45] LABS: ALK PHOS 98 U/L (45-117)
[2021-08-01] MEDS ORDERED: INSULIN REGULAR HUMAN 100 UNITS/ML *VIAL SQ ONE (23:51)
[2021-08-01] MEDS ORDERED: CALCIUM GLUCONATE 10% - 1,000 MG/10 ML VIAL IVPB ONE (23:57)
[2021-08-02] MEDS ORDERED: CALCIUM GLUCONATE 10% - 1,000 MG/10 ML VIAL ONE (00:05)
[2021-08-02 00:10] LABS: PLATELET ESTIMATE INCREASED
[2021-08-02 00:43] LABS: GLUCOSE,RANDOM 477 mg/dL (74-106)
[2021-08-02] MEDS: SODIUM CHLORIDE 1,000 ML IV SCH (01:53)
[2021-08-02 02:41] LABS: EPI CELLS 7 /uL (0-25.1); HYALINE CASTS 1 /uL (0-3.1); URINE APPEARANCE TURBID; URINE BACTERIA >9,000 /uL (0-1359); URINE BILIRUBIN NEGATIVE (NEGATIVE); URINE COLOR YELLOW; URINE GLUCOSE (UA) 1+ (NEGATIVE); URINE KETONE TRACE (NEGATIVE); URINE LEUK ESTERASE 3+ (NEGATIVE); URINE NITRITE NEGATIVE (NEGATIVE); URINE PROTEIN 1+ (NEGATIVE); URINE RBC 57 /uL (0-23.9); URINE UROBILINOGEN 0.2 mg/dL (0.2-1.0); URINE WBC 7377 /uL (0-25.8)
[2021-08-02] MEDS ORDERED: CEFTRIAXONE 1 GM in DEXTROSE 5%-WATER - 50 ML IVPB ONE (02:51)
[2021-08-02] MEDS ORDERED: CEFTRIAXONE 1 GM/50 ML BAG ONE (03:07)
[2021-08-02] MEDS ORDERED: PANTOPRAZOLE SODIUM 40 MG VIAL ONE (03:49)
[2021-08-02] MEDS: INSULIN SLIDING SCALE (NOVOLOG) 1 VIAL SQ SCH ×4 (06:09→21:26)
[2021-08-02 08:32] LABS: HEMATOCRIT 27.8 % (32.4-45.2); HEMOGLOBIN 9.1 GM/dL (10.7-15.3); MCH 29.9 pg (25.7-33.7); MCHC 32.7 g/dl (32.0-36.0); MEAN CELL VOLUME 91.4 fl (80-96); MEAN PLT VOLUME 9.7 fl (7.5-11.1); PLATELET COUNT 489 10^3/uL (134-434); RBC 3.04 M/mm3 (3.60-5.2); RDW 15.3 % (11.6-15.6); WHITE BLOOD COUNT 12.3 K/mm3 (4.0-10.0)
[2021-08-02 08:53] LABS: ALBUMIN 2.1 g/dl (3.4-5.0); BLOOD UREA NITROGEN 33.7 mg/dL (7-18); CALCIUM 8.8 mg/dL (8.5-10.1)
[2021-08-02 08:56] LABS: CREATININE 1.1 mg/dL (0.55-1.3); PHOSPHOROUS 2.6 mg/dL (2.5-4.9)
[2021-08-02 08:58] LABS: BILIRUBIN,TOTAL 0.2 mg/dL (0.2-1); MAGNESIUM 1.6 mg/dL (1.8-2.4); TOT PROT 6.6 g/dl (6.4-8.2)
[2021-08-02] MEDS ORDERED: DEXTROSE 5%-WATER - 50 ML IVPB ONE (11:14)
[2021-08-02] MEDS ORDERED: cefTRIAXone SODIUM 1 GM VIAL ONE (11:14)
[2021-08-02] MEDS: CEFTRIAXONE 1 GM in DEXTROSE 5%-WATER - 50 ML IVPB SCH (11:18)
[2021-08-03] MEDS: SODIUM CHLORIDE 1,000 ML IV SCH (06:18)
[2021-08-03] MEDS: INSULIN SLIDING SCALE (NOVOLOG) 1 VIAL SQ SCH ×4 (06:18→21:15)
[2021-08-03] MEDS ORDERED: cefTRIAXone SODIUM 1 GM VIAL ONE (10:10)
[2021-08-03] MEDS ORDERED: DEXTROSE 5%-WATER - 50 ML IVPB ONE (10:10)
[2021-08-03] MEDS: CEFTRIAXONE 1 GM in DEXTROSE 5%-WATER - 50 ML IVPB SCH (10:29)
[2021-08-04] MEDS: SODIUM CHLORIDE 1,000 ML IV SCH (01:23)
[2021-08-04] MEDS: INSULIN SLIDING SCALE (NOVOLOG) 1 VIAL SQ SCH ×4 (06:04→21:03)
[2021-08-04] MEDS ORDERED: DEXTROSE 5%-WATER - 50 ML IVPB ONE (09:00)
[2021-08-04] MEDS ORDERED: cefTRIAXone SODIUM 1 GM VIAL ONE (09:00)
[2021-08-04] MEDS: CEFTRIAXONE 1 GM in DEXTROSE 5%-WATER - 50 ML IVPB SCH (09:03)
[2021-08-04] MEDS ORDERED: INSULIN (NOVOLOG) ASPART 100 UNITS/ML 10ML VIAL ONE (21:00)
[2021-08-05] MEDS: SODIUM CHLORIDE 1,000 ML IV SCH (05:50)
[2021-08-05] MEDS: INSULIN SLIDING SCALE (NOVOLOG) 1 VIAL SQ SCH ×4 (06:00→21:30)
[2021-08-05 11:24] LABS: HEMATOCRIT 29.3 % (32.4-45.2); HEMOGLOBIN 8.9 GM/dL (10.7-15.3); MCH 29.2 pg (25.7-33.7); MCHC 30.3 g/dl (32.0-36.0); MEAN CELL VOLUME 96.2 fl (80-96); MEAN PLT VOLUME 9.7 fl (7.5-11.1); PLATELET COUNT 412 10^3/uL (134-434); RBC 3.05 M/mm3 (3.60-5.2); RDW 16.8 % (11.6-15.6)
[2021-08-05 11:57] LABS: ANISOCYTOSIS 0; MACROCYTOSIS 0; PLATELET ESTIMATE NORMAL
[2021-08-05 13:48] LABS: ALBUMIN 1.8 g/dl (3.4-5.0); BILIRUBIN,TOTAL 0.6 mg/dL (0.2-1); CALCIUM 7.9 mg/dL (8.5-10.1); TOT PROT 6.4 g/dl (6.4-8.2)
[2021-08-05] MEDS: KCL 10 MEQ IVPB 10 MEQ/100 ML INFUS.BAG IVPB SCH ×2 (16:58→18:01)
[2021-08-05] MEDS ORDERED: SODIUM CHLORIDE 0.45%/POT 20 MEQ/1,000 ML INFUS.BAG IV SCH (17:00)
[2021-08-05 18:51] LABS: EPI CELLS 14 /uL (0-25.1); HYALINE CASTS 1 /uL (0-3.1); URINE APPEARANCE TURBID; URINE BACTERIA 3842 /uL (0-1359); URINE BILIRUBIN NEGATIVE (NEGATIVE); URINE COLOR YELLOW; URINE GLUCOSE (UA) NEGATIVE (NEGATIVE); URINE KETONE 1+ (NEGATIVE); URINE LEUK ESTERASE 3+ (NEGATIVE); URINE NITRITE NEGATIVE (NEGATIVE); URINE PROTEIN 1+ (NEGATIVE); URINE UROBILINOGEN 0.2 mg/dL (0.2-1.0); URINE WBC 31662 /uL (0-25.8)
[2021-08-05 23:25] LABS: URINE RBC 267 /uL (0-23.9)
[2021-08-06] MEDS: INSULIN SLIDING SCALE (NOVOLOG) 1 VIAL SQ SCH ×4 (06:02→21:21)
[2021-08-06 08:49] LABS: HEMATOCRIT 29.2 % (32.4-45.2); HEMOGLOBIN 9.2 GM/dL (10.7-15.3); MCH 29.6 pg (25.7-33.7); MCHC 31.5 g/dl (32.0-36.0); MEAN CELL VOLUME 93.9 fl (80-96); MEAN PLT VOLUME 10.1 fl (7.5-11.1); PLATELET COUNT 440 10^3/uL (134-434); RBC 3.11 M/mm3 (3.60-5.2); RDW 16.5 % (11.6-15.6); WHITE BLOOD COUNT 16.2 K/mm3 (4.0-10.0)
[2021-08-06 10:31] LABS: ALBUMIN 1.9 g/dl (3.4-5.0); BILIRUBIN,TOTAL 0.4 mg/dL (0.2-1); BLOOD UREA NITROGEN 20.6 mg/dL (7-18); CALCIUM 7.5 mg/dL (8.5-10.1); CREATININE 0.9 mg/dL (0.55-1.3); TOT PROT 6.4 g/dl (6.4-8.2)
[2021-08-06 10:40] LABS: ANISOCYTOSIS 0; HELMET CELLS 0; HOWELL-JOLLY BODIES 0; MACROCYTOSIS 0; OVALOCYTE 0; PLATELET ESTIMATE NORMAL; ROULEAU 0; SICKELED CELLS 0; TARGET CELLS 0; TEAR DROP CELLS 0; TOXIC GRANULATION 0
[2021-08-06] MEDS ORDERED: POTASSIUM CHLORIDE ORAL LIQUID 20 MEQ/15 ML PO ONE (11:39)
[2021-08-06] MEDS ORDERED: DEXTROSE 5%-WATER - 1,000 ML with POTASSIUM CHLORIDE 20 MEQ IV SCH (11:45)
[2021-08-06] MEDS: POTASSIUM CHLORIDE 20 MEQ in DEXTROSE 5%-WATER - 1,000 ML IVPB SCH (13:30)
[2021-08-06] MEDS: KCL 10 MEQ IVPB 10 MEQ/100 ML INFUS.BAG IVPB SCH ×2 (13:30→15:20)
[2021-08-06] MEDS ORDERED: KCL 10 MEQ IVPB 10 MEQ/100 ML INFUS.BAG IVPB SCH (15:30)
[2021-08-07] MEDS: POTASSIUM CHLORIDE 20 MEQ in DEXTROSE 5%-WATER - 1,000 ML IVPB SCH ×3 (00:45→13:21)
[2021-08-07] MEDS: INSULIN SLIDING SCALE (NOVOLOG) 1 VIAL SQ SCH ×4 (06:04→21:31)
[2021-08-07 11:14] LABS: CALCIUM 7.4 mg/dL (8.5-10.1); CREATININE 0.9 mg/dL (0.55-1.3); PHOSPHOROUS 1.2 mg/dL (2.5-4.9)
[2021-08-07 11:15] LABS: ALBUMIN 1.7 g/dl (3.4-5.0); BILIRUBIN,TOTAL 0.3 mg/dL (0.2-1); MAGNESIUM 1.3 mg/dL (1.8-2.4); TOT PROT 5.8 g/dl (6.4-8.2)
[2021-08-07] MEDS ORDERED: INSULIN (NOVOLOG) ASPART 100 UNITS/ML 10ML VIAL ONE (11:57)
[2021-08-07] MEDS ORDERED: MAGNESIUM 2GM/50ML STERILE WATER IVPB IVPB ONE (13:21)
[2021-08-07] MEDS ORDERED: POTASSIUM PHOSPHATE 30 MM in DEXTROSE 5%-WATER - 500 ML IVPB ONE (14:00)
[2021-08-07] MEDS ORDERED: CEFTRIAXONE 1 GM in DEXTROSE 5%-WATER - 50 ML IVPB SCH (14:00)
[2021-08-07] MEDS ORDERED: PIPERACILLIN/TAZOBACTAM 3.375 GM VIAL IVPB ONE ×2 (15:14→23:14)
[2021-08-07] MEDS ORDERED: DEXTROSE 5%-WATER - 50 ML IVPB ONE ×2 (15:15→23:14)
[2021-08-07] MEDS: PIPERACILLIN/TAZOB 3.375 GM 3.375 GM in DEXTROSE 5%-WATER - 50 ML IVPB SCH ×2 (15:18→23:20)
[2021-08-07 23:59] VITALS: BMI 14.8
[2021-08-08] MEDS: POTASSIUM CHLORIDE 20 MEQ in DEXTROSE 5%-WATER - 1,000 ML IVPB SCH ×3 (02:14→15:49)
[2021-08-08] MEDS ORDERED: PIPERACILLIN/TAZOBACTAM 3.375 GM VIAL IVPB ONE ×3 (05:45→22:05)
[2021-08-08] MEDS ORDERED: DEXTROSE 5%-WATER - 50 ML IVPB ONE ×3 (05:45→22:06)
[2021-08-08] MEDS: PIPERACILLIN/TAZOB 3.375 GM 3.375 GM in DEXTROSE 5%-WATER - 50 ML IVPB SCH ×3 (05:55→22:28)
[2021-08-08] MEDS: INSULIN SLIDING SCALE (NOVOLOG) 1 VIAL SQ SCH ×4 (06:05→22:28)
[2021-08-09] MEDS ORDERED: DEXTROSE 5%-WATER - 50 ML IVPB ONE ×3 (06:31→22:34)
[2021-08-09] MEDS ORDERED: PIPERACILLIN/TAZOBACTAM 3.375 GM VIAL IVPB ONE ×3 (06:31→22:34)
[2021-08-09] MEDS: POTASSIUM CHLORIDE 20 MEQ in DEXTROSE 5%-WATER - 1,000 ML IVPB SCH ×2 (06:33→16:57)
[2021-08-09] MEDS: PIPERACILLIN/TAZOB 3.375 GM 3.375 GM in DEXTROSE 5%-WATER - 50 ML IVPB SCH ×3 (06:36→22:35)
[2021-08-09] MEDS: INSULIN SLIDING SCALE (NOVOLOG) 1 VIAL SQ SCH ×4 (06:37→22:32)
[2021-08-09 11:05] LABS: CHLORIDE 114 mmol/L (98-107); SODIUM 141 mmol/L (136-145)
[2021-08-09 11:10] LABS: MAGNESIUM 1.3 mg/dL (1.8-2.4)
[2021-08-09 11:11] LABS: ALBUMIN 1.4 g/dl (3.4-5.0); ANION GAP 10 MMOL/L (8-16); CO2 18 mmol/L (21-32); GLUCOSE,RANDOM 262 mg/dL (74-106)
[2021-08-09 11:12] LABS: BLOOD UREA NITROGEN 13.6 mg/dL (7-18)
[2021-08-09 11:14] LABS: TOT PROT 5.7 g/dl (6.4-8.2)
[2021-08-09 11:15] LABS: BILIRUBIN,TOTAL 0.4 mg/dL (0.2-1); SGOT/AST 7 U/L (15-37)
[2021-08-09 11:16] LABS: ALK PHOS 84 U/L (45-117); SGPT/ALT 8 U/L (13-61)
[2021-08-09 11:28] LABS: CALCIUM 6.7 mg/dL (8.5-10.1)
[2021-08-09] MEDS ORDERED: MAGNESIUM SULF 50% (8.12 MEQ/2 ML-1 GM VIAL) IVPB ONE (12:30)
[2021-08-09] MEDS ORDERED: INSULIN SLIDING SCALE (NOVOLOG) 1 VIAL SQ SCH (22:34)
[2021-08-10] MEDS ORDERED: DEXTROSE 5%-WATER - 50 ML IVPB ONE ×3 (05:51→21:47)
[2021-08-10] MEDS ORDERED: PIPERACILLIN/TAZOBACTAM 3.375 GM VIAL IVPB ONE ×3 (05:51→21:47)
[2021-08-10] MEDS: INSULIN SLIDING SCALE (NOVOLOG) 1 VIAL SQ SCH ×4 (06:40→21:49)
[2021-08-10] MEDS: PIPERACILLIN/TAZOB 3.375 GM 3.375 GM in DEXTROSE 5%-WATER - 50 ML IVPB SCH ×3 (06:41→21:49)
[2021-08-10 09:33] LABS: HEMATOCRIT 25.1 % (32.4-45.2); MCH 29.9 pg (25.7-33.7); MCHC 31.9 g/dl (32.0-36.0); MEAN CELL VOLUME 93.8 fl (80-96); MEAN PLT VOLUME 10.8 fl (7.5-11.1); PLATELET COUNT 385 10^3/uL (134-434); RBC 2.68 M/mm3 (3.60-5.2); RDW 16.4 % (11.6-15.6); WHITE BLOOD COUNT 14.2 K/mm3 (4.0-10.0)
[2021-08-10 11:15] LABS: CO2 16 mmol/L (21-32)
[2021-08-10 11:16] LABS: ANION GAP 11 MMOL/L (8-16); BLOOD UREA NITROGEN 11.7 mg/dL (7-18); CHLORIDE 112 mmol/L (98-107); GLUCOSE,RANDOM 278 mg/dL (74-106); MAGNESIUM 1.8 mg/dL (1.8-2.4); SODIUM 140 mmol/L (136-145)
[2021-08-10 11:19] LABS: CREATININE 0.9 mg/dL (0.55-1.3)
[2021-08-10] MEDS: POTASSIUM CHLORIDE 20 MEQ in DEXTROSE 5%-WATER - 1,000 ML IVPB SCH (11:36)
[2021-08-10 12:11] LABS: CALCIUM 6.9 mg/dL (8.5-10.1)
[2021-08-10] MEDS: POTASSIUM CHLORIDE 10 MEQ in DEXTROSE 5%-WATER - 1,000 ML IVPB SCH (17:22)
[2021-08-10] MEDS ORDERED: PT OWN MED DRAWER 7, Y5N ONE (22:24)
[2021-08-11] MEDS: POTASSIUM CHLORIDE 10 MEQ in DEXTROSE 5%-WATER - 1,000 ML IVPB SCH (01:37)
[2021-08-11] MEDS ORDERED: PIPERACILLIN/TAZOBACTAM 3.375 GM VIAL IVPB ONE ×3 (06:00→21:28)
[2021-08-11] MEDS ORDERED: DEXTROSE 5%-WATER - 50 ML IVPB ONE ×3 (06:00→21:28)
[2021-08-11] MEDS: INSULIN SLIDING SCALE (NOVOLOG) 1 VIAL SQ SCH ×4 (06:24→21:48)
[2021-08-11] MEDS: PIPERACILLIN/TAZOB 3.375 GM 3.375 GM in DEXTROSE 5%-WATER - 50 ML IVPB SCH ×3 (06:24→21:47)
[2021-08-11 09:28] LABS: BASO % 0.2 % (0-2.0); EOS % 1.5 % (0-4.5); HEMATOCRIT 22.4 % (32.4-45.2); HEMOGLOBIN 7.3 GM/dL (10.7-15.3); LYMPH % 14.6 % (8-40); MCH 29.7 pg (25.7-33.7); MCHC 32.5 g/dl (32.0-36.0); MEAN CELL VOLUME 91.4 fl (80-96); MEAN PLT VOLUME 10.8 fl (7.5-11.1); MONO % 5.1 % (3.8-10.2); NEUT % 78.6 % (42.8-82.8); PLATELET COUNT 364 10^3/uL (134-434); RBC 2.45 M/mm3 (3.60-5.2); RDW 16.6 % (11.6-15.6); WHITE BLOOD COUNT 11.6 K/mm3 (4.0-10.0)
[2021-08-11 09:58] LABS: ALBUMIN 1.5 g/dl (3.4-5.0); BLOOD UREA NITROGEN 8.5 mg/dL (7-18); CALCIUM 7.2 mg/dL (8.5-10.1)
[2021-08-11 10:03] LABS: BILIRUBIN,TOTAL 0.3 mg/dL (0.2-1); TOT PROT 5.5 g/dl (6.4-8.2)
[2021-08-11 10:07] LABS: CREATININE 0.8 mg/dL (0.55-1.3)
[2021-08-11] MEDS ORDERED: FUROSEMIDE 40 MG/4 ML INJECTABLE VIAL IVPUSH ONE (13:00)
[2021-08-12 02:09] LABS: BASO % 0.1 % (0-2.0); EOS % 1.3 % (0-4.5); HEMATOCRIT 22.9 % (32.4-45.2); HEMOGLOBIN 7.2 GM/dL (10.7-15.3); LYMPH % 16.6 % (8-40); MCH 29.3 pg (25.7-33.7); MCHC 31.7 g/dl (32.0-36.0); MEAN CELL VOLUME 92.5 fl (80-96); MEAN PLT VOLUME 10.6 fl (7.5-11.1); MONO % 6.9 % (3.8-10.2); NEUT % 75.1 % (42.8-82.8); PLATELET COUNT 377 10^3/uL (134-434); RBC 2.47 M/mm3 (3.60-5.2); RDW 16.9 % (11.6-15.6); WHITE BLOOD COUNT 10.5 K/mm3 (4.0-10.0)
[2021-08-12] MEDS ORDERED: PIPERACILLIN/TAZOBACTAM 3.375 GM VIAL IVPB ONE ×3 (05:55→21:46)
[2021-08-12] MEDS ORDERED: DEXTROSE 5%-WATER - 50 ML IVPB ONE ×3 (05:55→21:47)
[2021-08-12] MEDS: PIPERACILLIN/TAZOB 3.375 GM 3.375 GM in DEXTROSE 5%-WATER - 50 ML IVPB SCH ×3 (05:57→21:49)
[2021-08-12] MEDS: INSULIN SLIDING SCALE (NOVOLOG) 1 VIAL SQ SCH ×4 (06:02→21:51)
[2021-08-12 14:07] LABS: THYROID STIM IMMUNOGLOBULIN 0.2 IU/L (0.00-0.55)
[2021-08-13 00:23] VITALS: BP 130/67; PULSE 97; TEMP 98.1
== END 2021-08-13 04:33 | disposition home or self-care (01) | DRG 884 ==
LOC: JER 21:53 → JERBED 22:36 → J6S 08-02 04:31
PROVIDERS: ADMIT Internal Medicine; ATTEND Family Medicine
DX: F03.90 Unspecified dementia, unspecified severity, without behavioral disturbance, psychotic disturbance, mood disturbance, and anxiety (principal); R64 Cachexia; N17.9 Acute kidney failure, unspecified; N39.0 Urinary tract infection, site not specified; Z68.1 Body mass index [BMI] 19.9 or less, adult; E87.0 Hyperosmolality and hypernatremia; R62.7 Adult failure to thrive; D72.829 Elevated white blood cell count, unspecified; E05.90 Thyrotoxicosis, unspecified without thyrotoxic crisis or storm; E87.6 Hypokalemia; I10 Essential (primary) hypertension; E87.5 Hyperkalemia; D75.839 Thrombocytosis, unspecified; E11.65 Type 2 diabetes mellitus with hyperglycemia
CPT/HCPCS: 36415; 71045-TC-FY; 80048; 80053; 81003; 82607; 82962; 83036; 83735; 84100; 84439; 84443; 84445; 84479; 84481; 85025; 85027; 86922; 87040; 87086; 87186; 93005; 93010; 99285-25; C9803; J3480; U0003; U0005